=== PATIENT | female | born 1935 | race Caucasian/White ===

== ENCOUNTER 2017-06-15 11:33 | Emergency (ER) | payer MEDICARE, BC ==
[2017-06-15] MEDS ORDERED: Aspirin 81 MG Tab.Chew PO ONE (12:00)
--- NOTE | 2017-06-15 12:01 | EDM.PDOC ---
ED HPI GENERAL MEDICAL PROBLEM - General Chief Complaint: Chest Pain Stated Complaint: HBP Time Seen by Provider: 06/15/17 12:01 Source of Information: Reports: Patient - History of Present Illness INITIAL COMMENTS - FREE TEXT/NARRATIVE: HISTORY AND PHYSICAL: History of present illness: [Patient with two-year history of vertigo and macular degeneration presents with with intermittent dizziness and blurred vision, last symptoms were several days ago she is currently asymptomatic but stated she felt lightheaded just prior to arrival currently she is in no distress and asymptomatic. With extreme positioning of head looking up at ceiling and bringing her head down she does get somewhat lightheaded feeling aloof but does not get dizzy no symptoms with chin to chest slight dizziness with head tilt to the left Review of systems: As per history of present illness and below otherwise all systems reviewed and negative. Past medical history: As per history of present illness and as reviewed below otherwise noncontributory. Surgical history: As per history of present illness and as reviewed below otherwise noncontributory. Social history: No reported history of drug or alcohol abuse. Family history: As per history of present illness and as reviewed below otherwise noncontributory. Physical exam: HEENT: Atraumatic, normocephalic, pupils reactive, negative for conjunctival pallor or scleral icterus, mucous membranes moist, throat clear, neck supple, nontender, trachea midline. Lungs: Clear to auscultation, breath sounds equal bilaterally, chest nontender. Heart: S1S2, regular, negative for clicks, rubs, or JVD. Abdomen: Soft, nondistended, nontender. Negative for masses or hepatosplenomegaly. Negative for costovertebral tenderness. Pelvis: Stable nontender. Genitourinary: Deferred. Rectal: Deferred. Extremities: Atraumatic, negative for cords or calf pain. Neurovascular unremarkable. Neuro: Awake, alert, oriented. Cranial nerves II through XII unremarkable. Cerebellum unremarkable. Motor and sensory unremarkable throughout. Exam nonfocal. Diagnostics: []Lab as below EKG Chest 1 view Therapeutics: []Scopolamine patch Impression: []Benign positional vertigo Chronic history of baseline Definitive disposition and diagnosis as appropriate pending reevaluation and review of above. - Related Data Allergies Allergy/AdvReac Type Severity Reaction Status Date / Time morphine Allergy Hives Verified 02/18/15 11:26 Home Meds: Home Meds Levothyroxine 75 mcg PO DAILY 02/13/14 [History] Losartan Potassium 1 tab PO DAILY 02/13/14 [History] Carboxymethylcellulose Sodium [Refresh Liquigel 1%] 1 drop EYEBOTH QID 01/15/15 [History] Aspirin 81 mg PO BEDTIME #1 tab.chew 01/16/15 [Rx] Past Medical History - Past Surgical History Other GI Surgeries/Procedures: Appendectomy Social & Family History - Tobacco Use Smoking Status *Q: Never Smoker Second Hand Smoke Exposure: No - Alcohol Use Days Per Week of Alcohol Use: 0 - Recreational Drug Use Recreational Drug Use: No ED ROS GENERAL - Review of Systems Review Of Systems: ROS reveals no pertinent complaints other than HPI. ED EXAM, GENERAL - Physical Exam Exam: See Below Course - Vital Signs Last Recorded V/S: Last Vital Signs Temp 97.4 F 06/15/17 11:50 Pulse 74 06/15/17 11:50 Resp 18 06/15/17 11:50 BP 195/89 H 06/15/17 11:50 Pulse Ox 99 06/15/17 11:50 - Orders/Labs/Meds Orders: Active Orders 24 hr Category Date Time Status EKG Documentation Completion [RC] STAT Care 06/15/17 12:00 Active UA W/MICROSCOPIC [URIN] Stat Lab 06/15/17 12:30 Results Labs: Laboratory Tests 06/15/17 06/15/17 06/15/17 Range/Units 11:45 11:45 12:30 WBC 7.88 (4.0-11.0) K/uL RBC 4.82 (4.30-5.90) M/uL Hgb 14.9 (12.0-16.0) g/dL Hct 45.3 (36.0-46.0) % MCV 94.0 (80.0-98.0) fL MCH 30.9 (27.0-32.0) pg MCHC 32.9 (31.0-37.0) g/dL RDW Std Deviation 48.5 (28.0-62.0) fl RDW Coeff of Kaylee 14 (11.0-15.0) % Plt Count 240 (150-400) K/uL MPV 11.20 (7.40-12.00) fL Neut % (Auto) 56.9 (48.0-80.0) % Lymph % (Auto) 29.7 (16.0-40.0) % [place] % (Auto) 9.5 (0.0-15.0) % Eos % (Auto) 3.4 (0.0-7.0) % Baso % (Auto) 0.5 (0.0-1.5) % Neut # (Auto) 4.5 (1.4-5.7) K/uL Lymph # (Auto) 2.3 (0.6-2.4) K/uL [place] # (Auto) 0.8 (0.0-0.8) K/uL Eos # (Auto) 0.3 (0.0-0.7) K/uL Baso # (Auto) 0.0 (0.0-0.1) K/uL Nucleated RBC % 0.0 /100WBC Nucleated RBCs # 0 K/uL Sodium 140 (136-146) mmol/L Potassium 3.8 (3.5-5.1) mmol/L Chloride 104 (98-110) mmol/L Carbon Dioxide 27 (21-31) mmol/L BUN 16 (6.0-23.0) mg/dL Creatinine 0.8 (0.6-1.5) mg/dL Est Cr Clr Drug Dosing TNP Estimated GFR (MDRD) > 60.0 ml/min Glucose 99 (60-110) mg/dL Calcium 10.1 (8.8-10.8) mg/dL Total Bilirubin 0.8 (0.1-1.5) mg/dL AST 23 (5-40) IU/L ALT 36 (8-54) IU/L Alkaline Phosphatase 71 (40-150) Troponin I < 0.10 (0.0-0.29) NG/ML Total Protein 7.8 (6.0-8.0) g/dL Albumin 4.3 (3.4-4.8) g/dL Globulin 3.5 (2.0-3.5) g/dL Albumin/Globulin Ratio 1.2 L (1.3-2.8) Urine Color YELLOW Urine Appearance CLEAR Urine pH 7.0 (5.0-8.0) Ur Specific [place] 1.010 (1.001-1.035) Urine Protein NEGATIVE (NEGATIVE) mg/dL Urine Glucose (UA) NEGATIVE (NEGATIVE) mg/dL Urine Ketones NEGATIVE (NEGATIVE) mg/dL Urine Occult Blood TRACE-INTACT (NEGATIVE) Urine Nitrite NEGATIVE (NEGATIVE) Urine Bilirubin NEGATIVE (NEGATIVE) Urine Urobilinogen 0.2 (<2.0) EU/dL Ur Leukocyte Esterase NEGATIVE (NEGATIVE) Meds: Medications Discontinued Medications Generic Name Dose Route Start Last Admin Trade Name Filippo PRN Reason Stop Dose Admin Aspirin 324 mg 06/15/17 12:00 06/15/17 12:15 Aspirin PO 06/15/17 12:01 324 mg ONETIME ONE Administration Departure - Departure Time of Disposition: 13:10 Disposition: Home, Self-Care 01 Condition: Good Clinical Impression: Benign positional vertigo - Discharge Information Referrals: PCP,None [Primary Care Provider] - Forms: ED Department Discharge Additional Instructions: Blood pressure is stable at current please follow with your primary care provider to further control blood pressure He symptoms seem to have a positional component consistent with your prior history of benign positional vertigo Return if symptoms persist or worsen or new concerning symptoms develop Follow-up with Dr. james in 2 weeks sooner as needed The following information is given to patients seen in the emergency department who are being discharged to home. This information is to outline your options for follow-up care. We provide all patients seen in our emergency department with a follow-up referral. The need for follow-up, as well as the timing and circumstances, are variable depending upon the specifics of your emergency department visit. If you don't have a primary care physician on staff, we will provide you with a referral. We always advise you to contact your personal physician following an emergency department visit to inform them of the circumstance of the visit and for follow-up with them and/or the need for any referrals to a consulting specialist. The emergency department will also refer you to a specialist when appropriate. This referral assures that you have the opportunity for follow-up care with a specialist. All of these measure are taken in an effort to provide you with optimal care, which includes your follow-up. Under all circumstances we always encourage you to contact your private physician who remains a resource for coordinating your care. When calling for follow-up care, please make the office aware that this follow-up is from your recent emergency room visit. If for any reason you are refused follow-up, please contact the [facility] emergency department at and asked to speak to the emergency department charge nurse. - My Orders Last 24 Hours: My Active Orders 06/15/17 12:00 EKG Documentation Completion [RC] STAT 06/15/17 12:30 UA W/MICROSCOPIC [URIN] Stat - Assessment/Plan Last 24 Hours: My Active Orders 06/15/17 12:00 EKG Documentation Completion [RC] STAT 06/15/17 12:30 UA W/MICROSCOPIC [URIN] Stat
[2017-06-15 12:21] LABS: CHLORIDE,CL 104 mmol/L (98-110); SODIUM,NA 140 mmol/L (136-146)
--- NOTE | 2017-06-15 12:52 | CR ---
EXAMINATION: Portable chest radiograph. HISTORY: Pain. FINDINGS: The trachea is midline. The cardiomediastinal silhouette is within normal limits. No pulmonary infilt rates, effusions or pneumothorax. Mild biapical scarring. Osseous structures appear unremarkable. IMPRESSION: No acute cardiopulmonary process.
[2017-06-15 13:41] VITALS: BP 163/68
== END 2017-06-15 13:25 | disposition home or self-care (01) ==
LOC: MW.ED 11:33
DX: H81.10 Benign paroxysmal vertigo, unspecified ear (principal); Z88.5 Allergy status to narcotic agent; Z79.82 Long term (current) use of aspirin; Z79.899 Other long term (current) drug therapy
CPT/HCPCS: 36415; 71010; 80053; 81001; 84484; 85025; 93005; 99284; A9270; 99283

== ENCOUNTER 2017-07-15 10:13 | Observation (INO) | payer MEDICARE, BC ==
[2017-07-15] MEDS ORDERED: Sodium Chloride 0.9% 10 ML Syringe FLUSH PRN (10:14)
[2017-07-15] MEDS ORDERED: Sodium Chloride 0.9% 2.5 ML Syringe FLUSH PRN (10:14)
[2017-07-15] MEDS ORDERED: Nitroglycerin 0.4 MG Tab.SL SL PRN (10:19)
[2017-07-15] MEDS ORDERED: Sodium Chloride 0.9% 1,000 ML IV ONE (10:19)
--- NOTE | 2017-07-15 10:25 | EDM.PDOC ---
ED HPI GENERAL MEDICAL PROBLEM - General Stated Complaint: UNK Time Seen by Provider: 07/15/17 10:14 Source of Information: Reports: Patient History Limitations: Reports: No Limitations - History of Present Illness INITIAL COMMENTS - FREE TEXT/NARRATIVE: HISTORY AND PHYSICAL: History of present illness: Patient is an 81-year-old female who presents to the emergency room from the [facility] after having a high blood pressure reading. She states she presented initially to the clinic with some facial and neck redness and swelling. If she has a "gland infection" in her neck. Her primary care provider states that her blood pressure was in the high 190's over 110's and felt more comfortable with her being evaluated in the emergency room. Patient complains of the facial redness and swelling and tenderness to her right side of her neck. Does complain of some dizziness which is worse with movement. She denies any headache, change in vision, chest pain, shortness of breath, abdominal pain, nausea, vomiting or diarrhea. Has no bowel or bladder complaints or concerns. Patient reports that she does have a history of a salivary "gland infection", which she received oral antibiotics for. She states that her neck tenderness feels similar. The pain and swelling occur normally after eating. Past medical history of hypertension, thyroid disorder, vertigo. Once recently admitted to the hospital in May 2017 for an episode of vertigo and rule out chest pain. She was discharged home at that time. Has been following up with Dr. Patel, her primary care provider. Review of systems: As per history of present illness and below otherwise all systems reviewed and negative. Past medical history: As per history of present illness and as reviewed below otherwise noncontributory. Surgical history: As per history of present illness and as reviewed below otherwise noncontributory. Social history: No reported history of drug or alcohol abuse. Family history: As per history of present illness and as reviewed below otherwise noncontributory. Physical exam: General: Well-developed and well-nourished 81-year-old female. Alert and oriented. Nontoxic appearing and in no acute distress. HEENT: Atraumatic, normocephalic, pupils reactive, negative for conjunctival pallor or scleral icterus, mucous membranes moist, throat clear, neck supple, lymphadenopathy noted to the right anterior chain with mild tenderness, trachea midline. Mild facial flushing noted to the right cheek. Lungs: Clear to auscultation, breath sounds equal bilaterally, chest nontender. Heart: S1S2, regular rate and rhythm without overt murmurs Abdomen: Soft, nondistended, nontender. Negative for masses or hepatosplenomegaly. Negative for costovertebral tenderness. Pelvis: Stable nontender. Genitourinary: Deferred. Rectal: Deferred. Extremities: Atraumatic, ambulatory, moves all extremities per self. negative for cords or calf pain. Neurovascular unremarkable. Neuro: Awake, alert, oriented. Cranial nerves II through XII unremarkable. Cerebellum unremarkable. Motor and sensory unremarkable throughout. Exam nonfocal. Patient's blood pressure went from 212/125 down to 117/66 after 1 dose of nitroglycerin. She voices frustration that her blood pressure keeps going back and forth and "nobody can figure out what medicines to give me" to help manage her blood pressure. She states that her main concern now is just the soft tissue neck swelling and tenderness. BP reading back up to 167/89. He has some mild dizziness and nausea at this time. Patient is agreeable to stay overnight and Dr. Oneal was consulted at this time. Dr. Oneal is going to admit the patient for observation/telemetry for dizziness and hypertension. Diagnostics: CBC, CMP, troponin, EKG, one view chest Therapeutics: IV fluid, nitroglycerin Impression: Uncontrolled Hypertension Dizziness Possible parotid gland infection vs salivary stone, right Plan: Observation admission with telemetry to [facility] for dizziness and hypertension. Definitive disposition and diagnosis as appropriate pending reevaluation and review of above. Duration: Day(s): bilateral glands Pain Score (Numeric/FACES): 3 - Related Data Allergies Allergy/AdvReac Type Severity Reaction Status Date / Time morphine Allergy Hives Verified 07/15/17 10:22 Home Meds: Home Meds Levothyroxine 75 mcg PO ACBREAKFAST 02/13/14 [History] Aspirin 81 mg PO BEDTIME #1 tab.chew 01/16/15 [Rx] Hydrochlorothiazide 25 mg PO DAILY 07/15/17 [History] Valsartan 80 mg PO DAILY 07/15/17 [History] amLODIPine [Norvasc] 5 mg PO DAILY 07/15/17 [History] Past Medical History Cardiovascular History: Reports: Heart Murmur, Hypertension - Infectious Disease History Infectious Disease History: Reports: Chicken Pox, Measles, Mumps - Past Surgical History Other GI Surgeries/Procedures: Appendectomy Social & Family History - Family History Family Medical History: Noncontributory - Tobacco Use Smoking Status *Q: Never Smoker Second Hand Smoke Exposure: No - Caffeine Use Caffeine Use: Reports: Coffee - Alcohol Use Days Per Week of Alcohol Use: 0 - Recreational Drug Use Recreational Drug Use: No ED ROS GENERAL - Review of Systems Review Of Systems: ROS reveals no pertinent complaints other than HPI. ED EXAM, GENERAL - Physical Exam Exam: See Below (See dictation) Course - Vital Signs Last Recorded V/S: Last Vital Signs Temp 97.6 F 07/15/17 10:25 Pulse 111 H 07/15/17 10:54 Resp 16 07/15/17 10:54 BP 117/66 07/15/17 10:54 Pulse Ox 93 L 07/15/17 10:54 - Orders/Labs/Meds Orders: Active Orders 24 hr Category Date Time Status EKG Documentation Completion [RC] STAT Care 07/15/17 10:14 Active CULTURE STREP A CONFIRMATION [RM] Stat Lab 07/15/17 10:38 Results STREP SCRN A RAPID W CULT CONF [RM] Stat Lab 07/15/17 10:38 Results UA W/MICROSCOPIC [URIN] Stat Lab 07/15/17 10:20 Uncollected Nitroglycerin [Nitrostat] Med 07/15/17 10:19 Active 0.4 mg SL Q5M PRN Sodium Chloride 0.9% [Normal Saline] 1,000 ml Med 07/15/17 10:19 Active IV STAT Sodium Chloride 0.9% [Saline Flush] Med 07/15/17 10:14 Active 10 ml FLUSH ASDIRECTED PRN Sodium Chloride 0.9% [Saline Flush] Med 07/15/17 10:14 Active 2.5 ml FLUSH ASDIRECTED PRN Saline Lock Insert [OM.PC] Stat Oth 07/15/17 10:14 Ordered Medication Orders Sodium Chloride (Normal Saline) 1,000 mls @ 125 mls/hr IV STAT ONE Stop: 07/15/17 18:18 Last Admin: 07/15/17 10:44 Dose: 125 mls/hr Nitroglycerin (Nitrostat) 0.4 mg SL Q5M PRN PRN Reason: Chest Pain Last Admin: 07/15/17 10:47 Dose: 0.4 mg Sodium Chloride (Saline Flush) 10 ml FLUSH ASDIRECTED PRN PRN Reason: Keep Vein Open Last Admin: 07/15/17 10:45 Dose: 10 ml Sodium Chloride (Saline Flush) 2.5 ml FLUSH ASDIRECTED PRN PRN Reason: Keep Vein Open Last Admin: 07/15/17 10:45 Dose: 2.5 ml Labs: Laboratory Tests 07/15/17 07/15/17 Range/Units 10:30 10:30 WBC 7.49 (4.0-11.0) K/uL RBC 4.93 (4.30-5.90) M/uL Hgb 15.3 (12.0-16.0) g/dL Hct 45.0 (36.0-46.0) % MCV 91.3 (80.0-98.0) fL MCH 31.0 (27.0-32.0) pg MCHC 34.0 (31.0-37.0) g/dL RDW Std Deviation 45.9 (28.0-62.0) fl RDW Coeff of Kaylee 14 (11.0-15.0) % Plt Count 225 (150-400) K/uL MPV 9.90 (7.40-12.00) fL Neut % (Auto) 55.6 (48.0-80.0) % Lymph % (Auto) 29.4 (16.0-40.0) % [place] % (Auto) 12.4 (0.0-15.0) % Eos % (Auto) 2.1 (0.0-7.0) % Baso % (Auto) 0.5 (0.0-1.5) % Neut # (Auto) 4.2 (1.4-5.7) K/uL Lymph # (Auto) 2.2 (0.6-2.4) K/uL [place] # (Auto) 0.9 H (0.0-0.8) K/uL Eos # (Auto) 0.2 (0.0-0.7) K/uL Baso # (Auto) 0.0 (0.0-0.1) K/uL Nucleated RBC % 0.0 /100WBC Nucleated RBCs # 0 K/uL Sodium 137 (136-146) mmol/L Potassium 3.2 L (3.5-5.1) mmol/L Chloride 98 (98-110) mmol/L Carbon Dioxide 25 (21-31) mmol/L BUN 16 (6.0-23.0) mg/dL Creatinine 0.8 (0.6-1.5) mg/dL Est Cr Clr Drug Dosing 43.62 mL/min Estimated GFR (MDRD) > 60.0 ml/min Glucose 103 (60-110) mg/dL Calcium 10.0 (8.8-10.8) mg/dL Total Bilirubin 0.8 (0.1-1.5) mg/dL AST 25 (5-40) IU/L ALT 28 (8-54) IU/L Alkaline Phosphatase 63 (40-150) Troponin I < 0.10 (0.0-0.29) NG/ML Total Protein 7.5 (6.0-8.0) g/dL Albumin 4.4 (3.4-4.8) g/dL Globulin 3.1 (2.0-3.5) g/dL Albumin/Globulin Ratio 1.4 (1.3-2.8) Meds: Medications Generic Name Dose Route Start Last Admin Trade Name Freq PRN Reason Stop Dose Admin Sodium Chloride 1,000 mls @ 125 mls/hr 07/15/17 10:19 07/15/17 10:44 Normal Saline IV 07/15/17 18:18 125 mls/hr STAT ONE Administration Nitroglycerin 0.4 mg 07/15/17 10:19 07/15/17 10:47 Nitrostat SL 0.4 mg Q5M PRN Administration Chest Pain Sodium Chloride 10 ml 07/15/17 10:14 07/15/17 10:45 Saline Flush FLUSH 10 ml ASDIRECTED PRN Administration Keep Vein Open Sodium Chloride 2.5 ml 07/15/17 10:14 07/15/17 10:45 Saline Flush FLUSH 2.5 ml ASDIRECTED PRN Administration Keep Vein Open Departure - Departure Time of Disposition: 11:27 Disposition: Refer to Observation Clinical Impression: Dizziness, Uncontrolled hypertension - Discharge Information - My Orders Last 24 Hours: My Active Orders 07/15/17 10:14 EKG Documentation Completion [RC] STAT Sodium Chloride 0.9% [Saline Flush] 10 ml FLUSH ASDIRECTED PRN Sodium Chloride 0.9% [Saline Flush] 2.5 ml FLUSH ASDIRECTED PRN Saline Lock Insert [OM.PC] Stat 07/15/17 10:19 Nitroglycerin [Nitrostat] 0.4 mg SL Q5M PRN Sodium Chloride 0.9% [Normal Saline] 1,000 ml IV STAT 07/15/17 10:20 UA W/MICROSCOPIC [URIN] Stat 07/15/17 10:38 CULTURE STREP A CONFIRMATION [RM] Stat STREP SCRN A RAPID W CULT CONF [RM] Stat - Assessment/Plan Last 24 Hours: My Active Orders 07/15/17 10:14 EKG Documentation Completion [RC] STAT Sodium Chloride 0.9% [Saline Flush] 10 ml FLUSH ASDIRECTED PRN Sodium Chloride 0.9% [Saline Flush] 2.5 ml FLUSH ASDIRECTED PRN Saline Lock Insert [OM.PC] Stat 07/15/17 10:19 Nitroglycerin [Nitrostat] 0.4 mg SL Q5M PRN Sodium Chloride 0.9% [Normal Saline] 1,000 ml IV STAT 07/15/17 10:20 UA W/MICROSCOPIC [URIN] Stat 07/15/17 10:38 CULTURE STREP A CONFIRMATION [RM] Stat STREP SCRN A RAPID W CULT CONF [] Stat
--- NOTE | 2017-07-15 10:56 | CR ---
EXAMINATION: Portable chest radiograph. HISTORY: Hypertension. FINDINGS: The trachea is midline. The cardiomediastinal silhouette is within normal limits. No pulmonary infilt rates, effusions or pneumothorax. Osseous structures appear unremarkable. IMPRESSION: No acute cardiopulmonary process.
[2017-07-15 11:04] LABS: CHLORIDE,CL 98 mmol/L (98-110); SODIUM,NA 137 mmol/L (136-146)
[2017-07-15] MEDS ORDERED: Potassium Chloride 20 MEQ Tab.ER PO ONE (11:39)
[2017-07-15] MEDS ORDERED: Ondansetron 4 MG/2 ML SDV IVPUSH PRN (12:21)
[2017-07-15] MEDS: Enoxaparin 40 MG/0.4 ML Syringe SUBCUT SCH (12:59)
--- NOTE | 2017-07-15 13:02 | PCM.HP ---
H&P History of Present Illness - General Date of Service: 07/15/17 Admit Problem/Dx: Admission Diagnosis/Problem Admission Diagnosis/Problem Dizziness Source of Information: Patient (gonsalo) - History of Present Illness Initial Comments - Free Text/Narative: The 81-year-old female with a past history significant for resistant hypertension on 3 different classes of medications, hypothyroidism that presented to the emergency department after visiting her outpatient clinic provider for a swollen right side of the neck and was incidentally found to have an elevated blood pressure reading. Patient is also complaining of dizziness and lightheadedness for the past few weeks, so the provider then referred the patient to the emergency department for workup for possible hypertensive emergency. The outpatient clinic, the patient's blood pressure was 190/110. In the emergency department, patient's blood pressure was 212/125 and was given sublingual nitroglycerin which dropped her blood pressure to 117/66. When I went to assess the patient, her primary concern was the right-sided of her neck swelling. She tells me that she noticed it yesterday when she is began to experience difficulty swallowing as well. She also feels that she has a tickle in her throat. Denies a cough, chest pain or shortness of breath. She tells me that she has been feeling dizzy for the past few days but has not had an episode of syncope. She doesn't that she does feel that she has gotten close to passing out in the past however. She does not keep a log of her blood pressure. She is frustrated with her blood pressure given that she has been on multiple medications in the past and nothing seems to have adequate control of her blood pressure. ER course: 1 L normal saline bolus EKG is unremarkable Chest x-ray unremarkable BMP significant for a potassium of 3.2. 40 mEq of by mouth potassium chloride was given Sublingual nitroglycerin 1 bilateral glands Pain Score (Numeric/FACES): 3 - Related Data Allergies/Adverse Reactions: Allergies Allergy/AdvReac Type Severity Reaction Status Date / Time morphine Allergy Hives Verified 07/15/17 10:22 Home Medications: Home Meds Levothyroxine 75 mcg PO ACBREAKFAST 02/13/14 [History] Aspirin 81 mg PO BEDTIME #1 tab.chew 01/16/15 [Rx] Hydrochlorothiazide 25 mg PO DAILY 07/15/17 [History] Valsartan 80 mg PO DAILY 07/15/17 [History] amLODIPine [Norvasc] 5 mg PO DAILY 07/15/17 [History] Past Medical History HEENT History: Reports: None Cardiovascular History: Reports: Heart Murmur, Hypertension Respiratory History: Reports: None Gastrointestinal History: Reports: None 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: Reports: None [employer]CH[employer]IAN History: Reports: None Musculoskeletal History: Reports: None Neurological History: Reports: None Psychiatric History: Reports: None Endocrine/Metabolic History: Reports: None Hematologic History: Reports: None Immunologic History: Reports: None Oncologic (Cancer) History: Reports: None Dermatologic History: Reports: None - Infectious Disease History Infectious Disease History: Reports: Chicken Pox, Measles, Mumps - Past Surgical History Head Surgeries/Procedures: Reports: None HEENT Surgical History: Reports: None Respiratory Surgical History: Reports: None Other GI Surgeries/Procedures: Appendectomy Female Surgical History: Reports: None Endocrine Surgical History: Reports: None Neurological Surgical History: Reports: None Musculoskeletal Surgical History: Reports: None Oncologic Surgical History: Reports: None Dermatological Surgical History: Reports: None Social & Family History - Family History Family Medical History: Noncontributory - Tobacco Use Smoking Status *Q: Never Smoker Second Hand Smoke Exposure: No - Caffeine Use Caffeine Use: Reports: Coffee - Alcohol Use Days Per Week of Alcohol Use: 0 - Recreational Drug Use Recreational Drug Use: No H&P Review of Systems - Review of Systems: Review Of Systems: See Below General: Reports: Weakness, Fatigue HEENT: Reports: Sore Throat, Vertigo, Other (See history of present illness) Pulmonary: Reports: No Symptoms Cardiovascular: Reports: Lightheadedness, Blood Pressure Problem Gastrointestinal: Reports: No Symptoms Genitourinary: Reports: No Symptoms Musculoskeletal: Reports: No Symptoms Skin: Reports: No Symptoms Psychiatric: Reports: No Symptoms Neurological: Reports: No Symptoms Hematologic/Lymphatic: Reports: No Symptoms Immunologic: Reports: No Symptoms Exam - Exam Exam: See Below - Vital Signs Vital Signs: Last Vital Signs Temp 36.4 C 07/15/17 10:25 Pulse 94 07/15/17 12:21 Resp 16 07/15/17 12:21 BP 152/89 H 07/15/17 12:21 Pulse Ox 96 07/15/17 12:21 Weight: 59.012 kg - Exam General: Alert, Oriented, Cooperative HEENT: Conjunctiva Clear, EACs Clear, EOMI, Hearing Intact, Mucosa Moist & [place] , Nares Patent, Posterior Pharynx Clear, TMs Clear, Glasses, Other (Funduscopic exam reveals no active hemorrhage or disc swelling, no papilledema. History of macular degeneration), PERRLA Neck: Supple, Other (Right-sided anterior cervical swollen lymph node. No tenderness to palpation. No surrounding erythema that is obvious on gross inspection.) Lungs: Clear to Auscultation, Normal Respiratory Effort Cardiovascular: Regular Rate, Regular Rhythm, Normal S1, Normal S2 GI/Abdominal Exam: Normal Bowel Sounds, Soft Back Exam: Normal Inspection, Full Range of Motion Extremities: Normal Inspection, Normal Range of Motion Peripheral Pulses: 2+: Posterior Tibial (L), Posterior Tibial (R) Skin: Warm Neurological: Cranial Nerves Intact Neuro Extensive - Mental Status: Alert, Oriented x3, Normal Mood/Affect Neuro Extensive - Motor, Sensory, Reflexes: CN II-XII Intact Psychiatric: Alert, Normal Affect, Normal Mood - Patient Data Result Diagrams: 07/15/17 10:30 07/15/17 10:30 *Q Meaningful Use (ADM) - VTE *Q VTE Criteria *Q: - Stroke *Q Stroke Criteria *Q: - AMI *Q AMI Criteria *Q: Problem List Initiated/Reviewed/Updated: Yes Orders Last 24hrs: Active Orders 24 hr Category Date Time Status Oxygen Therapy [RC] PRN Care 07/15/17 12:21 Ordered Up ad Arias [RC] ASDIRECTED Care 07/15/17 12:21 Ordered VTE/DVT Education [RC] PER UNIT ROUTINE Care 07/15/17 12:21 Ordered Vital Signs [RC] Q4H Care 07/15/17 12:21 Ordered 2 Gram Sodium Diet [DIET] Diet 07/15/17 Dinner Ordered ALDOSTERONE/RENIN RATIO [REF] AM Lab 07/16/17 05:11 Ordered BASIC METABOLIC PANEL,BMP [CHEM] AM Lab 07/16/17 05:11 Ordered CBC WITH AUTO DIFF [HEME] AM Lab 07/16/17 05:11 Ordered Aspirin Med 07/15/17 21:00 Ordered 81 mg PO BEDTIME Enoxaparin [Lovenox] Med 07/15/17 12:30 Ordered 40 mg SUBCUT DAILY Hydrochlorothiazide Med 07/16/17 09:00 Ordered 25 mg PO DAILY Levothyroxine Med 07/16/17 07:30 Ordered 75 mcg PO ACBREAKFAST Ondansetron [Zofran] Med 07/15/17 12:21 Ordered 4 mg IVPUSH Q4H PRN Valsartan [Diovan] Med 07/16/17 09:00 Ordered 80 mg PO DAILY amLODIPine [Norvasc] Med 07/16/17 09:00 Ordered 5 mg PO DAILY Resuscitation Status Routine Resus Stat 07/15/17 12:21 Ordered Medication Orders Amlodipine Besylate (Norvasc) 5 mg PO DAILY [facility] Aspirin (Aspirin) 81 mg PO BEDTIME [facility] Enoxaparin Sodium (Lovenox) 40 mg SUBCUT Q24H ERIN Hydrochlorothiazide (Hydrochlorothiazide) 25 mg PO DAILY [facility] Sodium Chloride (Normal Saline) 1,000 mls @ 125 mls/hr IV STAT ONE Stop: 07/15/17 18:18 Last Admin: 07/15/17 10:44 Dose: 125 mls/hr Levothyroxine Sodium (Levothyroxine) 75 mcg PO ACBREAKFAST [facility] Nitroglycerin (Nitrostat) 0.4 mg SL Q5M PRN PRN Reason: Chest Pain Last Admin: 07/15/17 10:47 Dose: 0.4 mg Ondansetron HCl (Zofran) 4 mg IVPUSH Q4H PRN PRN Reason: Nausea Sodium Chloride (Saline Flush) 10 ml FLUSH ASDIRECTED PRN PRN Reason: Keep Vein Open Last Admin: 07/15/17 10:45 Dose: 10 ml Sodium Chloride (Saline Flush) 2.5 ml FLUSH ASDIRECTED PRN PRN Reason: Keep Vein Open Last Admin: 07/15/17 10:45 Dose: 2.5 ml Valsartan (Diovan) 80 mg PO DAILY [facility] Assessment/Plan Comment:: Assessment: #1. Hypertension #2. Dizziness #3. Right-sided neck swelling consistent with likely viral lymphadenopathy #4. Hypokalemia #5. History of poorly controlled hypertension, hypothyroidism Plan: #1. Admit to the floor for observation. Continuous telemetry. Up ad arias. Full code #2. Vital signs per floor routine. Low-salt diet #3. Lovenox for DVT prophylaxis #4. CBC, BMP ordered for tomorrow morning #5. Plasma aldosterone concentration/plasma renin concentration ratio for tomorrow morning given history of resistant hypertension and hypokalemia. #6. Continue home medications #7. IV normal saline 75 mL an hour
[2017-07-15] MEDS: Sodium Chloride 0.9% 1,000 ML IV SCH ×2 (14:18→23:29)
[2017-07-15] MEDS: Aspirin 81 MG Tab.Chew PO SCH (21:54)
[2017-07-16] MEDS: amLODIPine 5 MG Tab PO SCH (08:56)
[2017-07-16] MEDS: Levothyroxine 75 MCG Tab PO SCH (08:56)
[2017-07-16] MEDS ORDERED: Hydrochlorothiazide 25 MG Tab PO SCH (09:00)
[2017-07-16 09:33] LABS: CHLORIDE,CL 106 mmol/L (98-110); SODIUM,NA 139 mmol/L (136-146)
--- NOTE | 2017-07-16 09:45 | US ---
EXAMINATION: Renal and renal arterial duplex ultrasound HISTORY: Hypertension COMPARISON: None TECHNIQUE: Grayscale, color Doppler, and spectral Doppler images obtained of the kidneys and renal ar teries. FINDINGS: The right kidney measures at least 9.5 cm and the left kidney measures at least 10.5 cm anais e-to-pole without evidence of hydronephrosis. Renal cortical echotexture appears grossly normal. Smal l cysts are noted. Velocities within the aorta measures approximately 100 cm/s. Velocities within the proximal, mid, and distal right renal arteries aren't 323, 92, and 79 cm/s resp ectively. Velocities within the proximal, mid, and distal left renal arteries are 145, 19 the, and 99 cm second respectively. No elevated resistive indices within the arcuate. The right RAR is 5.0 and t he left RAR is 1.0. IMPRESSION: 1. Elevated velocities within the proximal right renal artery consistent with significant renal arter y stenosis.
[2017-07-16] MEDS: Enoxaparin 40 MG/0.4 ML Syringe SUBCUT SCH (11:35)
--- NOTE | 2017-07-16 13:06 | PCM.PN ---
- General Info Date of Service: 07/16/17 Admission Dx/Problem (Free Text): patient was admitted yesterday after noted to have elevated blood pressure and complaining of dizziness. Blood pressure medications were held after the blood pressure dropped over 100 points systolic after she received nitroglycerin in the emergency department. In the patient's morning, she states that her dizziness is gone away. She is more concerned about the swelling in her neck on the right side. I told her that it was likely a viral reactive lymphadenopathy. We went over why she is not on antibiotics for now for this. She denies any fevers chills nausea or vomiting. Denies any chest pain shortness of breath or palpitations. No other complaints. - Review of Systems General: Reports: Other (see history of present illness) - Patient Data Vitals - Most Recent: Last Vital Signs Temp 36.9 C 07/16/17 12:00 Pulse 86 07/16/17 12:00 Resp 16 07/16/17 12:00 BP 148/85 H 07/16/17 12:00 Pulse Ox 96 07/16/17 12:21 Orthostatic Blood Pressure [ 130/66 Standing] Orthostatic Blood Pressure [ 128/69 Sitting] Orthostatic Blood Pressure [ 132/70 Supine] Weight - Most Recent: 59.012 kg I&O - Last 24 Hours: Intake & Output 07/15/17 07/16/17 07/16/17 22:59 06:59 14:59 Intake Total 200 1410 Output Total 300 1200 Balance -100 210 Lab Results Last 24 Hours: Laboratory Results - last 24 hr 07/16/17 07/16/17 Range/Units 08:46 08:46 WBC 7.27 (4.0-11.0) K/uL RBC 4.96 (4.30-5.90) M/uL Hgb 15.3 (12.0-16.0) g/dL Hct 45.7 (36.0-46.0) % MCV 92.1 (80.0-98.0) fL MCH 30.8 (27.0-32.0) pg MCHC 33.5 (31.0-37.0) g/dL RDW Std Deviation 46.6 (28.0-62.0) fl RDW Coeff of Kaylee 14 (11.0-15.0) % Plt Count 266 (150-400) K/uL MPV 10.10 (7.40-12.00) fL Neut % (Auto) 49.3 (48.0-80.0) % Lymph % (Auto) 34.9 (16.0-40.0) % [place] % (Auto) 11.8 (0.0-15.0) % Eos % (Auto) 3.2 (0.0-7.0) % Baso % (Auto) 0.8 (0.0-1.5) % Neut # (Auto) 3.6 (1.4-5.7) K/uL Lymph # (Auto) 2.5 H (0.6-2.4) K/uL Winkler # (Auto) 0.9 H (0.0-0.8) K/uL Eos # (Auto) 0.2 (0.0-0.7) K/uL Baso # (Auto) 0.1 (0.0-0.1) K/uL Nucleated RBC % 0.0 /100WBC Nucleated RBCs # 0 K/uL Sodium 139 (136-146) mmol/L Potassium 3.9 (3.5-5.1) mmol/L Chloride 106 (98-110) mmol/L Carbon Dioxide 23 (21-31) mmol/L BUN 12 (6.0-23.0) mg/dL Creatinine 0.8 (0.6-1.5) mg/dL Est Cr Clr Drug Dosing 43.62 mL/min Estimated GFR (MDRD) > 60.0 ml/min Glucose 101 (60-110) mg/dL Calcium 9.9 (8.8-10.8) mg/dL Triglycerides 187 (10-190) mg/dL Cholesterol 285 H (131-240) mg/dL LDL Cholesterol, Calc 204 H (60-180) mg/dL VLDL Cholesterol 37 (5-55) mg/dL HDL Cholesterol 44 (40-80) mg/dL Cholesterol/HDL Ratio 6.5 H (3.3-6.0) TSH 3rd Generation 2.51 (0.47-5.0) uIU/mL Med Orders - Current: Current Medications Amlodipine Besylate (Norvasc) 5 mg PO DAILY [facility] Last Admin: 07/16/17 08:56 Dose: 5 mg Aspirin (Aspirin) 81 mg PO BEDTIME [facility] Last Admin: 07/15/17 21:54 Dose: 81 mg Enoxaparin Sodium (Lovenox) 40 mg SUBCUT Q24H [facility] Last Admin: 07/16/17 11:35 Dose: 40 mg Hydrochlorothiazide (Hydrochlorothiazide) 25 mg PO DAILY [facility] Last Admin: 07/16/17 08:56 Dose: 25 mg Levothyroxine Sodium (Levothyroxine) 75 mcg PO ACBREAKFAST [facility] Last Admin: 07/16/17 08:56 Dose: 75 mcg Nitroglycerin (Nitrostat) 0.4 mg SL Q5M PRN PRN Reason: Chest Pain Last Admin: 07/15/17 10:47 Dose: 0.4 mg Ondansetron HCl (Zofran) 4 mg IVPUSH Q4H PRN PRN Reason: Nausea Sodium Chloride (Saline Flush) 10 ml FLUSH ASDIRECTED PRN PRN Reason: Keep Vein Open Last Admin: 07/15/17 10:45 Dose: 10 ml Sodium Chloride (Saline Flush) 2.5 ml FLUSH ASDIRECTED PRN PRN Reason: Keep Vein Open Last Admin: 07/15/17 10:45 Dose: 2.5 ml Valsartan (Diovan) 80 mg PO DAILY [facility] Last Admin: 07/16/17 08:57 Dose: 80 mg Discontinued Medications Sodium Chloride (Normal Saline) 1,000 mls @ 125 mls/hr IV STAT ONE Stop: 07/15/17 18:18 Last Admin: 07/15/17 10:44 Dose: 125 mls/hr Sodium Chloride (Normal Saline) 1,000 mls @ 75 mls/hr IV ASDIRECTED [facility] Last Admin: 07/15/17 23:29 Dose: 75 mls/hr Potassium Chloride (Klor-Con M20) 40 meq PO ONETIME ONE Stop: 07/15/17 11:40 Last Admin: 07/15/17 12:14 Dose: 40 meq - Exam General: Alert, Oriented, Cooperative, No Acute Distress HEENT: Pupils Equal, Pupils Reactive, EOMI Neck: Supple Lungs: Clear to Auscultation, Normal Respiratory Effort Cardiovascular: Regular Rhythm, Murmurs (soft systolic murmur) GI/Abdominal Exam: Normal Bowel Sounds, Soft Back Exam: Normal Inspection, Full Range of Motion Extremities: Normal Inspection, Normal Range of Motion, Non-Tender, No Pedal Edema Peripheral Pulses: 3+: Posterior Tibial (L), Posterior Tibial (R) Skin: Warm Wound/Incisions: Healing Well Psy/Mental Status: Alert, Normal Affect, Normal Mood - Problem List Review Problem List Initiated/Reviewed/Updated: Yes - My Orders Last 24 Hours: My Active Orders 07/15/17 12:21 Oxygen Therapy [RC] PRN Up ad Jeanette [RC] ASDIRECTED Vital Signs [RC] Q4H Ondansetron [Zofran] 4 mg IVPUSH Q4H PRN Resuscitation Status Routine 07/15/17 12:30 Enoxaparin [Lovenox] 40 mg SUBCUT Q24H 07/15/17 13:01 Telemetry Monitoring [Cardiac Monitoring] [RC] . DIRECTED 07/15/17 21:00 Aspirin 81 mg PO BEDTIME 07/15/17 Dinner 2 Gram Sodium Diet [DIET] 07/16/17 07:30 Levothyroxine 75 mcg PO ACBREAKFAST 07/16/17 08:46 ALDOSTERONE/RENIN RATIO [REF] AM 07/16/17 09:00 Hydrochlorothiazide 25 mg PO DAILY Valsartan [Diovan] 80 mg PO DAILY amLODIPine [Norvasc] 5 mg PO DAILY - Plan Plan:: Assessment: #1. Hypertension #2. Dizziness-resolved #3. Right-sided neck swelling consistent with likely viral lymphadenopathy #4. Hypokalemia resolved #5. Renal artery stenosis #5. History of poorly controlled hypertension, hypothyroidism Plan: #1.restart home medications and monitor blood pressure closely. #2.we'll see what her blood pressure does now. There is concern of possible noncompliance given that she is on 3 medications. However, after perineal ultrasound indicates significant right kidney renal artery stenosis. I may start the patient on chlorthalidone tomorrow based on how her blood pressure goes today. Anticipate discharge tomorrow. She'll follow-up with me in clinic as an outpatient after this hospital stay.. I also ordered PAC/PRC ratio that we can follow up on as an outpatient for concerns of possible primary hyperaldosteronism.
[2017-07-16] MEDS: Aspirin 81 MG Tab.Chew PO SCH (21:40)
[2017-07-17] MEDS: Levothyroxine 75 MCG Tab PO SCH (06:33)
[2017-07-17 06:39] LABS: CHLORIDE,CL 104 mmol/L (98-110); SODIUM,NA 137 mmol/L (136-146)
[2017-07-17] MEDS ORDERED: Hydrochlorothiazide 25 MG Tab PO SCH (07:57)
[2017-07-17] MEDS: amLODIPine 5 MG Tab PO SCH (08:22)
[2017-07-17 11:36] VITALS: BP 140/88
[2017-07-17] MEDS: Enoxaparin 40 MG/0.4 ML Syringe SUBCUT SCH (12:13)
--- NOTE | 2017-07-17 16:19 | PCM.DCSUM1 ---
Discharge Summary - Hospital Course Free Text/Narrative:: Admission date: July 15, 2017 Discharge date: July 17, 2017 Admission diagnosis: #1. Hypertension #2. Viral cervical lymphadenopathy #3. Dizziness #4. Hypokalemia #5. History of hypothyroidism Discharge diagnosis: #1. Hypertension #2. Viral cervical lymphadenopathy resolved #3. Dizziness resolved #4. Hypokalemia resolved #5. History of hypothyroidism Hospital course: This is a 81-year-old female with a history of resistant hypertension that presented to the emergency department from an outside clinic with hypertensive urgency along with complaints of dizziness and neck swelling. Patient presented to the emergency department with blood pressure systolic over 200, she was given nitroglycerin in the emergency department which resulted in her blood pressure dropping over 100 points systolic. When I assessed her in the emergency department, the patient is also complaining of dizziness that had been going on for the past few days. She denied any chest pain, or blurry vision. She was more concerned about the swelling in her neck thinking it was a parotid gland infection that she's had in the past. With my physical exam, I felt that this is likely a post viral cervical lymphadenopathy. Patient was then ultimately admitted for hypertension workup and control. I ordered a renal ultrasound which showed significant renal artery stenosis unilaterally. The patient's blood pressure medications were held the first night given the dramatic drop in blood pressure after the nitroglycerin. The next day her blood pressure medications were restarted and her blood pressure was running in the 150s systolic. Given the renal artery stenosis, I don't think this patient is a good candidate for surgery. However, I did stop the valsartan, both for preventing possible bump in creatinine along with her complaint of a causing a cough. I adjusted her hydrochlorothiazide to 50 mg by mouth daily, up from 25 mg by mouth daily. She was also started on 12.5 mg of chlorthalidone. I plan on having this patient follow-up with me in clinic sometime next week. We will recheck a potassium level at that time given she was hypokalemic on presentation to the emergency department. I also had ordered a PA-C/PRC ratio for possible primary hyperaldosteronism that'll follow up in clinic for. I advised the patient to follow a low-salt diet. Patient's lipid panel also came back elevated for LDLs above 200. However she tells me that she has a history of severe muscle side effects from being placed on a statin and flat out refused being placed on any stroke start a statin regardless of the benefits. Patient was advised to return if symptoms including dizziness, chest pain, palpitations were to occur. Otherwise she can follow-up with me in clinic. - Discharge Data Discharge Date: 07/17/17 Discharge Disposition: Home, Self-Care 01 Condition: Good - Patient Instructions Diet: Low Sodium Activity: As Tolerated Notify Provider of: Fever, Increased Pain, Nausea and/or Vomiting Other/Special Instructions: dizziness, shortness of breath, worsening blurry vision - Discharge Plan Prescriptions/Med Rec: Chlorthalidone 12.5 mg PO DAILY 30 Days #30 tab Hydrochlorothiazide 50 mg PO DAILY 30 Days #30 tablet Home Medications: Home Meds Levothyroxine 75 mcg PO ACBREAKFAST 02/13/14 [History] Aspirin 81 mg PO BEDTIME #1 tab.chew 01/16/15 [Rx] amLODIPine [Norvasc] 5 mg PO DAILY 07/15/17 [History] Chlorthalidone 12.5 mg PO DAILY 30 Days #30 tab 07/17/17 [Rx] Hydrochlorothiazide 50 mg PO DAILY 30 Days #30 tablet 07/17/17 [Rx] Patient Handouts: Renal Artery Stenosis, Chlorthalidone tablets, Dizziness, [id number], Hydrochlorothiazide, HCTZ capsules or tablets Referrals: Severo Lomax MD [Resident] - 07/28/17 2:30 pm - Patient Data Vitals - Most Recent: Last Vital Signs Temp 36.1 C 07/17/17 11:35 Pulse 84 07/17/17 11:35 Resp 22 H 07/17/17 11:35 BP 140/88 07/17/17 11:35 Pulse Ox 95 07/17/17 12:00 Orthostatic Blood Pressure [ 154/78 Standing] Orthostatic Blood Pressure [ 150/90 Sitting] Orthostatic Blood Pressure [ 145/77 Supine] Weight - Most Recent: 59.012 kg I&O - Last 24 hours: Intake & Output 07/17/17 07/17/17 07/17/17 06:59 14:59 22:59 Intake Total 980 500 Output Total 920 850 Balance 60 -350 Lab Results - Last 24 hrs: Laboratory Results - last 24 hr 01/19/18 Range/Units 05:50 Sodium 137 (136-146) mmol/L Potassium 3.6 (3.5-5.1) mmol/L Chloride 104 (98-110) mmol/L Carbon Dioxide 24 (21-31) mmol/L BUN 17 (6.0-23.0) mg/dL Creatinine 0.7 (0.6-1.5) mg/dL Est Cr Clr Drug Dosing 49.85 mL/min Estimated GFR (MDRD) > 60.0 ml/min Glucose 87 (60-110) mg/dL Calcium 9.9 (8.8-10.8) mg/dL Med Orders - Current: Current Medications Discontinued Medications Amlodipine Besylate (Norvasc) 5 mg PO DAILY [facility] Last Admin: 07/17/17 08:22 Dose: 5 mg Aspirin (Aspirin) 81 mg PO BEDTIME [facility] Last Admin: 07/16/17 21:40 Dose: 81 mg Atorvastatin Calcium (Lipitor) 20 mg PO BEDTIME [facility] Enoxaparin Sodium (Lovenox) 40 mg SUBCUT Q24H [facility] Last Admin: 07/17/17 12:13 Dose: Not Given Hydrochlorothiazide (Hydrochlorothiazide) 25 mg PO DAILY [facility] Last Admin: 07/16/17 08:56 Dose: 25 mg Hydrochlorothiazide (Hydrochlorothiazide) 50 mg PO DAILY [facility] Last Admin: 07/17/17 08:23 Dose: 50 mg Sodium Chloride (Normal Saline) 1,000 mls @ 125 mls/hr IV STAT ONE Stop: 07/15/17 18:18 Last Admin: 07/15/17 10:44 Dose: 125 mls/hr Sodium Chloride (Normal Saline) 1,000 mls @ 75 mls/hr IV ASDIRECTED [facility] Last Admin: 07/15/17 23:29 Dose: 75 mls/hr Levothyroxine Sodium (Levothyroxine) 75 mcg PO ACBREAKFAST [facility] Last Admin: 07/17/17 06:33 Dose: 75 mcg Nitroglycerin (Nitrostat) 0.4 mg SL Q5M PRN PRN Reason: Chest Pain Last Admin: 07/15/17 10:47 Dose: 0.4 mg Ondansetron HCl (Zofran) 4 mg IVPUSH Q4H PRN PRN Reason: Nausea Potassium Chloride (Klor-Con M20) 40 meq PO ONETIME ONE Stop: 07/15/17 11:40 Last Admin: 07/15/17 12:14 Dose: 40 meq Sodium Chloride (Saline Flush) 10 ml FLUSH ASDIRECTED PRN PRN Reason: Keep Vein Open Last Admin: 07/15/17 10:45 Dose: 10 ml Sodium Chloride (Saline Flush) 2.5 ml FLUSH ASDIRECTED PRN PRN Reason: Keep Vein Open Last Admin: 07/15/17 10:45 Dose: 2.5 ml Valsartan (Diovan) 80 mg PO DAILY [facility] Last Admin: 07/17/17 08:22 Dose: 80 mg *Q Meaningful Use (DIS) - VTE *Q VTE Criteria *Q: - Stroke *Q Stroke Criteria *Q: - AMI *Q AMI Criteria *Q:
[2017-07-17] MEDS ORDERED: atorvaSTATin 20 MG Tab PO SCH (21:00)
== END 2017-07-17 13:30 | disposition home or self-care (01) ==
LOC: MW.ED 10:13 → MW.MS 11:28
PROVIDERS: ADMIT Family Medicine; ATTEND Family Medicine
DX: I16.0 Hypertensive urgency (principal); I10 Essential (primary) hypertension; R42 Dizziness and giddiness; E87.6 Hypokalemia; E03.9 Hypothyroidism, unspecified; R59.1 Generalized enlarged lymph nodes; I70.1 Atherosclerosis of renal artery; Z79.82 Long term (current) use of aspirin; Z79.899 Other long term (current) drug therapy; Z88.5 Allergy status to narcotic agent; Z90.49 Acquired absence of other specified parts of digestive tract
CPT/HCPCS: 36415; 71045; 76775; 80048; 80053; 80061; 81001; 82088; 84244; 84443; 84484; 85025; 87081; 87804; 87880; 93005; 93976; 96360; 96361; 96372; 99285; A9270; G0378; J1650; J7040

== ENCOUNTER 2017-07-19 14:12 | Emergency (ER) | payer MEDICARE, BC ==
--- NOTE | 2017-07-19 14:29 | EDM.PDOC ---
ED HPI GENERAL MEDICAL PROBLEM - General Chief Complaint: General Stated Complaint: WEAKNESS,BP ISSUES Time Seen by Provider: 07/19/17 14:15 - History of Present Illness INITIAL COMMENTS - FREE TEXT/NARRATIVE: HISTORY AND PHYSICAL: History of present illness: Patient's an 81-year-old female presents with concern of generalized weakness body aches nausea vomiting was had some concerns regarding transient elevations in her blood pressure she saw Dr. kelsey recently who did prescribe another medication she denies influenza immunization denies chest pain or shortness of breath Review of systems: As per history of present illness and below otherwise all systems reviewed and negative. Past medical history: As per history of present illness and as reviewed below otherwise noncontributory. Surgical history: As per history of present illness and as reviewed below otherwise noncontributory. Social history: No reported history of drug or alcohol abuse. Family history: As per history of present illness and as reviewed below otherwise noncontributory. Physical exam: HEENT: Atraumatic, normocephalic, pupils reactive, negative for conjunctival pallor or scleral icterus, mucous membranes moist, throat clear, neck supple, nontender, trachea midline. Lungs: Clear to auscultation, breath sounds equal bilaterally, chest nontender. Heart: S1S2, regular, negative for clicks, rubs, or JVD. Abdomen: Soft, nondistended, nontender. Negative for masses or hepatosplenomegaly. Negative for costovertebral tenderness. Pelvis: Stable nontender. Genitourinary: Deferred. Rectal: Deferred. Extremities: Atraumatic, negative for cords or calf pain. Neurovascular unremarkable. Neuro: Awake, alert, oriented. Cranial nerves II through XII unremarkable. Cerebellum unremarkable. Motor and sensory unremarkable throughout. Exam nonfocal. Diagnostics: CBC CMP PT/INR troponin influenza screen UA chest x-ray EKG Therapeutics: IV O2 monitor hydralazine 10 mg IV Impression: #1 probable viral syndrome #2 hypertension #3 generalized weakness Definitive disposition and diagnosis as appropriate pending reevaluation and review of above. - Related Data Allergies Allergy/AdvReac Type Severity Reaction Status Date / Time morphine Allergy Hives Verified 07/15/17 10:22 Home Meds: Home Meds Levothyroxine 75 mcg PO ACBREAKFAST 02/13/14 [History] Aspirin 81 mg PO BEDTIME #1 tab.chew 01/16/15 [Rx] amLODIPine [Norvasc] 5 mg PO DAILY 07/15/17 [History] Chlorthalidone 12.5 mg PO DAILY 30 Days #30 tab 07/17/17 [Rx] Hydrochlorothiazide 50 mg PO DAILY 30 Days #30 tablet 07/17/17 [Rx] Past Medical History HEENT History: Reports: None Cardiovascular History: Reports: Heart Murmur, Hypertension Respiratory History: Reports: None Gastrointestinal History: Reports: None 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: Reports: None HUC OB History: Reports: None Musculoskeletal History: Reports: None Neurological History: Reports: None Psychiatric History: Reports: None Endocrine/Metabolic History: Reports: None Hematologic History: Reports: None Immunologic History: Reports: None Oncologic (Cancer) History: Reports: None Dermatologic History: Reports: None - Infectious Disease History Infectious Disease History: Reports: Chicken Pox, Measles, Mumps - Past Surgical History Head Surgeries/Procedures: Reports: None HEENT Surgical History: Reports: None Respiratory Surgical History: Reports: None Other GI Surgeries/Procedures: Appendectomy Female Surgical History: Reports: None Endocrine Surgical History: Reports: None Neurological Surgical History: Reports: None Musculoskeletal Surgical History: Reports: None Oncologic Surgical History: Reports: None Dermatological Surgical History: Reports: None Social & Family History - Family History Family Medical History: Noncontributory - Tobacco Use Smoking Status *Q: Never Smoker Second Hand Smoke Exposure: No - Caffeine Use Caffeine Use: Reports: Coffee - Alcohol Use Days Per Week of Alcohol Use: 0 - Recreational Drug Use Recreational Drug Use: No ED ROS GENERAL - Review of Systems Review Of Systems: ROS reveals no pertinent complaints other than HPI. ED EXAM, GENERAL - Physical Exam Exam: See Below (See dictation) Course - Vital Signs Text/Narrative:: Case was discussed with Dr. Oneal was promoted patient who agrees with discharge home and follow-up Last Recorded V/S: Last Vital Signs Temp 37.4 C 07/19/17 14:27 Pulse 99 07/19/17 15:55 Resp 13 07/19/17 15:55 BP 159/71 H 07/19/17 15:55 Pulse Ox 96 07/19/17 15:55 - Orders/Labs/Meds Orders: Active Orders 24 hr Category Date Time Status EKG Documentation Completion [RC] STAT Care 07/19/17 14:32 Active Chest 2V [CR] Stat Exams 07/19/17 14:33 Taken Head wo Cont [CT] Stat Exams 07/19/17 15:23 Taken Labs: Laboratory Tests 07/19/17 07/19/17 07/19/17 Range/Units 14:41 14:41 14:50 WBC 5.49 (4.0-11.0) K/uL RBC 4.70 (4.30-5.90) M/uL Hgb 14.4 (12.0-16.0) g/dL Hct 41.9 (36.0-46.0) % MCV 89.1 (80.0-98.0) fL MCH 30.6 (27.0-32.0) pg MCHC 34.4 (31.0-37.0) g/dL RDW Std Deviation 44.1 (28.0-62.0) fl RDW Coeff of Kaylee 14 (11.0-15.0) % Plt Count 234 (150-400) K/uL MPV 9.60 (7.40-12.00) fL Neut % (Auto) 49.4 (48.0-80.0) % Lymph % (Auto) 33.3 (16.0-40.0) % [place] % (Auto) 12.8 (0.0-15.0) % Eos % (Auto) 4.0 (0.0-7.0) % Baso % (Auto) 0.5 (0.0-1.5) % Neut # (Auto) 2.7 (1.4-5.7) K/uL Lymph # (Auto) 1.8 (0.6-2.4) K/uL [place] # (Auto) 0.7 (0.0-0.8) K/uL Eos # (Auto) 0.2 (0.0-0.7) K/uL Baso # (Auto) 0.0 (0.0-0.1) K/uL Nucleated RBC % 0.0 /100WBC Nucleated RBCs # 0 K/uL Sodium 134 L (136-146) mmol/L Potassium 3.1 L (3.5-5.1) mmol/L Chloride 96 L (98-110) mmol/L Carbon Dioxide 24 (21-31) mmol/L BUN 19 (6.0-23.0) mg/dL Creatinine 0.8 (0.6-1.5) mg/dL Est Cr Clr Drug Dosing 43.62 mL/min Estimated GFR (MDRD) > 60.0 ml/min Glucose 107 (60-110) mg/dL Calcium 9.9 (8.8-10.8) mg/dL Total Bilirubin 0.8 (0.1-1.5) mg/dL AST 45 H (5-40) IU/L ALT 55 H (8-54) IU/L Alkaline Phosphatase 60 (40-150) Troponin I < 0.10 (0.0-0.29) NG/ML Total Protein 7.4 (6.0-8.0) g/dL Albumin 4.4 (3.4-4.8) g/dL Globulin 3.0 (2.0-3.5) g/dL Albumin/Globulin Ratio 1.5 (1.3-2.8) Urine Color YELLOW Urine Appearance CLEAR Urine pH 6.5 (5.0-8.0) Ur Specific [place] 1.010 (1.001-1.035) Urine Protein NEGATIVE (NEGATIVE) mg/dL Urine Glucose (UA) NEGATIVE (NEGATIVE) mg/dL Urine Ketones NEGATIVE (NEGATIVE) mg/dL Urine Occult Blood SMALL H (NEGATIVE) Urine Nitrite NEGATIVE (NEGATIVE) Urine Bilirubin NEGATIVE (NEGATIVE) Urine Urobilinogen 0.2 (<2.0) EU/dL Ur Leukocyte Esterase NEGATIVE (NEGATIVE) Urine RBC 0-2 (0-2/HPF) Urine WBC 0-1 (0-5/HPF) Ur Epithelial Cells RARE (NONE-FEW) Urine Bacteria RARE (NEGATIVE) Meds: Medications Discontinued Medications Generic Name Dose Route Start Last Admin Trade Name Freq PRN Reason Stop Dose Admin Hydralazine HCl 10 mg 07/19/17 14:33 07/19/17 14:59 Apresoline IVPUSH 07/19/17 14:34 10 mg ONETIME ONE Administration Departure - Departure Time of Disposition: 16:40 Disposition: Home, Self-Care 01 Condition: Good Clinical Impression: Hypertension - Discharge Information Referrals: Severo Lomax MD [Primary Care Provider] - Forms: ED Department Discharge Additional Instructions: The following information is given to patients seen in the emergency department who are being discharged to home. This information is to outline your options for follow-up care. We provide all patients seen in our emergency department with a follow-up referral. The need for follow-up, as well as the timing and circumstances, are variable depending upon the specifics of your emergency department visit. If you don't have a primary care physician on staff, we will provide you with a referral. We always advise you to contact your personal physician following an emergency department visit to inform them of the circumstance of the visit and for follow-up with them and/or the need for any referrals to a consulting specialist. The emergency department will also refer you to a specialist when appropriate. This referral assures that you have the opportunity for followup care with a specialist. All of these measure are taken in an effort to provide you with optimal care, which includes your followup. Under all circumstances we always encourage you to contact your private physician who remains a resource for coordinating your care. When calling for followup care, please make the office aware that this follow-up is from your recent emergency room visit. If for any reason you are refused follow-up, please contact the [facility] emergency department at and asked to speak to the emergency department charge nurse. Current medications follow-up primary medical doctor call schedule expedited appointment return as needed as discussed - My Orders Last 24 Hours: My Active Orders 07/19/17 14:32 EKG Documentation Completion [RC] STAT 07/19/17 14:33 Chest 2V [CR] Stat 07/19/17 15:23 Head wo Cont [CT] Stat - Assessment/Plan Last 24 Hours: My Active Orders 07/19/17 14:32 EKG Documentation Completion [RC] STAT 07/19/17 14:33 Chest 2V [CR] Stat 07/19/17 15:23 Head wo Cont [CT] Stat
[2017-07-19] MEDS ORDERED: hydrALAZINE 20 MG/ML SDV IVPUSH ONE (14:33)
[2017-07-19 15:13] LABS: CHLORIDE,CL 96 mmol/L (98-110); SODIUM,NA 134 mmol/L (136-146)
[2017-07-19 16:03] VITALS: BP 159/71
--- NOTE | 2017-07-20 19:09 | CT ---
EXAM DATE: 07/19/17 PATIENT'S AGE: 81 Patient: MADY NIELSON Facility: [place], [place] Site . Site : 1935 Study: CT Head [id number]/[id number] 3:45:00 PM Ordering Physician: Jaime Gaytan Final Report: INDICATION: dizzy, nausea, weakness COMPARISON: February, CT SCAN HEAD WITHOUT CONTRAST TECHNIQUE: Direct axial non-contrast images of the head from foramen magnum to vertex are provided. FINDINGS: Axial images of the brain demonstrate a normal appearance of the ventricles, sulci and basal cistern. There is no evidence of intracranial hemorrhage, infarct, mass or mass effect. Dior-white differentiation is normal throughout. Visualized mastoid air cells and middle ear cavities are clear. The visualized paranasal sinuses are clear. The orbits are symmetric. CONCLUSION: Unremarkable unenhanced head CT. Dictated by: Jamir Bridges MD @ 07/19/2017 15:59:53 (Electronic Signature) Report Signed by Proxy. YOLY
--- NOTE | 2017-07-20 19:12 | CR ---
EXAM DATE: 07/19/17 PATIENT'S AGE: 81 Patient: MADY NIELSON Facility: [place], [place] Site . Site : 1935 Study: XRay Chest [id number]/21/[id number] 3:45:48 PM Ordering Physician: Doctor Maynard Final Report: INDICATION: dizziness, weakness INDICATION: Dizziness. Weakness. TECHNIQUE: Chest 1 view. COMPARISON: None FINDINGS: Cardiovascular and mediastinum: Heart size and vasculature are normal in caliber and appearance. Mediastinum is within normal limits. Lungs and pleural space: Lungs are clear. No sign of infiltrate or mass. No sign of pleural effusion. No pneumothorax. Bones and soft tissues: mechanic insulator leads overlie the patient. IMPRESSION: Lungs are clear. Dictated by Elkin Sewell MD @ 07/19/2017 4:00:13 PM Dictated by: Elkin Sewell MD @ 07/19/2017 16:00:22 (Electronic Signature) Report Signed by Proxy. YOYL
== END 2017-07-19 17:04 | disposition home or self-care (01) ==
LOC: MW.ED 14:12
DX: I10 Essential (primary) hypertension (principal); Z88.5 Allergy status to narcotic agent; Z79.82 Long term (current) use of aspirin; Z79.899 Other long term (current) drug therapy; R42 Dizziness and giddiness
CPT/HCPCS: 36415; 70450; 71046; 80053; 81001; 84484; 85025; 87804; 93005; 96374; 99284; J0360

== ENCOUNTER 2017-07-21 10:59 | Emergency (ER) | payer MEDICARE, BC ==
--- NOTE | 2017-07-21 11:10 | EDM.PDOC ---
ED HPI GENERAL MEDICAL PROBLEM - General Stated Complaint: CHEST PAIN Time Seen by Provider: 07/21/17 11:10 Source of Information: Reports: Patient History Limitations: Reports: No Limitations - History of Present Illness INITIAL COMMENTS - FREE TEXT/NARRATIVE: HISTORY AND PHYSICAL: []81-year-old female presenting to the emergency department for not feeling well History of Present Illness: []Admission is been in the emergency room 3 times in the last week. Uncontrolled hypertension Her head feels full She has some numbness to her left leg tingling Cheeks are flushed Complaining of nausea Review of Systems: As per history of present illness and below otherwise all systems reviewed and negative. Past medical history: As per history of present illness and as reviewed below otherwise noncontributory. Surgical history: As per history of present illness and as reviewed below otherwise noncontributory. Social history: No reported history of drug or alcohol abuse. Family history: As per history of present illness and as reviewed below otherwise noncontributory. Father at 41 from an myocardial infarction Brother at an early age from [place] Her brother with [place] and heart surgeries Physical exam: Alert and oriented female who answers questions appropriately. She speaks in full sentences without any shortness of breath. She is just "miserable". Skin is warm and dry cheeks are flushed. Vertigo is noted with turning her head frequently HEENT: Atraumatic, normocehpalic, pupils reactive, negative for conjunctival pallor or scleral icterus, mucous membranes moist, throat clear, neck supple, nontender, trachea midline. Tympanic membranes without erythema. Lungs: Clear to auscultation, breath sounds equal bilaterally, chest non tender. Heart: S1S2, regular, negative for clicks, rubs, or JVD. Carotids are distant. Abdomen: Soft, nondistended, nontender. Negative for masses or hepatossplenmegaly. Negative for costovertebral tenderness. Pelvis: Stable nontender. Genitourinary: Deferred. Rectal: Deferred Extremities: Atraumatic, negative for cords or calf pain. Neurovascular unremarkable. Neuro: Awake, alert, oriented. Cranial nerves II through XII unremarkable. Cerebellum unremarkable. Motor and sensory unremarkable throughout. Exam nonfocal. Have discussed with patient at some length her concerns and addressed the vertigo and nausea she is feeling better. Have discussed that she has not seen a robotics application engineer and would need to follow-up with 1 Appointment has been made for her to see Dr. Snyder, robotics application engineer at [facility] on Monday July 24, 2017 at 3 PM. She has been instructed to remove the scopolamine patch night. Diagnostics: [] Therapeutics: [Scopolamine patch Zofran ODT 4 mg] Impression: [#1 vertigo #2 hypertension #3 anxiety] Plan: [Discharged to home Follow up with Dr. Boone on Thursday at 3 PM is discussed] Prescription for Zofran ODT 4 mg 1 3 times a day when necessary nausea number of 12 no refill Scopolamine patch Definitive disposition and diagnosis as appropriate pending reevaluation and review of above. - Related Data Allergies Allergy/AdvReac Type Severity Reaction Status Date / Time morphine Allergy Hives Verified 07/21/17 11:08 Home Meds: Home Meds Levothyroxine 75 mcg PO ACBREAKFAST 02/13/14 [History] Aspirin 81 mg PO BEDTIME #1 tab.chew 01/16/15 [Rx] amLODIPine [Norvasc] 5 mg PO DAILY 07/15/17 [History] Chlorthalidone 12.5 mg PO DAILY 30 Days #30 tab 07/17/17 [Rx] Hydrochlorothiazide 50 mg PO DAILY 30 Days #30 tablet 07/17/17 [Rx] Ondansetron [Zofran ODT] 4 mg PO TID PRN #12 tab.dis 07/21/17 [Rx] Scopolamine [Transderm-Scop] 1.5 mg TD WEEKLY PRN #2 patch.td.3 07/21/17 [Rx] Past Medical History HEENT History: Reports: None Cardiovascular History: Reports: Heart Murmur, Hypertension Respiratory History: Reports: None Gastrointestinal History: Reports: None 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: Reports: None 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 POLICE 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: Reports: 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 Musculoskeletal History: Reports: None Neurological History: Reports: None Psychiatric History: Reports: None Endocrine/Metabolic History: Reports: None Hematologic History: Reports: None Immunologic History: Reports: None Oncologic (Cancer) History: Reports: None Dermatologic History: Reports: None - Infectious Disease History Infectious Disease History: Reports: Chicken Pox, Measles, Mumps - Past Surgical History Head Surgeries/Procedures: Reports: None HEENT Surgical History: Reports: None Respiratory Surgical History: Reports: None Other GI Surgeries/Procedures: Appendectomy Female Surgical History: Reports: None Endocrine Surgical History: Reports: None Neurological Surgical History: Reports: None Musculoskeletal Surgical History: Reports: None Oncologic Surgical History: Reports: None Dermatological Surgical History: Reports: None Social & Family History - Family History Family Medical History: Noncontributory - Tobacco Use Smoking Status *Q: Never Smoker Second Hand Smoke Exposure: No - Caffeine Use Caffeine Use: Reports: Coffee - Alcohol Use Days Per Week of Alcohol Use: 0 - Recreational Drug Use Recreational Drug Use: No ED ROS GENERAL - Review of Systems Review Of Systems: ROS reveals no pertinent complaints other than HPI. ED EXAM, GENERAL - Physical Exam Exam: See Below (see dictation) Course - Vital Signs Last Recorded V/S: Last Vital Signs Temp 36.2 C 07/21/17 11:09 Pulse 95 07/21/17 11:09 Resp 18 07/21/17 11:09 BP 183/85 H 07/21/17 11:09 Pulse Ox 95 07/21/17 11:09 - Orders/Labs/Meds Orders: Active Orders 24 hr Category Date Time Status Scopolamine [Transderm-Scop] Med 07/21/17 11:21 Active 1.5 mg TRDERM Q72H PRN Medication Orders Scopolamine (Transderm-Scop) 1.5 mg TRDERM Q72H PRN PRN Reason: Dizziness Last Admin: 07/21/17 11:45 Dose: 1.5 mg Meds: Medications Generic Name Dose Route Start Last Admin Trade Name Freq PRN Reason Stop Dose Admin Scopolamine 1.5 mg 07/21/17 11:21 07/21/17 11:45 Transderm-Scop TRDERM 1.5 mg Q72H PRN Administration Dizziness Discontinued Medications Generic Name Dose Route Start Last Admin Trade Name Freq PRN Reason Stop Dose Admin Ondansetron HCl 4 mg 07/21/17 11:39 07/21/17 11:45 Zofran Odt PO 07/21/17 11:40 4 mg ONETIME ONE Administration Departure - Departure Time of Disposition: 12:34 Disposition: Home, Self-Care 01 Condition: Good Clinical Impression: Vertigo, Anxiety, Elevated blood pressure reading - Discharge Information Prescriptions: Ondansetron [Zofran ODT] 4 mg PO TID PRN #12 tab.dis PRN Reason: Nausea Scopolamine [Transderm-Scop] 1.5 mg TD WEEKLY PRN #2 patch.td.3 PRN Reason: Dizziness Referrals: Yoli Robles MD [Physician] - (Appointment scheduled with Dr Boone ( Cardiology at [facility]) on Monday July 24, 2017 at 3:00pm. Check into the [facility] at 2:30pm to complete paperwork.) Severo Lomax MD [Primary Care Provider] - Forms: ED Department Discharge Additional Instructions: The following information is given to patients seen in the emergency department who are being discharged to home. This information is to outline your options for follow-up care. We provide all patients seen in our emergency department with a follow-up referral. The need for follow-up, as well as the timing and circumstances, are variable depending upon the specifics of your emergency department visit. If you don't have a primary care physician on staff, we will provide you with a referral. We always advise you to contact your personal physician following an emergency department visit to inform them of the circumstance of the visit and for follow-up with them and/or the need for any referrals to a consulting specialist. The emergency department will also refer you to a specialist when appropriate. This referral assures that you have the opportunity for followup care with a specialist. All of these measure are taken in an effort to provide you with optimal care, which includes your followup. Under all circumstances we always encourage you to contact your private physician who remains a resource for coordinating your care. When calling for followup care, please make the office aware that this follow-up is from your recent emergency room visit. If for any reason you are refused follow-up, please contact the [facility] emergency department at and asked to speak to the emergency department charge nurse. You've been found to have vertigo anxiety and hypertension while in the emergency department Due to concerns with your hypertension would like you to see a robotics application engineer An appointment has been made for you to see Dr. Boone at [facility] on July 24 at 3 PM. Prescription for Zofran ODT 4 mg one up to 3 times daily for nausea has been sent to your pharmacy A prescription for scopolamine patch has been given to your pharmacy - My Orders Last 24 Hours: My Active Orders 07/21/17 11:21 Scopolamine [Transderm-Scop] 1.5 mg TRDERM Q72H PRN - Assessment/Plan Last 24 Hours: My Active Orders 07/21/17 11:21 Scopolamine [Transderm-Scop] 1.5 mg TRDERM Q72H PRN
[2017-07-21] MEDS ORDERED: Scopolamine 1.5 MG Transdermal Patch TRDERM PRN (11:21)
[2017-07-21] MEDS ORDERED: Ondansetron 4 MG Tab.DIS PO ONE (11:39)
[2017-07-21 13:02] VITALS: BP 168/78
== END 2017-07-21 13:03 | disposition home or self-care (01) ==
LOC: MW.ED 10:59
DX: I10 Essential (primary) hypertension (principal); F41.9 Anxiety disorder, unspecified; Z88.5 Allergy status to narcotic agent; Z79.899 Other long term (current) drug therapy
CPT/HCPCS: 99283; A9270

== ENCOUNTER 2017-07-24 02:23 | Emergency (ER) | payer MEDICARE, BC ==
--- NOTE | 2017-07-24 02:37 | EDM.PDOC ---
ED HPI GENERAL MEDICAL PROBLEM - General Chief Complaint: Gastrointestinal Problem Stated Complaint: WEAK Time Seen by Provider: 07/24/17 05:40 - History of Present Illness INITIAL COMMENTS - FREE TEXT/NARRATIVE: HISTORY AND PHYSICAL: History of present illness: Patient is an 81-year-old female presented to the ED for the third time in 3 days was also admitted to hospital recently was history medical noncompliance who presents again with vague symptoms including generalized weakness she is seen on prior occasions for myriad of different complaints all equally vague and associated with medical noncompliance Review of systems: As per history of present illness and below otherwise all systems reviewed and negative. Past medical history: As per history of present illness and as reviewed below otherwise noncontributory. Surgical history: As per history of present illness and as reviewed below otherwise noncontributory. Social history: No reported history of drug or alcohol abuse. Family history: As per history of present illness and as reviewed below otherwise noncontributory. Physical exam: HEENT: Atraumatic, normocephalic, pupils reactive, negative for conjunctival pallor or scleral icterus, mucous membranes moist, throat clear, neck supple, nontender, trachea midline. Lungs: Clear to auscultation, breath sounds equal bilaterally, chest nontender. Heart: S1S2, regular, negative for clicks, rubs, or JVD. Abdomen: Soft, nondistended, nontender. Negative for masses or hepatosplenomegaly. Negative for costovertebral tenderness. Pelvis: Stable nontender. Genitourinary: Deferred. Rectal: Deferred. Extremities: Atraumatic, negative for cords or calf pain. Neurovascular unremarkable. Neuro: Awake, alert, oriented. Cranial nerves II through XII unremarkable. Follows commands and moves all extremities limited but grossly nonfocal exam Diagnostics: CBC CMP PT/INR chest x-ray EKG Therapeutics: IV O2 monitor Impression: #1 history of hypertension #2 medical noncompliance #3 medical screening exam Definitive disposition and diagnosis as appropriate pending reevaluation and review of above. Treatments TANK COOPER: Reports: IV/IO Other Treatments TANK COOPER: g.18 to left AC denies pain Pain Score (Numeric/FACES): 0 - Related Data Allergies Allergy/AdvReac Type Severity Reaction Status Date / Time morphine Allergy Hives Verified 07/24/17 02:31 Home Meds: Home Meds Levothyroxine 75 mcg PO ACBREAKFAST 08/18/14 [History] Aspirin 81 mg PO BEDTIME #1 tab.chew 01/16/15 [Rx] amLODIPine [Norvasc] 5 mg PO DAILY 07/15/17 [History] Chlorthalidone 12.5 mg PO DAILY 30 Days #30 tab 07/17/17 [Rx] Hydrochlorothiazide 50 mg PO DAILY 30 Days #30 tablet 07/17/17 [Rx] Ondansetron [Zofran ODT] 4 mg PO TID PRN #12 tab.dis 07/21/17 [Rx] Scopolamine [Transderm-Scop] 1.5 mg TD WEEKLY PRN #2 patch.td.3 07/21/17 [Rx] Cephalexin 250 mg PO BID 07/24/17 [History] Transderm Patch 1 patch TRDERM WEEKLY 07/24/17 [History] Valsartan 80 mg PO DAILY 07/24/17 [History] Past Medical History HEENT History: Reports: None Cardiovascular History: Reports: Heart Murmur, Hypertension Respiratory History: Reports: None Gastrointestinal History: Reports: None 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: Reports: None 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 Musculoskeletal History: Reports: None Neurological History: Reports: None Psychiatric History: Reports: None Endocrine/Metabolic History: Reports: None Hematologic History: Reports: None Immunologic History: Reports: None Oncologic (Cancer) History: Reports: None Dermatologic History: Reports: None - Infectious Disease History Infectious Disease History: Reports: Chicken Pox, Measles, Mumps - Past Surgical History Head Surgeries/Procedures: Reports: None HEENT Surgical History: Reports: None Respiratory Surgical History: Reports: None Other GI Surgeries/Procedures: Appendectomy Female Surgical History: Reports: None Endocrine Surgical History: Reports: None Neurological Surgical History: Reports: None Musculoskeletal Surgical History: Reports: None Oncologic Surgical History: Reports: None Dermatological Surgical History: Reports: None Social & Family History - Family History Family Medical History: Noncontributory - Tobacco Use Smoking Status *Q: Never Smoker Second Hand Smoke Exposure: No - Caffeine Use Caffeine Use: Reports: Coffee - Alcohol Use Days Per Week of Alcohol Use: 0 - Recreational Drug Use Recreational Drug Use: No ED ROS GENERAL - Review of Systems Review Of Systems: ROS reveals no pertinent complaints other than HPI. ED EXAM, GENERAL - Physical Exam Exam: See Below Course - Vital Signs Last Recorded V/S: Last Vital Signs Temp 36.6 C 07/24/17 02:31 Pulse 93 07/24/17 04:50 Resp 18 07/24/17 04:50 BP 165/90 H 07/24/17 04:50 Pulse Ox 96 07/24/17 04:50 - Orders/Labs/Meds Orders: Active Orders 24 hr Category Date Time Status EKG Documentation Completion [RC] STAT Care 07/24/17 02:29 Active Chest 1V Frontal [CR] Stat Exams 07/24/17 02:29 Taken Labs: Laboratory Tests 07/24/17 07/24/17 07/24/17 Range/Units 02:39 02:39 02:39 WBC 7.47 (4.0-11.0) K/uL RBC 4.68 (4.30-5.90) M/uL Hgb 14.1 (12.0-16.0) g/dL Hct 41.7 (36.0-46.0) % MCV 89.1 (80.0-98.0) fL MCH 30.1 (27.0-32.0) pg MCHC 33.8 (31.0-37.0) g/dL RDW Std Deviation 44.2 (28.0-62.0) fl RDW Coeff of Kaylee 14 (11.0-15.0) % Plt Count 268 (150-400) K/uL MPV 9.70 (7.40-12.00) fL Neut % (Auto) 58.7 (48.0-80.0) % Lymph % (Auto) 25.8 (16.0-40.0) % [place] % (Auto) 13.1 (0.0-15.0) % Eos % (Auto) 2.1 (0.0-7.0) % Baso % (Auto) 0.3 (0.0-1.5) % Neut # (Auto) 4.4 (1.4-5.7) K/uL Lymph # (Auto) 1.9 (0.6-2.4) K/uL [place] # (Auto) 1.0 H (0.0-0.8) K/uL Eos # (Auto) 0.2 (0.0-0.7) K/uL Baso # (Auto) 0.0 (0.0-0.1) K/uL Nucleated RBC % 0.0 /100WBC Nucleated RBCs # 0 K/uL INR 1.01 Sodium 134 L (136-146) mmol/L Potassium 2.8 L (3.5-5.1) mmol/L Chloride 96 L (98-110) mmol/L Carbon Dioxide 26 (21-31) mmol/L BUN 17 (6.0-23.0) mg/dL Creatinine 0.8 (0.6-1.5) mg/dL Est Cr Clr Drug Dosing 43.62 mL/min Estimated GFR (MDRD) > 60.0 ml/min Glucose 124 H (60-110) mg/dL Calcium 9.7 (8.8-10.8) mg/dL Total Bilirubin 0.7 (0.1-1.5) mg/dL AST 21 (5-40) IU/L ALT 25 (8-54) IU/L Alkaline Phosphatase 59 (40-150) Troponin I 0.17 (0.0-0.29) NG/ML Total Protein 7.2 (6.0-8.0) g/dL Albumin 4.3 (3.4-4.8) g/dL Globulin 2.9 (2.0-3.5) g/dL Albumin/Globulin Ratio 1.5 (1.3-2.8) Meds: Medications Discontinued Medications Generic Name Dose Route Start Last Admin Trade Name Freq PRN Reason Stop Dose Admin Al Hydroxide/Mg Hydroxide 15 0 ml 07/24/17 04:18 07/24/17 04:24 ml/ Lidocaine HCl 5 ml PO 07/24/17 04:19 1 each ONETIME ONE Administration Departure - Departure Time of Disposition: 05:40 Disposition: Home, Self-Care 01 Condition: Good Clinical Impression: Hypertension - Discharge Information Forms: ED Department Discharge Additional Instructions: The following information is given to patients seen in the emergency department who are being discharged to home. This information is to outline your options for follow-up care. We provide all patients seen in our emergency department with a follow-up referral. The need for follow-up, as well as the timing and circumstances, are variable depending upon the specifics of your emergency department visit. If you don't have a primary care physician on staff, we will provide you with a referral. We always advise you to contact your personal physician following an emergency department visit to inform them of the circumstance of the visit and for follow-up with them and/or the need for any referrals to a consulting specialist. The emergency department will also refer you to a specialist when appropriate. This referral assures that you have the opportunity for followup care with a specialist. All of these measure are taken in an effort to provide you with optimal care, which includes your followup. Under all circumstances we always encourage you to contact your private physician who remains a resource for coordinating your care. When calling for followup care, please make the office aware that this follow-up is from your recent emergency room visit. If for any reason you are refused follow-up, please contact the [facility] emergency department at and asked to speak to the emergency department charge nurse. Keep cardiology appointment today continue current medications return as needed as discussed - My Orders Last 24 Hours: My Active Orders 07/24/17 02:29 EKG Documentation Completion [RC] STAT Chest 1V Frontal [CR] Stat - Assessment/Plan Last 24 Hours: My Active Orders 07/24/17 02:29 EKG Documentation Completion [RC] STAT Chest 1V Frontal [CR] Stat
[2017-07-24 03:08] LABS: CHLORIDE,CL 96 mmol/L (98-110); SODIUM,NA 134 mmol/L (136-146)
[2017-07-24] MEDS ORDERED: Alum Hydrox/Mag Hydrox/Simeth 15 ML, Lidocaine 2% 5 ML PO ONE ×2 (04:18)
[2017-07-24 06:21] VITALS: BP 168/78
--- NOTE | 2017-07-24 11:59 | CR ---
EXAM DATE: 07/24/17 PATIENT'S AGE: 81 Patient: MADY NIELSON Facility: [place], [place] Site Site : 35 Study: XRay Chest [id number]/26/2018 3:24:37 AM Ordering Physician: LENNIE Final Report: INDICATION: Body weakness TECHNIQUE: Chest radiograph 1 view COMPARISON: 07/19/2017 FINDINGS: Mediastinum: [id number] stable cardiomegaly is noted. The mediastinum is normal in appearance. Lungs: Minimal bibasilar atelectasis is seen. No sign of pleural effusion seen. No pneumothorax is identified. Bones and soft tissue: Unremarkable for age. IMPRESSION: 1. [id number] stable cardiomegaly is noted. Dictated by Ranjeet Garland MD @ 07/24/2017 3:32:21 AM Dictated by: Ranjeet Garland MD @ 07/24/2017 03:32:24 (Electronic Signature) Report Signed by Proxy. YOLY
== END 2017-07-24 06:02 | disposition home or self-care (01) ==
LOC: MW.ED 02:23
DX: I10 Essential (primary) hypertension (principal); Z91.14 Patient's other noncompliance with medication regimen; Z79.82 Long term (current) use of aspirin; Z79.899 Other long term (current) drug therapy; Z88.5 Allergy status to narcotic agent
CPT/HCPCS: 36415; 71045; 80053; 84484; 85025; 85610; 93005; 99284; A9270

== ENCOUNTER 2017-11-28 12:19 | Observation (INO) | payer MEDICARE, BC ==
--- NOTE | 2017-11-28 12:38 | EDM.PDOC ---
ED HPI GENERAL MEDICAL PROBLEM - General Chief Complaint: General Stated Complaint: AMB Time Seen by Provider: 11/28/17 12:22 Source of Information: Reports: Patient, Family History Limitations: Reports: No Limitations - History of Present Illness INITIAL COMMENTS - FREE TEXT/NARRATIVE: HISTORY AND PHYSICAL: History of present illness: Patient is an 82-year-old female who presents to the emergency room today with complaints of generalized weakness and vague dizziness. Family called EMS to transport patient to our emergency room as "she was too weak to walk this morning...we couldn't get her up out of bed". Family is requesting to be transferred to [facility] for "cardiology and angiogram" as they believe she "has a weak heart". Patient has been seen multiple times through our emergency room, clinic, and has several admissions for the complaint of weakness over the past 6 months. The family is frustrated as they state that labs, EKG's and imaging "keep being done" but are told that she has "fine". She denies any fever, chills, headache, syncope, chest pain, shortness of breath or cough. She denies any abdominal pain, nausea, vomiting, diarrhea or constipation. Patient does live at home with family. Past medical history of resistant hypertension which is poorly controlled, hypothyroidism, hypokalemia, and chronic dizziness. Review of systems: As per history of present illness and below otherwise all systems reviewed and negative. Past medical history: As per history of present illness and as reviewed below otherwise noncontributory. Surgical history: As per history of present illness and as reviewed below otherwise noncontributory. Social history: No reported history of drug or alcohol abuse. Family history: As per history of present illness and as reviewed below otherwise noncontributory. Physical exam: General: Well-developed and well-nourished 82-year-old female. Alert and oriented. Nontoxic appearing and in no acute distress. HEENT: Atraumatic, normocephalic, pupils equal and reactive bilaterally, negative for conjunctival pallor or scleral icterus, mucous membranes moist, throat clear, neck supple, nontender, trachea midline. No drooling or trismus noted. No meningeal signs Lungs: Clear to auscultation, breath sounds equal bilaterally, chest nontender. Heart: S1S2, regular rate and rhythm without overt murmur Abdomen: Soft, nondistended, nontender. Negative for masses or hepatosplenomegaly. Negative for costovertebral tenderness. Pelvis: Stable nontender. Genitourinary: Deferred. Rectal: Deferred. Skin: Intact, warm, dry. No lesions or rashes noted. Extremities: Atraumatic, moves all extremities per self. She is negative for cords or calf pain. Neurovascular unremarkable. Neuro: Awake, alert, oriented. Cranial nerves II through XII unremarkable. Cerebellum unremarkable. Motor and sensory unremarkable throughout. Exam nonfocal. Notes: GCS 15, NIH 0. Patient's family is very adament about patient being transfered to [facility] in [place]. Initially the requested that no labs, EKGs, or imaging be done and "just transfer her". After educating the family that a screening exam needs to be completed prior to attempting to facilitate transfer, they are agreeable to diagnostics. Diagnostics: CBC, CMP, Troponin, EKG, Chest Xray, UA, TSH Therapeutics: Normal Saline, Impression: Weakness Dehydration Hypokalemia Plan: Observation Definitive disposition and diagnosis as appropriate pending reevaluation and review of above. - Related Data Allergies Allergy/AdvReac Type Severity Reaction Status Date / Time morphine Allergy Hives Verified 11/28/17 12:31 Home Meds: Home Meds Levothyroxine 75 mcg PO ACBREAKFAST 02/13/14 [History] Aspirin 81 mg PO BEDTIME #1 tab.chew 01/16/15 [Rx] amLODIPine [Norvasc] 5 mg PO DAILY 07/15/17 [History] Ondansetron [Zofran ODT] 4 mg PO TID PRN #12 tab.dis 07/21/17 [Rx] Chlorthalidone 25 mg PO DAILY 11/28/17 [History] Clopidogrel [Plavix] 75 mg PO DAILY 11/28/17 [History] Losartan [Cozaar] 100 mg PO DAILY 11/28/17 [History] Past Medical History HEENT History: Reports: None Cardiovascular History: Reports: Heart Murmur, Hypertension Respiratory History: Reports: None Gastrointestinal History: Reports: None 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: Reports: 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 Musculoskeletal History: Reports: None Neurological History: Reports: None Psychiatric History: Reports: None Endocrine/Metabolic History: Reports: None Hematologic History: Reports: None Immunologic History: Reports: None Oncologic (Cancer) History: Reports: None Dermatologic History: Reports: None - Infectious Disease History Infectious Disease History: Reports: Chicken Pox, Measles, Mumps - Past Surgical History Head Surgeries/Procedures: Reports: None HEENT Surgical History: Reports: None Respiratory Surgical History: Reports: None Other GI Surgeries/Procedures: Appendectomy Female Surgical History: Reports: None Endocrine Surgical History: Reports: None Neurological Surgical History: Reports: None Musculoskeletal Surgical History: Reports: None Oncologic Surgical History: Reports: None Dermatological Surgical History: Reports: None Social & Family History - Family History Family Medical History: Noncontributory - Caffeine Use Caffeine Use: Reports: Coffee EKG INTERPRETATION Comparison: NA - No Prior EKG (Reviewed by myself and Dr Fine; no apparent changes) Course - Vital Signs Last Recorded V/S: Last Vital Signs Temp 97.7 F 11/28/17 12:28 Pulse 84 11/28/17 13:18 Resp 16 11/28/17 13:18 BP 158/82 H 11/28/17 13:18 Pulse Ox 95 11/28/17 13:18 - Orders/Labs/Meds Orders: Active Orders 24 hr Category Date Time Status EKG Documentation Completion [RC] STAT Care 11/28/17 12:22 Active Chest 1V Frontal [CR] Stat Exams 11/28/17 12:22 Taken UA W/MICROSCOPIC [URIN] Stat Lab 11/28/17 12:50 Ordered Sodium Chloride 0.9% [Normal Saline] 1,000 ml Med 11/28/17 12:41 Active IV STAT Medication Orders Sodium Chloride (Normal Saline) 1,000 mls @ 500 mls/hr IV STAT ONE Stop: 11/28/17 14:40 Last Admin: 11/28/17 12:53 Dose: 500 mls/hr Labs: Laboratory Tests 11/28/17 11/28/17 11/28/17 Range/Units 12:43 12:43 12:43 WBC 7.76 (4.0-11.0) K/uL RBC 4.87 (4.30-5.90) M/uL Hgb 15.4 (12.0-16.0) g/dL Hct 44.3 (36.0-46.0) % MCV 91.0 (80.0-98.0) fL MCH 31.6 (27.0-32.0) pg MCHC 34.8 (31.0-37.0) g/dL RDW Std Deviation 44.7 (28.0-62.0) fl RDW Coeff of Kaylee 14 (11.0-15.0) % Plt Count 266 (150-400) K/uL MPV 9.50 (7.40-12.00) fL Neut % (Auto) 68.8 (48.0-80.0) % Lymph % (Auto) 22.3 (16.0-40.0) % Kent % (Auto) 7.6 (0.0-15.0) % Eos % (Auto) 1.0 (0.0-7.0) % Baso % (Auto) 0.3 (0.0-1.5) % Neut # (Auto) 5.3 (1.4-5.7) K/uL Lymph # (Auto) 1.7 (0.6-2.4) K/uL Kent # (Auto) 0.6 (0.0-0.8) K/uL Eos # (Auto) 0.1 (0.0-0.7) K/uL Baso # (Auto) 0.0 (0.0-0.1) K/uL Nucleated RBC % 0.0 /100WBC Nucleated RBCs # 0 K/uL Sodium 135 L (136-145) mmol/L Potassium 2.9 L (3.5-5.1) mmol/L Chloride 96 L (98-107) mmol/L Carbon Dioxide 29.0 (21.0-32.0) mmol/L BUN 23 H (7.0-18.0) mg/dL Creatinine 1.1 H (0.6-1.0) mg/dL Est Cr Clr Drug Dosing 31.19 mL/min Estimated GFR (MDRD) 47.6 ml/min Glucose 118 H (74-106) mg/dL Calcium 9.8 (8.5-10.1) mg/dL Total Bilirubin 0.7 (0.2-1.0) mg/dL AST 18 (15-37) IU/L ALT 28 (14-63) IU/L Alkaline Phosphatase 64 (46-116) U/L Troponin I < 0.050 (0.000-0.056) ng/mL Total Protein 8.2 (6.4-8.2) g/dL Albumin 4.5 (3.4-5.0) g/dL Globulin 3.7 H (2.0-3.5) g/dL Albumin/Globulin Ratio 1.2 L (1.3-2.8) TSH 3rd Generation 2.23 (0.36-3.74) uIU/mL Urine Color Urine Appearance Urine pH (5.0-8.0) Ur Specific [place] (1.001-1.035) Urine Protein (NEGATIVE) mg/dL Urine Glucose (UA) (NEGATIVE) mg/dL Urine Ketones (NEGATIVE) mg/dL Urine Occult Blood (NEGATIVE) Urine Nitrite (NEGATIVE) Urine Bilirubin (NEGATIVE) Urine Urobilinogen (<2.0) EU/dL Ur Leukocyte Esterase (NEGATIVE) Urine RBC (0-2/HPF) Urine WBC (0-5/HPF) Ur Epithelial Cells (NONE-FEW) Amorphous Sediment (NEGATIVE) Urine Bacteria (NEGATIVE) 11/28/17 Range/Units 12:50 WBC (4.0-11.0) K/uL RBC (4.30-5.90) M/uL Hgb (12.0-16.0) g/dL Hct (36.0-46.0) % MCV (80.0-98.0) fL MCH (27.0-32.0) pg MCHC (31.0-37.0) g/dL RDW Std Deviation (28.0-62.0) fl RDW Coeff of Kaylee (11.0-15.0) % Plt Count (150-400) K/uL MPV (7.40-12.00) fL Neut % (Auto) (48.0-80.0) % Lymph % (Auto) (16.0-40.0) % Kent % (Auto) (0.0-15.0) % Eos % (Auto) (0.0-7.0) % Baso % (Auto) (0.0-1.5) % Neut # (Auto) (1.4-5.7) K/uL Lymph # (Auto) (0.6-2.4) K/uL Kent # (Auto) (0.0-0.8) K/uL Eos # (Auto) (0.0-0.7) K/uL Baso # (Auto) (0.0-0.1) K/uL Nucleated RBC % /100WBC Nucleated RBCs # K/uL Sodium (136-145) mmol/L Potassium (3.5-5.1) mmol/L Chloride (98-107) mmol/L Carbon Dioxide (21.0-32.0) mmol/L BUN (7.0-18.0) mg/dL Creatinine (0.6-1.0) mg/dL Est Cr Clr Drug Dosing mL/min Estimated GFR (MDRD) ml/min Glucose (74-106) mg/dL Calcium (8.5-10.1) mg/dL Total Bilirubin (0.2-1.0) mg/dL AST (15-37) IU/L ALT (14-63) IU/L Alkaline Phosphatase (46-116) U/L Troponin I (0.000-0.056) ng/mL Total Protein (6.4-8.2) g/dL Albumin (3.4-5.0) g/dL Globulin (2.0-3.5) g/dL Albumin/Globulin Ratio (1.3-2.8) TSH 3rd Generation (0.36-3.74) uIU/mL Urine Color YELLOW Urine Appearance CLEAR Urine pH 7.0 (5.0-8.0) Ur Specific [place] 1.010 (1.001-1.035) Urine Protein NEGATIVE (NEGATIVE) mg/dL Urine Glucose (UA) NEGATIVE (NEGATIVE) mg/dL Urine Ketones NEGATIVE (NEGATIVE) mg/dL Urine Occult Blood TRACE-INTACT (NEGATIVE) Urine Nitrite NEGATIVE (NEGATIVE) Urine Bilirubin NEGATIVE (NEGATIVE) Urine Urobilinogen 0.2 (<2.0) EU/dL Ur Leukocyte Esterase NEGATIVE (NEGATIVE) Urine RBC 2-3 (0-2/HPF) Urine WBC 0-3 (0-5/HPF) Ur Epithelial Cells RARE (NONE-FEW) Amorphous Sediment FEW (NEGATIVE) Urine Bacteria RARE (NEGATIVE) Meds: Medications Generic Name Dose Route Start Last Admin Trade Name Freq PRN Reason Stop Dose Admin Sodium Chloride 1,000 mls @ 500 mls/hr 11/28/17 12:41 11/28/17 12:53 Normal Saline IV 11/28/17 14:40 500 mls/hr STAT ONE Administration Departure - Discharge Information Referrals: PCP,None [Primary Care Provider] - Forms: ED Department Discharge - My Orders Last 24 Hours: My Active Orders 11/28/17 12:22 EKG Documentation Completion [RC] STAT Chest 1V Frontal [CR] Stat 11/28/17 12:41 Sodium Chloride 0.9% [Normal Saline] 1,000 ml IV STAT 11/28/17 12:50 UA W/MICROSCOPIC [URIN] Stat - Assessment/Plan Last 24 Hours: My Active Orders 11/28/17 12:22 EKG Documentation Completion [RC] STAT Chest 1V Frontal [CR] Stat 11/28/17 12:41 Sodium Chloride 0.9% [Normal Saline] 1,000 ml IV STAT 11/28/17 12:50 UA W/MICROSCOPIC [URIN] Stat
[2017-11-28] MEDS ORDERED: Sodium Chloride 0.9% 1,000 ML IV ONE (12:41)
[2017-11-28 13:24] LABS: CHLORIDE,CL 96 mmol/L (98-107); SODIUM,NA 135 mmol/L (136-145)
[2017-11-28] MEDS ORDERED: NS + KCl 20mEq/L 1,000 ML IV SCH (13:45)
[2017-11-28] MEDS ORDERED: Potassium Chloride 20 MEQ Tab.ER PO ONE ×2 (13:45→13:57)
[2017-11-28] MEDS ORDERED: Sodium Chloride 0.9% with KCl 1,000 ML IV SCH (14:00)
--- NOTE | 2017-11-28 14:36 | PCM.HP ---
H&P History of Present Illness - General Admit Problem/Dx: Admission Diagnosis/Problem Admission Diagnosis/Problem Hypokalemia - History of Present Illness Initial Comments - Free Text/Narative: 82 yo female with pmh of hypertension who presents to the ED with complaints of generalized weakness. She reports feeling lightheaded when she gets up. The problem started several months ago and she has had multiple visits to the ED. She is getting frustrated that nobody is able to tell her what is wrong. Today she reports she was unable to walk due to her weakness. - Related Data Allergies/Adverse Reactions: Allergies Allergy/AdvReac Type Severity Reaction Status Date / Time morphine Allergy Hives Verified 11/28/17 12:31 Home Medications: Home Meds Levothyroxine 75 mcg PO ACBREAKFAST 02/13/14 [History] Aspirin 81 mg PO BEDTIME #1 tab.chew 01/16/15 [Rx] amLODIPine [Norvasc] 5 mg PO DAILY 07/15/17 [History] Ondansetron [Zofran ODT] 4 mg PO TID PRN #12 tab.dis 07/21/17 [Rx] Chlorthalidone 25 mg PO DAILY 11/28/17 [History] Clopidogrel [Plavix] 75 mg PO DAILY 11/28/17 [History] Losartan [Cozaar] 100 mg PO DAILY 11/28/17 [History] Past Medical History HEENT History: Reports: None Cardiovascular History: Reports: Heart Murmur, Hypertension Respiratory History: Reports: None Gastrointestinal History: Reports: None 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: Reports: None SETTLEMENT CLERK History: Reports: None Musculoskeletal History: Reports: None Neurological History: Reports: None Psychiatric History: Reports: None Endocrine/Metabolic History: Reports: None Hematologic History: Reports: None Immunologic History: Reports: None Oncologic (Cancer) History: Reports: None Dermatologic History: Reports: None - Infectious Disease History Infectious Disease History: Reports: Chicken Pox, Measles, Mumps - Past Surgical History Head Surgeries/Procedures: Reports: None HEENT Surgical History: Reports: None Respiratory Surgical History: Reports: None Other GI Surgeries/Procedures: Appendectomy Female Surgical History: Reports: None Endocrine Surgical History: Reports: None Neurological Surgical History: Reports: None Musculoskeletal Surgical History: Reports: None Oncologic Surgical History: Reports: None Dermatological Surgical History: Reports: None Social & Family History - Family History Family Medical History: Noncontributory - Tobacco Use Smoking Status *Q: Never Smoker - Caffeine Use Caffeine Use: Reports: Coffee - Recreational Drug Use Recreational Drug Use: No H&P Review of Systems - Review of Systems: Review Of Systems: ROS reveals no pertinent complaints other than HPI. Exam - Vital Signs Vital Signs: Last Vital Signs Temp 36.5 C 11/28/17 12:28 Pulse 84 11/28/17 13:18 Resp 16 11/28/17 13:18 BP 158/82 H 11/28/17 13:18 Pulse Ox 95 11/28/17 13:18 Weight: 55.792 kg - Exam General: Alert, Oriented HEENT: Mucosa Moist & [place] Lungs: Clear to Auscultation, Normal Respiratory Effort Cardiovascular: Regular Rate, Regular Rhythm GI/Abdominal Exam: Normal Bowel Sounds, Soft, Non-Tender Extremities: Non-Tender, No Pedal Edema Skin: Warm, Dry, Intact Neurological: Cranial Nerves Intact - Patient Data Lab Results Last 24 hrs: Laboratory Results - last 24 hr 11/28/17 11/28/17 11/28/17 Range/Units 12:43 12:43 12:43 WBC 7.76 (4.0-11.0) K/uL RBC 4.87 (4.30-5.90) M/uL Hgb 15.4 (12.0-16.0) g/dL Hct 44.3 (36.0-46.0) % MCV 91.0 (80.0-98.0) fL MCH 31.6 (27.0-32.0) pg MCHC 34.8 (31.0-37.0) g/dL RDW Std Deviation 44.7 (28.0-62.0) fl RDW Coeff of Kaylee 14 (11.0-15.0) % Plt Count 266 (150-400) K/uL MPV 9.50 (7.40-12.00) fL Neut % (Auto) 68.8 (48.0-80.0) % Lymph % (Auto) 22.3 (16.0-40.0) % [place] % (Auto) 7.6 (0.0-15.0) % Eos % (Auto) 1.0 (0.0-7.0) % Baso % (Auto) 0.3 (0.0-1.5) % Neut # (Auto) 5.3 (1.4-5.7) K/uL Lymph # (Auto) 1.7 (0.6-2.4) K/uL [place] # (Auto) 0.6 (0.0-0.8) K/uL Eos # (Auto) 0.1 (0.0-0.7) K/uL Baso # (Auto) 0.0 (0.0-0.1) K/uL Nucleated RBC % 0.0 /100WBC Nucleated RBCs # 0 K/uL Sodium 135 L (136-145) mmol/L Potassium 2.9 L (3.5-5.1) mmol/L Chloride 96 L (98-107) mmol/L Carbon Dioxide 29.0 (21.0-32.0) mmol/L BUN 23 H (7.0-18.0) mg/dL Creatinine 1.1 H (0.6-1.0) mg/dL Est Cr Clr Drug Dosing 31.19 mL/min Estimated GFR (MDRD) 47.6 ml/min Glucose 118 H (74-106) mg/dL Calcium 9.8 (8.5-10.1) mg/dL Magnesium (1.5-2.0) mg/dL Total Bilirubin 0.7 (0.2-1.0) mg/dL AST 18 (15-37) IU/L ALT 28 (14-63) IU/L Alkaline Phosphatase 64 (46-116) U/L Troponin I < 0.050 (0.000-0.056) ng/mL Total Protein 8.2 (6.4-8.2) g/dL Albumin 4.5 (3.4-5.0) g/dL Globulin 3.7 H (2.0-3.5) g/dL Albumin/Globulin Ratio 1.2 L (1.3-2.8) TSH 3rd Generation 2.23 (0.36-3.74) uIU/mL Urine Color Urine Appearance Urine pH (5.0-8.0) Ur Specific [place] (1.001-1.035) Urine Protein (NEGATIVE) mg/dL Urine Glucose (UA) (NEGATIVE) mg/dL Urine Ketones (NEGATIVE) mg/dL Urine Occult Blood (NEGATIVE) Urine Nitrite (NEGATIVE) Urine Bilirubin (NEGATIVE) Urine Urobilinogen (<2.0) EU/dL Ur Leukocyte Esterase (NEGATIVE) Urine RBC (0-2/HPF) Urine WBC (0-5/HPF) Ur Epithelial Cells (NONE-FEW) Amorphous Sediment (NEGATIVE) Urine Bacteria (NEGATIVE) 11/28/17 11/28/17 Range/Units 12:43 12:50 WBC (4.0-11.0) K/uL RBC (4.30-5.90) M/uL Hgb (12.0-16.0) g/dL Hct (36.0-46.0) % MCV (80.0-98.0) fL MCH (27.0-32.0) pg MCHC (31.0-37.0) g/dL RDW Std Deviation (28.0-62.0) fl RDW Coeff of Kaylee (11.0-15.0) % Plt Count (150-400) K/uL MPV (7.40-12.00) fL Neut % (Auto) (48.0-80.0) % Lymph % (Auto) (16.0-40.0) % [place] % (Auto) (0.0-15.0) % Eos % (Auto) (0.0-7.0) % Baso % (Auto) (0.0-1.5) % Neut # (Auto) (1.4-5.7) K/uL Lymph # (Auto) (0.6-2.4) K/uL [place] # (Auto) (0.0-0.8) K/uL Eos # (Auto) (0.0-0.7) K/uL Baso # (Auto) (0.0-0.1) K/uL Nucleated RBC % /100WBC Nucleated RBCs # K/uL Sodium (136-145) mmol/L Potassium (3.5-5.1) mmol/L Chloride (98-107) mmol/L Carbon Dioxide (21.0-32.0) mmol/L BUN (7.0-18.0) mg/dL Creatinine (0.6-1.0) mg/dL Est Cr Clr Drug Dosing mL/min Estimated GFR (MDRD) ml/min Glucose (74-106) mg/dL Calcium (8.5-10.1) mg/dL Magnesium 2.1 H (1.5-2.0) mg/dL Total Bilirubin (0.2-1.0) mg/dL AST (15-37) IU/L ALT (14-63) IU/L Alkaline Phosphatase (46-116) U/L Troponin I (0.000-0.056) ng/mL Total Protein (6.4-8.2) g/dL Albumin (3.4-5.0) g/dL Globulin (2.0-3.5) g/dL Albumin/Globulin Ratio (1.3-2.8) TSH 3rd Generation (0.36-3.74) uIU/mL Urine Color YELLOW Urine Appearance CLEAR Urine pH 7.0 (5.0-8.0) Ur Specific [place] 1.010 (1.001-1.035) Urine Protein NEGATIVE (NEGATIVE) mg/dL Urine Glucose (UA) NEGATIVE (NEGATIVE) mg/dL Urine Ketones NEGATIVE (NEGATIVE) mg/dL Urine Occult Blood TRACE-INTACT (NEGATIVE) Urine Nitrite NEGATIVE (NEGATIVE) Urine Bilirubin NEGATIVE (NEGATIVE) Urine Urobilinogen 0.2 (<2.0) EU/dL Ur Leukocyte Esterase NEGATIVE (NEGATIVE) Urine RBC 2-3 (0-2/HPF) Urine WBC 0-3 (0-5/HPF) Ur Epithelial Cells RARE (NONE-FEW) Amorphous Sediment FEW (NEGATIVE) Urine Bacteria RARE (NEGATIVE) Result Diagrams: 11/28/17 12:43 11/28/17 12:43 Problem List Initiated/Reviewed/Updated: Yes Orders Last 24hrs: Active Orders 24 hr Category Date Time Status Admission Status [Patient Status] [ADT] Stat ADT 11/28/17 13:44 Active Cardiac Monitoring [RC] CONTINUOUS Care 11/28/17 14:29 Active EKG Documentation Completion [RC] STAT Care 11/28/17 12:22 Active Oxygen Therapy [RC] PRN Care 11/28/17 14:29 Active VTE/DVT Education [RC] PER UNIT ROUTINE Care 11/28/17 14:29 Active Vital Signs [RC] Q4H Care 11/28/17 14:29 Active PT Evaluation and Treatment [CONS] Routine Cons 11/28/17 14:29 Active Regular Diet [DIET] Diet 11/28/17 Breakfast Active Chest 1V Frontal [CR] Stat Exams 11/28/17 12:22 Taken BASIC METABOLIC PANEL,BMP [CHEM] AM Lab 11/29/17 05:11 Ordered CBC WITH AUTO DIFF [HEME] AM Lab 11/29/17 05:11 Ordered UA W/MICROSCOPIC [URIN] Stat Lab 11/28/17 12:50 Ordered Aspirin Med 11/28/17 21:00 Ordered 81 mg PO BEDTIME Chlorthalidone Med 11/29/17 09:00 Ordered 25 mg PO DAILY Levothyroxine Med 11/29/17 07:30 Ordered 75 mcg PO ACBREAKFAST Losartan Med 11/29/17 09:00 Ordered 100 mg PO DAILY Sodium Chloride 0.9% [Normal Saline] 1,000 ml Med 11/28/17 12:41 Active IV STAT Sodium Chloride 0.9% with KCl [Normal Saline with 40 Med 11/28/17 14:00 Active mEq KCl] 1,000 ml IV ASDIRECTED amLODIPine [Norvasc] Med 11/29/17 09:00 Ordered 5 mg PO DAILY Sequential Compression Device [OM.PC] Per Unit Routine Oth 11/28/17 14:29 Ordered Resuscitation Status Routine Resus Stat 11/28/17 14:29 Ordered Medication Orders Amlodipine Besylate (Norvasc) 5 mg PO DAILY ERIN Aspirin (Aspirin) 81 mg PO BEDTIME ERIN Chlorthalidone (Chlorthalidone) 25 mg PO DAILY ERIN Sodium Chloride (Normal Saline) 1,000 mls @ 500 mls/hr IV STAT ONE Stop: 11/28/17 14:40 Last Admin: 11/28/17 12:53 Dose: 500 mls/hr Potassium Chloride/Sodium Chloride (Normal Saline With 40 Meq Kcl) 1,000 mls @ 150 mls/hr IV ASDIRECTED ERIN Stop: 11/28/17 20:39 Levothyroxine Sodium (Levothyroxine) 75 mcg PO ACBREAKFAST ERIN Non-Formulary Medication (Losartan) 100 mg PO DAILY ERIN Assessment/Plan Comment:: 82 yo female admitted for dehydration and hypokalmia. We will check orthostatic blood pressures. Will hydrate and replace potassium.
[2017-11-28] MEDS: Carboxymethylcellulose Sodium 0.5% Ophth Soln 0.4 ML UD Box of 30 EYEBOTH PRN ×2 (16:30→22:08)
[2017-11-28] MEDS: Aspirin 81 MG Tab.Chew PO SCH ×2 (22:00→22:04)
[2017-11-29] MEDS: Carboxymethylcellulose Sodium 0.5% Ophth Soln 0.4 ML UD Box of 30 EYEBOTH PRN ×3 (06:12→16:53)
[2017-11-29] MEDS: Levothyroxine 75 MCG Tab PO SCH (06:32)
--- NOTE | 2017-11-29 08:41 | PCM.DCSUM1 ---
Discharge Summary - Hospital Course Free Text/Narrative:: 82 yo fm with pmh HTN, CAD and Hypothyroidism admitted from 11/28/17 to 11/29/17 for Hypokalemia and Dehydration. Patient is poor historian cause of dehydration and hypokalemia is unclear. She just reported headaches and weakness prior to admission. She takes Amlodipine 5 mg QD, Chlorthalidone 25 mg QD and Cozaar 100 mg QD for her HTN. She has been on these medications for a few months now. She was started on IVF and Potassium was replaced. Her bp meds were held at admission. On 11/28 during the day her BP ranged from 158-168/82-90. Later in the evening and overnight it went down to 109/54-117/58. In the morning it was 130s/ 60s. This was all prior to administering any medications. Her Cozaar 100 mg was started first. - Discharge Data Discharge Date: 11/29/17 Discharge Disposition: Home, Self-Care 01 Condition: Stable - Patient Summary/Data Consults: Consultations 11/28/17 14:29 PT Evaluation and Treatment [CONS] Routine - Discharge Plan Home Medications: Home Meds Levothyroxine 75 mcg PO ACBREAKFAST 02/13/14 [History] Aspirin 81 mg PO BEDTIME #1 tab.chew 01/16/15 [Rx] amLODIPine [Norvasc] 5 mg PO DAILY 07/15/17 [History] Ondansetron [Zofran ODT] 4 mg PO TID PRN #12 tab.dis 07/21/17 [Rx] Chlorthalidone 25 mg PO DAILY 11/28/17 [History] Clopidogrel [Plavix] 75 mg PO DAILY 11/28/17 [History] Losartan [Cozaar] 100 mg PO DAILY 11/28/17 [History] Forms: ED Department Discharge Referrals: PCP,None [Primary Care Provider] - - Patient Data Vitals - Most Recent: Last Vital Signs Temp 36.6 C 11/29/17 04:00 Pulse 71 11/29/17 04:00 Resp 14 11/29/17 04:00 BP 130/65 11/29/17 04:00 Pulse Ox 95 11/29/17 04:00 Orthostatic Blood Pressure [ 136/86 Standing] Orthostatic Blood Pressure [ 142/84 Sitting] Orthostatic Blood Pressure [ 136/78 Supine] Weight - Most Recent: 55.3 kg I&O - Last 24 hours: Intake & Output 11/28/17 11/29/17 11/29/17 22:59 06:59 14:59 Intake Total 120 1149 Output Total 100 1050 Balance 20 99 Lab Results - Last 24 hrs: Laboratory Results - last 24 hr 11/28/17 11/28/17 11/28/17 Range/Units 12:43 12:43 12:43 WBC 7.76 (4.0-11.0) K/uL RBC 4.87 (4.30-5.90) M/uL Hgb 15.4 (12.0-16.0) g/dL Hct 44.3 (36.0-46.0) % MCV 91.0 (80.0-98.0) fL MCH 31.6 (27.0-32.0) pg MCHC 34.8 (31.0-37.0) g/dL RDW Std Deviation 44.7 (28.0-62.0) fl RDW Coeff of Kaylee 14 (11.0-15.0) % Plt Count 266 (150-400) K/uL MPV 9.50 (7.40-12.00) fL Neut % (Auto) 68.8 (48.0-80.0) % Lymph % (Auto) 22.3 (16.0-40.0) % [place] % (Auto) 7.6 (0.0-15.0) % Eos % (Auto) 1.0 (0.0-7.0) % Baso % (Auto) 0.3 (0.0-1.5) % Neut # (Auto) 5.3 (1.4-5.7) K/uL Lymph # (Auto) 1.7 (0.6-2.4) K/uL [place] # (Auto) 0.6 (0.0-0.8) K/uL Eos # (Auto) 0.1 (0.0-0.7) K/uL Baso # (Auto) 0.0 (0.0-0.1) K/uL Nucleated RBC % 0.0 /100WBC Nucleated RBCs # 0 K/uL Sodium 135 L (136-145) mmol/L Potassium 2.9 L (3.5-5.1) mmol/L Chloride 96 L (98-107) mmol/L Carbon Dioxide 29.0 (21.0-32.0) mmol/L BUN 23 H (7.0-18.0) mg/dL Creatinine 1.1 H (0.6-1.0) mg/dL Est Cr Clr Drug Dosing 31.19 mL/min Estimated GFR (MDRD) 47.6 ml/min Glucose 118 H (74-106) mg/dL Calcium 9.8 (8.5-10.1) mg/dL Magnesium (1.5-2.0) mg/dL Total Bilirubin 0.7 (0.2-1.0) mg/dL AST 18 (15-37) IU/L ALT 28 (14-63) IU/L Alkaline Phosphatase 64 (46-116) U/L Troponin I < 0.050 (0.000-0.056) ng/mL Total Protein 8.2 (6.4-8.2) g/dL Albumin 4.5 (3.4-5.0) g/dL Globulin 3.7 H (2.0-3.5) g/dL Albumin/Globulin Ratio 1.2 L (1.3-2.8) TSH 3rd Generation 2.23 (0.36-3.74) uIU/mL Urine Color Urine Appearance Urine pH (5.0-8.0) Ur Specific [place] (1.001-1.035) Urine Protein (NEGATIVE) mg/dL Urine Glucose (UA) (NEGATIVE) mg/dL Urine Ketones (NEGATIVE) mg/dL Urine Occult Blood (NEGATIVE) Urine Nitrite (NEGATIVE) Urine Bilirubin (NEGATIVE) Urine Urobilinogen (<2.0) EU/dL Ur Leukocyte Esterase (NEGATIVE) Urine RBC (0-2/HPF) Urine WBC (0-5/HPF) Ur Epithelial Cells (NONE-FEW) Amorphous Sediment (NEGATIVE) Urine Bacteria (NEGATIVE) 11/28/17 11/28/17 11/29/17 Range/Units 12:43 12:50 05:59 WBC 5.59 (4.0-11.0) K/uL RBC 4.19 L (4.30-5.90) M/uL Hgb 13.2 (12.0-16.0) g/dL Hct 38.8 (36.0-46.0) % MCV 92.6 (80.0-98.0) fL MCH 31.5 (27.0-32.0) pg MCHC 34.0 (31.0-37.0) g/dL RDW Std Deviation 47.7 (28.0-62.0) fl RDW Coeff of Kaylee 14 (11.0-15.0) % Plt Count 243 (150-400) K/uL MPV 9.50 (7.40-12.00) fL Neut % (Auto) 56.7 (48.0-80.0) % Lymph % (Auto) 27.0 (16.0-40.0) % [place] % (Auto) 13.4 (0.0-15.0) % Eos % (Auto) 2.5 (0.0-7.0) % Baso % (Auto) 0.4 (0.0-1.5) % Neut # (Auto) 3.2 (1.4-5.7) K/uL Lymph # (Auto) 1.5 (0.6-2.4) K/uL [place] # (Auto) 0.8 (0.0-0.8) K/uL Eos # (Auto) 0.1 (0.0-0.7) K/uL Baso # (Auto) 0.0 (0.0-0.1) K/uL Nucleated RBC % 0.0 /100WBC Nucleated RBCs # 0 K/uL Sodium (136-145) mmol/L Potassium (3.5-5.1) mmol/L Chloride (98-107) mmol/L Carbon Dioxide (21.0-32.0) mmol/L BUN (7.0-18.0) mg/dL Creatinine (0.6-1.0) mg/dL Est Cr Clr Drug Dosing mL/min Estimated GFR (MDRD) ml/min Glucose (74-106) mg/dL Calcium (8.5-10.1) mg/dL Magnesium 2.1 H (1.5-2.0) mg/dL Total Bilirubin (0.2-1.0) mg/dL AST (15-37) IU/L ALT (14-63) IU/L Alkaline Phosphatase (46-116) U/L Troponin I (0.000-0.056) ng/mL Total Protein (6.4-8.2) g/dL Albumin (3.4-5.0) g/dL Globulin (2.0-3.5) g/dL Albumin/Globulin Ratio (1.3-2.8) TSH 3rd Generation (0.36-3.74) uIU/mL Urine Color YELLOW Urine Appearance CLEAR Urine pH 7.0 (5.0-8.0) Ur Specific [place] 1.010 (1.001-1.035) Urine Protein NEGATIVE (NEGATIVE) mg/dL Urine Glucose (UA) NEGATIVE (NEGATIVE) mg/dL Urine Ketones NEGATIVE (NEGATIVE) mg/dL Urine Occult Blood TRACE-INTACT (NEGATIVE) Urine Nitrite NEGATIVE (NEGATIVE) Urine Bilirubin NEGATIVE (NEGATIVE) Urine Urobilinogen 0.2 (<2.0) EU/dL Ur Leukocyte Esterase NEGATIVE (NEGATIVE) Urine RBC 2-3 (0-2/HPF) Urine WBC 0-3 (0-5/HPF) Ur Epithelial Cells RARE (NONE-FEW) Amorphous Sediment FEW (NEGATIVE) Urine Bacteria RARE (NEGATIVE) 11/29/17 Range/Units 05:59 WBC (4.0-11.0) K/uL RBC (4.30-5.90) M/uL Hgb (12.0-16.0) g/dL Hct (36.0-46.0) % MCV (80.0-98.0) fL MCH (27.0-32.0) pg MCHC (31.0-37.0) g/dL RDW Std Deviation (28.0-62.0) fl RDW Coeff of [place] (11.0-15.0) % Plt Count (150-400) K/uL MPV (7.40-12.00) fL Neut % (Auto) (48.0-80.0) % Lymph % (Auto) (16.0-40.0) % [place] % (Auto) (0.0-15.0) % Eos % (Auto) (0.0-7.0) % Baso % (Auto) (0.0-1.5) % Neut # (Auto) (1.4-5.7) K/uL Lymph # (Auto) (0.6-2.4) K/uL [place] # (Auto) (0.0-0.8) K/uL Eos # (Auto) (0.0-0.7) K/uL Baso # (Auto) (0.0-0.1) K/uL Nucleated RBC % /100WBC Nucleated RBCs # K/uL Sodium 138 (136-145) mmol/L Potassium 4.4 (3.5-5.1) mmol/L Chloride 105 (98-107) mmol/L Carbon Dioxide 25.3 (21.0-32.0) mmol/L BUN 17 (7.0-18.0) mg/dL Creatinine 1.0 (0.6-1.0) mg/dL Est Cr Clr Drug Dosing 34.30 mL/min Estimated GFR (MDRD) 53.1 ml/min Glucose 96 (74-106) mg/dL Calcium 9.0 (8.5-10.1) mg/dL Magnesium (1.5-2.0) mg/dL Total Bilirubin (0.2-1.0) mg/dL AST (15-37) IU/L ALT (14-63) IU/L Alkaline Phosphatase (46-116) U/L Troponin I (0.000-0.056) ng/mL Total Protein (6.4-8.2) g/dL Albumin (3.4-5.0) g/dL Globulin (2.0-3.5) g/dL Albumin/Globulin Ratio (1.3-2.8) TSH 3rd Generation (0.36-3.74) uIU/mL Urine Color Urine Appearance Urine pH (5.0-8.0) Ur Specific [place] (1.001-1.035) Urine Protein (NEGATIVE) mg/dL Urine Glucose (UA) (NEGATIVE) mg/dL Urine Ketones (NEGATIVE) mg/dL Urine Occult Blood (NEGATIVE) Urine Nitrite (NEGATIVE) Urine Bilirubin (NEGATIVE) Urine Urobilinogen (<2.0) EU/dL Ur Leukocyte Esterase (NEGATIVE) Urine RBC (0-2/HPF) Urine WBC (0-5/HPF) Ur Epithelial Cells (NONE-FEW) Amorphous Sediment (NEGATIVE) Urine Bacteria (NEGATIVE) Med Orders - Current: Current Medications Amlodipine Besylate (Norvasc) 5 mg PO DAILY ERIN Artificial Tears (Refresh Plus 0.5%) 1 each EYEBOTH ASDIRECTED PRN PRN Reason: Dry Eyes Last Admin: 11/29/17 06:12 Dose: 1 drop Aspirin (Aspirin) 81 mg PO BEDTIME [facility] Last Admin: 11/28/17 22:04 Dose: Not Given Chlorthalidone (Chlorthalidone) 25 mg PO DAILY [facility] Levothyroxine Sodium (Levothyroxine) 75 mcg PO ACBREAKFAST [facility] Last Admin: 11/29/17 06:32 Dose: 75 mcg Losartan Potassium (Cozaar) 100 mg PO DAILY [facility] Discontinued Medications Clopidogrel Bisulfate (Plavix) 75 mg PO DAILY [facility] Sodium Chloride (Normal Saline) 1,000 mls @ 500 mls/hr IV STAT ONE Stop: 11/28/17 14:40 Last Admin: 11/28/17 12:53 Dose: 500 mls/hr Potassium Chloride/Sodium Chloride (Normal Saline With 20 Meq Kcl) 1,000 mls @ 125 mls/hr IV ASDIRECTED [facility] Potassium Chloride/Sodium Chloride (Normal Saline With 40 Meq Kcl) 1,000 mls @ 150 mls/hr IV ASDIRECTED [facility] Stop: 11/28/17 20:39 Last Admin: 11/28/17 15:11 Dose: 150 mls/hr Potassium Chloride (Klor-Con M20) 20 meq PO ONETIME ONE Stop: 11/28/17 13:46 Last Admin: 11/28/17 14:09 Dose: Not Given Potassium Chloride (Klor-Con M20) 40 meq PO ONETIME ONE Stop: 11/28/17 13:58 Last Admin: 11/28/17 14:40 Dose: 40 meq
--- NOTE | 2017-11-29 08:52 | PCM.PN ---
- General Info Date of Service: 11/29/17 - Review of Systems General: Reports: No Symptoms HEENT: Reports: No Symptoms Pulmonary: Reports: No Symptoms Cardiovascular: Reports: No Symptoms Gastrointestinal: Reports: No Symptoms Genitourinary: Reports: No Symptoms Musculoskeletal: Reports: No Symptoms Skin: Reports: No Symptoms Neurological: Reports: No Symptoms Psychiatric: Reports: Anxiety - Patient Data Vitals - Most Recent: Last Vital Signs Temp 36.6 C 11/29/17 04:00 Pulse 71 11/29/17 04:00 Resp 14 11/29/17 04:00 BP 130/65 11/29/17 04:00 Pulse Ox 95 11/29/17 04:00 Orthostatic Blood Pressure [ 136/86 Standing] Orthostatic Blood Pressure [ 142/84 Sitting] Orthostatic Blood Pressure [ 136/78 Supine] Weight - Most Recent: 55.3 kg I&O - Last 24 Hours: Intake & Output 11/28/17 11/29/17 11/29/17 22:59 06:59 14:59 Intake Total 120 1149 Output Total 100 1050 Balance 20 99 Lab Results Last 24 Hours: Laboratory Results - last 24 hr 11/28/17 11/28/17 11/28/17 Range/Units 12:43 12:43 12:43 WBC 7.76 (4.0-11.0) K/uL RBC 4.87 (4.30-5.90) M/uL Hgb 15.4 (12.0-16.0) g/dL Hct 44.3 (36.0-46.0) % MCV 91.0 (80.0-98.0) fL MCH 31.6 (27.0-32.0) pg MCHC 34.8 (31.0-37.0) g/dL RDW Std Deviation 44.7 (28.0-62.0) fl RDW Coeff of Kaylee 14 (11.0-15.0) % Plt Count 266 (150-400) K/uL MPV 9.50 (7.40-12.00) fL Neut % (Auto) 68.8 (48.0-80.0) % Lymph % (Auto) 22.3 (16.0-40.0) % [place] % (Auto) 7.6 (0.0-15.0) % Eos % (Auto) 1.0 (0.0-7.0) % Baso % (Auto) 0.3 (0.0-1.5) % Neut # (Auto) 5.3 (1.4-5.7) K/uL Lymph # (Auto) 1.7 (0.6-2.4) K/uL [place] # (Auto) 0.6 (0.0-0.8) K/uL Eos # (Auto) 0.1 (0.0-0.7) K/uL Baso # (Auto) 0.0 (0.0-0.1) K/uL Nucleated RBC % 0.0 /100WBC Nucleated RBCs # 0 K/uL Sodium 135 L (136-145) mmol/L Potassium 2.9 L (3.5-5.1) mmol/L Chloride 96 L (98-107) mmol/L Carbon Dioxide 29.0 (21.0-32.0) mmol/L BUN 23 H (7.0-18.0) mg/dL Creatinine 1.1 H (0.6-1.0) mg/dL Est Cr Clr Drug Dosing 31.19 mL/min Estimated GFR (MDRD) 47.6 ml/min Glucose 118 H (74-106) mg/dL Calcium 9.8 (8.5-10.1) mg/dL Magnesium (1.5-2.0) mg/dL Total Bilirubin 0.7 (0.2-1.0) mg/dL AST 18 (15-37) IU/L ALT 28 (14-63) IU/L Alkaline Phosphatase 64 (46-116) U/L Troponin I < 0.050 (0.000-0.056) ng/mL Total Protein 8.2 (6.4-8.2) g/dL Albumin 4.5 (3.4-5.0) g/dL Globulin 3.7 H (2.0-3.5) g/dL Albumin/Globulin Ratio 1.2 L (1.3-2.8) TSH 3rd Generation 2.23 (0.36-3.74) uIU/mL Urine Color Urine Appearance Urine pH (5.0-8.0) Ur Specific [place] (1.001-1.035) Urine Protein (NEGATIVE) mg/dL Urine Glucose (UA) (NEGATIVE) mg/dL Urine Ketones (NEGATIVE) mg/dL Urine Occult Blood (NEGATIVE) Urine Nitrite (NEGATIVE) Urine Bilirubin (NEGATIVE) Urine Urobilinogen (<2.0) EU/dL Ur Leukocyte Esterase (NEGATIVE) Urine RBC (0-2/HPF) Urine WBC (0-5/HPF) Ur Epithelial Cells (NONE-FEW) Amorphous Sediment (NEGATIVE) Urine Bacteria (NEGATIVE) 11/28/17 11/28/17 11/29/17 Range/Units 12:43 12:50 05:59 WBC 5.59 (4.0-11.0) K/uL RBC 4.19 L (4.30-5.90) M/uL Hgb 13.2 (12.0-16.0) g/dL Hct 38.8 (36.0-46.0) % MCV 92.6 (80.0-98.0) fL MCH 31.5 (27.0-32.0) pg MCHC 34.0 (31.0-37.0) g/dL RDW Std Deviation 47.7 (28.0-62.0) fl RDW Coeff of Kaylee 14 (11.0-15.0) % Plt Count 243 (150-400) K/uL MPV 9.50 (7.40-12.00) fL Neut % (Auto) 56.7 (48.0-80.0) % Lymph % (Auto) 27.0 (16.0-40.0) % [place] % (Auto) 13.4 (0.0-15.0) % Eos % (Auto) 2.5 (0.0-7.0) % Baso % (Auto) 0.4 (0.0-1.5) % Neut # (Auto) 3.2 (1.4-5.7) K/uL Lymph # (Auto) 1.5 (0.6-2.4) K/uL [place] # (Auto) 0.8 (0.0-0.8) K/uL Eos # (Auto) 0.1 (0.0-0.7) K/uL Baso # (Auto) 0.0 (0.0-0.1) K/uL Nucleated RBC % 0.0 /100WBC Nucleated RBCs # 0 K/uL Sodium (136-145) mmol/L Potassium (3.5-5.1) mmol/L Chloride (98-107) mmol/L Carbon Dioxide (21.0-32.0) mmol/L BUN (7.0-18.0) mg/dL Creatinine (0.6-1.0) mg/dL Est Cr Clr Drug Dosing mL/min Estimated GFR (MDRD) ml/min Glucose (74-106) mg/dL Calcium (8.5-10.1) mg/dL Magnesium 2.1 H (1.5-2.0) mg/dL Total Bilirubin (0.2-1.0) mg/dL AST (15-37) IU/L ALT (14-63) IU/L Alkaline Phosphatase (46-116) U/L Troponin I (0.000-0.056) ng/mL Total Protein (6.4-8.2) g/dL Albumin (3.4-5.0) g/dL Globulin (2.0-3.5) g/dL Albumin/Globulin Ratio (1.3-2.8) TSH 3rd Generation (0.36-3.74) uIU/mL Urine Color YELLOW Urine Appearance CLEAR Urine pH 7.0 (5.0-8.0) Ur Specific [place] 1.010 (1.001-1.035) Urine Protein NEGATIVE (NEGATIVE) mg/dL Urine Glucose (UA) NEGATIVE (NEGATIVE) mg/dL Urine Ketones NEGATIVE (NEGATIVE) mg/dL Urine Occult Blood TRACE-INTACT (NEGATIVE) Urine Nitrite NEGATIVE (NEGATIVE) Urine Bilirubin NEGATIVE (NEGATIVE) Urine Urobilinogen 0.2 (<2.0) EU/dL Ur Leukocyte Esterase NEGATIVE (NEGATIVE) Urine RBC 2-3 (0-2/HPF) Urine WBC 0-3 (0-5/HPF) Ur Epithelial Cells RARE (NONE-FEW) Amorphous Sediment FEW (NEGATIVE) Urine Bacteria RARE (NEGATIVE) 11/29/17 Range/Units 05:59 WBC (4.0-11.0) K/uL RBC (4.30-5.90) M/uL Hgb (12.0-16.0) g/dL Hct (36.0-46.0) % MCV (80.0-98.0) fL MCH (27.0-32.0) pg MCHC (31.0-37.0) g/dL RDW Std Deviation (28.0-62.0) fl RDW Coeff of Kaylee (11.0-15.0) % Plt Count (150-400) K/uL MPV (7.40-12.00) fL Neut % (Auto) (48.0-80.0) % Lymph % (Auto) (16.0-40.0) % [place]hel % (Auto) (0.0-15.0) % Eos % (Auto) (0.0-7.0) % Baso % (Auto) (0.0-1.5) % Neut # (Auto) (1.4-5.7) K/uL Lymph # (Auto) (0.6-2.4) K/uL [place]hel # (Auto) (0.0-0.8) K/uL Eos # (Auto) (0.0-0.7) K/uL Baso # (Auto) (0.0-0.1) K/uL Nucleated RBC % /100WBC Nucleated RBCs # K/uL Sodium 138 (136-145) mmol/L Potassium 4.4 (3.5-5.1) mmol/L Chloride 105 (98-107) mmol/L Carbon Dioxide 25.3 (21.0-32.0) mmol/L BUN 17 (7.0-18.0) mg/dL Creatinine 1.0 (0.6-1.0) mg/dL Est Cr Clr Drug Dosing 34.30 mL/min Estimated GFR (MDRD) 53.1 ml/min Glucose 96 (74-106) mg/dL Calcium 9.0 (8.5-10.1) mg/dL Magnesium (1.5-2.0) mg/dL Total Bilirubin (0.2-1.0) mg/dL AST (15-37) IU/L ALT (14-63) IU/L Alkaline Phosphatase (46-116) U/L Troponin I (0.000-0.056) ng/mL Total Protein (6.4-8.2) g/dL Albumin (3.4-5.0) g/dL Globulin (2.0-3.5) g/dL Albumin/Globulin Ratio (1.3-2.8) TSH 3rd Generation (0.36-3.74) uIU/mL Urine Color Urine Appearance Urine pH (5.0-8.0) Ur Specific [place] (1.001-1.035) Urine Protein (NEGATIVE) mg/dL Urine Glucose (UA) (NEGATIVE) mg/dL Urine Ketones (NEGATIVE) mg/dL Urine Occult Blood (NEGATIVE) Urine Nitrite (NEGATIVE) Urine Bilirubin (NEGATIVE) Urine Urobilinogen (<2.0) EU/dL Ur Leukocyte Esterase (NEGATIVE) Urine RBC (0-2/HPF) Urine WBC (0-5/HPF) Ur Epithelial Cells (NONE-FEW) Amorphous Sediment (NEGATIVE) Urine Bacteria (NEGATIVE) Med Orders - Current: Current Medications Amlodipine Besylate (Norvasc) 5 mg PO DAILY [facility] Artificial Tears (Refresh Plus 0.5%) 1 each EYEBOTH ASDIRECTED PRN PRN Reason: Dry Eyes Last Admin: 11/29/17 06:12 Dose: 1 drop Aspirin (Aspirin) 81 mg PO BEDTIME [facility] Last Admin: 11/28/17 22:04 Dose: Not Given Levothyroxine Sodium (Levothyroxine) 75 mcg PO ACBREAKFAST [facility] Last Admin: 11/29/17 06:32 Dose: 75 mcg Losartan Potassium (Cozaar) 100 mg PO DAILY [facility] Discontinued Medications Amlodipine Besylate (Norvasc) 5 mg PO DAILY [facility] Chlorthalidone (Chlorthalidone) 25 mg PO DAILY [facility] Clopidogrel Bisulfate (Plavix) 75 mg PO DAILY [facility] Sodium Chloride (Normal Saline) 1,000 mls @ 500 mls/hr IV STAT ONE Stop: 11/28/17 14:40 Last Admin: 11/28/17 12:53 Dose: 500 mls/hr Potassium Chloride/Sodium Chloride (Normal Saline With 20 Meq Kcl) 1,000 mls @ 125 mls/hr IV ASDIRECTED [facility] Potassium Chloride/Sodium Chloride (Normal Saline With 40 Meq Kcl) 1,000 mls @ 150 mls/hr IV ASDIRECTED [facility] Stop: 11/28/17 20:39 Last Admin: 11/28/17 15:11 Dose: 150 mls/hr Potassium Chloride (Klor-Con M20) 20 meq PO ONETIME ONE Stop: 11/28/17 13:46 Last Admin: 11/28/17 14:09 Dose: Not Given Potassium Chloride (Klor-Con M20) 40 meq PO ONETIME ONE Stop: 11/28/17 13:58 Last Admin: 11/28/17 14:40 Dose: 40 meq - Exam General: Alert, Oriented HEENT: Pupils Equal, Pupils Reactive, EOMI, Mucous Membr. Moist/[place] Neck: Supple Lungs: Clear to Auscultation, Normal Respiratory Effort Cardiovascular: Regular Rate, Regular Rhythm GI/Abdominal Exam: Normal Bowel Sounds, Soft, Non-Tender, No Organomegaly, No Distention Extremities: Normal Inspection, Normal Range of Motion, Non-Tender, No Pedal Edema, Normal Capillary Refill Peripheral Pulses: 2+: Dorsalis Pedis (L), Dorsalis Pedis (R) Skin: Warm, Dry, Intact Neurological: No New Focal Deficit Psy/Mental Status: Labile Mood, Anxious, Agitated - Problem List Review Problem List Initiated/Reviewed/Updated: Yes - My Orders Last 24 Hours: My Active Orders 11/29/17 12:00 amLODIPine [Norvasc] 5 mg PO DAILY - Plan Plan:: 82 yo fm with pmh HTN, CAD and Hypothyroidism admitted 11/28/17 for Weakness and Hypokalemia. Patient is poor historian cause of dehydration and hypokalemia is unclear. She just reported headaches and weakness prior to admission. She takes Amlodipine 5 mg QD, Chlorthalidone 25 mg QD and Cozaar 100 mg QD for her HTN. She has been on these medications for a few months now. She was started on IVF and Potassium was replaced. Her bp meds were held at admission. On 11/28 during the day her BP ranged from 158-168/82-90. Later in the evening and overnight it went down to 109/54-117/58. This morning it was 130/60. This was all prior to administering any medications. Upon entering room her SBP was 114, immediately after patient became anxious and agitated during conversation and immediately after the SBP was 160. #HTN, likely white coat #Weakness -resume Cozaar 100 mg -repeat vitals Q4H -continue to hold Chlorthalidone and Amlodipine -continue to monitor #Hypokalmeia, corrected -continue to monitor #Hypothyroidism -resume home meds dispo: 1-2 days diet: regular DVT prophylaxis: Lovenox
[2017-11-29] MEDS: Losartan 50 MG Tab PO SCH (08:59)
[2017-11-29] MEDS ORDERED: amLODIPine 5 MG Tab PO SCH (09:00)
[2017-11-29] MEDS ORDERED: Clopidogrel 75 MG Tab PO SCH (09:00)
[2017-11-29] MEDS ORDERED: Chlorthalidone 25 MG Tab PO SCH (09:00)
[2017-11-29] MEDS: amLODIPine 5 MG Tab PO SCH (11:43)
[2017-11-29] MEDS: Aspirin 81 MG Tab.Chew PO SCH (20:09)
[2017-11-29] MEDS ORDERED: Enoxaparin 40 MG/0.4 ML Syringe SUBCUT SCH (21:00)
[2017-11-30] MEDS: Carboxymethylcellulose Sodium 0.5% Ophth Soln 0.4 ML UD Box of 30 EYEBOTH PRN ×2 (00:58→06:50)
[2017-11-30] MEDS: Levothyroxine 75 MCG Tab PO SCH (06:50)
[2017-11-30] MEDS: amLODIPine 5 MG Tab PO SCH (08:48)
[2017-11-30] MEDS: Losartan 50 MG Tab PO SCH (08:48)
[2017-11-30 08:49] VITALS: BP 143/72
--- NOTE | 2017-11-30 09:07 | CR ---
EXAM DATE: 11/28/17 PATIENT'S AGE: 82 Patient: MADY NIELSON Facility: [place], [place] Site . Site : [id number] Study: XRay Chest [id number]/2/2018 1:06:44 PM Ordering Physician: Doctor Maynard Final Report: HISTORY: Weakness. TECHNIQUE: One view of the chest. COMPARISON: No prior. FINDINGS: Cardiac size within normal limits. Pulmonary vasculature within normal limits. There is no acute lung infiltrate or pulmonary edema. No pneumothorax or pleural effusion. IMPRESSION: No acute cardiopulmonary disease. Dictated by Benton Donaldson MD @ 11/28/2017 1:43:19 PM Dictated by: Benton Donaldson MD @ 11/28/2017 13:43:21 (Electronic Signature) Report Signed by Proxy. [facility] HOSPITALPaolo
--- NOTE | 2017-11-30 09:36 | PCM.DCSUM1 ---
Discharge Summary - Hospital Course Free Text/Narrative:: Admission date: 11/28/2017 Discharge date: 11/30/2017 Admission diagnosis: #1. Generalized weakness #2. Hypokalemia #3. Dehydration #4. History of HTN, CAD, hypothyroidism Discharge diagnosis: #1. Weakness - improved #2. Hypokalemia - resolved #3. Dehydration - resolved Hospital course: 82F with a hx as above that presented for the above mentioned reasons. She was admitted to observation for IV fluids, potassium replacement and monitoring of her weakness. Repeat labs the day after were reassuring, with potassium being corrected. She was to be discharged on 11/29 but there were concerns about her blood pressure, so she was monitored an extra night. The resident on at the time felt that her HTN was being over treated, so her home medicines were held. The next day, her blood pressure was in the 140s systolic. She was ambulating without difficulty, and had no complaints. Discharge instructions: Continue home meds. Advised to record daily BP at home, and to bring the readings in with her to her appointment. Advised to seek medical attention promptly for extreme ends of blood pressure (hypo/hypertensive ), chest pain, palpitations, nausea or vomiting. She agrees to the plan. F/u: Patient is to f/u with her PCP, Dr. Lomax within 1 week. - Discharge Data Discharge Date: 11/30/17 Discharge Disposition: Home, Self-Care 01 Condition: Stable - Patient Summary/Data Consults: Consultations 11/28/17 14:29 PT Evaluation and Treatment [CONS] Routine - Patient Instructions Diet: Heart Healthy Diet Activity: As Tolerated Notify Provider of: Fever, Increased Pain, Swelling and Redness, Drainage, Nausea and/or Vomiting - Discharge Plan Home Medications: Home Meds Levothyroxine 75 mcg PO ACBREAKFAST 02/13/14 [History] amLODIPine [Norvasc] 5 mg PO DAILY 07/15/17 [History] Chlorthalidone 25 mg PO DAILY 11/28/17 [History] Clopidogrel [Plavix] 75 mg PO DAILY 11/28/17 [History] Losartan [Cozaar] 100 mg PO DAILY 11/28/17 [History] Carboxymethylcellulose Sodium [Refresh Plus 0.5%] 1 each EYEBOTH ASDIRECTED PRN box 11/30/17 [Rx] Patient Handouts: Hypokalemia, Dehydration, Adult, [id number]-Pzct Referrals: Kvng Adams [Resident] - 12/08/17 10:15 am - Discharge Summary/Plan Comment Discharge Summary/Plan Comment: Admission date: 11/28/2017 Discharge date: 11/30/2017 Admission diagnosis: #1. Generalized weakness #2. Hypokalemia #3. Dehydration #4. History of HTN, CAD, hypothyroidism Discharge diagnosis: #1. Weakness - improved #2. Hypokalemia - resolved #3. Dehydration - resolved Hospital course: 82F with a hx as above that presented for the above mentioned reasons. She was admitted to observation for IV fluids, potassium replacement and monitoring of her weakness. Repeat labs the day after were reassuring, with potassium being corrected. She was to be discharged on 11/29 but there were concerns about her blood pressure, so she was monitored an extra night. The resident on at the time felt that her HTN was being over treated, so her home medicines were held. The next day, her blood pressure was in the 140s systolic. She was ambulating without difficulty, and had no complaints. Discharge instructions: Continue home meds. Advised to record daily BP at home, and to bring the readings in with her to her appointment. Advised to seek medical attention promptly for extreme ends of blood pressure (hypo/hypertensive ), chest pain, palpitations, nausea or vomiting. She agrees to the plan. F/u: Patient is to f/u with her PCP, Dr. Lomax within 1 week. - Patient Data Vitals - Most Recent: Last Vital Signs Temp 36.7 C 11/30/17 04:00 Pulse 73 11/30/17 04:00 Resp 18 11/30/17 08:00 BP 143/72 H 11/30/17 08:48 Pulse Ox 97 11/30/17 08:00 Orthostatic Blood Pressure [ 141/67 Standing] Orthostatic Blood Pressure [ 143/72 Sitting] Orthostatic Blood Pressure [ 136/64 Supine] Weight - Most Recent: 55.3 kg I&O - Last 24 hours: Intake & Output 11/29/17 11/30/17 11/30/17 22:59 06:59 14:59 Intake Total 1280 400 Output Total 980 1200 Balance 300 -800 Med Orders - Current: Current Medications Amlodipine Besylate (Norvasc) 5 mg PO DAILY [facility] Last Admin: 11/30/17 08:48 Dose: 5 mg Artificial Tears (Refresh Plus 0.5%) 1 each EYEBOTH ASDIRECTED PRN PRN Reason: Dry Eyes Last Admin: 11/30/17 06:50 Dose: 1 drop Aspirin (Aspirin) 81 mg PO BEDTIME [facility] Last Admin: 11/29/17 20:09 Dose: 81 mg Enoxaparin Sodium (Lovenox) 40 mg SUBCUT Q24H [facility] Last Admin: 11/29/17 20:10 Dose: 40 mg Levothyroxine Sodium (Levothyroxine) 75 mcg PO ACBREAKFAST [facility] Last Admin: 11/30/17 06:50 Dose: 75 mcg Losartan Potassium (Cozaar) 100 mg PO DAILY [facility] Last Admin: 11/30/17 08:48 Dose: 100 mg Discontinued Medications Amlodipine Besylate (Norvasc) 5 mg PO DAILY [facility] Chlorthalidone (Chlorthalidone) 25 mg PO DAILY [facility] Clopidogrel Bisulfate (Plavix) 75 mg PO DAILY [facility] Sodium Chloride (Normal Saline) 1,000 mls @ 500 mls/hr IV STAT ONE Stop: 11/28/17 14:40 Last Admin: 11/28/17 12:53 Dose: 500 mls/hr Potassium Chloride/Sodium Chloride (Normal Saline With 20 Meq Kcl) 1,000 mls @ 125 mls/hr IV ASDIRECTED [facility] Potassium Chloride/Sodium Chloride (Normal Saline With 40 Meq Kcl) 1,000 mls @ 150 mls/hr IV ASDIRECTED [facility] Stop: 11/28/17 20:39 Last Admin: 11/28/17 15:11 Dose: 150 mls/hr Potassium Chloride (Klor-Con M20) 20 meq PO ONETIME ONE Stop: 11/28/17 13:46 Last Admin: 11/28/17 14:09 Dose: Not Given Potassium Chloride (Klor-Con M20) 40 meq PO ONETIME ONE Stop: 11/28/17 13:58 Last Admin: 11/28/17 14:40 Dose: 40 meq
== END 2017-11-30 12:30 | disposition home or self-care (01) ==
LOC: MW.ED 12:19 → MW.MS 13:44
PROVIDERS: ADMIT Internal Medicine; ATTEND Internal Medicine
DX: R53.1 Weakness (principal); E87.6 Hypokalemia; E86.0 Dehydration; I10 Essential (primary) hypertension; I25.10 Atherosclerotic heart disease of native coronary artery without angina pectoris; E03.9 Hypothyroidism, unspecified; Z79.899 Other long term (current) drug therapy; Z79.02 Long term (current) use of antithrombotics/antiplatelets; Z79.82 Long term (current) use of aspirin; Z90.49 Acquired absence of other specified parts of digestive tract
CPT/HCPCS: 36415; 71045; 80048; 80053; 81001; 83735; 84443; 84484; 85025; 93005; 96360; 96361; 97161; 99285; A9270; J1650; J3480; J7040

== ENCOUNTER 2017-12-16 16:46 | Emergency (ER) | payer MEDICARE, BC ==
--- NOTE | 2017-12-16 17:12 | EDM.PDOC ---
ED HPI GENERAL MEDICAL PROBLEM - General Stated Complaint: DIZZINESS Time Seen by Provider: 12/16/17 16:59 Source of Information: Reports: Patient History Limitations: Reports: No Limitations - History of Present Illness INITIAL COMMENTS - FREE TEXT/NARRATIVE: HISTORY AND PHYSICAL: []82-year-old female presenting with weakness that is generalized she is recent history of hypokalemia and hyponatremia magnesium History of Present Illness: []Patient was released to go from the hospital and was doing well The last 2 days. She has increased weakness. Her diuretic has been removed from her medications. History of hypertension, hypothyroid disorder Review of Systems: As per history of present illness and below otherwise all systems reviewed and negative. Past medical history: As per history of present illness and as reviewed below otherwise noncontributory. Surgical history: As per history of present illness and as reviewed below otherwise noncontributory. Social history: No reported history of drug or alcohol abuse. Family history: As per history of present illness and as reviewed below otherwise noncontributory. Physical exam: Alert and oriented female answering questions appropriately in full sentences without any shortness of breath. She is nontoxic in appearance. Slightly hard of hearing. HEENT: Atraumatic, normocehpalic, pupils reactive, negative for conjunctival pallor or scleral icterus, mucous membranes moist, throat clear, neck supple, nontender, trachea midline. Lungs: Clear to auscultation, breath sounds equal bilaterally, chest non tender. Heart: S1S2, regular, negative for clicks, rubs, or JVD. Abdomen: Soft, nondistended, nontender. Negative for masses or hepatossplenmegaly. Negative for costovertebral tenderness. Pelvis: Stable nontender. Genitourinary: Deferred. Rectal: Deferred Extremities: Atraumatic, negative for cords or calf pain. Neurovascular unremarkable. Neuro: Awake, alert, oriented. Cranial nerves II through XII unremarkable. Cerebellum unremarkable. Motor and sensory unremarkable throughout. Exam nonfocal. Diagnostics: []CBC CMP and magnesium Chest x-ray Therapeutics: []500 mL of normal saline Impression: []Fatigue Plan: []Discharge Follow-up with Dr. Lomax tomorrow Definitive disposition and diagnosis as appropriate pending reevaluation and review of above. Onset: Gradual Duration: Day(s): Location: Reports: Generalized Severity: Moderate Improves with: Reports: None Worsens with: Reports: None Associated Symptoms: Reports: Malaise, Nausea/Vomiting - Related Data Allergies Allergy/AdvReac Type Severity Reaction Status Date / Time morphine Allergy Hives Verified 12/16/17 17:12 Home Meds: Home Meds Levothyroxine 75 mcg PO ACBREAKFAST 02/13/14 [History] amLODIPine [Norvasc] 10 mg PO DAILY 07/15/17 [History] Clopidogrel [Plavix] 75 mg PO DAILY 11/28/17 [History] Losartan [Cozaar] 100 mg PO DAILY 11/28/17 [History] Past Medical History HEENT History: Reports: Macular Degeneration Other HEENT History: left eye Cardiovascular History: Reports: Heart Murmur, Hypertension Respiratory History: Reports: None Gastrointestinal History: Reports: None 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: Reports: None [employer] History: Reports: None Musculoskeletal History: Reports: None Neurological History: Reports: None Psychiatric History: Reports: None Endocrine/Metabolic History: Reports: Hypothyroidism Hematologic History: Reports: None Immunologic History: Reports: None Oncologic (Cancer) History: Reports: None Dermatologic History: Reports: None - Infectious Disease History Infectious Disease History: Reports: Chicken Pox, Measles, Mumps - Past Surgical History Head Surgeries/Procedures: Reports: None Respiratory Surgical History: Reports: None Other GI Surgeries/Procedures: Appendectomy Female Surgical History: Reports: None Neurological Surgical History: Reports: None Musculoskeletal Surgical History: Reports: None Oncologic Surgical History: Reports: None Dermatological Surgical History: Reports: None Social & Family History - Family History Family Medical History: Noncontributory - Caffeine Use Caffeine Use: Reports: Coffee ED ROS GENERAL - Review of Systems Review Of Systems: ROS reveals no pertinent complaints other than HPI. ED EXAM, GENERAL - Physical Exam Exam: See Below (see dictation) EKG INTERPRETATION EKG Date: 12/16/17 Rhythm: NSR Comparison: No Change Course - Vital Signs Last Recorded V/S: Last Vital Signs Temp 36.8 C 12/16/17 17:07 Pulse 98 12/16/17 18:08 Resp 18 12/16/17 18:08 BP 176/75 H 12/16/17 18:08 Pulse Ox 98 12/16/17 18:08 - Orders/Labs/Meds Orders: Active Orders 24 hr Category Date Time Status EKG Documentation Completion [RC] STAT Care 12/16/17 17:12 Active Chest 2V [CR] Stat Exams 12/16/17 17:59 Taken Sodium Chloride 0.9% [Normal Saline] 500 ml Med 12/16/17 18:30 Ordered IV STAT Sodium Chloride 0.9% [Saline Flush] Med 12/16/17 17:13 Active 10 ml FLUSH ASDIRECTED PRN Sodium Chloride 0.9% [Saline Flush] Med 12/16/17 17:13 Active 2.5 ml FLUSH ASDIRECTED PRN Saline Lock Insert [OM.PC] Stat Oth 12/16/17 17:12 Ordered Medication Orders Sodium Chloride (Normal Saline) 500 mls @ 999 mls/hr IV STAT ERIN Last Admin: 12/16/17 18:27 Dose: 499 mls/hr Sodium Chloride (Saline Flush) 10 ml FLUSH ASDIRECTED PRN PRN Reason: Keep Vein Open Sodium Chloride (Saline Flush) 2.5 ml FLUSH ASDIRECTED PRN PRN Reason: Keep Vein Open Labs: Laboratory Tests 12/16/17 12/16/17 Range/Units 17:35 17:35 WBC 6.31 (4.0-11.0) K/uL RBC 4.66 (4.30-5.90) M/uL Hgb 14.6 (12.0-16.0) g/dL Hct 43.3 (36.0-46.0) % MCV 92.9 (80.0-98.0) fL MCH 31.3 (27.0-32.0) pg MCHC 33.7 (31.0-37.0) g/dL RDW Std Deviation 47.7 (28.0-62.0) fl RDW Coeff of Kaylee 14 (11.0-15.0) % Plt Count 264 (150-400) K/uL MPV 9.80 (7.40-12.00) fL Neut % (Auto) 62.4 (48.0-80.0) % Lymph % (Auto) 26.3 (16.0-40.0) % [place] % (Auto) 8.9 (0.0-15.0) % Eos % (Auto) 1.9 (0.0-7.0) % Baso % (Auto) 0.5 (0.0-1.5) % Neut # (Auto) 3.9 (1.4-5.7) K/uL Lymph # (Auto) 1.7 (0.6-2.4) K/uL [place] # (Auto) 0.6 (0.0-0.8) K/uL Eos # (Auto) 0.1 (0.0-0.7) K/uL Baso # (Auto) 0.0 (0.0-0.1) K/uL Nucleated RBC % 0.0 /100WBC Nucleated RBCs # 0 K/uL Sodium 140 (136-145) mmol/L Potassium 3.9 (3.5-5.1) mmol/L Chloride 104 (98-107) mmol/L Carbon Dioxide 27.5 (21.0-32.0) mmol/L BUN 23 H (7.0-18.0) mg/dL Creatinine 1.0 (0.6-1.0) mg/dL Est Cr Clr Drug Dosing TNP Estimated GFR (MDRD) 53.1 ml/min Glucose 100 (74-106) mg/dL Calcium 9.5 (8.5-10.1) mg/dL Magnesium 2.5 H (1.8-2.4) mg/dL Total Bilirubin 0.6 (0.2-1.0) mg/dL AST 19 (15-37) IU/L ALT 26 (14-63) IU/L Alkaline Phosphatase 57 (46-116) U/L Troponin I < 0.050 (0.000-0.056) ng/mL Total Protein 8.0 (6.4-8.2) g/dL Albumin 4.3 (3.4-5.0) g/dL Globulin 3.7 H (2.0-3.5) g/dL Albumin/Globulin Ratio 1.2 L (1.3-2.8) Amylase 37 (25-115) U/L Meds: Medications Generic Name Dose Route Start Last Admin Trade Name Freq PRN Reason Stop Dose Admin Sodium Chloride 500 mls @ 999 mls/hr 12/16/17 18:30 12/16/17 18:27 Normal Saline IV 499 mls/hr STAT ERIN Administration Sodium Chloride 10 ml 12/16/17 17:13 Saline Flush FLUSH ASDIRECTED PRN Keep Vein Open Sodium Chloride 2.5 ml 12/16/17 17:13 Saline Flush FLUSH ASDIRECTED PRN Keep Vein Open Discontinued Medications Generic Name Dose Route Start Last Admin Trade Name Filippo PRN Reason Stop Dose Admin Sodium Chloride 1,000 mls @ 125 mls/hr 12/16/17 18:30 Normal Saline IV STAT ERIN Departure - Departure Time of Disposition: 18:34 Disposition: Home, Self-Care 01 Condition: Good Clinical Impression: Fatigue Qualifiers: Fatigue type: chronic, unspecified Qualified Code(s): R53.82 - Chronic fatigue , unspecified - Discharge Information Instructions: Weakness, [id number] Referrals: PCP,Unknown [Primary Care Provider] - Additional Instructions: The following information is given to patients seen in the emergency department who are being discharged to home. This information is to outline your options for follow-up care. We provide all patients seen in our emergency department with a follow-up referral. The need for follow-up, as well as the timing and circumstances, are variable depending upon the specifics of your emergency department visit. If you don't have a primary care physician on staff, we will provide you with a referral. We always advise you to contact your personal physician following an emergency department visit to inform them of the circumstance of the visit and for follow-up with them and/or the need for any referrals to a consulting specialist. The emergency department will also refer you to a specialist when appropriate. This referral assures that you have the opportunity for followup care with a specialist. All of these measure are taken in an effort to provide you with optimal care, which includes your followup. Under all circumstances we always encourage you to contact your private physician who remains a resource for coordinating your care. When calling for followup care, please make the office aware that this follow-up is from your recent emergency room visit. If for any reason you are refused follow-up, please contact the [facility] emergency department at and asked to speak to the emergency department charge nurse. Follow-up with Dr. Lomax tomorrow - My Orders Last 24 Hours: My Active Orders 12/16/17 17:12 EKG Documentation Completion [RC] STAT Saline Lock Insert [OM.PC] Stat 12/16/17 17:13 Sodium Chloride 0.9% [Saline Flush] 10 ml FLUSH ASDIRECTED PRN Sodium Chloride 0.9% [Saline Flush] 2.5 ml FLUSH ASDIRECTED PRN 12/16/17 17:59 Chest 2V [CR] Stat 12/16/17 18:30 Sodium Chloride 0.9% [Normal Saline] 500 ml IV STAT - Assessment/Plan Last 24 Hours: My Active Orders 12/16/17 17:12 EKG Documentation Completion [RC] STAT Saline Lock Insert [OM.PC] Stat 12/16/17 17:13 Sodium Chloride 0.9% [Saline Flush] 10 ml FLUSH ASDIRECTED PRN Sodium Chloride 0.9% [Saline Flush] 2.5 ml FLUSH ASDIRECTED PRN 12/16/17 17:59 Chest 2V [CR] Stat 12/16/17 18:30 Sodium Chloride 0.9% [Normal Saline] 500 ml IV STAT
[2017-12-16] MEDS ORDERED: Sodium Chloride 0.9% 10 ML Syringe FLUSH PRN (17:13)
[2017-12-16] MEDS ORDERED: Sodium Chloride 0.9% 2.5 ML Syringe FLUSH PRN (17:13)
[2017-12-16 18:06] LABS: CHLORIDE,CL 104 mmol/L (98-107); SODIUM,NA 140 mmol/L (136-145)
[2017-12-16] MEDS ORDERED: Sodium Chloride 0.9% 500 ML IV SCH (18:30)
[2017-12-16] MEDS ORDERED: Sodium Chloride 0.9% 1,000 ML IV SCH (18:30)
[2017-12-16 19:55] VITALS: BP 167/83
--- NOTE | 2017-12-17 09:20 | CR ---
EXAM DATE: 12/16/17 PATIENT'S AGE: 82 Patient: MADY NIELSON Facility: [place], [place] Site . Site : [id number] Study: XRay Chest [id number]/20/2018 6:19:31 PM Ordering Physician: Pcp Unknown Final Report: INDICATION: Pt states she feels weak TECHNIQUE: Chest 2 views COMPARISON: November 28, 2017 FINDINGS: Cardiovascular and mediastinum: Stable cardiac silhouette. Tortuosity of the descending thoracic aorta. Atherosclerotic disease. Mediastinum is within normal limits. Lungs and pleural spaces: No focal consolidation. No sign of pleural effusion. No pneumothorax. Bones and soft tissues: No significant findings. IMPRESSION: No acute cardiopulmonary disease. Dictated by Chandler Bernal MD @ 12/16/2017 6:38:29 PM Dictated by: Chandler Bernal MD @ 12/16/2017 18:38:40 (Electronic Signature) Report Signed by Proxy. [facility] HOSPITALPaolo
== END 2017-12-16 19:34 | disposition home or self-care (01) ==
LOC: MW.ED 16:46
DX: R53.82 Chronic fatigue, unspecified (principal); I10 Essential (primary) hypertension; E03.9 Hypothyroidism, unspecified; Z79.899 Other long term (current) drug therapy; Z88.5 Allergy status to narcotic agent
CPT/HCPCS: 36415; 71046; 80053; 82150; 83735; 84484; 85025; 93005; 96360; 99284; J7040; 99283

== ENCOUNTER 2018-10-30 10:25 | Observation (INO) | payer MEDICARE, BC ==
[2018-10-30] MEDS ORDERED: Sodium Chloride 0.9% 10 ML Syringe FLUSH PRN (10:37)
[2018-10-30] MEDS ORDERED: Sodium Chloride 0.9% 2.5 ML Syringe FLUSH PRN (10:37)
[2018-10-30] MEDS ORDERED: Aspirin 81 MG Tab.Chew PO ONE (10:37)
--- NOTE | 2018-10-30 10:51 | EDM.PDOC ---
ED HPI GENERAL MEDICAL PROBLEM - General Chief Complaint: Cardiovascular Problem Stated Complaint: CHEST PAINS Time Seen by Provider: 10/30/18 10:29 - History of Present Illness INITIAL COMMENTS - FREE TEXT/NARRATIVE: HISTORY AND PHYSICAL: History of present illness: The patient is an 83-year-old female who follows in our clinic and in fact was seen there 2 days ago with complaints of right-sided neck pain and had blood work and a cervical spine x-ray performed at that time and presents to the ED with shortness of breath. She tells me she has had this shortness of breath for over a month and it seems to be getting progressively worse. She says now when she does any activities she feels more short of breath and she is having trouble sleeping due to shortness of breath. She uses to use pillows at sleep times and is still restless. She saw Dr. Read in the clinic 2 days ago but says she never mentioned the shortness of breath to the provider. She tells me she has a history of hypertension and anxiety hypothyroidism vertigo and she has had congestive heart failure in the past. She is unsure if she has a long- standing diagnosis of CHF or was just one episode. 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 Eyes any leg pain or swelling except some chronic left knee and leg pain and she has no abdominal swelling vomiting nausea fevers chills cough or runny nose. She says she just feels like she has no energy and she has generalized weakness with no specific focal areas of weakness. She is very vague about the shortness of breath and is hard to pin her down with these symptoms but he definitely has been ongoing and progressive for at least a month. She is concerned that maybe some of her medications are causing this symptom. She denies any palpitations and has no chest pain. She does still complain of the right-sided neck pain and she was told by Dr. Read that she has arthritis in her neck. The patient was placed on a Medrol Dosepak by Dr. Read for her neck discomfort a few days ago and she also has medications on her med list for hypertension and hypothyroidism Review of systems: As per history of present illness and below otherwise all systems reviewed and negative. Past medical history: As per history of present illness and as reviewed below otherwise noncontributory. Surgical history: As per history of present illness and as reviewed below otherwise noncontributory. Social history: No reported history of drug or alcohol abuse. Family history: As per history of present illness and as reviewed below otherwise noncontributory. Physical exam: General: Well-developed well-nourished elderly female who is nontoxic and speaking without breathlessness on my evaluation. Vital signs are noted by me HEENT: Atraumatic, normocephalic, pupils reactive, negative for conjunctival pallor or scleral icterus, mucous membranes moist, throat clear, neck supple, nontender, trachea midline. Lungs: Clear to auscultation with an occasional coarse breath sound but no worker breathing wheezing or stridor, breath sounds equal bilaterally, chest nontender. Heart: S1S2, regular rate with lots of ectopic beats and occasional bumps up in the right, no overt murmurs are appreciated Abdomen: Soft, nondistended, nontender. Negative for masses or hepatosplenomegaly. Negative for costovertebral tenderness. Pelvis: Stable nontender. Genitourinary: Deferred. Rectal: Deferred. Extremities: Atraumatic, negative for cords or calf pain. Neurovascular unremarkable. No pedal edema or leg asymmetry Neuro: Awake, alert, oriented. Cranial nerves II through XII unremarkable. Cerebellum unremarkable. Motor and sensory unremarkable throughout. Exam nonfocal. Skin: Normal turgor no diaphoresis Diagnostics: EKG x 2 chest x-ray CBC CMP BNP INR troponin UA with reflex Therapeutics: TKO IV fluids, IV placement, O2 and monitor, aspirin I did pull an older EKG to compare to today's and it looks very similar except that there is some new T-wave inversion inferiorly and laterally on today's. The patient also had echocardiogram on August 13, 2017 which revealed an ejection fraction of 65% and mild aortic valve regurgitation mild mitral valve regurgitation and trace tricuspid valve regurgitation and trace pulmonic valve regurgitation. The patient had a CBC CMP TSH and UA performed on October 28 along with cervical spine x-rays all of which I have reviewed. Note that the patient's WBC count today is 13.04 and it was 7.59 on October 28 with her outpatient clinic visit. The patient was started on a Medrol Dosepak which may account for this. Note that I did discuss the taking of the Medrol Dosepak with the patient and she tells me now that she has not taken more than a couple of pills as it made her feel funny and jittery so she stopped taking them. I discussed with her and family at bedside testing results and she is somewhat frustrated as I have not found anything significantly abnormal. I discussed with her in observation admission on telemetry just to rule her out and to see if anything else is occurring and she is agreeable to that. I did see on the monitor a suspicion of some ST segment changes so I did a second EKG and again there is no evidence of any acute ST changes or acute infarct but the T-wave inversions that were seen earlier inferiorly and laterally are now gone. I will discuss this case with Dr. Trimble [id number]: Dr. Trimble is aware of case and accepts for admission Impression: Dyspnea, at rest and exertion, etiology unclear; new T-wave inversion, resolved spontaneously Definitive disposition and diagnosis as appropriate pending reevaluation and review of above. - Related Data Allergies Allergy/AdvReac Type Severity Reaction Status Date / Time morphine Allergy Hives Verified 10/30/18 10:38 Home Meds: Home Meds Levothyroxine 75 mcg PO ACBREAKFAST 02/13/14 [History] amLODIPine [Norvasc] 10 mg PO DAILY 07/15/17 [History] Clopidogrel [Plavix] 75 mg PO DAILY 11/28/17 [History] Losartan [Cozaar] 100 mg PO DAILY 11/28/17 [History] Aspirin 81 mg PO DAILY 10/30/18 [History] Celecoxib 400 mg PO DAILY 10/30/18 [History] methylPREDNISolone [Methylprednisolone] 4 mg PO ASDIRECTED 10/30/18 [History] Past Medical History HEENT History: Reports: Macular Degeneration Other HEENT History: left eye Cardiovascular History: Reports: Heart Failure, Heart Murmur, Hypertension Respiratory History: Reports: None Gastrointestinal History: Reports: None 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: Reports: None [employer] History: Reports: None Musculoskeletal History: Reports: None Neurological History: Reports: None Psychiatric History: Reports: None Endocrine/Metabolic History: Reports: Hypothyroidism Hematologic History: Reports: None Immunologic History: Reports: None Oncologic (Cancer) History: Reports: None Dermatologic History: Reports: None - Infectious Disease History Infectious Disease History: Reports: None - Past Surgical History Head Surgeries/Procedures: Reports: None Respiratory Surgical History: Reports: None Other GI Surgeries/Procedures: Appendectomy Female Surgical History: Reports: None Neurological Surgical History: Reports: None Musculoskeletal Surgical History: Reports: None Oncologic Surgical History: Reports: None Dermatological Surgical History: Reports: None Social & Family History - Family History Family Medical History: Noncontributory - Tobacco Use Smoking Status *Q: Never Smoker Second Hand Smoke Exposure: No - Caffeine Use Caffeine Use: Reports: Coffee - Recreational Drug Use Recreational Drug Use: No ED ROS GENERAL - Review of Systems Review Of Systems: ROS reveals no pertinent complaints other than HPI. ED EXAM, GENERAL - Physical Exam Exam: See Below (See dictation) Course - Vital Signs Last Recorded V/S: Last Vital Signs Temp 36.6 C 10/30/18 10:33 Pulse 109 H 10/30/18 10:33 Resp 18 10/30/18 10:33 BP 194/110 H 10/30/18 10:33 Pulse Ox 95 10/30/18 10:33 - Orders/Labs/Meds Orders: Active Orders 24 hr Category Date Time Status Cardiac Monitoring [RC] . DIRECTED Care 10/30/18 10:36 Active EKG 12 Lead [EKG Documentation Completion] [RC] STAT Care 10/30/18 12:30 Active EKG 12 Lead [EKG Documentation Completion] [RC] STAT Care 10/30/18 12:31 Active EKG Documentation Completion [RC] STAT Care 10/30/18 10:36 Active Oxygen Therapy, ED [RC] ASDIRECTED Care 10/30/18 10:36 Active Pulse Oximetry [RC] ASDIRECTED Care 10/30/18 10:36 Active Sodium Chloride 0.9% [Normal Saline] 1,000 ml Med 10/30/18 10:45 Active IV ASDIRECTED Sodium Chloride 0.9% [Saline Flush] Med 10/30/18 10:37 Active 10 ml FLUSH ASDIRECTED PRN Sodium Chloride 0.9% [Saline Flush] Med 10/30/18 10:37 Active 2.5 ml FLUSH ASDIRECTED PRN Saline Lock Insert [OM.PC] Stat Oth 10/30/18 10:36 Ordered Medication Orders Sodium Chloride (Normal Saline) 1,000 mls @ 50 mls/hr IV ASDIRECTED ERIN Last Admin: 10/30/18 11:11 Dose: 50 mls/hr Sodium Chloride (Saline Flush) 10 ml FLUSH ASDIRECTED PRN PRN Reason: Keep Vein Open Last Admin: 10/30/18 11:11 Dose: 10 ml Sodium Chloride (Saline Flush) 2.5 ml FLUSH ASDIRECTED PRN PRN Reason: Keep Vein Open Last Admin: 10/30/18 11:11 Dose: 2.5 ml Labs: Laboratory Tests 10/30/18 10/30/18 10/30/18 Range/Units 10:45 10:45 10:45 WBC 13.04 H (4.0-11.0) K/uL RBC 4.93 (4.30-5.90) M/uL Hgb 15.2 (12.0-16.0) g/dL Hct 46.2 H (36.0-46.0) % MCV 93.7 (80.0-98.0) fL MCH 30.8 (27.0-32.0) pg MCHC 32.9 (31.0-37.0) g/dL RDW Std Deviation 50.0 (28.0-62.0) fl RDW Coeff of Kaylee 15 (11.0-15.0) % Plt Count 291 (150-400) K/uL MPV 9.90 (7.40-12.00) fL Neut % (Auto) 57.2 (48.0-80.0) % Lymph % (Auto) 31.3 (16.0-40.0) % [place] % (Auto) 9.7 (0.0-15.0) % Eos % (Auto) 1.5 (0.0-7.0) % Baso % (Auto) 0.3 (0.0-1.5) % Neut # (Auto) 7.5 H (1.4-5.7) K/uL Lymph # (Auto) 4.1 H (0.6-2.4) K/uL [place] # (Auto) 1.3 H (0.0-0.8) K/uL Eos # (Auto) 0.2 (0.0-0.7) K/uL Baso # (Auto) 0.0 (0.0-0.1) K/uL Nucleated RBC % 0.0 /100WBC Nucleated RBCs # 0 K/uL INR 0.96 Sodium 137 (136-145) mmol/L Potassium 3.8 (3.5-5.1) mmol/L Chloride 99 (98-107) mmol/L Carbon Dioxide 25.7 (21.0-32.0) mmol/L BUN 23 H (7.0-18.0) mg/dL Creatinine 0.9 (0.6-1.0) mg/dL Est Cr Clr Drug Dosing 35.74 mL/min Estimated GFR (MDRD) 59.8 ml/min Glucose 119 H (74-106) mg/dL Calcium 9.9 (8.5-10.1) mg/dL Total Bilirubin 0.6 (0.2-1.0) mg/dL AST 19 (15-37) IU/L ALT 28 (14-63) IU/L Alkaline Phosphatase 81 (46-116) U/L Troponin I < 0.050 (0.000-0.056) ng/mL B-Natriuretic Peptide (<100) PG/ML Total Protein 8.2 (6.4-8.2) g/dL Albumin 4.4 (3.4-5.0) g/dL Globulin 3.8 (2.6-4.0) g/dL Albumin/Globulin Ratio 1.2 (0.9-1.6) Urine Color Urine Appearance Urine pH (5.0-8.0) Ur Specific [place] (1.001-1.035) Urine Protein (NEGATIVE) mg/dL Urine Glucose (UA) (NEGATIVE) mg/dL Urine Ketones (NEGATIVE) mg/dL Urine Occult Blood (NEGATIVE) Urine Nitrite (NEGATIVE) Urine Bilirubin (NEGATIVE) Urine Urobilinogen (<2.0) EU/dL Ur Leukocyte Esterase (NEGATIVE) Urine RBC (0-2/HPF) Urine WBC (0-5/HPF) Ur Epithelial Cells (NONE-FEW) Urine Bacteria (NEGATIVE) 10/30/18 10/30/18 Range/Units 10:45 12:13 WBC (4.0-11.0) K/uL RBC (4.30-5.90) M/uL Hgb (12.0-16.0) g/dL Hct (36.0-46.0) % MCV (80.0-98.0) fL MCH (27.0-32.0) pg MCHC (31.0-37.0) g/dL RDW Std Deviation (28.0-62.0) fl RDW Coeff of Kaylee (11.0-15.0) % Plt Count (150-400) K/uL MPV (7.40-12.00) fL Neut % (Auto) (48.0-80.0) % Lymph % (Auto) (16.0-40.0) % [place] % (Auto) (0.0-15.0) % Eos % (Auto) (0.0-7.0) % Baso % (Auto) (0.0-1.5) % Neut # (Auto) (1.4-5.7) K/uL Lymph # (Auto) (0.6-2.4) K/uL [place] # (Auto) (0.0-0.8) K/uL Eos # (Auto) (0.0-0.7) K/uL Baso # (Auto) (0.0-0.1) K/uL Nucleated RBC % /100WBC Nucleated RBCs # K/uL INR Sodium (136-145) mmol/L Potassium (3.5-5.1) mmol/L Chloride (98-107) mmol/L Carbon Dioxide (21.0-32.0) mmol/L BUN (7.0-18.0) mg/dL Creatinine (0.6-1.0) mg/dL Est Cr Clr Drug Dosing mL/min Estimated GFR (MDRD) ml/min Glucose (74-106) mg/dL Calcium (8.5-10.1) mg/dL Total Bilirubin (0.2-1.0) mg/dL AST (15-37) IU/L ALT (14-63) IU/L Alkaline Phosphatase (46-116) U/L Troponin I (0.000-0.056) ng/mL B-Natriuretic Peptide 93 (<100) PG/ML Total Protein (6.4-8.2) g/dL Albumin (3.4-5.0) g/dL Globulin (2.6-4.0) g/dL Albumin/Globulin Ratio (0.9-1.6) Urine Color YELLOW Urine Appearance CLEAR Urine pH 6.5 (5.0-8.0) Ur Specific [place] 1.010 (1.001-1.035) Urine Protein NEGATIVE (NEGATIVE) mg/dL Urine Glucose (UA) NEGATIVE (NEGATIVE) mg/dL Urine Ketones NEGATIVE (NEGATIVE) mg/dL Urine Occult Blood TRACE-INTACT H (NEGATIVE) Urine Nitrite NEGATIVE (NEGATIVE) Urine Bilirubin NEGATIVE (NEGATIVE) Urine Urobilinogen 0.2 (<2.0) EU/dL Ur Leukocyte Esterase NEGATIVE (NEGATIVE) Urine RBC 0-2 (0-2/HPF) Urine WBC 0-2 (0-5/HPF) Ur Epithelial Cells OCCASIONAL (NONE-FEW) Urine Bacteria RARE (NEGATIVE) Meds: Medications Generic Name Dose Route Start Last Admin Trade Name Freq PRN Reason Stop Dose Admin Sodium Chloride 1,000 mls @ 50 mls/hr 10/30/18 10:45 10/30/18 11:11 Normal Saline IV 50 mls/hr ASDIRECTED ERIN Administration Sodium Chloride 10 ml 10/30/18 10:37 10/30/18 11:11 Saline Flush FLUSH 10 ml ASDIRECTED PRN Administration Keep Vein Open Sodium Chloride 2.5 ml 10/30/18 10:37 10/30/18 11:11 Saline Flush FLUSH 2.5 ml ASDIRECTED PRN Administration Keep Vein Open Discontinued Medications Generic Name Dose Route Start Last Admin Trade Name Freq PRN Reason Stop Dose Admin Aspirin 324 mg 10/30/18 10:37 10/30/18 11:11 Aspirin PO 10/30/18 10:38 324 mg ONETIME ONE Administration Departure - Departure Time of Disposition: 12:55 Disposition: Refer to Observation Reason for Transfer *Q: Primary PCI Indicated Condition: Good Clinical Impression: Abnormal finding on EKG Dyspnea Qualifiers: Dyspnea type: other forms of dyspnea Qualified Code(s): R06.09 - Other forms of dyspnea Referrals: Amber Read MD [Primary Care Provider] - Forms: ED Department Discharge - My Orders Last 24 Hours: My Active Orders 10/30/18 10:36 Cardiac Monitoring [RC] . DIRECTED EKG Documentation Completion [RC] STAT Oxygen Therapy, ED [RC] ASDIRECTED Pulse Oximetry [RC] ASDIRECTED Saline Lock Insert [OM.PC] Stat 10/30/18 10:37 Sodium Chloride 0.9% [Saline Flush] 10 ml FLUSH ASDIRECTED PRN Sodium Chloride 0.9% [Saline Flush] 2.5 ml FLUSH ASDIRECTED PRN 10/30/18 10:45 Sodium Chloride 0.9% [Normal Saline] 1,000 ml IV ASDIRECTED 10/30/18 12:30 EKG 12 Lead [EKG Documentation Completion] [RC] STAT 10/30/18 12:31 EKG 12 Lead [EKG Documentation Completion] [RC] STAT - Assessment/Plan Last 24 Hours: My Active Orders 10/30/18 10:36 Cardiac Monitoring [RC] . DIRECTED EKG Documentation Completion [RC] STAT Oxygen Therapy, ED [RC] ASDIRECTED Pulse Oximetry [RC] ASDIRECTED Saline Lock Insert [OM.PC] Stat 10/30/18 10:37 Sodium Chloride 0.9% [Saline Flush] 10 ml FLUSH ASDIRECTED PRN Sodium Chloride 0.9% [Saline Flush] 2.5 ml FLUSH ASDIRECTED PRN 10/30/18 10:45 Sodium Chloride 0.9% [Normal Saline] 1,000 ml IV ASDIRECTED 10/30/18 12:30 EKG 12 Lead [EKG Documentation Completion] [RC] STAT 10/30/18 12:31 EKG 12 Lead [EKG Documentation Completion] [RC] STAT
[2018-10-30] MEDS: Sodium Chloride 0.9% 1,000 ML IV SCH (11:11)
[2018-10-30 11:16] LABS: CHLORIDE,CL 99 mmol/L (98-107); SODIUM,NA 137 mmol/L (136-145)
--- NOTE | 2018-10-30 12:26 | CR ---
INDICATION: Pain. Shortness of breath. COMPARISON: None. FINDINGS: A portable AP semi upright view of the chest was obtained. The cardiac silhouette and pulmonary vasculature are within normal limits. The lungs are clear bilaterally. There are atherosclerotic calcifications in the aorta. IMPRESSION: No evidence of acute pulmonary disease. Dictated by Brian Noguera MD @ 10/30/2018 12:24:36 PM Dictated by: Brian Noguera MD @ 10/30/2018 12:24:44 (Electronically Signed)
--- NOTE | 2018-10-30 13:25 | PCM.HP ---
H&P History of Present Illness - General Date of Service: 10/30/18 Admit Problem/Dx: Admission Diagnosis/Problem Admission Diagnosis/Problem Dyspnea Source of Information: Patient History Limitations: Reports: No Limitations - History of Present Illness Initial Comments - Free Text/Narative: The patient is an 83-year-old lady who had presented to the emergency department primarily out of concern for feeling weak and fatigued. She says that she has had some shortness of breath and right-sided cervical spine pain. The patient was seen in the clinic 2 days ago and had been given a Medrol Dosepak in order to help with the inflammation in her neck. She took 2 of the tablets and did not like the jittery side effects. Patient says that she has been feeling like she is getting worse over the last several months but over the past week her shortness of breath has gotten much worse. The patient is concerned that some of her medications have been causing the problem. In particular, she does not like amlodipine. Patient also has been somewhat vague about her other symptoms. Her primary concern is that she just feels weak and has no energy. The patient also has a history of hypothyroidism and hypertension. The patient has denied any dizziness or lightheadedness. Onset of Symptoms: Reports: Gradual Duration of Symptoms: Reports: Day(s): Location: Reports: Chest Improves with: Reports: None Worsens with: Reports: None Context: Denies: Sick Contact Associated Symptoms: Reports: Loss of Appetite, Malaise - Related Data Allergies/Adverse Reactions: Allergies Allergy/AdvReac Type Severity Reaction Status Date / Time morphine Allergy Hives Verified 10/30/18 10:38 Home Medications: Home Meds Levothyroxine 75 mcg PO ACBREAKFAST 02/13/14 [History] amLODIPine [Norvasc] 10 mg PO DAILY 07/15/17 [History] Clopidogrel [Plavix] 75 mg PO DAILY 11/28/17 [History] Losartan [Cozaar] 100 mg PO DAILY 11/28/17 [History] Aspirin 81 mg PO DAILY 10/30/18 [History] Celecoxib 400 mg PO DAILY 10/30/18 [History] methylPREDNISolone [Methylprednisolone] 4 mg PO ASDIRECTED 10/30/18 [History] Past Medical History HEENT History: Reports: Macular Degeneration Other HEENT History: left eye Cardiovascular History: Reports: Heart Failure, Heart Murmur, Hypertension Respiratory History: Reports: None Gastrointestinal History: Reports: None 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: Reports: None 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 Musculoskeletal History: Reports: None Neurological History: Reports: None Psychiatric History: Reports: None Endocrine/Metabolic History: Reports: Hypothyroidism Hematologic History: Reports: None Immunologic History: Reports: None Oncologic (Cancer) History: Reports: None Dermatologic History: Reports: None - Infectious Disease History Infectious Disease History: Reports: None - Past Surgical History Head Surgeries/Procedures: Reports: None Respiratory Surgical History: Reports: None Other GI Surgeries/Procedures: Appendectomy Female Surgical History: Reports: None Neurological Surgical History: Reports: None Musculoskeletal Surgical History: Reports: None Oncologic Surgical History: Reports: None Dermatological Surgical History: Reports: None Social & Family History - Family History Family Medical History: Noncontributory - Tobacco Use Smoking Status *Q: Never Smoker Second Hand Smoke Exposure: No - Caffeine Use Caffeine Use: Reports: Coffee - Recreational Drug Use Recreational Drug Use: No - Living Situation & Occupation Living situation: Reports: with Family Occupation: Retired H&P Review of Systems - Review of Systems: Review Of Systems: See Below General: Reports: Malaise, Weakness HEENT: Reports: Vertigo (Chronic) Pulmonary: Reports: Shortness of Breath Cardiovascular: Reports: No Symptoms Gastrointestinal: Reports: Anorexia Genitourinary: Reports: No Symptoms Musculoskeletal: Reports: No Symptoms Skin: Reports: No Symptoms Psychiatric: Reports: No Symptoms Neurological: Reports: No Symptoms Hematologic/Lymphatic: Reports: No Symptoms Immunologic: Reports: No Symptoms Exam - Exam Exam: See Below - Vital Signs Vital Signs: Last Vital Signs Temp 36.6 C 10/30/18 10:33 Pulse 109 H 10/30/18 10:33 Resp 18 10/30/18 10:33 BP 194/110 H 10/30/18 10:33 Pulse Ox 95 10/30/18 10:33 Weight: 58.06 kg - Exam Quality Assessment: Supplemental Oxygen General: Alert, Oriented, Cooperative HEENT: Conjunctiva Clear, EACs Clear, EOMI, Mucosa Moist & [place], Pupils Equal, PERRLA Neck: Supple, Trachea Midline Lungs: Clear to Auscultation, Normal Respiratory Effort Cardiovascular: Regular Rate, Regular Rhythm GI/Abdominal Exam: Normal Bowel Sounds, Soft, No Distention Back Exam: Normal Inspection (For age) Extremities: Normal Inspection, No Pedal Edema Skin: Warm, Dry, Intact Neurological: Cranial Nerves Intact Neuro Extensive - Mental Status: Alert, Oriented x3 Psychiatric: Alert, Normal Affect, Normal Mood - Patient Data Lab Results Last 24 hrs: Laboratory Results - last 24 hr 10/30/18 10/30/18 10/30/18 Range/Units 10:45 10:45 10:45 WBC 13.04 H (4.0-11.0) K/uL RBC 4.93 (4.30-5.90) M/uL Hgb 15.2 (12.0-16.0) g/dL Hct 46.2 H (36.0-46.0) % MCV 93.7 (80.0-98.0) fL MCH 30.8 (27.0-32.0) pg MCHC 32.9 (31.0-37.0) g/dL RDW Std Deviation 50.0 (28.0-62.0) fl RDW Coeff of Kaylee 15 (11.0-15.0) % Plt Count 291 (150-400) K/uL MPV 9.90 (7.40-12.00) fL Neut % (Auto) 57.2 (48.0-80.0) % Lymph % (Auto) 31.3 (16.0-40.0) % [place] % (Auto) 9.7 (0.0-15.0) % Eos % (Auto) 1.5 (0.0-7.0) % Baso % (Auto) 0.3 (0.0-1.5) % Neut # (Auto) 7.5 H (1.4-5.7) K/uL Lymph # (Auto) 4.1 H (0.6-2.4) K/uL [place] # (Auto) 1.3 H (0.0-0.8) K/uL Eos # (Auto) 0.2 (0.0-0.7) K/uL Baso # (Auto) 0.0 (0.0-0.1) K/uL Nucleated RBC % 0.0 /100WBC Nucleated RBCs # 0 K/uL INR 0.96 Sodium 137 (136-145) mmol/L Potassium 3.8 (3.5-5.1) mmol/L Chloride 99 (98-107) mmol/L Carbon Dioxide 25.7 (21.0-32.0) mmol/L BUN 23 H (7.0-18.0) mg/dL Creatinine 0.9 (0.6-1.0) mg/dL Est Cr Clr Drug Dosing 35.74 mL/min Estimated GFR (MDRD) 59.8 ml/min Glucose 119 H (74-106) mg/dL Calcium 9.9 (8.5-10.1) mg/dL Total Bilirubin 0.6 (0.2-1.0) mg/dL AST 19 (15-37) IU/L ALT 28 (14-63) IU/L Alkaline Phosphatase 81 (46-116) U/L Troponin I < 0.050 (0.000-0.056) ng/mL B-Natriuretic Peptide (<100) PG/ML Total Protein 8.2 (6.4-8.2) g/dL Albumin 4.4 (3.4-5.0) g/dL Globulin 3.8 (2.6-4.0) g/dL Albumin/Globulin Ratio 1.2 (0.9-1.6) Urine Color Urine Appearance Urine pH (5.0-8.0) Ur Specific [place] (1.001-1.035) Urine Protein (NEGATIVE) mg/dL Urine Glucose (UA) (NEGATIVE) mg/dL Urine Ketones (NEGATIVE) mg/dL Urine Occult Blood (NEGATIVE) Urine Nitrite (NEGATIVE) Urine Bilirubin (NEGATIVE) Urine Urobilinogen (<2.0) EU/dL Ur Leukocyte Esterase (NEGATIVE) Urine RBC (0-2/HPF) Urine WBC (0-5/HPF) Ur Epithelial Cells (NONE-FEW) Urine Bacteria (NEGATIVE) 10/30/18 10/30/18 Range/Units 10:45 12:13 WBC (4.0-11.0) K/uL RBC (4.30-5.90) M/uL Hgb (12.0-16.0) g/dL Hct (36.0-46.0) % MCV (80.0-98.0) fL MCH (27.0-32.0) pg MCHC (31.0-37.0) g/dL RDW Std Deviation (28.0-62.0) fl RDW Coeff of Kaylee (11.0-15.0) % Plt Count (150-400) K/uL MPV (7.40-12.00) fL Neut % (Auto) (48.0-80.0) % Lymph % (Auto) (16.0-40.0) % [place] % (Auto) (0.0-15.0) % Eos % (Auto) (0.0-7.0) % Baso % (Auto) (0.0-1.5) % Neut # (Auto) (1.4-5.7) K/uL Lymph # (Auto) (0.6-2.4) K/uL [place] # (Auto) (0.0-0.8) K/uL Eos # (Auto) (0.0-0.7) K/uL Baso # (Auto) (0.0-0.1) K/uL Nucleated RBC % /100WBC Nucleated RBCs # K/uL INR Sodium (136-145) mmol/L Potassium (3.5-5.1) mmol/L Chloride (98-107) mmol/L Carbon Dioxide (21.0-32.0) mmol/L BUN (7.0-18.0) mg/dL Creatinine (0.6-1.0) mg/dL Est Cr Clr Drug Dosing mL/min Estimated GFR (MDRD) ml/min Glucose (74-106) mg/dL Calcium (8.5-10.1) mg/dL Total Bilirubin (0.2-1.0) mg/dL AST (15-37) IU/L ALT (14-63) IU/L Alkaline Phosphatase (46-116) U/L Troponin I (0.000-0.056) ng/mL B-Natriuretic Peptide 93 (<100) PG/ML Total Protein (6.4-8.2) g/dL Albumin (3.4-5.0) g/dL Globulin (2.6-4.0) g/dL Albumin/Globulin Ratio (0.9-1.6) Urine Color YELLOW Urine Appearance CLEAR Urine pH 6.5 (5.0-8.0) Ur Specific [place] 1.010 (1.001-1.035) Urine Protein NEGATIVE (NEGATIVE) mg/dL Urine Glucose (UA) NEGATIVE (NEGATIVE) mg/dL Urine Ketones NEGATIVE (NEGATIVE) mg/dL Urine Occult Blood TRACE-INTACT H (NEGATIVE) Urine Nitrite NEGATIVE (NEGATIVE) Urine Bilirubin NEGATIVE (NEGATIVE) Urine Urobilinogen 0.2 (<2.0) EU/dL Ur Leukocyte Esterase NEGATIVE (NEGATIVE) Urine RBC 0-2 (0-2/HPF) Urine WBC 0-2 (0-5/HPF) Ur Epithelial Cells OCCASIONAL (NONE-FEW) Urine Bacteria RARE (NEGATIVE) Result Diagrams: 10/30/18 10:45 10/30/18 10:45 - Problem List (1) Dyspnea SNOMED Code(s): 670346370 ICD Code: R06.00 - DYSPNEA, UNSPECIFIED Status: Acute Priority: High Current Visit: Yes Qualifiers: Dyspnea type: other forms of dyspnea Qualified Code(s): R06.09 - Other forms of dyspnea (2) Anxiety SNOMED Code(s): 33838116 ICD Code: F41.9 - ANXIETY DISORDER, UNSPECIFIED Status: Chronic Priority : High Current Visit: Yes (3) Benign positional vertigo SNOMED Code(s): 081597155 ICD Code: H81.10 - BENIGN PAROXYSMAL VERTIGO, UNSPECIFIED EAR Status: Chronic Priority: High Current Visit: Yes Qualifiers: Laterality: unspecified laterality Qualified Code(s): H81.10 - Benign paroxysmal vertigo, unspecified ear (4) Dehydration SNOMED Code(s): 01984460 ICD Code: E86.0 - DEHYDRATION Status: Acute Priority: High Current Visit: Yes (5) Hypertension SNOMED Code(s): 71928641 ICD Code: I10 - ESSENTIAL (PRIMARY) HYPERTENSION Status: Chronic Priority : High Current Visit: Yes Qualifiers: Hypertension type: essential hypertension Qualified Code(s): I10 - Essential (primary) hypertension (6) Lethargy SNOMED Code(s): 676073575 ICD Code: R53.83 - OTHER FATIGUE Status: Chronic Priority: High Current Visit: Yes (7) Weakness SNOMED Code(s): 97357231 ICD Code: R53.1 - WEAKNESS Status: Chronic Priority: High Current Visit : Yes Problem List Initiated/Reviewed/Updated: Yes Orders Last 24hrs: Active Orders 24 hr Category Date Time Status Patient Status [ADT] Stat ADT 10/30/18 12:56 Active Cardiac Monitoring [RC] . DIRECTED Care 10/30/18 10:36 Active TSH [CHEM] Routine Lab 10/30/18 13:23 Ordered Aspirin Med 10/31/18 09:00 Active 81 mg PO DAILY Clopidogrel [Plavix] Med 10/31/18 09:00 Active 75 mg PO DAILY Levothyroxine Med 10/31/18 07:30 Active 75 mcg PO ACBREAKFAST Losartan Med 10/31/18 09:00 Active 100 mg PO DAILY Sodium Chloride 0.9% [Normal Saline] 1,000 ml Med 10/30/18 10:45 Active IV ASDIRECTED Sodium Chloride 0.9% [Saline Flush] Med 10/30/18 10:37 Active 10 ml FLUSH ASDIRECTED PRN Sodium Chloride 0.9% [Saline Flush] Med 10/30/18 10:37 Active 2.5 ml FLUSH ASDIRECTED PRN Saline Lock Insert [OM.PC] Stat Oth 10/30/18 10:36 Ordered Medication Orders Aspirin (Aspirin) 81 mg PO DAILY ERIN Clopidogrel Bisulfate (Plavix) 75 mg PO DAILY ERIN Sodium Chloride (Normal Saline) 1,000 mls @ 50 mls/hr IV ASDIRECTED ERIN Last Admin: 10/30/18 11:11 Dose: 50 mls/hr Levothyroxine Sodium (Levothyroxine) 75 mcg PO ACBREAKFAST ERIN Non-Formulary Medication (Losartan) 100 mg PO DAILY ERIN Sodium Chloride (Saline Flush) 10 ml FLUSH ASDIRECTED PRN PRN Reason: Keep Vein Open Last Admin: 10/30/18 11:11 Dose: 10 ml Sodium Chloride (Saline Flush) 2.5 ml FLUSH ASDIRECTED PRN PRN Reason: Keep Vein Open Last Admin: 10/30/18 11:11 Dose: 2.5 ml Assessment/Plan Comment:: The patient is an 83-year-old lady who will be admitted to observation secondary to her overall fatigue and weakness. The patient has a chronic history of similar problems but for now she'll be kept on telemetry due to her abnormal EKG. Patient will also have her vital signs checked every 4 hours and her medication will be adjusted as necessary. I stopped patient's amlodipine out of concern for her fatigue and weakness being caused by this. The patient will have her hypertension medication adjusted as necessary. She's been encouraged to ambulate. She will also be kept on DVT prophylaxis with the use of heparin. I've ordered repeat laboratory studies. I've also ordered PTOT for the patient. She should be appropriate for discharge in 1-2 days. For now she' ll be kept as a full resuscitative code as this is her wish.
[2018-10-30] MEDS ORDERED: Ondansetron 4 MG Tab.DIS PO PRN (14:51)
[2018-10-30] MEDS ORDERED: oxyCODONE 5 MG Tab PO PRN (14:51)
[2018-10-30] MEDS ORDERED: Docusate Sodium 100 MG Cap PO PRN (14:51)
[2018-10-30] MEDS ORDERED: Temazepam 15 MG Cap PO PRN (14:51)
[2018-10-30] MEDS ORDERED: Enoxaparin 40 MG/0.4 ML Syringe SUBCUT SCH (15:00)
[2018-10-30] MEDS: Acetaminophen 325 MG Tab PO PRN ×2 (15:50→20:07)
[2018-10-31] MEDS: Acetaminophen 325 MG Tab PO PRN ×2 (02:17→07:49)
[2018-10-31] MEDS: Sodium Chloride 0.9% 1,000 ML IV SCH (06:06)
[2018-10-31] MEDS: Levothyroxine 75 MCG Tab PO SCH ×2 (06:08→07:45)
[2018-10-31 06:25] LABS: CHLORIDE,CL 105 mmol/L (98-107); SODIUM,NA 138 mmol/L (136-145)
[2018-10-31] MEDS ORDERED: Losartan 50 MG Tab PO SCH (09:00)
[2018-10-31] MEDS ORDERED: Aspirin 81 MG Tab.Chew PO SCH (09:00)
[2018-10-31] MEDS ORDERED: Clopidogrel 75 MG Tab PO SCH (09:00)
--- NOTE | 2018-10-31 10:11 | PCM.PN ---
- General Info Date of Service: 10/31/18 Admission Dx/Problem (Free Text): Admission Diagnosis/Problem Admission Diagnosis/Problem Dyspnea, chronic, weakness and fatigue Subjective Update: The patient is an 83-year-old lady who presented to the emergency department yesterday with vague complaints of fatigue and neck pain that she had visited with her primary care physician 2 days ago. She also had been complaining of time of shortness of breath. Both the patient the patient's family have been somewhat concerned about "taking too many medications" for various problems. Today the patient says that she is doing better. She has not wanted to take her amlodipine. The patient says that she still feels weak and shortness of breath. The patient has been tolerating her diet. Functional Status: Reports: Pain Controlled - Review of Systems General: Reports: Weakness, Fatigue HEENT: Reports: No Symptoms Pulmonary: Reports: Shortness of Breath Cardiovascular: Reports: No Symptoms Gastrointestinal: Reports: No Symptoms Genitourinary: Reports: No Symptoms Musculoskeletal: Reports: No Symptoms Skin: Reports: No Symptoms Neurological: Reports: No Symptoms Psychiatric: Reports: No Symptoms - Patient Data Vitals - Most Recent: Last Vital Signs Temp 36.6 C 10/31/18 08:31 Pulse 71 10/31/18 08:31 Resp 16 10/31/18 08:31 BP 134/65 10/31/18 08:30 Pulse Ox 94 L 10/31/18 08:31 Weight - Most Recent: 58.06 kg I&O - Last 24 Hours: Intake & Output 10/30/18 10/31/18 10/31/18 22:59 06:59 14:59 Intake Total 300 1400 Output Total 400 1050 Balance -100 350 Lab Results Last 24 Hours: Laboratory Results - last 24 hr 10/30/18 10/30/18 10/30/18 Range/Units 10:45 10:45 10:45 WBC 13.04 H (4.0-11.0) K/uL RBC 4.93 (4.30-5.90) M/uL Hgb 15.2 (12.0-16.0) g/dL Hct 46.2 H (36.0-46.0) % MCV 93.7 (80.0-98.0) fL MCH 30.8 (27.0-32.0) pg MCHC 32.9 (31.0-37.0) g/dL RDW Std Deviation 50.0 (28.0-62.0) fl RDW Coeff of Kaylee 15 (11.0-15.0) % Plt Count 291 (150-400) K/uL MPV 9.90 (7.40-12.00) fL Neut % (Auto) 57.2 (48.0-80.0) % Lymph % (Auto) 31.3 (16.0-40.0) % [place] % (Auto) 9.7 (0.0-15.0) % Eos % (Auto) 1.5 (0.0-7.0) % Baso % (Auto) 0.3 (0.0-1.5) % Neut # (Auto) 7.5 H (1.4-5.7) K/uL Lymph # (Auto) 4.1 H (0.6-2.4) K/uL [place] # (Auto) 1.3 H (0.0-0.8) K/uL Eos # (Auto) 0.2 (0.0-0.7) K/uL Baso # (Auto) 0.0 (0.0-0.1) K/uL Nucleated RBC % 0.0 /100WBC Nucleated RBCs # 0 K/uL INR 0.96 Sodium 137 (136-145) mmol/L Potassium 3.8 (3.5-5.1) mmol/L Chloride 99 (98-107) mmol/L Carbon Dioxide 25.7 (21.0-32.0) mmol/L BUN 23 H (7.0-18.0) mg/dL Creatinine 0.9 (0.6-1.0) mg/dL Est Cr Clr Drug Dosing 35.74 mL/min Estimated GFR (MDRD) 59.8 ml/min Glucose 119 H (74-106) mg/dL Calcium 9.9 (8.5-10.1) mg/dL Total Bilirubin 0.6 (0.2-1.0) mg/dL AST 19 (15-37) IU/L ALT 28 (14-63) IU/L Alkaline Phosphatase 81 (46-116) U/L Troponin I < 0.050 (0.000-0.056) ng/mL B-Natriuretic Peptide (<100) PG/ML Total Protein 8.2 (6.4-8.2) g/dL Albumin 4.4 (3.4-5.0) g/dL Globulin 3.8 (2.6-4.0) g/dL Albumin/Globulin Ratio 1.2 (0.9-1.6) TSH 3rd Generation (0.36-3.74) uIU/mL Urine Color Urine Appearance Urine pH (5.0-8.0) Ur Specific [place] (1.001-1.035) Urine Protein (NEGATIVE) mg/dL Urine Glucose (UA) (NEGATIVE) mg/dL Urine Ketones (NEGATIVE) mg/dL Urine Occult Blood (NEGATIVE) Urine Nitrite (NEGATIVE) Urine Bilirubin (NEGATIVE) Urine Urobilinogen (<2.0) EU/dL Ur Leukocyte Esterase (NEGATIVE) Urine RBC (0-2/HPF) Urine WBC (0-5/HPF) Ur Epithelial Cells (NONE-FEW) Urine Bacteria (NEGATIVE) 10/30/18 10/30/18 10/30/18 Range/Units 10:45 10:45 12:13 WBC (4.0-11.0) K/uL RBC (4.30-5.90) M/uL Hgb (12.0-16.0) g/dL Hct (36.0-46.0) % MCV (80.0-98.0) fL MCH (27.0-32.0) pg MCHC (31.0-37.0) g/dL RDW Std Deviation (28.0-62.0) fl RDW Coeff of Kaylee (11.0-15.0) % Plt Count (150-400) K/uL MPV (7.40-12.00) fL Neut % (Auto) (48.0-80.0) % Lymph % (Auto) (16.0-40.0) % [place] % (Auto) (0.0-15.0) % Eos % (Auto) (0.0-7.0) % Baso % (Auto) (0.0-1.5) % Neut # (Auto) (1.4-5.7) K/uL Lymph # (Auto) (0.6-2.4) K/uL [place] # (Auto) (0.0-0.8) K/uL Eos # (Auto) (0.0-0.7) K/uL Baso # (Auto) (0.0-0.1) K/uL Nucleated RBC % /100WBC Nucleated RBCs # K/uL INR Sodium (136-145) mmol/L Potassium (3.5-5.1) mmol/L Chloride (98-107) mmol/L Carbon Dioxide (21.0-32.0) mmol/L BUN (7.0-18.0) mg/dL Creatinine (0.6-1.0) mg/dL Est Cr Clr Drug Dosing mL/min Estimated GFR (MDRD) ml/min Glucose (74-106) mg/dL Calcium (8.5-10.1) mg/dL Total Bilirubin (0.2-1.0) mg/dL AST (15-37) IU/L ALT (14-63) IU/L Alkaline Phosphatase (46-116) U/L Troponin I (0.000-0.056) ng/mL B-Natriuretic Peptide 93 (<100) PG/ML Total Protein (6.4-8.2) g/dL Albumin (3.4-5.0) g/dL Globulin (2.6-4.0) g/dL Albumin/Globulin Ratio (0.9-1.6) TSH 3rd Generation 3.58 (0.36-3.74) uIU/mL Urine Color YELLOW Urine Appearance CLEAR Urine pH 6.5 (5.0-8.0) Ur Specific [place] 1.010 (1.001-1.035) Urine Protein NEGATIVE (NEGATIVE) mg/dL Urine Glucose (UA) NEGATIVE (NEGATIVE) mg/dL Urine Ketones NEGATIVE (NEGATIVE) mg/dL Urine Occult Blood TRACE-INTACT H (NEGATIVE) Urine Nitrite NEGATIVE (NEGATIVE) Urine Bilirubin NEGATIVE (NEGATIVE) Urine Urobilinogen 0.2 (<2.0) EU/dL Ur Leukocyte Esterase NEGATIVE (NEGATIVE) Urine RBC 0-2 (0-2/HPF) Urine WBC 0-2 (0-5/HPF) Ur Epithelial Cells OCCASIONAL (NONE-FEW) Urine Bacteria RARE (NEGATIVE) 10/31/18 10/31/18 Range/Units 05:58 05:58 WBC 6.17 (4.0-11.0) K/uL RBC 4.44 (4.30-5.90) M/uL Hgb 13.4 (12.0-16.0) g/dL Hct 41.8 (36.0-46.0) % MCV 94.1 (80.0-98.0) fL MCH 30.2 (27.0-32.0) pg MCHC 32.1 (31.0-37.0) g/dL RDW Std Deviation 49.7 (28.0-62.0) fl RDW Coeff of Kaylee 15 (11.0-15.0) % Plt Count 254 (150-400) K/uL MPV 9.80 (7.40-12.00) fL Neut % (Auto) 51.3 (48.0-80.0) % Lymph % (Auto) 31.8 (16.0-40.0) % [place] % (Auto) 13.3 (0.0-15.0) % Eos % (Auto) 3.1 (0.0-7.0) % Baso % (Auto) 0.5 (0.0-1.5) % Neut # (Auto) 3.2 (1.4-5.7) K/uL Lymph # (Auto) 2.0 (0.6-2.4) K/uL [place] # (Auto) 0.8 (0.0-0.8) K/uL Eos # (Auto) 0.2 (0.0-0.7) K/uL Baso # (Auto) 0.0 (0.0-0.1) K/uL Nucleated RBC % 0.0 /100WBC Nucleated RBCs # 0 K/uL INR Sodium 138 (136-145) mmol/L Potassium 3.6 (3.5-5.1) mmol/L Chloride 105 (98-107) mmol/L Carbon Dioxide 25.0 (21.0-32.0) mmol/L BUN 21 H (7.0-18.0) mg/dL Creatinine 0.8 (0.6-1.0) mg/dL Est Cr Clr Drug Dosing 40.25 mL/min Estimated GFR (MDRD) > 60.0 ml/min Glucose 89 (74-106) mg/dL Calcium 8.9 (8.5-10.1) mg/dL Total Bilirubin 0.5 (0.2-1.0) mg/dL AST 13 L (15-37) IU/L ALT 18 (14-63) IU/L Alkaline Phosphatase 62 (46-116) U/L Troponin I (0.000-0.056) ng/mL B-Natriuretic Peptide (<100) PG/ML Total Protein 6.2 L (6.4-8.2) g/dL Albumin 3.2 L (3.4-5.0) g/dL Globulin 3.0 (2.6-4.0) g/dL Albumin/Globulin Ratio 1.1 (0.9-1.6) TSH 3rd Generation (0.36-3.74) uIU/mL Urine Color Urine Appearance Urine pH (5.0-8.0) Ur Specific [place] (1.001-1.035) Urine Protein (NEGATIVE) mg/dL Urine Glucose (UA) (NEGATIVE) mg/dL Urine Ketones (NEGATIVE) mg/dL Urine Occult Blood (NEGATIVE) Urine Nitrite (NEGATIVE) Urine Bilirubin (NEGATIVE) Urine Urobilinogen (<2.0) EU/dL Ur Leukocyte Esterase (NEGATIVE) Urine RBC (0-2/HPF) Urine WBC (0-5/HPF) Ur Epithelial Cells (NONE-FEW) Urine Bacteria (NEGATIVE) Med Orders - Current: Current Medications Acetaminophen (Tylenol) 650 mg PO Q4H PRN PRN Reason: Pain (Mild 1-3)/fever Last Admin: 10/31/18 07:49 Dose: 650 mg Aspirin (Aspirin) 81 mg PO DAILY [facility] Last Admin: 10/31/18 08:30 Dose: 81 mg Docusate Sodium (Colace) 100 mg PO BID PRN PRN Reason: Constipation Enoxaparin Sodium (Lovenox) 40 mg SUBCUT Q24H [facility] Last Admin: 10/30/18 15:51 Dose: 40 mg Sodium Chloride (Normal Saline) 1,000 mls @ 50 mls/hr IV ASDIRECTED [facility] Last Admin: 10/31/18 06:06 Dose: 50 mls/hr Levothyroxine Sodium (Levothyroxine) 75 mcg PO ACBREAKFAST [facility] Last Admin: 10/31/18 07:45 Dose: Not Given Losartan Potassium (Cozaar) 100 mg PO DAILY [facility] Last Admin: 10/31/18 08:30 Dose: 100 mg Ondansetron HCl (Zofran Odt) 4 mg PO Q6H PRN PRN Reason: nausea, able to take PO Oxycodone HCl (Oxycodone) 5 mg PO Q4H PRN PRN Reason: Pain (moderate 4-6) Sodium Chloride (Saline Flush) 10 ml FLUSH ASDIRECTED PRN PRN Reason: Keep Vein Open Last Admin: 10/30/18 11:11 Dose: 10 ml Sodium Chloride (Saline Flush) 2.5 ml FLUSH ASDIRECTED PRN PRN Reason: Keep Vein Open Last Admin: 10/30/18 11:11 Dose: 2.5 ml Temazepam (Restoril) 15 mg PO BEDTIME PRN PRN Reason: Sleep Discontinued Medications Aspirin (Aspirin) 324 mg PO ONETIME ONE Stop: 10/30/18 10:38 Last Admin: 10/30/18 11:11 Dose: 324 mg Clopidogrel Bisulfate (Plavix) 75 mg PO DAILY [facility] - Exam Quality Assessment: No: Supplemental Oxygen General: Alert, Oriented, Cooperative, No Acute Distress HEENT: Pupils Equal, Pupils Reactive, EOMI, Mucous Membr. Moist/[place] Neck: Supple, Trachea Midline Lungs: Clear to Auscultation, Normal Respiratory Effort Cardiovascular: Regular Rate, Regular Rhythm GI/Abdominal Exam: Normal Bowel Sounds, Soft, Non-Tender, No Distention Back Exam: Full Range of Motion (Age appropriate). No: Normal Inspection ( Kyphosis) Extremities: Normal Inspection, No Pedal Edema Skin: Warm, Dry, Intact Neurological: No New Focal Deficit Psy/Mental Status: Alert, Normal Affect, Normal Mood - Problem List & Annotations (1) Dyspnea SNOMED Code(s): 723050580 Code(s): R06.00 - DYSPNEA, UNSPECIFIED Status: Acute Priority: High Current Visit: Yes Qualifiers: Dyspnea type: other forms of dyspnea Qualified Code(s): R06.09 - Other forms of dyspnea (2) Anxiety SNOMED Code(s): 89440176 Code(s): F41.9 - ANXIETY DISORDER, UNSPECIFIED Status: Chronic Priority: High Current Visit: Yes (3) Benign positional vertigo SNOMED Code(s): 168649321 Code(s): H81.10 - BENIGN PAROXYSMAL VERTIGO, UNSPECIFIED EAR Status: Chronic Priority: High Current Visit: Yes Qualifiers: Laterality: unspecified laterality Qualified Code(s): H81.10 - Benign paroxysmal vertigo, unspecified ear (4) Dehydration SNOMED Code(s): 79131785 Code(s): E86.0 - DEHYDRATION Status: Acute Priority: High Current Visit : Yes (5) Hypertension SNOMED Code(s): 95197596 Code(s): I10 - ESSENTIAL (PRIMARY) HYPERTENSION Status: Chronic Priority : High Current Visit: Yes Qualifiers: Hypertension type: essential hypertension Qualified Code(s): I10 - Essential (primary) hypertension (6) Lethargy SNOMED Code(s): 466693351 Code(s): R53.83 - OTHER FATIGUE Status: Chronic Priority: High Current Visit: Yes (7) Weakness SNOMED Code(s): 54994413 Code(s): R53.1 - WEAKNESS Status: Chronic Priority: High Current Visit : Yes - Problem List Review Problem List Initiated/Reviewed/Updated: Yes - My Orders Last 24 Hours: My Active Orders 10/30/18 13:24 Cardiac Monitoring [RC] Q8H 10/30/18 14:51 Oxygen Therapy [RC] PRN VTE/DVT Education [RC] PER UNIT ROUTINE Vital Signs [RC] Q4H OT Evaluation and Treatment [CONS] Routine PT Evaluation and Treatment [CONS] Routine Acetaminophen [Tylenol] 650 mg PO Q4H PRN Docusate Sodium [Colace] 100 mg PO BID PRN Ondansetron [Zofran ODT] 4 mg PO Q6H PRN Temazepam [Restoril] 15 mg PO BEDTIME PRN oxyCODONE 5 mg PO Q4H PRN Resuscitation Status Routine 10/30/18 15:00 Enoxaparin [Lovenox] 40 mg SUBCUT Q24H 10/30/18 17:42 Cardiac Monitoring [RC] Q8H 10/30/18 17:43 Telemetry Monitoring [Cardiac Monitoring] [RC] Q8H 10/30/18 Lunch Heart Healthy Diet [DIET] 10/31/18 07:30 Levothyroxine 75 mcg PO ACBREAKFAST 10/31/18 09:00 Aspirin 81 mg PO DAILY Losartan [Cozaar] 100 mg PO DAILY - Plan Plan:: The patient is an 83-year-old lady who had been admitted to observation yesterday secondary to fatigue and weakness. The patient will be continued on telemetry for now. The patient's amlodipine has been discontinued. Her current blood pressure readings have been 115/58 mmHg earlier this morning. The patient also has been ordered to have PT OT evaluation for ambulation, strengthening and performance of ADLs. The patient will be kept on oxygen if necessary to keep her saturations around 92%. The patient will have her vital signs monitored and she'll be kept on her antihypertensives and these we adjusted as necessary. The patient should be appropriate for discharge tomorrow. The patient is currently full resuscitative code. She also keep on DVT prophylaxis.
[2018-10-31 12:10] VITALS: BP 137/66
--- NOTE | 2018-10-31 12:12 | PCM.DCSUM1 ---
Discharge Summary - Hospital Course HPI Initial Comments: The patient was admitted out of concern for subjective dyspnea as well as weakness and fatigue. Diagnosis: Stroke: No - Discharge Data Discharge Date: 10/31/18 Discharge Disposition: Home, Self-Care 01 Condition: Fair - Discharge Diagnosis/Problem(s) (1) Dyspnea SNOMED Code(s): 818805040 ICD Code: R06.00 - DYSPNEA, UNSPECIFIED Status: Resolved Priority: High Qualifiers: Dyspnea type: other forms of dyspnea Qualified Code(s): R06.09 - Other forms of dyspnea (2) Anxiety SNOMED Code(s): 27139205 ICD Code: F41.9 - ANXIETY DISORDER, UNSPECIFIED Status: Chronic Priority : High (3) Benign positional vertigo SNOMED Code(s): 694094284 ICD Code: H81.10 - BENIGN PAROXYSMAL VERTIGO, UNSPECIFIED EAR Status: Chronic Priority: High Qualifiers: Laterality: unspecified laterality Qualified Code(s): H81.10 - Benign paroxysmal vertigo, unspecified ear (4) Dehydration SNOMED Code(s): 98258027 ICD Code: E86.0 - DEHYDRATION Status: Acute Priority: High (5) Hypertension SNOMED Code(s): 14592359 ICD Code: I10 - ESSENTIAL (PRIMARY) HYPERTENSION Status: Chronic Priority : High Qualifiers: Hypertension type: essential hypertension Qualified Code(s): I10 - Essential (primary) hypertension (6) Lethargy SNOMED Code(s): 790329115 ICD Code: R53.83 - OTHER FATIGUE Status: Chronic Priority: High (7) Weakness SNOMED Code(s): 33965654 ICD Code: R53.1 - WEAKNESS Status: Chronic Priority: High - Patient Summary/Data Consults: Consultations 10/30/18 14:51 OT Evaluation and Treatment [CONS] Routine PT Evaluation and Treatment [CONS] Routine Hospital Course: The patient is an 83-year-old lady who had presented to the emergency department primarily out of concern for feeling weak and fatigued. She says that she has had some shortness of breath and right-sided cervical spine pain. The patient had been using ice pack on this. The patient was seen in the clinic 2 days ago and had been given a Medrol Dosepak in order to help with the inflammation in her neck. She took 2 of the tablets and did not like the jittery side effects. Patient says that she has been feeling like she is getting worse over the last several months but over the past week her shortness of breath has gotten much worse. The patient is concerned that some of her medications have been causing the problem. The patient's TSH was checked and her TSH was at 3.58. This indicates that the patient's dose of Synthroid is correct. The patient is also concerned about the amount of medications that she has been taking lately. She says she is very sensitive to the amount of medications and has stopped some in the past. This time in particular she feels that it see amlodipine. In particular, she does not like amlodipine. Patient also has been somewhat vague about her other symptoms. Her primary concern is that she just feels weak and has no energy. Initially the patient's white blood cell count was elevated however by day of discharge her CBC had completely normalized. Interestingly, the patient's blood pressure without the amlodipine had remained in 137/65 range. I explained to the patient that older people tend to do better with slightly elevated blood pressures and if her blood pressures to over be contributing to her overall fatigue and weakness. The patient had continued to improve and she said that she still felt somewhat short of breath however she was not on oxygen and she was able to ambulate. She also been evaluated by physical therapy and was okay for returning to home. I explained to the patient that if she has further decline in overall health she may be appropriate for senior living facility. The patient had been tolerating her diet and she is recommended to continue her diet as tolerated. The patient is also to have activity as tolerated. The patient has been hemodynamically stable and she has been discharged from acute hospitalization with recommendations listed above. - Patient Instructions Diet: Heart Healthy Diet Activity: As Tolerated Notify Provider of: Increased Pain - Discharge Plan *PRESCRIPTION DRUG MONITORING PROGRAM REVIEWED*: No *COPY OF PRESCRIPTION DRUG MONITORING REPORT IN PATIENT AKIN: No Home Medications: Home Meds Levothyroxine 75 mcg PO ACBREAKFAST 02/13/14 [History] Clopidogrel [Plavix] 75 mg PO DAILY 11/28/17 [History] Losartan [Cozaar] 100 mg PO DAILY 11/28/17 [History] Aspirin 81 mg PO DAILY 10/30/18 [History] Celecoxib 400 mg PO DAILY 10/30/18 [History] Oxygen Therapy Mode: Room Air Patient Handouts: Shortness of Breath, Adult, [id number] Referrals: [facility] [Ordering Only Provider] - Amber Read MD [Primary Care Provider] - (Call the clinic on Thursday to make a hospital follow-up. This was not done for you due to it being the weekend. ) - Discharge Summary/Plan Comment DC Time >30 min.: Yes - General Info Date of Service: 10/31/18 Admission Dx/Problem (Free Text: Admission Diagnosis/Problem Admission Diagnosis/Problem Dyspnea, chronic, weakness and fatigue Subjective Update: Doing better. Functional Status: Reports: Pain Controlled - Review of Systems General: Reports: Weakness HEENT: Reports: No Symptoms Pulmonary: Reports: No Symptoms Cardiovascular: Reports: No Symptoms Gastrointestinal: Reports: No Symptoms Genitourinary: Reports: No Symptoms Musculoskeletal: Reports: No Symptoms Skin: Reports: No Symptoms Neurological: Reports: No Symptoms Psychiatric: Reports: No Symptoms - Patient Data Vitals - Most Recent: Last Vital Signs Temp 36.6 C 10/31/18 12:00 Pulse 70 10/31/18 12:00 Resp 16 10/31/18 12:00 BP 137/66 10/31/18 12:00 Pulse Ox 97 10/31/18 12:00 Weight - Most Recent: 58.06 kg I&O - Last 24 hours: Intake & Output 10/30/18 10/31/18 10/31/18 22:59 06:59 14:59 Intake Total 300 1400 Output Total 400 1050 Balance -100 350 Lab Results - Last 24 hrs: Laboratory Results - last 24 hr 10/30/18 10/30/18 10/31/18 Range/Units 10:45 12:13 05:58 WBC 6.17 (4.0-11.0) K/uL RBC 4.44 (4.30-5.90) M/uL Hgb 13.4 (12.0-16.0) g/dL Hct 41.8 (36.0-46.0) % MCV 94.1 (80.0-98.0) fL MCH 30.2 (27.0-32.0) pg MCHC 32.1 (31.0-37.0) g/dL RDW Std Deviation 49.7 (28.0-62.0) fl RDW Coeff of Kaylee 15 (11.0-15.0) % Plt Count 254 (150-400) K/uL MPV 9.80 (7.40-12.00) fL Neut % (Auto) 51.3 (48.0-80.0) % Lymph % (Auto) 31.8 (16.0-40.0) % [place] % (Auto) 13.3 (0.0-15.0) % Eos % (Auto) 3.1 (0.0-7.0) % Baso % (Auto) 0.5 (0.0-1.5) % Neut # (Auto) 3.2 (1.4-5.7) K/uL Lymph # (Auto) 2.0 (0.6-2.4) K/uL [place] # (Auto) 0.8 (0.0-0.8) K/uL Eos # (Auto) 0.2 (0.0-0.7) K/uL Baso # (Auto) 0.0 (0.0-0.1) K/uL Nucleated RBC % 0.0 /100WBC Nucleated RBCs # 0 K/uL Sodium (136-145) mmol/L Potassium (3.5-5.1) mmol/L Chloride (98-107) mmol/L Carbon Dioxide (21.0-32.0) mmol/L BUN (7.0-18.0) mg/dL Creatinine (0.6-1.0) mg/dL Est Cr Clr Drug Dosing mL/min Estimated GFR (MDRD) ml/min Glucose (74-106) mg/dL Calcium (8.5-10.1) mg/dL Total Bilirubin (0.2-1.0) mg/dL AST (15-37) IU/L ALT (14-63) IU/L Alkaline Phosphatase (46-116) U/L Total Protein (6.4-8.2) g/dL Albumin (3.4-5.0) g/dL Globulin (2.6-4.0) g/dL Albumin/Globulin Ratio (0.9-1.6) TSH 3rd Generation 3.58 (0.36-3.74) uIU/mL Urine Color YELLOW Urine Appearance CLEAR Urine pH 6.5 (5.0-8.0) Ur Specific [place] 1.010 (1.001-1.035) Urine Protein NEGATIVE (NEGATIVE) mg/dL Urine Glucose (UA) NEGATIVE (NEGATIVE) mg/dL Urine Ketones NEGATIVE (NEGATIVE) mg/dL Urine Occult Blood TRACE-INTACT H (NEGATIVE) Urine Nitrite NEGATIVE (NEGATIVE) Urine Bilirubin NEGATIVE (NEGATIVE) Urine Urobilinogen 0.2 (<2.0) EU/dL Ur Leukocyte Esterase NEGATIVE (NEGATIVE) Urine RBC 0-2 (0-2/HPF) Urine WBC 0-2 (0-5/HPF) Ur Epithelial Cells OCCASIONAL (NONE-FEW) Urine Bacteria RARE (NEGATIVE) 10/31/18 Range/Units 05:58 WBC (4.0-11.0) K/uL RBC (4.30-5.90) M/uL Hgb (12.0-16.0) g/dL Hct (36.0-46.0) % MCV (80.0-98.0) fL MCH (27.0-32.0) pg MCHC (31.0-37.0) g/dL RDW Std Deviation (28.0-62.0) fl RDW Coeff of Kaylee (11.0-15.0) % Plt Count (150-400) K/uL MPV (7.40-12.00) fL Neut % (Auto) (48.0-80.0) % Lymph % (Auto) (16.0-40.0) % [place] % (Auto) (0.0-15.0) % Eos % (Auto) (0.0-7.0) % Baso % (Auto) (0.0-1.5) % Neut # (Auto) (1.4-5.7) K/uL Lymph # (Auto) (0.6-2.4) K/uL [place] # (Auto) (0.0-0.8) K/uL Eos # (Auto) (0.0-0.7) K/uL Baso # (Auto) (0.0-0.1) K/uL Nucleated RBC % /100WBC Nucleated RBCs # K/uL Sodium 138 (136-145) mmol/L Potassium 3.6 (3.5-5.1) mmol/L Chloride 105 (98-107) mmol/L Carbon Dioxide 25.0 (21.0-32.0) mmol/L BUN 21 H (7.0-18.0) mg/dL Creatinine 0.8 (0.6-1.0) mg/dL Est Cr Clr Drug Dosing 40.25 mL/min Estimated GFR (MDRD) > 60.0 ml/min Glucose 89 (74-106) mg/dL Calcium 8.9 (8.5-10.1) mg/dL Total Bilirubin 0.5 (0.2-1.0) mg/dL AST 13 L (15-37) IU/L ALT 18 (14-63) IU/L Alkaline Phosphatase 62 (46-116) U/L Total Protein 6.2 L (6.4-8.2) g/dL Albumin 3.2 L (3.4-5.0) g/dL Globulin 3.0 (2.6-4.0) g/dL Albumin/Globulin Ratio 1.1 (0.9-1.6) TSH 3rd Generation (0.36-3.74) uIU/mL Urine Color Urine Appearance Urine pH (5.0-8.0) Ur Specific [place] (1.001-1.035) Urine Protein (NEGATIVE) mg/dL Urine Glucose (UA) (NEGATIVE) mg/dL Urine Ketones (NEGATIVE) mg/dL Urine Occult Blood (NEGATIVE) Urine Nitrite (NEGATIVE) Urine Bilirubin (NEGATIVE) Urine Urobilinogen (<2.0) EU/dL Ur Leukocyte Esterase (NEGATIVE) Urine RBC (0-2/HPF) Urine WBC (0-5/HPF) Ur Epithelial Cells (NONE-FEW) Urine Bacteria (NEGATIVE) Med Orders - Current: Current Medications Acetaminophen (Tylenol) 650 mg PO Q4H PRN PRN Reason: Pain (Mild 1-3)/fever Last Admin: 10/31/18 07:49 Dose: 650 mg Aspirin (Aspirin) 81 mg PO DAILY [facility] Last Admin: 10/31/18 08:30 Dose: 81 mg Docusate Sodium (Colace) 100 mg PO BID PRN PRN Reason: Constipation Enoxaparin Sodium (Lovenox) 40 mg SUBCUT Q24H [facility] Last Admin: 10/30/18 15:51 Dose: 40 mg Sodium Chloride (Normal Saline) 1,000 mls @ 50 mls/hr IV ASDIRECTED [facility] Last Admin: 10/31/18 06:06 Dose: 50 mls/hr Levothyroxine Sodium (Levothyroxine) 75 mcg PO ACBREAKFAST [facility] Last Admin: 10/31/18 07:45 Dose: Not Given Losartan Potassium (Cozaar) 100 mg PO DAILY [facility] Last Admin: 10/31/18 08:30 Dose: 100 mg Ondansetron HCl (Zofran Odt) 4 mg PO Q6H PRN PRN Reason: nausea, able to take PO Oxycodone HCl (Oxycodone) 5 mg PO Q4H PRN PRN Reason: Pain (moderate 4-6) Sodium Chloride (Saline Flush) 10 ml FLUSH ASDIRECTED PRN PRN Reason: Keep Vein Open Last Admin: 10/30/18 11:11 Dose: 10 ml Sodium Chloride (Saline Flush) 2.5 ml FLUSH ASDIRECTED PRN PRN Reason: Keep Vein Open Last Admin: 10/30/18 11:11 Dose: 2.5 ml Temazepam (Restoril) 15 mg PO BEDTIME PRN PRN Reason: Sleep Discontinued Medications Aspirin (Aspirin) 324 mg PO ONETIME ONE Stop: 10/30/18 10:38 Last Admin: 10/30/18 11:11 Dose: 324 mg Clopidogrel Bisulfate (Plavix) 75 mg PO DAILY [facility] - Exam Quality Assessment: Denies: Supplemental Oxygen General: Reports: Alert, Oriented, Cooperative, No Acute Distress HEENT: Reports: Pupils Equal, Pupils Reactive, EOMI Neck: Reports: Supple, Trachea Midline Lungs: Reports: Clear to Auscultation, Normal Respiratory Effort Cardiovascular: Reports: Regular Rate, Regular Rhythm GI/Abdominal Exam: Normal Bowel Sounds, Soft, No Distention Back Exam: Reports: Full Range of Motion (Age appropriate). Denies: Normal Inspection (Kyphosis) Extremities: Normal Inspection (Age appropriate), Normal Range of Motion, No Pedal Edema Skin: Reports: Warm, Dry, Intact Neurological: Reports: No New Focal Deficit Psy/Mental Status: Reports: Alert, Normal Affect, Normal Mood
== END 2018-10-31 13:15 | disposition home or self-care (01) ==
LOC: MW.ED 10:25 → MW.MS 13:07
PROVIDERS: ADMIT Internal Medicine; ATTEND Internal Medicine
DX: R53.1 Weakness (principal); R53.83 Other fatigue; R06.02 Shortness of breath; E86.0 Dehydration; H81.10 Benign paroxysmal vertigo, unspecified ear; M54.2 Cervicalgia; I11.0 Hypertensive heart disease with heart failure; I50.9 Heart failure, unspecified; E03.9 Hypothyroidism, unspecified; F41.9 Anxiety disorder, unspecified; Z88.5 Allergy status to narcotic agent; Z79.82 Long term (current) use of aspirin; Z79.02 Long term (current) use of antithrombotics/antiplatelets; Z79.1 Long term (current) use of non-steroidal anti-inflammatories (NSAID); Z79.899 Other long term (current) drug therapy
CPT/HCPCS: 36415; 71045; 80053; 81001; 83880; 84443; 84484; 85025; 85610; 93005; 99285; A9270; J1650; J7040

== ENCOUNTER 2018-12-24 10:51 | Emergency (ER) | payer MEDICARE, BC ==
--- NOTE | 2018-12-24 11:31 | EDM.PDOC ---
<Ayah Tripathi - Last Filed: 12/24/18 14:21> ED HPI GENERAL MEDICAL PROBLEM - General Chief Complaint: Respiratory Problem Stated Complaint: SOB Time Seen by Provider: 12/24/18 10:55 Source of Information: Reports: Patient History Limitations: Reports: Other (Poor historian ) - History of Present Illness INITIAL COMMENTS - FREE TEXT/NARRATIVE: HISTORY AND PHYSICAL: History of present illness: Poor Historian HPI limited Patient is an 83-year-old female who presents today for shortness of breath, generalized weakness, and nausea that has been going on since the end of October. She describes the shortness of breath as difficulty getting a deep breath in and nothing makes it better or worse. She has been to the clinic several times for this condition and she reports that she was hospitalized early November for blood pressure issues. She states that she has cardiac history, but is unsure of her diagnoses but thinks it is related to a valve. She also reports muscle pain to her right neck muscle with movement of her neck. She was seen in the clinic early November for this, had imaging done, and she was told that the muscle was inflamed. She does not take any medication for neck discomfort or use heat/ cold treatments. Patient was seen in the ED on 10/30/18 for SOB, neck pain, weakness which had been ongoing for one month at that time. She was admitted for dyspnea. She follows with Dr. Read in the clinic who had related the neck pain to arthritis after x-ray. She did have an ECHO on 12/01/18 which shows an LVEF of 65 % with moderate aortic sclerosis. Patient denies any changes from this admission. Patient denies fever, chills, chest pain, or cough. Denies headache, neck stiff ness, change in vision, syncope, or near syncope. Denies vomiting, abdominal pain, diarrhea, constipation, or dysuria. Has not noted any blood in urine or stool. Patient has been eating and drinking appropriately. Review of systems: As per history of present illness and below otherwise all systems reviewed and negative. Past medical history: As per history of present illness and as reviewed below otherwise noncontributory. Surgical history: As per history of present illness and as reviewed below otherwise noncontributory. Social history: See social history for further information Family history: As per history of present illness and as reviewed below otherwise noncontributory. Physical exam: General: Patient is alert, oriented, and in no acute distress. Patient laying comfortably on exam table. HEENT: Atraumatic, normocephalic, pupils equal and reactive bilaterally, negative for conjunctival pallor or scleral icterus, mucous membranes moist, TMs normal bilaterally, throat clear, neck supple, nontender, trachea midline. No drooling or trismus noted. No meningeal signs. No hot potato voice noted. Tenderness to the right sternomastoid muscle with rotation. Lungs: Clear to auscultation, breath sounds equal bilaterally, chest nontender. No increased work of breathing. No accessory muscle use. Heart: S1S2, regular rate and rhythm with systolic murmur grade III Abdomen: Soft, nondistended, tender to palpation. Negative for masses or hepatosplenomegaly. Negative for costovertebral tenderness. Pelvis: Stable nontender. Genitourinary: Deferred. Rectal: Deferred. Skin: Intact, warm, dry. No lesions or rashes noted. Extremities: Atraumatic, negative for cords or calf pain. Neurovascular unremarkable. +1 pitting edema to bilateral knees of the lower extremities. Neuro: Awake, alert, oriented. Cranial nerves II through XII unremarkable. Cerebellum unremarkable. Motor and sensory unremarkable throughout. Exam nonfocal. Notes: Dr. Sandoval verbally involved in patient care. EKG today was compared to EKG that was completed on 11/24/18 without significant changes. Patient is refusing Angiogram chest CT. Risks were extensively explained and discussed with the patient. Patient verbalizes understanding of the risks associated with refusal. Discussed admission vs outpatient follow up and patient is refusing admission and accepting of all risks including . Appointment was made with the clinic with the soonest available appoint on at 11:15am with her PCP. Discussed the importance of following up with primary care provider. Voices understanding and is agreeable to plan of care. Denies any further questions or concerns at this time. Diagnostics: CXR, EKG, CBC, CMP, Troponin, BMP, UA, D-dimer, INR, TSH, Ang Chest CT Therapeutics: None. Prescription: None. Impression: Dyspnea, chronic Neck pain, chronic Elevated d-dimer cannot r/o PE Plan: 1. Take Tylenol and ibuprofen as directed for pain and discomfort. 2. Follow up with primary care as scheduled and cardiology as discussed. 3. Your appointment is on 12/31/18 at 11:15am with Dr. Read. Please arrive at 10:45am to check in. 4. Return to ED as needed and as discussed. Definitive disposition and diagnosis as appropriate pending reevaluation and review of above. Neck Pain Score (Numeric/FACES): 8 - Related Data Allergies Allergy/AdvReac Type Severity Reaction Status Date / Time morphine Allergy Hives Verified 12/24/18 10:56 Home Meds: Home Meds Levothyroxine 75 mcg PO ACBREAKFAST 02/13/14 [History] Clopidogrel [Plavix] 75 mg PO DAILY 11/28/17 [History] Losartan [Cozaar] 100 mg PO DAILY 11/28/17 [History] Aspirin 81 mg PO DAILY 10/30/18 [History] Celecoxib 400 mg PO DAILY 10/30/18 [History] Past Medical History HEENT History: Reports: Macular Degeneration Other HEENT History: left eye Cardiovascular History: Reports: Heart Failure, Heart Murmur, Hypertension Respiratory History: Reports: None Gastrointestinal History: Reports: None Other Gastrointestinal History: Appendicitis 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: Reports: None 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 Musculoskeletal History: Reports: None Neurological History: Reports: None Psychiatric History: Reports: None Endocrine/Metabolic History: Reports: Hypothyroidism Hematologic History: Reports: None Immunologic History: Reports: None Oncologic (Cancer) History: Reports: None Dermatologic History: Reports: None - Infectious Disease History Infectious Disease History: Reports: None - Past Surgical History Head Surgeries/Procedures: Reports: None Respiratory Surgical History: Reports: None Other GI Surgeries/Procedures: Appendectomy Female Surgical History: Reports: None Neurological Surgical History: Reports: None Musculoskeletal Surgical History: Reports: None Oncologic Surgical History: Reports: None Dermatological Surgical History: Reports: None Social & Family History - Family History Family Medical History: Noncontributory - Tobacco Use Smoking Status *Q: Never Smoker - Caffeine Use Caffeine Use: Reports: None - Recreational Drug Use Recreational Drug Use: No - Living Situation & Occupation Living situation: Reports: with Family Occupation: Retired ED ROS GENERAL - Review of Systems Review Of Systems: ROS reveals no pertinent complaints other than HPI. ED EXAM, GENERAL - Physical Exam Exam: See Below (see dictation) Course - Vital Signs Last Recorded V/S: Last Vital Signs Temp 37.1 C 12/24/18 10:58 Pulse 77 12/24/18 12:55 Resp 16 12/24/18 12:55 BP 149/69 H 12/24/18 12:55 Pulse Ox 95 12/24/18 12:55 - Orders/Labs/Meds Orders: Active Orders 24 hr Category Date Time Status EKG Documentation Completion [RC] STAT Care 12/24/18 11:08 Active CULTURE URINE [RM] Stat Lab 12/24/18 11:33 Received Labs: Laboratory Tests 12/24/18 12/24/18 12/24/18 Range/Units 11:04 11:04 11:04 WBC 8.10 (4.0-11.0) K/uL RBC 4.87 (4.30-5.90) M/uL Hgb 15.0 (12.0-16.0) g/dL Hct 45.1 (36.0-46.0) % MCV 92.6 (80.0-98.0) fL MCH 30.8 (27.0-32.0) pg MCHC 33.3 (31.0-37.0) g/dL RDW Std Deviation 47.0 (28.0-62.0) fl RDW Coeff of Kaylee 14 (11.0-15.0) % Plt Count 280 (150-400) K/uL MPV 10.20 (7.40-12.00) fL Neut % (Auto) 61.5 (48.0-80.0) % Lymph % (Auto) 28.3 (16.0-40.0) % [place] % (Auto) 8.0 (0.0-15.0) % Eos % (Auto) 1.7 (0.0-7.0) % Baso % (Auto) 0.5 (0.0-1.5) % Neut # (Auto) 5.0 (1.4-5.7) K/uL Lymph # (Auto) 2.3 (0.6-2.4) K/uL [place] # (Auto) 0.7 (0.0-0.8) K/uL Eos # (Auto) 0.1 (0.0-0.7) K/uL Baso # (Auto) 0.0 (0.0-0.1) K/uL Nucleated RBC % 0.0 /100WBC Nucleated RBCs # 0 K/uL INR D-Dimer, Quantitative (0.0-0.50) mg/L FEU Sodium 139 (136-145) mmol/L Potassium 3.7 (3.5-5.1) mmol/L Chloride 101 (98-107) mmol/L Carbon Dioxide 26.1 (21.0-32.0) mmol/L BUN 20 H (7.0-18.0) mg/dL Creatinine 0.8 (0.6-1.0) mg/dL Est Cr Clr Drug Dosing 46.01 mL/min Estimated GFR (MDRD) > 60.0 ml/min Glucose 129 H (74-106) mg/dL Calcium 9.6 (8.5-10.1) mg/dL Total Bilirubin 0.6 (0.2-1.0) mg/dL AST 16 (15-37) IU/L ALT 26 (14-63) IU/L Alkaline Phosphatase 70 (46-116) U/L Troponin I < 0.050 (0.000-0.056) ng/mL B-Natriuretic Peptide 69 (<100) PG/ML Total Protein 7.9 (6.4-8.2) g/dL Albumin 4.2 (3.4-5.0) g/dL Globulin 3.7 (2.6-4.0) g/dL Albumin/Globulin Ratio 1.1 (0.9-1.6) TSH 3rd Generation (0.36-3.74) uIU/mL Urine Color Urine Appearance Urine pH (5.0-8.0) Ur Specific [place] (1.001-1.035) Urine Protein (NEGATIVE) mg/dL Urine Glucose (UA) (NEGATIVE) mg/dL Urine Ketones (NEGATIVE) mg/dL Urine Occult Blood (NEGATIVE) Urine Nitrite (NEGATIVE) Urine Bilirubin (NEGATIVE) Urine Urobilinogen (<2.0) EU/dL Ur Leukocyte Esterase (NEGATIVE) Urine RBC (0-2/HPF) Urine WBC (0-5/HPF) Ur Epithelial Cells (NONE-FEW) Urine Bacteria (NEGATIVE) 12/24/18 12/24/18 12/24/18 Range/Units 11:04 11:04 11:33 WBC (4.0-11.0) K/uL RBC (4.30-5.90) M/uL Hgb (12.0-16.0) g/dL Hct (36.0-46.0) % MCV (80.0-98.0) fL MCH (27.0-32.0) pg MCHC (31.0-37.0) g/dL RDW Std Deviation (28.0-62.0) fl RDW Coeff of Kaylee (11.0-15.0) % Plt Count (150-400) K/uL MPV (7.40-12.00) fL Neut % (Auto) (48.0-80.0) % Lymph % (Auto) (16.0-40.0) % [place] % (Auto) (0.0-15.0) % Eos % (Auto) (0.0-7.0) % Baso % (Auto) (0.0-1.5) % Neut # (Auto) (1.4-5.7) K/uL Lymph # (Auto) (0.6-2.4) K/uL [place] # (Auto) (0.0-0.8) K/uL Eos # (Auto) (0.0-0.7) K/uL Baso # (Auto) (0.0-0.1) K/uL Nucleated RBC % /100WBC Nucleated RBCs # K/uL INR 0.97 D-Dimer, Quantitative (0.0-0.50) mg/L FEU Sodium (136-145) mmol/L Potassium (3.5-5.1) mmol/L Chloride (98-107) mmol/L Carbon Dioxide (21.0-32.0) mmol/L BUN (7.0-18.0) mg/dL Creatinine (0.6-1.0) mg/dL Est Cr Clr Drug Dosing mL/min Estimated GFR (MDRD) ml/min Glucose (74-106) mg/dL Calcium (8.5-10.1) mg/dL Total Bilirubin (0.2-1.0) mg/dL AST (15-37) IU/L ALT (14-63) IU/L Alkaline Phosphatase (46-116) U/L Troponin I (0.000-0.056) ng/mL B-Natriuretic Peptide (<100) PG/ML Total Protein (6.4-8.2) g/dL Albumin (3.4-5.0) g/dL Globulin (2.6-4.0) g/dL Albumin/Globulin Ratio (0.9-1.6) TSH 3rd Generation 1.30 (0.36-3.74) uIU/mL Urine Color YELLOW Urine Appearance CLEAR Urine pH 7.0 (5.0-8.0) Ur Specific [place] 1.020 (1.001-1.035) Urine Protein NEGATIVE (NEGATIVE) mg/dL Urine Glucose (UA) NEGATIVE (NEGATIVE) mg/dL Urine Ketones NEGATIVE (NEGATIVE) mg/dL Urine Occult Blood TRACE-INTACT H (NEGATIVE) Urine Nitrite NEGATIVE (NEGATIVE) Urine Bilirubin NEGATIVE (NEGATIVE) Urine Urobilinogen 0.2 (<2.0) EU/dL Ur Leukocyte Esterase SMALL H (NEGATIVE) Urine RBC 0-2 (0-2/HPF) Urine WBC 0-1 (0-5/HPF) Ur Epithelial Cells RARE (NONE-FEW) Urine Bacteria FEW (NEGATIVE) 12/24/18 Range/Units 11:49 WBC (4.0-11.0) K/uL RBC (4.30-5.90) M/uL Hgb (12.0-16.0) g/dL Hct (36.0-46.0) % MCV (80.0-98.0) fL MCH (27.0-32.0) pg MCHC (31.0-37.0) g/dL RDW Std Deviation (28.0-62.0) fl RDW Coeff of Kaylee (11.0-15.0) % Plt Count (150-400) K/uL MPV (7.40-12.00) fL Neut % (Auto) (48.0-80.0) % Lymph % (Auto) (16.0-40.0) % [place] % (Auto) (0.0-15.0) % Eos % (Auto) (0.0-7.0) % Baso % (Auto) (0.0-1.5) % Neut # (Auto) (1.4-5.7) K/uL Lymph # (Auto) (0.6-2.4) K/uL [place] # (Auto) (0.0-0.8) K/uL Eos # (Auto) (0.0-0.7) K/uL Baso # (Auto) (0.0-0.1) K/uL Nucleated RBC % /100WBC Nucleated RBCs # K/uL INR D-Dimer, Quantitative 0.52 H (0.0-0.50) mg/L FEU Sodium (136-145) mmol/L Potassium (3.5-5.1) mmol/L Chloride (98-107) mmol/L Carbon Dioxide (21.0-32.0) mmol/L BUN (7.0-18.0) mg/dL Creatinine (0.6-1.0) mg/dL Est Cr Clr Drug Dosing mL/min Estimated GFR (MDRD) ml/min Glucose (74-106) mg/dL Calcium (8.5-10.1) mg/dL Total Bilirubin (0.2-1.0) mg/dL AST (15-37) IU/L ALT (14-63) IU/L Alkaline Phosphatase (46-116) U/L Troponin I (0.000-0.056) ng/mL B-Natriuretic Peptide (<100) PG/ML Total Protein (6.4-8.2) g/dL Albumin (3.4-5.0) g/dL Globulin (2.6-4.0) g/dL Albumin/Globulin Ratio (0.9-1.6) TSH 3rd Generation (0.36-3.74) uIU/mL Urine Color Urine Appearance Urine pH (5.0-8.0) Ur Specific [place] (1.001-1.035) Urine Protein (NEGATIVE) mg/dL Urine Glucose (UA) (NEGATIVE) mg/dL Urine Ketones (NEGATIVE) mg/dL Urine Occult Blood (NEGATIVE) Urine Nitrite (NEGATIVE) Urine Bilirubin (NEGATIVE) Urine Urobilinogen (<2.0) EU/dL Ur Leukocyte Esterase (NEGATIVE) Urine RBC (0-2/HPF) Urine WBC (0-5/HPF) Ur Epithelial Cells (NONE-FEW) Urine Bacteria (NEGATIVE) Departure - Departure Time of Disposition: 14:22 Disposition: Home, Self-Care 01 Clinical Impression: Elevated d-dimer, Neck pain Dyspnea Qualifiers: Dyspnea type: unspecified Qualified Code(s): R06.00 - Dyspnea, unspecified - Discharge Information Instructions: Shortness of Breath, Adult, Musculoskeletal Pain Referrals: PCP,None [Primary Care Provider] - Forms: ED Department Discharge Additional Instructions: The following information is given to patients seen in the emergency department who are being discharged to home. This information is to outline your options for follow-up care. We provide all patients seen in our emergency department with a follow-up referral. The need for follow-up, as well as the timing and circumstances, are variable depending upon the specifics of your emergency department visit. If you don't have a primary care physician on staff, we will provide you with a referral. We always advise you to contact your personal physician following an emergency department visit to inform them of the circumstance of the visit and for follow-up with them and/or the need for any referrals to a consulting specialist. The emergency department will also refer you to a specialist when appropriate. This referral assures that you have the opportunity for follow-up care with a specialist. All of these measure are taken in an effort to provide you with optimal care, which includes your follow-up. Under all circumstances we always encourage you to contact your private physician who remains a resource for coordinating your care. When calling for follow-up care, please make the office aware that this follow-up is from your recent emergency room visit. If for any reason you are refused follow-up, please contact the [facility] Emergency Department at and asked to speak to the emergency department charge nurse. [facility] Primary [facility] [address] [place] [address] [place] [address] 1. Take Tylenol and ibuprofen as directed for pain and discomfort. 2. Follow up with primary care as scheduled and cardiology as discussed. 3. Your appointment is on 12/31/18 at 11:15am with Dr. Read. Please arrive at 10:45am to check in. 4. Return to ED as needed and as discussed. - My Orders Last 24 Hours: My Active Orders 12/24/18 11:08 EKG Documentation Completion [RC] STAT 12/24/18 11:33 CULTURE URINE [RM] Stat - Assessment/Plan Last 24 Hours: My Active Orders 12/24/18 11:08 EKG Documentation Completion [RC] STAT 12/24/18 11:33 CULTURE URINE [RM] Stat <Kimi Woo - Last Filed: 12/24/18 14:54> ED HPI GENERAL MEDICAL PROBLEM - History of Present Illness INITIAL COMMENTS - FREE TEXT/NARRATIVE: I have seen the patient personally and agree with the above note. I did have a thorough discussion with patient about her refusal of CTA. Despite the risk versus benefits, patient is accepting of the risks and declining the CTA at this time. Patient has been dealing with these symptoms over the past several months. We did call and make an appointment with the clinic and soonest appointment was on December 31. Patient declines admission for observation and accepting to outpatient follow up with Dr. Read. Dr. Sandoval was verbally involved in patient care. Patient agreeable to plan as stated above without questions or concerns.
[2018-12-24 11:38] LABS: CHLORIDE,CL 101 mmol/L (98-107); SODIUM,NA 139 mmol/L (136-145)
--- NOTE | 2018-12-24 12:17 | CR ---
INDICATION: Increased shortness of breath and general body weakness TECHNIQUE: Chest 2 views COMPARISON: 11/15/2018 FINDINGS: Cardiovascular and mediastinum: Heart size and vasculature are normal in caliber and appearance. Lungs and pleural spaces: Lungs are clear. No sign of infiltrate or mass. No sign of pleural effusion. No pneumothorax. Bones and soft tissues: No significant findings. IMPRESSION: No acute findings and no significant changes from the prior exam. Dictated by Anthony Fisher MD @ Dec 24 2018 12:14PM Signed by Dr. Anthony Fisher @ Dec 24 2018 12:16PM
[2018-12-24 12:56] VITALS: BP 149/69
== END 2018-12-24 15:09 | disposition home or self-care (01) ==
LOC: MW.ED 10:51
DX: R06.02 Shortness of breath (principal); M54.2 Cervicalgia; R79.1 Abnormal coagulation profile; I11.0 Hypertensive heart disease with heart failure; I50.9 Heart failure, unspecified; E03.9 Hypothyroidism, unspecified; Z79.82 Long term (current) use of aspirin; Z79.899 Other long term (current) drug therapy
CPT/HCPCS: 36415; 71046; 71046-26; 80053; 81001; 83880; 84443; 84484; 85025; 85379; 85610; 87086; 93005; 99284; 99285-25

== ENCOUNTER 2018-12-27 09:26 | Emergency (ER) | payer MEDICARE, BC ==
[2018-12-27] MEDS ORDERED: Sodium Chloride 0.9% 2.5 ML Syringe FLUSH PRN (09:34)
[2018-12-27] MEDS ORDERED: Sodium Chloride 0.9% 10 ML Syringe FLUSH PRN (09:34)
--- NOTE | 2018-12-27 09:49 | EDM.PDOC ---
ED HPI GENERAL MEDICAL PROBLEM - General Chief Complaint: Respiratory Problem Stated Complaint: SOB Time Seen by Provider: 12/27/18 09:34 Source of Information: Reports: Patient History Limitations: Reports: No Limitations - History of Present Illness INITIAL COMMENTS - FREE TEXT/NARRATIVE: HISTORY AND PHYSICAL: History of present illness: Patient is an 83-year-old female who presents to the emergency room with complaints of shortness of breath, generalized weakness and nausea which has been ongoing since the end of October. She states that her shortness of breath is constant but worse with physical activity or trying to take in a deep breath. She was seen in our emergency room on 12/24/2017 for these symptoms and had a full workup at that time. She did have an elevated d-dimer and was encouraged to have a CTA of the chest, she declined at that time she states she was concerned of blindness related to the IVP dye with her macular degeneration. She states since her discharge she continues to have symptoms and has reconsidered, she would like to have the CT scan of her chest. She does have some palpable chest pain to the left anterior chest wall. She states the pain is not noticeable unless she touches or presses on the area. Has had generalized weakness and feels like she's been having increased difficulty with ambulation due to this. Denies any injury, trauma or falls. Review of systems: As per history of present illness and below otherwise all systems reviewed and negative. Past medical history: As per history of present illness and as reviewed below otherwise noncontributory. Surgical history: As per history of present illness and as reviewed below otherwise noncontributory. Social history: See social history for further information Family history: As per history of present illness and as reviewed below otherwise noncontributory. Physical exam: General: Well-developed and well-nourished 83-year-old female. Alert and oriented. Nontoxic appearing and in no acute distress. HEENT: Atraumatic, normocephalic, pupils equal and reactive bilaterally, negative for conjunctival pallor or scleral icterus, mucous membranes moist, TMs normal bilaterally, throat clear, neck supple, nontender, trachea midline. No drooling or trismus noted. No meningeal signs. No hot potato voice noted. Lungs: Clear to auscultation, breath sounds equal bilaterally, chest nontender. Heart: S1S2, regular rate and rhythm without overt murmur Abdomen: Soft, nondistended, nontender. Negative for masses or hepatosplenomegaly. Negative for costovertebral tenderness. Pelvis: Stable nontender. Genitourinary: Deferred. Rectal: Deferred. Skin: Intact, warm, dry. No lesions or rashes noted. Extremities: Atraumatic, moves all extremities per self without difficulty or deficits, negative for cords or calf pain. Neurovascular unremarkable. Neuro: Awake, alert, oriented. Cranial nerves II through XII unremarkable. Cerebellum unremarkable. Motor and sensory unremarkable throughout. Exam nonfocal. Notes: 12/01/2018 she had an ECHO which shows LVEF of 65% with moderate aortic stenosis. Chest x-ray and CTA are negative. She does have an elevated Troponin. Findings were shared with the patient. Did have the hospitalist come and talk with the patient about transfer versus admission as she was owing back and forth whether or not she wanted to be transferred. Patient states she does want to see cardiology and is requesting transfer to . Dr Canales, [place] in [place], was consulted on this case. She is agreeable to accepting and further evaluating this patient. [facility] being called for transport. Diagnostics: CBC, CMP, BNP, Troponin, EKG, CXR, D.Dimer, CTA Therapeutics: Saline Lock Impression: ACS Elevated Troponin Dyspnea Weakness Plan: Transfer to Definitive disposition and diagnosis as appropriate pending reevaluation and review of above. - Related Data Allergies Allergy/AdvReac Type Severity Reaction Status Date / Time morphine Allergy Hives Verified 12/27/18 10:19 Home Meds: Home Meds Levothyroxine 75 mcg PO ACBREAKFAST 02/13/14 [History] Losartan [Cozaar] 100 mg PO DAILY 11/28/17 [History] Aspirin 81 mg PO DAILY 10/30/18 [History] amLODIPine Besylate [Amlodipine Besylate] 10 mg PO DAILY 12/24/18 [History] Past Medical History HEENT History: Reports: Macular Degeneration Other HEENT History: left eye Cardiovascular History: Reports: Heart Failure, Heart Murmur, Hypertension Respiratory History: Reports: None Gastrointestinal History: Reports: None Other Gastrointestinal History: Appendicitis 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: Reports: None 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[employer]OM 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 History: Reports: None Musculoskeletal History: Reports: None Neurological History: Reports: None Psychiatric History: Reports: None Endocrine/Metabolic History: Reports: Hypothyroidism Hematologic History: Reports: None Immunologic History: Reports: None Oncologic (Cancer) History: Reports: None Dermatologic History: Reports: None - Infectious Disease History Infectious Disease History: Reports: None - Past Surgical History Head Surgeries/Procedures: Reports: None Respiratory Surgical History: Reports: None Other GI Surgeries/Procedures: Appendectomy Female Surgical History: Reports: None Neurological Surgical History: Reports: None Musculoskeletal Surgical History: Reports: None Oncologic Surgical History: Reports: None Dermatological Surgical History: Reports: None Social & Family History - Family History Family Medical History: Noncontributory - Caffeine Use Caffeine Use: Reports: None - Living Situation & Occupation Living situation: Reports: with Family Occupation: Retired ED ROS GENERAL - Review of Systems Review Of Systems: ROS reveals no pertinent complaints other than HPI. ED EXAM, GENERAL - Physical Exam Exam: See Below (See dictation) Course - Vital Signs Last Recorded V/S: Last Vital Signs Temp 98.3 F 12/27/18 09:41 Pulse 85 12/27/18 12:00 Resp 18 12/27/18 12:00 BP 149/79 H 12/27/18 12:00 Pulse Ox 99 12/27/18 12:00 - Orders/Labs/Meds Orders: Active Orders 24 hr Category Date Time Status EKG Documentation Completion [RC] STAT Care 12/27/18 09:37 Active Notify Provider Consults [RC] ASDIRECTED Care 12/27/18 12:50 Active Consult to Physician [CONS] Stat Cons 12/27/18 12:50 Active CULTURE URINE [RM] Stat Lab 12/27/18 10:30 Received Sodium Chloride 0.9% [Saline Flush] Med 12/27/18 09:34 Active 10 ml FLUSH ASDIRECTED PRN Sodium Chloride 0.9% [Saline Flush] Med 12/27/18 09:34 Active 2.5 ml FLUSH ASDIRECTED PRN Saline Lock Insert [OM.PC] Stat Oth 12/27/18 09:34 Ordered Medication Orders Sodium Chloride (Saline Flush) 10 ml FLUSH ASDIRECTED PRN PRN Reason: Keep Vein Open Sodium Chloride (Saline Flush) 2.5 ml FLUSH ASDIRECTED PRN PRN Reason: Keep Vein Open Labs: Laboratory Tests 12/27/18 12/27/18 12/27/18 Range/Units 09:58 09:58 09:58 WBC 7.27 (4.0-11.0) K/uL RBC 4.84 (4.30-5.90) M/uL Hgb 14.8 (12.0-16.0) g/dL Hct 45.0 (36.0-46.0) % MCV 93.0 (80.0-98.0) fL MCH 30.6 (27.0-32.0) pg MCHC 32.9 (31.0-37.0) g/dL RDW Std Deviation 47.6 (28.0-62.0) fl RDW Coeff of Kaylee 14 (11.0-15.0) % Plt Count 203 (150-400) K/uL MPV 10.30 (7.40-12.00) fL Neut % (Auto) 55.1 (48.0-80.0) % Lymph % (Auto) 31.9 (16.0-40.0) % [place] % (Auto) 9.9 (0.0-15.0) % Eos % (Auto) 2.5 (0.0-7.0) % Baso % (Auto) 0.6 (0.0-1.5) % Neut # (Auto) 4.0 (1.4-5.7) K/uL Lymph # (Auto) 2.3 (0.6-2.4) K/uL [place] # (Auto) 0.7 (0.0-0.8) K/uL Eos # (Auto) 0.2 (0.0-0.7) K/uL Baso # (Auto) 0.0 (0.0-0.1) K/uL Nucleated RBC % 0.0 /100WBC Nucleated RBCs # 0 K/uL D-Dimer, Quantitative (0.0-0.50) mg/L FEU Sodium 138 (136-145) mmol/L Potassium 3.8 (3.5-5.1) mmol/L Chloride 103 (98-107) mmol/L Carbon Dioxide 26.5 (21.0-32.0) mmol/L BUN 16 (7.0-18.0) mg/dL Creatinine 0.7 (0.6-1.0) mg/dL Est Cr Clr Drug Dosing 48.16 mL/min Estimated GFR (MDRD) > 60.0 ml/min Glucose 98 (74-106) mg/dL Calcium 9.2 (8.5-10.1) mg/dL Total Bilirubin 0.9 (0.2-1.0) mg/dL AST 26 (15-37) IU/L ALT 25 (14-63) IU/L Alkaline Phosphatase 68 (46-116) U/L Troponin I (0.000-0.056) ng/mL B-Natriuretic Peptide 120 H (<100) PG/ML Total Protein 7.8 (6.4-8.2) g/dL Albumin 4.1 (3.4-5.0) g/dL Globulin 3.7 (2.6-4.0) g/dL Albumin/Globulin Ratio 1.1 (0.9-1.6) Urine Color Urine Appearance Urine pH (5.0-8.0) Ur Specific [place] (1.001-1.035) Urine Protein (NEGATIVE) mg/dL Urine Glucose (UA) (NEGATIVE) mg/dL Urine Ketones (NEGATIVE) mg/dL Urine Occult Blood (NEGATIVE) Urine Nitrite (NEGATIVE) Urine Bilirubin (NEGATIVE) Urine Urobilinogen (<2.0) EU/dL Ur Leukocyte Esterase (NEGATIVE) Urine RBC (0-2/HPF) Urine WBC (0-5/HPF) Ur Epithelial Cells (NONE-FEW) Urine Bacteria (NEGATIVE) 12/27/18 12/27/18 12/27/18 Range/Units 09:58 09:58 10:30 WBC (4.0-11.0) K/uL RBC (4.30-5.90) M/uL Hgb (12.0-16.0) g/dL Hct (36.0-46.0) % MCV (80.0-98.0) fL MCH (27.0-32.0) pg MCHC (31.0-37.0) g/dL RDW Std Deviation (28.0-62.0) fl RDW Coeff of Kaylee (11.0-15.0) % Plt Count (150-400) K/uL MPV (7.40-12.00) fL Neut % (Auto) (48.0-80.0) % Lymph % (Auto) (16.0-40.0) % [place] % (Auto) (0.0-15.0) % Eos % (Auto) (0.0-7.0) % Baso % (Auto) (0.0-1.5) % Neut # (Auto) (1.4-5.7) K/uL Lymph # (Auto) (0.6-2.4) K/uL [place] # (Auto) (0.0-0.8) K/uL Eos # (Auto) (0.0-0.7) K/uL Baso # (Auto) (0.0-0.1) K/uL Nucleated RBC % /100WBC Nucleated RBCs # K/uL D-Dimer, Quantitative 0.50 (0.0-0.50) mg/L FEU Sodium (136-145) mmol/L Potassium (3.5-5.1) mmol/L Chloride (98-107) mmol/L Carbon Dioxide (21.0-32.0) mmol/L BUN (7.0-18.0) mg/dL Creatinine (0.6-1.0) mg/dL Est Cr Clr Drug Dosing mL/min Estimated GFR (MDRD) ml/min Glucose (74-106) mg/dL Calcium (8.5-10.1) mg/dL Total Bilirubin (0.2-1.0) mg/dL AST (15-37) IU/L ALT (14-63) IU/L Alkaline Phosphatase (46-116) U/L Troponin I 0.072 H* (0.000-0.056) ng/mL B-Natriuretic Peptide (<100) PG/ML Total Protein (6.4-8.2) g/dL Albumin (3.4-5.0) g/dL Globulin (2.6-4.0) g/dL Albumin/Globulin Ratio (0.9-1.6) Urine Color YELLOW Urine Appearance CLEAR Urine pH 6.5 (5.0-8.0) Ur Specific [place] <= 1.005 (1.001-1.035) Urine Protein NEGATIVE (NEGATIVE) mg/dL Urine Glucose (UA) NEGATIVE (NEGATIVE) mg/dL Urine Ketones NEGATIVE (NEGATIVE) mg/dL Urine Occult Blood TRACE-INTACT H (NEGATIVE) Urine Nitrite NEGATIVE (NEGATIVE) Urine Bilirubin NEGATIVE (NEGATIVE) Urine Urobilinogen 0.2 (<2.0) EU/dL Ur Leukocyte Esterase TRACE H (NEGATIVE) Urine RBC 0-1 (0-2/HPF) Urine WBC 0-1 (0-5/HPF) Ur Epithelial Cells NOT SEEN (NONE-FEW) Urine Bacteria RARE (NEGATIVE) Meds: Medications Generic Name Dose Route Start Last Admin Trade Name Frelydia PRN Reason Stop Dose Admin Sodium Chloride 10 ml 12/27/18 09:34 Saline Flush FLUSH ASDIRECTED PRN Keep Vein Open Sodium Chloride 2.5 ml 12/27/18 09:34 Saline Flush FLUSH ASDIRECTED PRN Keep Vein Open Discontinued Medications Generic Name Dose Route Start Last Admin Trade Name Freq PRN Reason Stop Dose Admin Iopamidol 50 ml 12/27/18 11:38 12/27/18 11:39 Isovue Multipack-370 (76%) IVPUSH 12/27/18 11:39 50 ml ONETIME ONE Administration Nitroglycerin 0.5 gm 12/27/18 12:51 Nitro-Bid 2% TOP 12/27/18 12:52 ONETIME ONE Departure - Departure Time of Disposition: 12:57 Disposition: DC/Tfer to [facility] Clinical Impression: Acute coronary syndrome, Elevated troponin, Weakness Dyspnea Qualifiers: Dyspnea type: unspecified Qualified Code(s): R06.00 - Dyspnea, unspecified - Discharge Information Referrals: PCP,None [Primary Care Provider] - Forms: ED Department Discharge - My Orders Last 24 Hours: My Active Orders 12/27/18 09:34 Sodium Chloride 0.9% [Saline Flush] 10 ml FLUSH ASDIRECTED PRN Sodium Chloride 0.9% [Saline Flush] 2.5 ml FLUSH ASDIRECTED PRN Saline Lock Insert [OM.PC] Stat 12/27/18 09:37 EKG Documentation Completion [RC] STAT 12/27/18 10:30 CULTURE URINE [RM] Stat - Assessment/Plan Last 24 Hours: My Active Orders 12/27/18 09:34 Sodium Chloride 0.9% [Saline Flush] 10 ml FLUSH ASDIRECTED PRN Sodium Chloride 0.9% [Saline Flush] 2.5 ml FLUSH ASDIRECTED PRN Saline Lock Insert [OM.PC] Stat 12/27/18 09:37 EKG Documentation Completion [RC] STAT 12/27/18 10:30 CULTURE URINE [RM] Stat
--- NOTE | 2018-12-27 10:22 | CR ---
EXAMINATION: Portable chest radiograph. HISTORY: Shortness of breath. FINDINGS: The trachea is midline. The cardiomediastinal silhouette is within normal limits. No pulmonary infiltrates, effusions or pneumothorax. Mild aortic vascular calcifications. Aorta is ectatic and tortuous. Osseous structures appear unremarkable. IMPRESSION: No acute cardiopulmonary process.
[2018-12-27 10:53] LABS: CHLORIDE,CL 103 mmol/L (98-107); SODIUM,NA 138 mmol/L (136-145)
[2018-12-27] MEDS ORDERED: Iopamidol 755 MG/ML 500 ML Multipack Bottle IVPUSH ONE (11:38)
--- NOTE | 2018-12-27 11:57 | CT ---
EXAMINATION: CTA chest HISTORY: Shortness of breath COMPARISON: Radiographs dated 12/24/2018 TECHNIQUE: Axial CT imaging obtained through the chest following the administration of 50 mL of Isovue-370 in the left antecubital fossa. Coronal and sagittal reconstructions obtained. FINDINGS: The lungs are clear without focal consolidation. No pleural effusion or pneumothorax. Mild atelectasis. Motion artifact is also noted. The heart is mildly prominent in size without a pericardial effusion. Thoracic aorta is normal in caliber. The main and central pulmonary arteries appear patent. Coronary artery calcifications are noted. Visualized images of the upper abdomen are grossly unremarkable. No suspicious osseous abnormalities identified. IMPRESSION: 1. No acute cardiopulmonary finding identified
[2018-12-27 12:15] VITALS: BP 149/79
[2018-12-27] MEDS ORDERED: Nitroglycerin 2% Oint 1 GM UD Packet TOP ONE (12:51)
--- NOTE | 2018-12-27 13:03 | PCM.CONS ---
H&P History of Present Illness - General Date of Service: 12/27/18 Admit Problem/Dx: Admission Diagnosis/Problem Admission Diagnosis/Problem Dyspnea Source of Information: Patient History Limitations: Reports: No Limitations - History of Present Illness Initial Comments - Free Text/Narative: This 83 year old female with pmh of macular degeneration, HTN, and hypothyroidism presented to the ED today with complaints of dyspnea, which has been present for over 1 month. She report it is continuing to progressively worsen. She reports severe fatigue with any activity along with this dyspnea. She has follow with Dr Read and Dr Robles, cardiology here in [place]. She reports being started on diuretics, which made her feel worse and these were stopped. She was in the ED December 24 with dyspnea again and noted to have an elevated D Dimer, at that time she refused a CT angio to rule out a PE. With today's visit she was asking for the CT angio. CT angio was completed now and found to be negative for acute cardiopulmonary process. Troponin returned slightly elevated at 0.072, which yesterday it was negative. She reports mild reproducible chest pain to her L chest. Mild L and R sided neck pain. She is concerned there is no reason for her shortness of breath and wants answers. She was offered admission for ruling out ACS with elevated troponin, but she is requesting transfer to [place] to see an performance test architect. Recently ECHO revealed EF 65% with moderate aortic sclerosis. Discussed my conversation with her regarding admission with Dr Ugarte, ED physician and [facility] WEAVE ROOM SUPERVISOR. Spoke with my attending Dr Camarillo regarding patient request for transfer. ED to arrange transfer to [facility]. - Related Data Allergies/Adverse Reactions: Allergies Allergy/AdvReac Type Severity Reaction Status Date / Time morphine Allergy Hives Verified 12/27/18 10:19 Home Medications: Home Meds Levothyroxine 75 mcg PO ACBREAKFAST 02/13/14 [History] Losartan [Cozaar] 100 mg PO DAILY 11/28/17 [History] Aspirin 81 mg PO DAILY 10/30/18 [History] amLODIPine Besylate [Amlodipine Besylate] 10 mg PO DAILY 12/24/18 [History] Past Medical History HEENT History: Reports: Macular Degeneration Other HEENT History: left eye Cardiovascular History: Reports: Heart Murmur, Hypertension Respiratory History: Reports: None Gastrointestinal History: Reports: None Other Gastrointestinal History: Appendicitis 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: Reports: None OCCUPATIONAL THERAPY PROGRAM DIRECTOR History: Reports: None Musculoskeletal History: Reports: None Neurological History: Reports: None Psychiatric History: Reports: None Endocrine/Metabolic History: Reports: Hypothyroidism Hematologic History: Reports: None Immunologic History: Reports: None Oncologic (Cancer) History: Reports: None Dermatologic History: Reports: None - Infectious Disease History Infectious Disease History: Reports: None - Past Surgical History Head Surgeries/Procedures: Reports: None Respiratory Surgical History: Reports: None Other GI Surgeries/Procedures: Appendectomy Female Surgical History: Reports: None Neurological Surgical History: Reports: None Musculoskeletal Surgical History: Reports: None Oncologic Surgical History: Reports: None Dermatological Surgical History: Reports: None Social & Family History - Family History Family Medical History: Noncontributory - Tobacco Use Smoking Status *Q: Never Smoker - Caffeine Use Caffeine Use: Reports: None - Alcohol Use Alcohol Use History: No - Recreational Drug Use Recreational Drug Use: No - Living Situation & Occupation Living situation: Reports: with Family Occupation: Retired H&P Review of Systems - Review of Systems: Review Of Systems: See Below General: Reports: Malaise, Weakness, Fatigue HEENT: Denies: Headaches, Visual Changes Pulmonary: Reports: Shortness of Breath. Denies: Cough, Sputum Cardiovascular: Reports: Dyspnea on Exertion. Denies: Chest Pain, Orthopnea, Edema, Syncope, Blood Pressure Problem Gastrointestinal: Reports: No Symptoms. Denies: Abdominal Pain, Black Stool, Bloody Stool, Decreased Appetite, Nausea, Vomiting Genitourinary: Reports: No Symptoms. Denies: Dysuria, Frequency, Burning Musculoskeletal: Reports: Neck Pain (cervical R and L, ). Denies: Shoulder Pain Skin: Reports: No Symptoms Psychiatric: Reports: No Symptoms Neurological: Reports: No Symptoms Hematologic/Lymphatic: Reports: No Symptoms Immunologic: Reports: No Symptoms Exam - Exam Exam: See Below - Vital Signs Vital Signs: Last Vital Signs Temp 98.3 F 12/27/18 09:41 Pulse 85 12/27/18 12:00 Resp 18 12/27/18 12:00 BP 149/79 H 12/27/18 12:00 Pulse Ox 99 12/27/18 12:00 Weight: 57.606 kg - Exam Quality Assessment: Supplemental Oxygen General: Alert, Oriented, Cooperative HEENT: Conjunctiva Clear, Mucosa Moist & [place], Posterior Pharynx Clear Neck: Supple, Trachea Midline Lungs: Clear to Auscultation, Normal Respiratory Effort Cardiovascular: Regular Rate, Regular Rhythm, Normal S1, Normal S2, Systolic Murmur. No: Bradycardia, Tachycardia GI/Abdominal Exam: Normal Bowel Sounds, Soft, Non-Tender, No Organomegaly Extremities: Normal Inspection, Normal Range of Motion, Non-Tender, Pedal Edema (scant to BLE) Neuro Extensive - Mental Status: Alert, Oriented x3 Neuro Extensive - Motor, Sensory, Reflexes: CN II-XII Intact Psychiatric: Alert, Normal Affect, Normal Mood - Patient Data Lab Results Last 24 hrs: Laboratory Results - last 24 hr 12/27/18 12/27/18 12/27/18 Range/Units 09:58 09:58 09:58 WBC 7.27 (4.0-11.0) K/uL RBC 4.84 (4.30-5.90) M/uL Hgb 14.8 (12.0-16.0) g/dL Hct 45.0 (36.0-46.0) % MCV 93.0 (80.0-98.0) fL MCH 30.6 (27.0-32.0) pg MCHC 32.9 (31.0-37.0) g/dL RDW Std Deviation 47.6 (28.0-62.0) fl RDW Coeff of Kaylee 14 (11.0-15.0) % Plt Count 203 (150-400) K/uL MPV 10.30 (7.40-12.00) fL Neut % (Auto) 55.1 (48.0-80.0) % Lymph % (Auto) 31.9 (16.0-40.0) % [place] % (Auto) 9.9 (0.0-15.0) % Eos % (Auto) 2.5 (0.0-7.0) % Baso % (Auto) 0.6 (0.0-1.5) % Neut # (Auto) 4.0 (1.4-5.7) K/uL Lymph # (Auto) 2.3 (0.6-2.4) K/uL [place] # (Auto) 0.7 (0.0-0.8) K/uL Eos # (Auto) 0.2 (0.0-0.7) K/uL Baso # (Auto) 0.0 (0.0-0.1) K/uL Nucleated RBC % 0.0 /100WBC Nucleated RBCs # 0 K/uL D-Dimer, Quantitative (0.0-0.50) mg/L FEU Sodium 138 (136-145) mmol/L Potassium 3.8 (3.5-5.1) mmol/L Chloride 103 (98-107) mmol/L Carbon Dioxide 26.5 (21.0-32.0) mmol/L BUN 16 (7.0-18.0) mg/dL Creatinine 0.7 (0.6-1.0) mg/dL Est Cr Clr Drug Dosing 48.16 mL/min Estimated GFR (MDRD) > 60.0 ml/min Glucose 98 (74-106) mg/dL Calcium 9.2 (8.5-10.1) mg/dL Total Bilirubin 0.9 (0.2-1.0) mg/dL AST 26 (15-37) IU/L ALT 25 (14-63) IU/L Alkaline Phosphatase 68 (46-116) U/L Troponin I (0.000-0.056) ng/mL B-Natriuretic Peptide 120 H (<100) PG/ML Total Protein 7.8 (6.4-8.2) g/dL Albumin 4.1 (3.4-5.0) g/dL Globulin 3.7 (2.6-4.0) g/dL Albumin/Globulin Ratio 1.1 (0.9-1.6) Urine Color Urine Appearance Urine pH (5.0-8.0) Ur Specific [place] (1.001-1.035) Urine Protein (NEGATIVE) mg/dL Urine Glucose (UA) (NEGATIVE) mg/dL Urine Ketones (NEGATIVE) mg/dL Urine Occult Blood (NEGATIVE) Urine Nitrite (NEGATIVE) Urine Bilirubin (NEGATIVE) Urine Urobilinogen (<2.0) EU/dL Ur Leukocyte Esterase (NEGATIVE) Urine RBC (0-2/HPF) Urine WBC (0-5/HPF) Ur Epithelial Cells (NONE-FEW) Urine Bacteria (NEGATIVE) 12/27/18 12/27/18 12/27/18 Range/Units 09:58 09:58 10:30 WBC (4.0-11.0) K/uL RBC (4.30-5.90) M/uL Hgb (12.0-16.0) g/dL Hct (36.0-46.0) % MCV (80.0-98.0) fL MCH (27.0-32.0) pg MCHC (31.0-37.0) g/dL RDW Std Deviation (28.0-62.0) fl RDW Coeff of Kaylee (11.0-15.0) % Plt Count (150-400) K/uL MPV (7.40-12.00) fL Neut % (Auto) (48.0-80.0) % Lymph % (Auto) (16.0-40.0) % [place] % (Auto) (0.0-15.0) % Eos % (Auto) (0.0-7.0) % Baso % (Auto) (0.0-1.5) % Neut # (Auto) (1.4-5.7) K/uL Lymph # (Auto) (0.6-2.4) K/uL [place] # (Auto) (0.0-0.8) K/uL Eos # (Auto) (0.0-0.7) K/uL Baso # (Auto) (0.0-0.1) K/uL Nucleated RBC % /100WBC Nucleated RBCs # K/uL D-Dimer, Quantitative 0.50 (0.0-0.50) mg/L FEU Sodium (136-145) mmol/L Potassium (3.5-5.1) mmol/L Chloride (98-107) mmol/L Carbon Dioxide (21.0-32.0) mmol/L BUN (7.0-18.0) mg/dL Creatinine (0.6-1.0) mg/dL Est Cr Clr Drug Dosing mL/min Estimated GFR (MDRD) ml/min Glucose (74-106) mg/dL Calcium (8.5-10.1) mg/dL Total Bilirubin (0.2-1.0) mg/dL AST (15-37) IU/L ALT (14-63) IU/L Alkaline Phosphatase (46-116) U/L Troponin I 0.072 H* (0.000-0.056) ng/mL B-Natriuretic Peptide (<100) PG/ML Total Protein (6.4-8.2) g/dL Albumin (3.4-5.0) g/dL Globulin (2.6-4.0) g/dL Albumin/Globulin Ratio (0.9-1.6) Urine Color YELLOW Urine Appearance CLEAR Urine pH 6.5 (5.0-8.0) Ur Specific [place] <= 1.005 (1.001-1.035) Urine Protein NEGATIVE (NEGATIVE) mg/dL Urine Glucose (UA) NEGATIVE (NEGATIVE) mg/dL Urine Ketones NEGATIVE (NEGATIVE) mg/dL Urine Occult Blood TRACE-INTACT H (NEGATIVE) Urine Nitrite NEGATIVE (NEGATIVE) Urine Bilirubin NEGATIVE (NEGATIVE) Urine Urobilinogen 0.2 (<2.0) EU/dL Ur Leukocyte Esterase TRACE H (NEGATIVE) Urine RBC 0-1 (0-2/HPF) Urine WBC 0-1 (0-5/HPF) Ur Epithelial Cells NOT SEEN (NONE-FEW) Urine Bacteria RARE (NEGATIVE) Result Diagrams: 12/27/18 09:58 12/27/18 09:58 Consult PN Assessment/Plan Procedures: Procedures ASSAY OF ALDOSTERONE (07/15/17) ASSAY OF AMYLASE (12/16/17) ASSAY OF CK (CPK) (12/17/17) ASSAY OF FREE THYROXINE (01/02/17) ASSAY OF MAGNESIUM (12/16/17) ASSAY OF NATRIURETIC PEPTIDE (10/30/18) ASSAY OF RENIN (07/15/17) ASSAY OF SERUM POTASSIUM (08/31/17) ASSAY OF TROPONIN QUANT (10/30/18) ASSAY THYROID STIM HORMONE (10/30/18) CHEST X-RAY 1 VIEW FRONTAL (06/15/17) CHEST X-RAY 2VW FRONTAL&LATL (04/14/14) COMPLETE CBC AUTOMATED (03/17/17) COMPLETE CBC W/AUTO DIFF WBC (11/15/18) COMPREHEN METABOLIC PANEL (10/30/18) CT ABD & PELVIS W/O CONTRAST (11/15/18) CT HEAD/BRAIN W/O DYE (07/19/17) CULTURE SCREEN ONLY (07/15/17) ECHO EXAM OF ABDOMEN (03/24/16) ELECTROCARDIOGRAM TRACING (10/30/18) EMERGENCY DEPT VISIT (10/30/18) EMERGENCY DEPT VISIT (12/16/17) EMERGENCY DEPT VISIT (11/28/17) EMERGENCY DEPT VISIT (07/24/17) EMERGENCY DEPT VISIT (07/21/17) EMERGENCY DEPT VISIT (07/19/17) EMERGENCY DEPT VISIT (07/15/17) EMERGENCY DEPT VISIT (06/15/17) EMERGENCY DEPT VISIT (02/18/15) EMERGENCY DEPT VISIT (02/14/15) EMERGENCY DEPT VISIT (01/15/15) EMERGENCY DEPT VISIT (02/13/14) EMERGENCY DEPT VISIT (02/13/14) EXTRACRANIAL BILAT STUDY (01/20/17) FREE ASSAY (FT-3) (08/07/17) GLUCOSE BLOOD TEST (01/15/15) GLYCOSYLATED HEMOGLOBIN TEST (07/24/17) HOT OR COLD PACKS THERAPY (02/22/18) HYDRATE IV INFUSION ADD-ON (11/15/18) HYDRATION IV INFUSION INIT (10/30/18) INFLUENZA ASSAY W/OPTIC (07/19/17) IRON BINDING TEST (01/02/17) LIPID PANEL (07/15/17) MANUAL THERAPY 1/> REGIONS (03/02/18) METABOLIC PANEL TOTAL CA (11/15/18) MICROBE SUSCEPTIBLE WILY (03/19/16) MICROSOMAL ANTIBODY EACH (01/02/17) MRI BRAIN STEM W/O & W/DYE (01/15/15) OFFICE/OUTPATIENT VISIT EST (11/15/18) OFFICE/OUTPATIENT VISIT EST (12/17/17) OFFICE/OUTPATIENT VISIT EST (07/24/17) OFFICE/OUTPATIENT VISIT EST (01/30/15) OFFICE/OUTPATIENT VISIT EST (01/19/15) OFFICE/OUTPATIENT VISIT EST (04/14/14) OFFICE/OUTPATIENT VISIT EST (10/18/13) OFFICE/OUTPATIENT VISIT EST (10/05/13) PROTHROMBIN TIME (10/30/18) PT EVAL LOW COMPLEX 20 MIN (12/14/17) RBC SED RATE AUTOMATED (11/15/18) ROUTINE VENIPUNCTURE (11/15/18) STREP A ASSAY W/OPTIC (07/15/17) THER/PROPH/DIAG INJ IV PUSH (07/19/17) THER/PROPH/DIAG INJ SC/IM (10/30/18) THER/PROPH/DIAG IV INF INIT (11/15/18) THERAPEUTIC EXERCISES (02/22/18) THYROGLOBULIN ANTIBODY (01/02/17) TTE W/DOPPLER COMPLETE (12/01/18) TX/PRO/DX INJ NEW DRUG ADDON (11/15/18) UPR/L XTREMITY ART 2 LEVELS (08/13/17) URINALYSIS AUTO W/SCOPE (11/15/18) URINE BACTERIA CULTURE (03/19/16) URINE CULTURE/COLONY COUNT (11/15/18) US EXAM ABDO BACK WALL SINGH (07/15/17) VASCULAR STUDY (07/15/17) VITAMIN B-12 (12/17/17) VITAMIN D 25 HYDROXY (12/17/17) X-RAY EXAM CHEST 1 VIEW (10/30/18) X-RAY EXAM CHEST 2 VIEWS (11/15/18) (1) Elevated troponin SNOMED Code(s): 210865581, 021224474, 607056660 Code(s): R74.8 - ABNORMAL LEVELS OF OTHER SERUM ENZYMES Current Visit: Yes (2) Fatigue SNOMED Code(s): 08428420 Code(s): R53.83 - OTHER FATIGUE Current Visit: No Qualifiers: Fatigue type: chronic, unspecified Qualified Code(s): R53.82 - Chronic fatigue, unspecified (3) Dyspnea SNOMED Code(s): 266786971 Code(s): R06.00 - DYSPNEA, UNSPECIFIED Priority: High Current Visit: No Qualifiers: Dyspnea type: other forms of dyspnea Qualified Code(s): R06.09 - Other forms of dyspnea (4) Neck pain SNOMED Code(s): 83635862 Code(s): M54.2 - CERVICALGIA Current Visit: No (5) Hypertension SNOMED Code(s): 36069378 Code(s): I10 - ESSENTIAL (PRIMARY) HYPERTENSION Priority: High Current Visit: No Qualifiers: Hypertension type: essential hypertension Qualified Code(s): I10 - Essential (primary) hypertension Problem List Initiated/Reviewed/Updated: Yes
[2018-12-27] MEDS ORDERED: Ondansetron 4 MG/2 ML SDV IVPUSH ONE (13:10)
[2018-12-27] MEDS ORDERED: Ketorolac 15 MG/ML SDV IVPUSH STA (13:22)
== END 2018-12-27 13:55 ==
LOC: MW.ED 09:26
DX: I24.9 Acute ischemic heart disease, unspecified (principal); R53.1 Weakness; I11.0 Hypertensive heart disease with heart failure; I50.9 Heart failure, unspecified; E03.9 Hypothyroidism, unspecified; R79.89 Other specified abnormal findings of blood chemistry; Z88.5 Allergy status to narcotic agent; Z79.82 Long term (current) use of aspirin; Z79.899 Other long term (current) drug therapy
CPT/HCPCS: 36415; 71045; 71275; 80053; 81001; 83880; 84484; 85025; 85379; 87086; 93005; 96374; 96375; 99285; A9270; J1885; J2405; Q9967

== ENCOUNTER 2019-01-06 05:22 | Emergency (ER) | payer MEDICARE, BC ==
[2019-01-06] MEDS ORDERED: Sodium Chloride 0.9% 1,000 ML IV ONE (05:30)
[2019-01-06] MEDS ORDERED: Sodium Chloride 0.9% 10 ML Syringe FLUSH PRN (05:30)
[2019-01-06] MEDS ORDERED: Sodium Chloride 0.9% 2.5 ML Syringe FLUSH PRN (05:30)
--- NOTE | 2019-01-06 05:37 | EDM.PDOC ---
ED HPI GENERAL MEDICAL PROBLEM - General Stated Complaint: LOW PULSE Time Seen by Provider: 01/06/19 05:28 - History of Present Illness INITIAL COMMENTS - FREE TEXT/NARRATIVE: HISTORY AND PHYSICAL: History of present illness: The patient is an 83-year-old female who presents via EMS after being noted by her daughter to be very short of breath this morning after getting up to go to the bathroom. The patient just recently underwent a CABG 3 at [facility] and was just discharged Thursday, a day and a half ago. They just got home yesterday evening because they stayed overnight on the way home because the drive was too long for the patient and she has been eating and drinking normally and doing very well overall. She has had no chest pain or shortness of breath and has no abdominal pain. She's not had any fevers. The daughter said she slept fine and then about 4:30 this morning, about one hour ago, she helped the patient up to go to the bathroom and she was not having any complaints but after going to the bathroom and getting back to bed she said that she felt very short of breath. The daughter checked her O2 saturation was 93% on room air and she said her heart rate was low at 48. She called the ambulance. She noted that her mother was cool and clammy but she never passed out or blacked out. Here the patient doesn't offer much information only saying that she feels very short of breath. She is denying any chest pain but she is not answering many questions here and to saying that she feels short of breath. Review of systems: As per history of present illness and below otherwise all systems reviewed and negative. Past medical history: As per history of present illness and as reviewed below otherwise noncontributory. Surgical history: As per history of present illness and as reviewed below otherwise noncontributory. Social history: No reported history of drug or alcohol abuse. Family history: As per history of present illness and as reviewed below otherwise noncontributory. Physical exam: General: Well-developed frail female who looks pale overall and is working to breathe but is answering simple questions. Vital signs are noted by me including a normal rectal temp. HEENT: Atraumatic, normocephalic, pupils reactive, negative for scleral icterus but her conjunctiva looks slightly pale, mucous membranes tacky, throat clear, neck supple, nontender, trachea midline. Lungs: Clear to auscultation on the right side with some diminished air change at the bases and some scattered rhonchi but there is seems to be no air exchange on the left side that I can appreciate, there is a midline sternal incision seen with scant amount of drainage at the inferior aspect with a dry gauze on it and sutures are seen at her epigastric area where prior chest tubes were removed, chest with mild tenderness with palpation and some resolving ecchymosis Heart: S1S2, regular rhythm with initially some tachycardia which has improved since she has been here Abdomen: Soft, nondistended, edematous globular and soft and does not appear to be tender Negative for masses or hepatosplenomegaly. Pelvis: Stable nontender. Genitourinary: Deferred. Rectal: Deferred. Extremities: Atraumatic, negative for cords or calf pain. There is trace pedal edema bilaterally but no leg asymmetry Neurovascular unremarkable. Neuro: Awake, alert, drowsy Motor and sensory unremarkable throughout. Exam nonfocal. Skin: Overall pale appearance and it is cool and clammy Diagnostics: EKG chest x-ray CBC CMP INR troponin Therapeutics: IV O2 monitor IV fluids The patient's initial systolic blood pressure was 74 and IV access was unable to be obtained peripherally so after a Betadine prep an IO line was placed in the right proximal tibia without complication but when we attempted to flush it , it caused severe pain for the patient and would not flush well so we did not use it. A left EJ was attempted one time without success because the patient cannot turn her head to the right due to chronic neck problems and get good access. The patient's right groin had significant bruising and old puncture site from her prior angiogram so the left groin was prepped with Betadine and in a semi-sterile fashion a femoral Cordis was placed on the second attempt and using modified Seldinger technique was inserted and secured with a suture. Blood was obtained for lab testing from this and fluids have now been connected. A dressing was placed by nursing and I will notify the accepting hospital that this is a very dirty line. 0613: I attempted to consult and discuss this case with Dr. Maravilla the patient' s surgeon at [facility] but he was not available and Dr. Chauhan was covering but did not take my call and instead the ER physician Dr. brasher took my call and is aware of the case and the events here in the ED and accepts the patient. We have or ready engaged fixed wing flight team to come and take the patient and I have discussed with the family the chest x-ray findings and will continue to monitor labs. The patient is much more alert and breathing easier and her blood pressure is stabilized and her heart rate has improved to the 80s. She is maintaining her O2 sats on 5 L. Please note that the intraosseous line placed in the right tibia was not removed. Critical care time excluding procedures:31min Impression: acute dyspnea with large left pleural effusion right lower lobe consolidation and effusion all status post recent CABG, hypotension improving Definitive disposition and diagnosis as appropriate pending reevaluation and review of above. - Related Data Allergies Allergy/AdvReac Type Severity Reaction Status Date / Time morphine Allergy Hives Verified 01/06/19 06:17 Home Meds: Home Meds Levothyroxine 75 mcg PO ACBREAKFAST 02/13/14 [History] Aspirin 81 mg PO DAILY 10/30/18 [History] Aspirin 325 mg PO DAILY 01/06/19 [History] Famotidine 20 mg PO BID 01/06/19 [History] Hydrocodone/Acetaminophen [Hydrocodon-Acetaminophen 5-325] 1 each PO ASDIRECTED 01/06/19 [History] Losartan [Cozaar] 100 mg PO DAILY 01/06/19 [History] Metoprolol Tartrate 50 mg PO BID 01/06/19 [History] Rosuvastatin [Crestor] 10 mg PO DAILY 01/06/19 [History] Past Medical History HEENT History: Reports: Macular Degeneration Other HEENT History: left eye Cardiovascular History: Reports: Heart Murmur, Hypertension Respiratory History: Reports: None Gastrointestinal History: Reports: None Other Gastrointestinal History: Appendicitis 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: Reports: None [employer] History: Reports: None Musculoskeletal History: Reports: None Neurological History: Reports: None Psychiatric History: Reports: None Endocrine/Metabolic History: Reports: Hypothyroidism Hematologic History: Reports: None Immunologic History: Reports: None Oncologic (Cancer) History: Reports: None Dermatologic History: Reports: None - Infectious Disease History Infectious Disease History: Reports: None - Past Surgical History Head Surgeries/Procedures: Reports: None Respiratory Surgical History: Reports: None Other GI Surgeries/Procedures: Appendectomy Female Surgical History: Reports: None Neurological Surgical History: Reports: None Musculoskeletal Surgical History: Reports: None Oncologic Surgical History: Reports: None Dermatological Surgical History: Reports: None Social & Family History - Family History Family Medical History: Noncontributory - Caffeine Use Caffeine Use: Reports: None - Living Situation & Occupation Living situation: Reports: with Family Occupation: Retired ED ROS GENERAL - Review of Systems Review Of Systems: ROS reveals no pertinent complaints other than HPI. ED EXAM, GENERAL - Physical Exam Exam: See Below (see dictation) Course - Orders/Labs/Meds Orders: Active Orders 24 hr Category Date Time Status Blood Glucose Check, Bedside [RC] ONETIME Care 01/06/19 05:30 Active Cardiac Monitoring [RC] . DIRECTED Care 01/06/19 05:30 Active EKG Documentation Completion [RC] STAT Care 01/06/19 05:30 Active Oxygen Therapy, ED [RC] ASDIRECTED Care 01/06/19 05:30 Active Pulse Oximetry [RC] ASDIRECTED Care 01/06/19 05:30 Active B-TYPE NATRIURETIC PEPTIDE,BNP [CHEM] Stat Lab 01/06/19 05:54 Received CBC WITH AUTO DIFF [HEME] Stat Lab 01/06/19 05:54 Received COMPREHENSIVE METABOLIC PN,CMP [CHEM] Stat Lab 01/06/19 05:54 Received TROPONIN I [CHEM] Stat Lab 01/06/19 05:54 Received Sodium Chloride 0.9% [Normal Saline] 1,000 ml Med 01/06/19 05:30 Active IV STAT Sodium Chloride 0.9% [Saline Flush] Med 01/06/19 05:30 Active 10 ml FLUSH ASDIRECTED PRN Sodium Chloride 0.9% [Saline Flush] Med 01/06/19 05:30 Active 2.5 ml FLUSH ASDIRECTED PRN Saline Lock Insert [OM.PC] Stat Oth 01/06/19 05:30 Ordered Medication Orders Sodium Chloride (Normal Saline) 1,000 mls @ 999 mls/hr IV STAT ONE Stop: 01/06/19 06:30 Last Admin: 01/06/19 06:01 Dose: 999 mls/hr Sodium Chloride (Saline Flush) 10 ml FLUSH ASDIRECTED PRN PRN Reason: Keep Vein Open Sodium Chloride (Saline Flush) 2.5 ml FLUSH ASDIRECTED PRN PRN Reason: Keep Vein Open Labs: Laboratory Tests 01/06/19 01/06/19 Range/Units 05:52 05:54 INR 1.02 ABG pH 7.352 (7.35-7.45) ABG pCO2 32 L (35-45) mmHG ABG pO2 87 (75-100) mmHG ABG HCO3 18 L (22-26) mEq/L ABG Total CO2 16.7 ABG Base Excess -6.9 L (-2.0-2.0) Meds: Medications Generic Name Dose Route Start Last Admin Trade Name Freq PRN Reason Stop Dose Admin Sodium Chloride 1,000 mls @ 999 mls/hr 01/06/19 05:30 01/06/19 06:01 Normal Saline IV 01/06/19 06:30 999 mls/hr STAT ONE Administration Sodium Chloride 10 ml 01/06/19 05:30 Saline Flush FLUSH ASDIRECTED PRN Keep Vein Open Sodium Chloride 2.5 ml 01/06/19 05:30 Saline Flush FLUSH ASDIRECTED PRN Keep Vein Open Departure - Departure Time of Disposition: 06:15 Disposition: DC/Tfer to [facility] Condition: Serious Clinical Impression: Acute dyspnea, Pleural effusion Hypotension Qualifiers: Hypotension type: unspecified hypotension type Qualified Code(s): I95.9 - Hypotension, unspecified - Discharge Information Referrals: PCP,Unknown [Primary Care Provider] - - My Orders Last 24 Hours: My Active Orders 01/06/19 05:30 Blood Glucose Check, Bedside [RC] ONETIME Cardiac Monitoring [RC] . DIRECTED EKG Documentation Completion [RC] STAT Oxygen Therapy, ED [RC] ASDIRECTED Pulse Oximetry [RC] ASDIRECTED Sodium Chloride 0.9% [Normal Saline] 1,000 ml IV STAT Sodium Chloride 0.9% [Saline Flush] 10 ml FLUSH ASDIRECTED PRN Sodium Chloride 0.9% [Saline Flush] 2.5 ml FLUSH ASDIRECTED PRN Saline Lock Insert [OM.PC] Stat 01/06/19 05:54 B-TYPE NATRIURETIC PEPTIDE,BNP [CHEM] Stat CBC WITH AUTO DIFF [HEME] Stat COMPREHENSIVE METABOLIC PN,CMP [CHEM] Stat TROPONIN I [CHEM] Stat - Assessment/Plan Last 24 Hours: My Active Orders 01/06/19 05:30 Blood Glucose Check, Bedside [RC] ONETIME Cardiac Monitoring [RC] . DIRECTED EKG Documentation Completion [RC] STAT Oxygen Therapy, ED [RC] ASDIRECTED Pulse Oximetry [RC] ASDIRECTED Sodium Chloride 0.9% [Normal Saline] 1,000 ml IV STAT Sodium Chloride 0.9% [Saline Flush] 10 ml FLUSH ASDIRECTED PRN Sodium Chloride 0.9% [Saline Flush] 2.5 ml FLUSH ASDIRECTED PRN Saline Lock Insert [OM.PC] Stat 01/06/19 05:54 B-TYPE NATRIURETIC PEPTIDE,BNP [CHEM] Stat CBC WITH AUTO DIFF [HEME] Stat COMPREHENSIVE METABOLIC PN,CMP [CHEM] Stat TROPONIN I [CHEM] Stat
--- NOTE | 2019-01-06 05:51 | CR ---
INDICATION: Chest pain, shortness of breath TECHNIQUE: Chest radiograph 1 view COMPARISON: 12/24/2018 FINDINGS: Mediastinum: The mediastinum is normal in appearance. The heart silhouette is normal in size and morphology. Patient status post interval median sternotomy. Lung: New airspace infiltrates are present in the left upper lobe with consolidation of the left lung base and large left pleural effusion. Small right pleural effusion seen. IMPRESSION: 1. New airspace infiltrates are present in the left upper lobe with consolidation of the left lung base and large left pleural effusion. Small right pleural effusion seen. Dictated by Ranjeet Garland MD @ 01/06/2019 5:49:50 AM Dictated by: Ranjeet Garland MD @ 01/06/2019 05:49:55 (Electronically Signed)
[2019-01-06 06:30] LABS: CHLORIDE,CL 103 mmol/L (98-107); SODIUM,NA 137 mmol/L (136-145)
[2019-01-06 06:31] VITALS: BP 74/45
== END 2019-01-06 07:02 ==
LOC: MW.ED 05:22
DX: J90 Pleural effusion, not elsewhere classified (principal); I95.9 Hypotension, unspecified; I10 Essential (primary) hypertension; E03.9 Hypothyroidism, unspecified; Z88.6 Allergy status to analgesic agent; Z95.1 Presence of aortocoronary bypass graft; Z79.899 Other long term (current) drug therapy; Z79.82 Long term (current) use of aspirin
CPT/HCPCS: 36415; 36556; 36600; 36680; 71045; 80053; 82803; 83880; 84484; 85025; 85610; 93005; 96360; 99285; J7040; 99291

== ENCOUNTER 2019-07-15 13:34 | Inpatient (IN) | payer MEDICARE, BC ==
--- NOTE | 2019-07-15 13:51 | EDM.PDOC ---
ED HPI GENERAL MEDICAL PROBLEM - General Chief Complaint: Genitourinary Problem Stated Complaint: POSSIBLE UTI Time Seen by Provider: 07/15/19 13:49 Source of Information: Reports: Patient History Limitations: Reports: No Limitations - History of Present Illness INITIAL COMMENTS - FREE TEXT/NARRATIVE: HISTORY AND PHYSICAL: History of present illness: Patient is an 83-year-old female who presents to the emergency room with complaints of generalized weakness and concerns of a UTI. She states over the past few weeks she has not felt well and has attributed her symptoms to having a urinary tract infection. Patient does have a history of heart disease and has recently seen her review engineer last month in May (2018). She states that everything went well and they had no concerns and informed her to follow- up with cardiology per her routine. Patient denies any fever, chills, headache , change in vision, syncope or near syncope. Denies any chest pain, back pain, shortness of breath or cough. Denies any abdominal pain, nausea, vomiting, diarrhea, constipation or dysuria. Has not noted any blood in urine or stool. Patient has been eating and drinking appropriately. Review of systems: As per history of present illness and below otherwise all systems reviewed and negative. Past medical history: As per history of present illness and as reviewed below otherwise noncontributory. Surgical history: As per history of present illness and as reviewed below otherwise noncontributory. Social history: See social history for further information Family history: As per history of present illness and as reviewed below otherwise noncontributory. Physical exam: General: Well-developed and well-nourished 80-year-old female. Alert and oriented. Nontoxic-appearing and in no acute distress. HEENT: Atraumatic, normocephalic, pupils equal and reactive bilaterally, negative for conjunctival pallor or scleral icterus, mucous membranes moist, TMs normal bilaterally, throat clear, neck supple, nontender, trachea midline. No drooling or trismus noted. No meningeal signs. No hot potato voice noted. Lungs: Clear to auscultation, breath sounds equal bilaterally, chest nontender. Heart: S1S2, regular rate and rhythm without overt murmur Abdomen: Soft, nondistended, nontender. Negative for masses or hepatosplenomegaly. Negative for costovertebral tenderness. Pelvis: Stable nontender. Skin: Intact, warm, dry. No lesions or rashes noted. Extremities: Atraumatic, moves all extremities per self without difficulty or deficits, negative for cords or calf pain. Neurovascular unremarkable. Neuro: Awake, alert, oriented. Cranial nerves II through XII unremarkable. Cerebellum unremarkable. Motor and sensory unremarkable throughout. Exam nonfocal. Notes: EKG does show some slight ST elevation in V1, V2 and V3. Patient reports she had recently saw Dr. Snell, at [facility] in [place]. I did call [facility] in [place] and spoke with Dr. Beavers, who has also seen this patient himself. He is currently regional wildlife agent for their group. He was able to look at this patient's previous EKGs and echocardiogram and does not have any concerns with her needing to be transferred to their facility for further evaluation and management. Patient continues to deny any form of chest pain or shortness of breath. Dr. Camarillo, hospitalist on-call was informed of this patient. Dr. Velasquez resident with [facility] is agreeable to keeping this patient for further care and management. Patient does have a UTI. When informed patient of this she states that she believes she has a prolapsed bladder that she would like someone to evaluate. This information was passed on to staff. Diagnostics: CBC, CMP, UA, Troponin, EKG, CXR Therapeutics: Saline lock, ASA Impression: Abnormal EKG UTI Plan: Observation admission with telemetry Definitive disposition and diagnosis as appropriate pending reevaluation and review of above. Bilateral Knee Pain Score (Numeric/FACES): 2 - Related Data Allergies Allergy/AdvReac Type Severity Reaction Status Date / Time morphine Allergy Hives Verified 07/15/19 13:58 Home Meds: Home Meds Levothyroxine 75 mcg PO ACBREAKFAST 02/13/14 [History] Aspirin 81 mg PO DAILY 10/30/18 [History] Aspirin 325 mg PO DAILY 01/06/19 [History] Famotidine 20 mg PO BID 01/06/19 [History] Hydrocodone/Acetaminophen [Hydrocodon-Acetaminophen 5-325] 1 each PO ASDIRECTED 01/06/19 [History] Losartan [Cozaar] 100 mg PO DAILY 01/06/19 [History] Metoprolol Tartrate 50 mg PO BID 01/06/19 [History] Rosuvastatin [Crestor] 10 mg PO DAILY 01/06/19 [History] Past Medical History HEENT History: Reports: Macular Degeneration Other HEENT History: left eye Cardiovascular History: Reports: Heart Murmur, Hypertension Respiratory History: Reports: None Gastrointestinal History: Reports: None Other Gastrointestinal History: Appendicitis 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: Reports: None TERRAPIN FISHER History: Reports: None Musculoskeletal History: Reports: None Neurological History: Reports: None Psychiatric History: Reports: None Endocrine/Metabolic History: Reports: Hypothyroidism Hematologic History: Reports: None Immunologic History: Reports: None Oncologic (Cancer) History: Reports: None Dermatologic History: Reports: None - Infectious Disease History Infectious Disease History: Reports: None - Past Surgical History Head Surgeries/Procedures: Reports: None Respiratory Surgical History: Reports: None Other GI Surgeries/Procedures: Appendectomy Female Surgical History: Reports: None Neurological Surgical History: Reports: None Musculoskeletal Surgical History: Reports: None Oncologic Surgical History: Reports: None Dermatological Surgical History: Reports: None Social & Family History - Family History Family Medical History: Noncontributory - Caffeine Use Caffeine Use: Reports: None - Living Situation & Occupation Living situation: Reports: with Family Occupation: Retired ED ROS GENERAL - Review of Systems Review Of Systems: Comprehensive ROS is negative, except as noted in HPI. ED EXAM, RENAL/ - Physical Exam Exam: See Below (See dictation) Course - Vital Signs Last Recorded V/S: Last Vital Signs Temp 98.7 F 07/15/19 17:00 Pulse 79 07/15/19 17:00 Resp 14 07/15/19 17:00 BP 125/67 07/15/19 17:00 Pulse Ox 93 L 07/15/19 17:00 - Orders/Labs/Meds Orders: Active Orders 24 hr Category Date Time Status CULTURE URINE [RM] Stat Lab 07/15/19 14:25 Received Sodium Chloride 0.9% [Saline Flush] Med 07/15/19 14:59 Active 10 ml FLUSH ASDIRECTED PRN Sodium Chloride 0.9% [Saline Flush] Med 07/15/19 14:59 Active 2.5 ml FLUSH ASDIRECTED PRN Saline Lock Insert [OM.PC] Stat Oth 07/15/19 14:59 Ordered Medication Orders Hydrocodone Bitart/Acetaminophen ([place] 325-5 Mg) 1 tab PO Q6H PRN PRN Reason: PAIN Aspirin (Aspirin) 325 mg PO DAILY ERIN Enoxaparin Sodium (Lovenox) 40 mg SUBCUT Q24H [facility] Last Admin: 07/15/19 17:58 Dose: 40 mg Famotidine (Pepcid) 20 mg PO BID [facility] Sodium Chloride (Normal Saline) 1,000 mls @ 100 mls/hr IV ASDIRECTED [facility] Last Admin: 07/15/19 17:59 Dose: 100 mls/hr Infusion: 07/15/19 17:59 Dose: 100 mls/hr Admin: 07/15/19 16:12 Dose: 100 mls/hr Ceftriaxone Sodium 1 gm/ (Sodium Chloride) 50 mls @ 100 mls/hr IV Q24H [facility] Last Admin: 07/15/19 17:58 Dose: 100 mls/hr Sodium Chloride (Normal Saline) 1,000 mls @ 100 mls/hr IV ASDIRECTED [facility] Levothyroxine Sodium (Levothyroxine) 75 mcg PO ACBREAKFAST [facility] Losartan Potassium (Cozaar) 100 mg PO DAILY [facility] Metoprolol Tartrate (Lopressor) 50 mg PO BID [facility] Rosuvastatin Calcium (Crestor) 10 mg PO DAILY [facility] Sodium Chloride (Saline Flush) 10 ml FLUSH ASDIRECTED PRN PRN Reason: Keep Vein Open Last Admin: 07/15/19 15:24 Dose: 10 ml Sodium Chloride (Saline Flush) 2.5 ml FLUSH ASDIRECTED PRN PRN Reason: Keep Vein Open Last Admin: 07/15/19 15:23 Dose: 2.5 ml Labs: Laboratory Tests 07/15/19 07/15/19 07/15/19 Range/Units 14:25 14:36 14:36 WBC 12.50 H (4.0-11.0) K/uL RBC 4.37 (4.30-5.90) M/uL Hgb 12.9 (12.0-16.0) g/dL Hct 38.2 (36.0-46.0) % MCV 87.4 (80.0-98.0) fL MCH 29.5 (27.0-32.0) pg MCHC 33.8 (31.0-37.0) g/dL RDW Std Deviation 52.9 (28.0-62.0) fl RDW Coeff of Kaylee 16 H (11.0-15.0) % Plt Count 241 (150-400) K/uL MPV 9.60 (7.40-12.00) fL Neut % (Auto) 73.7 (48.0-80.0) % Lymph % (Auto) 8.0 L (16.0-40.0) % [place] % (Auto) 17.9 H (0.0-15.0) % Eos % (Auto) 0.2 (0.0-7.0) % Baso % (Auto) 0.2 (0.0-1.5) % Neut # (Auto) 9.2 H (1.4-5.7) K/uL Lymph # (Auto) 1.0 (0.6-2.4) K/uL [place] # (Auto) 2.2 H (0.0-0.8) K/uL Eos # (Auto) 0.0 (0.0-0.7) K/uL Baso # (Auto) 0.0 (0.0-0.1) K/uL Nucleated RBC % 0.0 /100WBC Nucleated RBCs # 0 K/uL Sodium 132 L (136-145) mmol/L Potassium 3.8 (3.5-5.1) mmol/L Chloride 94 L (98-107) mmol/L Carbon Dioxide 25.0 (21.0-32.0) mmol/L BUN 31 H (7.0-18.0) mg/dL Creatinine 1.3 H (0.6-1.0) mg/dL Est Cr Clr Drug Dosing 23.48 mL/min Estimated GFR (MDRD) 39.1 ml/min Glucose 95 (74-106) mg/dL Calcium 8.8 (8.5-10.1) mg/dL Total Bilirubin 1.0 (0.2-1.0) mg/dL AST 36 (15-37) IU/L ALT 46 (14-63) IU/L Alkaline Phosphatase 59 (46-116) U/L Troponin I (0.000-0.056) ng/mL Total Protein 7.1 (6.4-8.2) g/dL Albumin 3.4 (3.4-5.0) g/dL Globulin 3.7 (2.6-4.0) g/dL Albumin/Globulin Ratio 0.9 (0.9-1.6) Urine Color YELLOW Urine Appearance CLEAR Urine pH 5.5 (5.0-8.0) Ur Specific [place] 1.020 (1.001-1.035) Urine Protein TRACE H (NEGATIVE) mg/dL Urine Glucose (UA) NEGATIVE (NEGATIVE) mg/dL Urine Ketones NEGATIVE (NEGATIVE) mg/dL Urine Occult Blood MODERATE H (NEGATIVE) Urine Nitrite NEGATIVE (NEGATIVE) Urine Bilirubin NEGATIVE (NEGATIVE) Urine Urobilinogen 0.2 (<2.0) EU/dL Ur Leukocyte Esterase TRACE H (NEGATIVE) Urine RBC 0-2 (0-2/HPF) Urine WBC 2-5 (0-5/HPF) Ur Epithelial Cells FEW (NONE-FEW) Urine Bacteria 2+ H (NEGATIVE) 07/15/19 Range/Units 14:36 WBC (4.0-11.0) K/uL RBC (4.30-5.90) M/uL Hgb (12.0-16.0) g/dL Hct (36.0-46.0) % MCV (80.0-98.0) fL MCH (27.0-32.0) pg MCHC (31.0-37.0) g/dL RDW Std Deviation (28.0-62.0) fl RDW Coeff of Kaylee (11.0-15.0) % Plt Count (150-400) K/uL MPV (7.40-12.00) fL Neut % (Auto) (48.0-80.0) % Lymph % (Auto) (16.0-40.0) % [place] % (Auto) (0.0-15.0) % Eos % (Auto) (0.0-7.0) % Baso % (Auto) (0.0-1.5) % Neut # (Auto) (1.4-5.7) K/uL Lymph # (Auto) (0.6-2.4) K/uL [place] # (Auto) (0.0-0.8) K/uL Eos # (Auto) (0.0-0.7) K/uL Baso # (Auto) (0.0-0.1) K/uL Nucleated RBC % /100WBC Nucleated RBCs # K/uL Sodium (136-145) mmol/L Potassium (3.5-5.1) mmol/L Chloride (98-107) mmol/L Carbon Dioxide (21.0-32.0) mmol/L BUN (7.0-18.0) mg/dL Creatinine (0.6-1.0) mg/dL Est Cr Clr Drug Dosing mL/min Estimated GFR (MDRD) ml/min Glucose (74-106) mg/dL Calcium (8.5-10.1) mg/dL Total Bilirubin (0.2-1.0) mg/dL AST (15-37) IU/L ALT (14-63) IU/L Alkaline Phosphatase (46-116) U/L Troponin I < 0.050 (0.000-0.056) ng/mL Total Protein (6.4-8.2) g/dL Albumin (3.4-5.0) g/dL Globulin (2.6-4.0) g/dL Albumin/Globulin Ratio (0.9-1.6) Urine Color Urine Appearance Urine pH (5.0-8.0) Ur Specific [place] (1.001-1.035) Urine Protein (NEGATIVE) mg/dL Urine Glucose (UA) (NEGATIVE) mg/dL Urine Ketones (NEGATIVE) mg/dL Urine Occult Blood (NEGATIVE) Urine Nitrite (NEGATIVE) Urine Bilirubin (NEGATIVE) Urine Urobilinogen (<2.0) EU/dL Ur Leukocyte Esterase (NEGATIVE) Urine RBC (0-2/HPF) Urine WBC (0-5/HPF) Ur Epithelial Cells (NONE-FEW) Urine Bacteria (NEGATIVE) Meds: Medications Generic Name Dose Route Start Last Admin Trade Name Freq PRN Reason Stop Dose Admin Hydrocodone Bitart/Acetaminophen 1 tab 07/15/19 17:00 [place] 325-5 Mg PO Q6H PRN PAIN Aspirin 325 mg 07/16/19 09:00 Aspirin PO DAILY ERIN Enoxaparin Sodium 40 mg 07/15/19 16:45 07/15/19 17:58 Lovenox SUBCUT 40 mg Q24H ERIN Administration Famotidine 20 mg 07/15/19 21:00 Pepcid PO BID ERIN Sodium Chloride 1,000 mls @ 100 mls/hr 07/15/19 16:15 07/15/19 17:59 Normal Saline IV 100 mls/hr ASDIRECTED ERIN Administration Ceftriaxone Sodium 1 gm/ 50 mls @ 100 mls/hr 07/15/19 16:45 07/15/19 17:58 Sodium Chloride IV 100 mls/hr Q24H ERIN Administration Sodium Chloride 1,000 mls @ 100 mls/hr 07/15/19 16:45 Normal Saline IV ASDIRECTED ERIN Levothyroxine Sodium 75 mcg 07/16/19 07:30 Levothyroxine PO ACBREAKFAST ERIN Losartan Potassium 100 mg 07/16/19 09:00 Cozaar PO DAILY ERIN Metoprolol Tartrate 50 mg 07/15/19 21:00 Lopressor PO BID ERIN Rosuvastatin Calcium 10 mg 07/16/19 09:00 Crestor PO DAILY ERIN Sodium Chloride 10 ml 07/15/19 14:59 07/15/19 15:24 Saline Flush FLUSH 10 ml ASDIRECTED PRN Administration Keep Vein Open Sodium Chloride 2.5 ml 07/15/19 14:59 07/15/19 15:23 Saline Flush FLUSH 2.5 ml ASDIRECTED PRN Administration Keep Vein Open Discontinued Medications Generic Name Dose Route Start Last Admin Trade Name Freq PRN Reason Stop Dose Admin Aspirin 243 mg 07/15/19 15:19 07/15/19 15:23 Aspirin PO 07/15/19 15:20 243 mg ONETIME ONE Administration Departure - Departure Time of Disposition: 18:58 Disposition: Refer to Observation Clinical Impression: UTI, Urinary tract infectious disease, Abnormal EKG - Discharge Information Sepsis Event Note - Focused Exam Vital Signs: Vital Signs Temp Pulse Resp BP Pulse Ox 07/15/19 15:26 90 15 148/77 H 94 L 07/15/19 15:09 90 18 167/70 H 94 L 07/15/19 13:59 99 F 92 16 130/61 94 L Date Exam was Performed: 07/15/19 Time Exam was Performed: 18:53 - My Orders Last 24 Hours: My Active Orders 07/15/19 14:59 Sodium Chloride 0.9% [Saline Flush] 10 ml FLUSH ASDIRECTED PRN Sodium Chloride 0.9% [Saline Flush] 2.5 ml FLUSH ASDIRECTED PRN Saline Lock Insert [OM.PC] Stat - Assessment/Plan Last 24 Hours: My Active Orders 07/15/19 14:59 Sodium Chloride 0.9% [Saline Flush] 10 ml FLUSH ASDIRECTED PRN Sodium Chloride 0.9% [Saline Flush] 2.5 ml FLUSH ASDIRECTED PRN Saline Lock Insert [OM.PC] Stat
[2019-07-15] MEDS ORDERED: Sodium Chloride 0.9% 10 ML Syringe FLUSH PRN (14:59)
[2019-07-15] MEDS ORDERED: Sodium Chloride 0.9% 2.5 ML Syringe FLUSH PRN (14:59)
[2019-07-15] MEDS ORDERED: Aspirin 81 MG Tab.Chew PO ONE (15:19)
[2019-07-15 15:46] LABS: POTASSIUM,K 3.8 mmol/L (3.5-5.1)
--- NOTE | 2019-07-15 15:54 | CR ---
Chest: Portable view of the chest was obtained. Comparison: Prior chest x-ray of 06/20/19. Heart is enlarged. Tortuous thoracic aorta is seen. Slight blunting of the costophrenic angles are seen which appears chronic. Minimal scarring is seen within the left midlung and left lower lung. No acute parenchymal change is otherwise seen. Bony structures are grossly intact. Previous sternotomy is noted. Impression: 1. Findings as noted above. 2. Nothing acute is appreciated. Diagnostic code #2 This report was dictated in [place] Standard Time
[2019-07-15] MEDS: Sodium Chloride 0.9% 1,000 ML IV SCH ×2 (16:12→17:59)
[2019-07-15] MEDS ORDERED: Sodium Chloride 0.9% 1,000 ML IV SCH (16:45)
--- NOTE | 2019-07-15 16:47 | PCM.HP.2 ---
H&P History of Present Illness - General Date of Service: 07/15/19 Admit Problem/Dx: Admission Diagnosis/Problem Admission Diagnosis/Problem UTI, Urinary tract infectious disease - History of Present Illness Initial Comments - Free Text/Narative: The patient is a 83 year old female with past medical history of CAD, HTN, hyperlipidemia, and hypothyroidism who presents with generalized weakness for several days. Has associated burning and urinary urgency. Denies fever/chills , chest pain, shortness of breath ,abdominal pain, or lower extremity edema. Reports has been trying to push self to eat and drink because she hasn't felt like it. In the ER, labs showed leukocytosis, no anemia, elevated BUN/CR, negative troponin. UA showed signs of infection. EKG showed ST changes, this was compared with previous EKGs and the ER provider discussed the case with the restaurant crew person in [place]. He was able to review her most recent EKGs and there are no major changes. 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 It did not think this was a new [place]. Last saw her restaurant crew person in [place] in May, has follow up appt with her, Dr. Snell, in [facility] this upcoming Thursday07/19/19. In the ER she was given IVF and aspirin. - Related Data Allergies/Adverse Reactions: Allergies Allergy/AdvReac Type Severity Reaction Status Date / Time morphine Allergy Hives Verified 07/15/19 13:58 Home Medications: Home Meds Levothyroxine 75 mcg PO ACBREAKFAST 02/13/14 [History] Aspirin 81 mg PO DAILY 10/30/18 [History] Aspirin 325 mg PO DAILY 01/06/19 [History] Famotidine 20 mg PO BID 01/06/19 [History] Hydrocodone/Acetaminophen [Hydrocodon-Acetaminophen 5-325] 1 each PO ASDIRECTED 01/06/19 [History] Losartan [Cozaar] 100 mg PO DAILY 01/06/19 [History] Metoprolol Tartrate 50 mg PO BID 01/06/19 [History] Rosuvastatin [Crestor] 10 mg PO DAILY 01/06/19 [History] Past Medical History HEENT History: Reports: Macular Degeneration Other HEENT History: left eye Cardiovascular History: Reports: Heart Murmur, Hypertension Respiratory History: Reports: None Gastrointestinal History: Reports: None Other Gastrointestinal History: Appendicitis 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: Reports: None COOK FAST FOOD History: Reports: None Musculoskeletal History: Reports: None Neurological History: Reports: None Psychiatric History: Reports: None Endocrine/Metabolic History: Reports: Hypothyroidism Hematologic History: Reports: None Immunologic History: Reports: None Oncologic (Cancer) History: Reports: None Dermatologic History: Reports: None - Infectious Disease History Infectious Disease History: Reports: None - Past Surgical History Head Surgeries/Procedures: Reports: None Respiratory Surgical History: Reports: None Other GI Surgeries/Procedures: Appendectomy Female Surgical History: Reports: None Neurological Surgical History: Reports: None Musculoskeletal Surgical History: Reports: None Oncologic Surgical History: Reports: None Dermatological Surgical History: Reports: None Social & Family History - Family History Family Medical History: Noncontributory - Tobacco Use Smoking Status *Q: Never Smoker Second Hand Smoke Exposure: No - Caffeine Use Caffeine Use: Reports: None - Recreational Drug Use Recreational Drug Use: No - Living Situation & Occupation Living situation: Reports: with Family Occupation: Retired H&P Review of Systems - Review of Systems: Review Of Systems: See Below General: Reports: Weakness. Denies: Fever, Chills HEENT: Reports: No Symptoms Pulmonary: Reports: No Symptoms Cardiovascular: Reports: No Symptoms Gastrointestinal: Reports: No Symptoms Genitourinary: Reports: Dysuria, Urgency Musculoskeletal: Reports: No Symptoms Skin: Reports: No Symptoms Psychiatric: Reports: No Symptoms Neurological: Reports: No Symptoms Hematologic/Lymphatic: Reports: No Symptoms Immunologic: Reports: No Symptoms Exam - Exam Exam: See Below - Vital Signs Vital Signs: Last Vital Signs Temp 99 F 07/15/19 13:59 Pulse 86 07/15/19 16:05 Resp 14 07/15/19 16:05 BP 140/73 07/15/19 16:05 Pulse Ox 92 L 07/15/19 16:05 Weight: 45.359 kg - Exam General: Alert, Oriented HEENT: No: Mucosa Moist & [place] Lungs: Clear to Auscultation, Normal Respiratory Effort Cardiovascular: Regular Rate, Regular Rhythm GI/Abdominal Exam: Normal Bowel Sounds, Soft, Non-Tender, No Distention Extremities: No Pedal Edema Skin: Warm, Dry Neuro Extensive - Mental Status: Alert, Oriented x3 Psychiatric: Alert, Normal Affect, Normal Mood - Patient Data Lab Results Last 24 hrs: Laboratory Results - last 24 hr 07/15/19 07/15/1920 Range/Units 14:25 14:36 14:36 WBC 12.50 H (4.0-11.0) K/uL RBC 4.37 (4.30-5.90) M/uL Hgb 12.9 (12.0-16.0) g/dL Hct 38.2 (36.0-46.0) % MCV 87.4 (80.0-98.0) fL MCH 29.5 (27.0-32.0) pg MCHC 33.8 (31.0-37.0) g/dL RDW Std Deviation 52.9 (28.0-62.0) fl RDW Coeff of Kaylee 16 H (11.0-15.0) % Plt Count 241 (150-400) K/uL MPV 9.60 (7.40-12.00) fL Neut % (Auto) 73.7 (48.0-80.0) % Lymph % (Auto) 8.0 L (16.0-40.0) % [place]re[place] % (Auto) 17.9 H (0.0-15.0) % Eos % (Auto) 0.2 (0.0-7.0) % Baso % (Auto) 0.2 (0.0-1.5) % Neut # (Auto) 9.2 H (1.4-5.7) K/uL Lymph # (Auto) 1.0 (0.6-2.4) K/uL [place] # (Auto) 2.2 H (0.0-0.8) K/uL Eos # (Auto) 0.0 (0.0-0.7) K/uL Baso # (Auto) 0.0 (0.0-0.1) K/uL Nucleated RBC % 0.0 /100WBC Nucleated RBCs # 0 K/uL Sodium 132 L (136-145) mmol/L Potassium 3.8 (3.5-5.1) mmol/L Chloride 94 L (98-107) mmol/L Carbon Dioxide 25.0 (21.0-32.0) mmol/L BUN 31 H (7.0-18.0) mg/dL Creatinine 1.3 H (0.6-1.0) mg/dL Est Cr Clr Drug Dosing 23.48 mL/min Estimated GFR (MDRD) 39.1 ml/min Glucose 95 (74-106) mg/dL Calcium 8.8 (8.5-10.1) mg/dL Total Bilirubin 1.0 (0.2-1.0) mg/dL AST 36 (15-37) IU/L ALT 46 (14-63) IU/L Alkaline Phosphatase 59 (46-116) U/L Troponin I (0.000-0.056) ng/mL Total Protein 7.1 (6.4-8.2) g/dL Albumin 3.4 (3.4-5.0) g/dL Globulin 3.7 (2.6-4.0) g/dL Albumin/Globulin Ratio 0.9 (0.9-1.6) Urine Color YELLOW Urine Appearance CLEAR Urine pH 5.5 (5.0-8.0) Ur Specific [place] 1.020 (1.001-1.035) Urine Protein TRACE H (NEGATIVE) mg/dL Urine Glucose (UA) NEGATIVE (NEGATIVE) mg/dL Urine Ketones NEGATIVE (NEGATIVE) mg/dL Urine Occult Blood MODERATE H (NEGATIVE) Urine Nitrite NEGATIVE (NEGATIVE) Urine Bilirubin NEGATIVE (NEGATIVE) Urine Urobilinogen 0.2 (<2.0) EU/dL Ur Leukocyte Esterase TRACE H (NEGATIVE) Urine RBC 0-2 (0-2/HPF) Urine WBC 2-5 (0-5/HPF) Ur Epithelial Cells FEW (NONE-FEW) Urine Bacteria 2+ H (NEGATIVE) 07/15/19 Range/Units 14:36 WBC (4.0-11.0) K/uL RBC (4.30-5.90) M/uL Hgb (12.0-16.0) g/dL Hct (36.0-46.0) % MCV (80.0-98.0) fL MCH (27.0-32.0) pg MCHC (31.0-37.0) g/dL RDW Std Deviation (28.0-62.0) fl RDW Coeff of Kaylee (11.0-15.0) % Plt Count (150-400) K/uL MPV (7.40-12.00) fL Neut % (Auto) (48.0-80.0) % Lymph % (Auto) (16.0-40.0) % Mccreary % (Auto) (0.0-15.0) % Eos % (Auto) (0.0-7.0) % Baso % (Auto) (0.0-1.5) % Neut # (Auto) (1.4-5.7) K/uL Lymph # (Auto) (0.6-2.4) K/uL M[place]re[place] # (Auto) (0.0-0.8) K/uL Eos # (Auto) (0.0-0.7) K/uL Baso # (Auto) (0.0-0.1) K/uL Nucleated RBC % /100WBC Nucleated RBCs # K/uL Sodium (136-145) mmol/L Potassium (3.5-5.1) mmol/L Chloride (98-107) mmol/L Carbon Dioxide (21.0-32.0) mmol/L BUN (7.0-18.0) mg/dL Creatinine (0.6-1.0) mg/dL Est Cr Clr Drug Dosing mL/min Estimated GFR (MDRD) ml/min Glucose (74-106) mg/dL Calcium (8.5-10.1) mg/dL Total Bilirubin (0.2-1.0) mg/dL AST (15-37) IU/L ALT (14-63) IU/L Alkaline Phosphatase (46-116) U/L Troponin I < 0.050 (0.000-0.056) ng/mL Total Protein (6.4-8.2) g/dL Albumin (3.4-5.0) g/dL Globulin (2.6-4.0) g/dL Albumin/Globulin Ratio (0.9-1.6) Urine Color Urine Appearance Urine pH (5.0-8.0) Ur Specific [place] (1.001-1.035) Urine Protein (NEGATIVE) mg/dL Urine Glucose (UA) (NEGATIVE) mg/dL Urine Ketones (NEGATIVE) mg/dL Urine Occult Blood (NEGATIVE) Urine Nitrite (NEGATIVE) Urine Bilirubin (NEGATIVE) Urine Urobilinogen (<2.0) EU/dL Ur Leukocyte Esterase (NEGATIVE) Urine RBC (0-2/HPF) Urine WBC (0-5/HPF) Ur Epithelial Cells (NONE-FEW) Urine Bacteria (NEGATIVE) Result Diagrams: 07/15/19 14:36 07/15/19 14:36 Sepsis Event Note - Evaluation Sepsis Screening Result: No Definite Risk - Focused Exam Vital Signs: Vital Signs Temp Pulse Resp BP Pulse Ox 07/15/19 16:05 86 14 140/73 92 L 07/15/19 15:26 90 15 148/77 H 94 L 07/15/19 15:09 90 18 167/70 H 94 L 07/15/19 13:59 99 F 92 16 130/61 94 L Date Exam was Performed: 07/15/19 Time Exam was Performed: 16:42 Problem List Initiated/Reviewed/Updated: Yes Orders Last 24hrs: Active Orders 24 hr Category Date Time Status Admission Status [Patient Status] [ADT] Stat ADT 07/15/19 16:05 Active Cardiac Monitoring [RC] . DIRECTED Care 07/15/19 16:41 Ordered EKG 12 Lead [EKG Documentation Completion] [RC] STAT Care 07/15/19 14:04 Active Intake and Output [RC] ASDIRECTED Care 07/15/19 16:41 Ordered Vital Signs [RC] PER UNIT ROUTINE Care 07/15/19 16:41 Ordered Heart Healthy Diet [DIET] Diet 07/15/19 Dinner Ordered BASIC METABOLIC PANEL,BMP [CHEM] AM Lab 07/16/19 05:11 Ordered CBC WITH AUTO DIFF [HEME] AM Lab 07/16/19 05:11 Ordered CULTURE URINE [RM] Stat Lab 07/15/19 14:25 Received Enoxaparin [Lovenox] Med 07/15/19 16:45 Ordered 40 mg SUBCUT Q24H Sodium Chloride 0.9% @ 100 MLS/HR(1,000ml) Med 07/15/19 16:45 Ordered Sodium Chloride 0.9% [Normal Saline] 1,000 ml IV ASDIRECTED Sodium Chloride 0.9% [Normal Saline] 1,000 ml Med 07/15/19 16:15 Active IV ASDIRECTED Sodium Chloride 0.9% [Saline Flush] Med 07/15/19 14:59 Active 10 ml FLUSH ASDIRECTED PRN Sodium Chloride 0.9% [Saline Flush] Med 07/15/19 14:59 Active 2.5 ml FLUSH ASDIRECTED PRN cefTRIAXone [Rocephin] 1 gm Med 07/15/19 16:45 Ordered Sodium Chloride 0.9% [Normal Saline] 50 ml IV Q24H Saline Lock Insert [OM.PC] Stat Oth 07/15/19 14:59 Ordered Resuscitation Status Routine Resus Stat 07/15/19 16:41 Ordered Medication Orders Sodium Chloride (Normal Saline) 1,000 mls @ 100 mls/hr IV ASDIRECTED ERIN Last Admin: 07/15/19 16:12 Dose: 100 mls/hr Sodium Chloride (Saline Flush) 10 ml FLUSH ASDIRECTED PRN PRN Reason: Keep Vein Open Last Admin: 07/15/19 15:24 Dose: 10 ml Sodium Chloride (Saline Flush) 2.5 ml FLUSH ASDIRECTED PRN PRN Reason: Keep Vein Open Last Admin: 07/15/19 15:23 Dose: 2.5 ml Assessment/Plan Comment:: 1. Admit for observation 2. Code status- full 3. Vitals per routine 4. I/Os per routine 5. Diet- cardiac 6. DVT prophylaxis with lovenox 7. Weakness likely secondary to UTI and JOSEF- treat with Rocephin, UC pending, continue IVF 8.Hx of CAD- monitor on telemetry, patient chest pain free, trop negative 9. Chronic conditions- HTN, hyperlipidemia, hypothyroidism-continue home meds.
[2019-07-15] MEDS ORDERED: Acetaminophen/HYDROcodone 325-5 MG Tab PO PRN (17:00)
[2019-07-15] MEDS: Enoxaparin 40 MG/0.4 ML Syringe SUBCUT SCH (17:58)
[2019-07-15] MEDS: cefTRIAXone 1 GM in Sodium Chloride 0.9% 50 ML IV SCH (17:58)
[2019-07-15] MEDS: Famotidine 20 MG Tab PO SCH (20:42)
[2019-07-15] MEDS: Metoprolol Tartrate 50 MG Tab PO SCH (20:42)
[2019-07-16] MEDS: Sodium Chloride 0.9% 1,000 ML IV SCH (03:50)
[2019-07-16] MEDS: Levothyroxine 75 MCG Tab PO SCH (06:51)
[2019-07-16 07:07] LABS: CARBON DIOXIDE,CO2 24.4 mmol/L (21.0-32.0); POTASSIUM,K 2.9 mmol/L (3.5-5.1)
[2019-07-16] MEDS ORDERED: Aspirin 325 MG Tab PO SCH (09:00)
[2019-07-16] MEDS ORDERED: Losartan 50 MG Tab PO SCH (09:00)
[2019-07-16] MEDS ORDERED: Rosuvastatin 10 MG Tab PO SCH (09:00)
[2019-07-16] MEDS ORDERED: Potassium Chloride 10% 20 MEQ/15 ML Soln 30 ML UD Cup PO ONE (09:12)
[2019-07-16] MEDS: Famotidine 20 MG Tab PO SCH ×2 (09:55→21:24)
[2019-07-16] MEDS: Losartan 100 MG Tab PO SCH (09:55)
--- NOTE | 2019-07-16 10:06 | CR ---
Chest: Portable view of the chest was obtained. Comparison: Prior chest x-ray of 07/15/19. Increasing density is noted throughout both sides of the chest as an interval change from previous chest x-ray. Heart is mildly enlarged. Previous sternotomy is noted. Small bilateral pleural effusions versus chronic blunting is noted. Impression: 1. Increasing density within both sides of the chest as an interval finding from recent study. Findings most likely due to pulmonary vascular congestion although if patient has infectious symptoms diffuse bronchitis is also within the differential. 2. Other findings which are felt to be stable from prior chest x-ray. Diagnostic code #3 Study was dictated in [place] Standard Time
[2019-07-16] MEDS: Aspirin 81 MG Tab.Chew PO SCH (10:59)
[2019-07-16] MEDS: Carvedilol 3.125 MG Tab PO SCH ×2 (11:00→21:56)
[2019-07-16] MEDS ORDERED: Aspirin 81 MG Tab.Chew PO SCH (11:00)
[2019-07-16] MEDS: Ezetimibe 10 MG Tab PO SCH (11:00)
[2019-07-16] MEDS: Metoprolol Tartrate 50 MG Tab PO SCH (11:59)
--- NOTE | 2019-07-16 13:06 | PCM.PN ---
- General Info Date of Service: 07/16/19 - Patient Data Vitals - Most Recent: Last Vital Signs Temp 36.9 C 07/16/19 12:00 Pulse 82 07/16/19 12:00 Resp 16 07/16/19 12:00 BP 114/70 07/16/19 12:00 Pulse Ox 99 07/16/19 12:00 Weight - Most Recent: 56.971 kg I&O - Last 24 Hours: Intake & Output 07/15/19 07/16/19 07/16/19 22:59 06:59 14:59 Intake Total 400 Output Total 300 850 Balance -300 -450 Lab Results Last 24 Hours: Laboratory Results - last 24 hr 07/15/19 07/15/19 07/15/19 Range/Units 14:25 14:36 14:36 WBC 12.50 H (4.0-11.0) K/uL RBC 4.37 (4.30-5.90) M/uL Hgb 12.9 (12.0-16.0) g/dL Hct 38.2 (36.0-46.0) % MCV 87.4 (80.0-98.0) fL MCH 29.5 (27.0-32.0) pg MCHC 33.8 (31.0-37.0) g/dL RDW Std Deviation 52.9 (28.0-62.0) fl RDW Coeff of Kaylee 16 H (11.0-15.0) % Plt Count 241 (150-400) K/uL MPV 9.60 (7.40-12.00) fL Neut % (Auto) 73.7 (48.0-80.0) % Lymph % (Auto) 8.0 L (16.0-40.0) % [place] % (Auto) 17.9 H (0.0-15.0) % Eos % (Auto) 0.2 (0.0-7.0) % Baso % (Auto) 0.2 (0.0-1.5) % Neut # (Auto) 9.2 H (1.4-5.7) K/uL Lymph # (Auto) 1.0 (0.6-2.4) K/uL [place] # (Auto) 2.2 H (0.0-0.8) K/uL Eos # (Auto) 0.0 (0.0-0.7) K/uL Baso # (Auto) 0.0 (0.0-0.1) K/uL Nucleated RBC % 0.0 /100WBC Nucleated RBCs # 0 K/uL Sodium 132 L (136-145) mmol/L Potassium 3.8 (3.5-5.1) mmol/L Chloride 94 L (98-107) mmol/L Carbon Dioxide 25.0 (21.0-32.0) mmol/L BUN 31 H (7.0-18.0) mg/dL Creatinine 1.3 H (0.6-1.0) mg/dL Est Cr Clr Drug Dosing 23.48 mL/min Estimated GFR (MDRD) 39.1 ml/min Glucose 95 (74-106) mg/dL Calcium 8.8 (8.5-10.1) mg/dL Total Bilirubin 1.0 (0.2-1.0) mg/dL AST 36 (15-37) IU/L ALT 46 (14-63) IU/L Alkaline Phosphatase 59 (46-116) U/L Troponin I (0.000-0.056) ng/mL Total Protein 7.1 (6.4-8.2) g/dL Albumin 3.4 (3.4-5.0) g/dL Globulin 3.7 (2.6-4.0) g/dL Albumin/Globulin Ratio 0.9 (0.9-1.6) Urine Color YELLOW Urine Appearance CLEAR Urine pH 5.5 (5.0-8.0) Ur Specific [place] 1.020 (1.001-1.035) Urine Protein TRACE H (NEGATIVE) mg/dL Urine Glucose (UA) NEGATIVE (NEGATIVE) mg/dL Urine Ketones NEGATIVE (NEGATIVE) mg/dL Urine Occult Blood MODERATE H (NEGATIVE) Urine Nitrite NEGATIVE (NEGATIVE) Urine Bilirubin NEGATIVE (NEGATIVE) Urine Urobilinogen 0.2 (<2.0) EU/dL Ur Leukocyte Esterase TRACE H (NEGATIVE) Urine RBC 0-2 (0-2/HPF) Urine WBC 2-5 (0-5/HPF) Ur Epithelial Cells FEW (NONE-FEW) Urine Bacteria 2+ H (NEGATIVE) 07/15/19 07/16/19 07/16/19 Range/Units 14:36 06:15 06:15 WBC 11.20 H (4.0-11.0) K/uL RBC 4.12 L (4.30-5.90) M/uL Hgb 12.1 (12.0-16.0) g/dL Hct 37.1 (36.0-46.0) % MCV 90.0 (80.0-98.0) fL MCH 29.4 (27.0-32.0) pg MCHC 32.6 (31.0-37.0) g/dL RDW Std Deviation 55.0 (28.0-62.0) fl RDW Coeff of Kaylee 17 H (11.0-15.0) % Plt Count 239 (150-400) K/uL MPV 10.70 (7.40-12.00) fL Neut % (Auto) 68.2 (48.0-80.0) % Lymph % (Auto) 14.9 L (16.0-40.0) % [place] % (Auto) 16.5 H (0.0-15.0) % Eos % (Auto) 0.2 (0.0-7.0) % Baso % (Auto) 0.2 (0.0-1.5) % Neut # (Auto) 7.6 H (1.4-5.7) K/uL Lymph # (Auto) 1.7 (0.6-2.4) K/uL [place] # (Auto) 1.9 H (0.0-0.8) K/uL Eos # (Auto) 0.0 (0.0-0.7) K/uL Baso # (Auto) 0.0 (0.0-0.1) K/uL Nucleated RBC % 0.0 /100WBC Nucleated RBCs # 0 K/uL Sodium 138 (136-145) mmol/L Potassium 2.9 L (3.5-5.1) mmol/L Chloride 100 (98-107) mmol/L Carbon Dioxide 24.4 (21.0-32.0) mmol/L BUN 22 H (7.0-18.0) mg/dL Creatinine 1.3 H (0.6-1.0) mg/dL Est Cr Clr Drug Dosing 23.55 mL/min Estimated GFR (MDRD) 39.1 ml/min Glucose 88 (74-106) mg/dL Calcium 8.2 L (8.5-10.1) mg/dL Total Bilirubin (0.2-1.0) mg/dL AST (15-37) IU/L ALT (14-63) IU/L Alkaline Phosphatase (46-116) U/L Troponin I < 0.050 (0.000-0.056) ng/mL Total Protein (6.4-8.2) g/dL Albumin (3.4-5.0) g/dL Globulin (2.6-4.0) g/dL Albumin/Globulin Ratio (0.9-1.6) Urine Color Urine Appearance Urine pH (5.0-8.0) Ur Specific [place] (1.001-1.035) Urine Protein (NEGATIVE) mg/dL Urine Glucose (UA) (NEGATIVE) mg/dL Urine Ketones (NEGATIVE) mg/dL Urine Occult Blood (NEGATIVE) Urine Nitrite (NEGATIVE) Urine Bilirubin (NEGATIVE) Urine Urobilinogen (<2.0) EU/dL Ur Leukocyte Esterase (NEGATIVE) Urine RBC (0-2/HPF) Urine WBC (0-5/HPF) Ur Epithelial Cells (NONE-FEW) Urine Bacteria (NEGATIVE) Med Orders - Current: Current Medications Hydrocodone Bitart/Acetaminophen ([place] 325-5 Mg) 1 tab PO Q6H PRN PRN Reason: PAIN Enoxaparin Sodium (Lovenox) 40 mg SUBCUT Q24H [facility] Last Admin: 07/15/19 17:58 Dose: 40 mg Famotidine (Pepcid) 20 mg PO BID [facility] Last Admin: 07/16/19 09:55 Dose: 20 mg Ceftriaxone Sodium 1 gm/ (Sodium Chloride) 50 mls @ 100 mls/hr IV Q24H [facility] Last Admin: 07/15/19 17:58 Dose: 100 mls/hr Levothyroxine Sodium (Levothyroxine) 75 mcg PO ACBREAKFAST [facility] Last Admin: 07/16/19 06:51 Dose: 75 mcg Ondansetron HCl (Zofran) 4 mg IVPUSH Q4H PRN PRN Reason: Nausea Losartan 100 Mg Tab 1 each PO DAILY [facility] Last Admin: 07/16/19 09:55 Dose: 1 each Carvedilol 3.125 Mg (Tab) 1 each PO BID [facility] Last Admin: 07/16/19 11:00 Dose: 1 each Ezetimibe 10 Mg Tab 1 each PO DAILY [facility] Last Admin: 07/16/19 11:00 Dose: 1 each Aspirin 81 Mg Tab. (Chew) 1 each PO DAILY [facility] Last Admin: 07/16/19 10:59 Dose: 1 each Sodium Chloride (Saline Flush) 10 ml FLUSH ASDIRECTED PRN PRN Reason: Keep Vein Open Last Admin: 07/15/19 15:24 Dose: 10 ml Sodium Chloride (Saline Flush) 2.5 ml FLUSH ASDIRECTED PRN PRN Reason: Keep Vein Open Last Admin: 07/15/19 15:23 Dose: 2.5 ml Discontinued Medications Aspirin (Aspirin) 243 mg PO ONETIME ONE Stop: 07/15/19 15:20 Last Admin: 07/15/19 15:23 Dose: 243 mg Aspirin (Aspirin) 325 mg PO DAILY [facility] Last Admin: 07/16/19 11:58 Dose: Not Given Sodium Chloride (Normal Saline) 1,000 mls @ 100 mls/hr IV ASDIRECTED [facility] Last Admin: 07/16/19 03:50 Dose: 100 mls/hr Sodium Chloride (Normal Saline) 1,000 mls @ 100 mls/hr IV ASDIRECTED [facility] Losartan Potassium (Cozaar) 100 mg PO DAILY [facility] Last Admin: 07/16/19 11:58 Dose: Not Given Metoprolol Tartrate (Lopressor) 50 mg PO BID [facility] Last Admin: 07/16/19 11:59 Dose: Not Given Aspirin 81 Mg Tab. (Chew) 81 each PO DAILY [facility] Potassium Chloride (Potassium Chloride) 40 meq PO ONETIME ONE Stop: 07/16/19 09:13 Last Admin: 07/16/19 09:55 Dose: 40 meq Rosuvastatin Calcium (Crestor) 10 mg PO DAILY [facility] Last Admin: 07/16/19 11:59 Dose: Not Given - Exam General: Alert, Oriented Neck: Supple Lungs: Clear to Auscultation, Normal Respiratory Effort Cardiovascular: Regular Rate, Regular Rhythm GI/Abdominal Exam: Normal Bowel Sounds, Soft, Non-Tender Extremities: Non-Tender, No Pedal Edema Skin: Warm, Dry, Intact Sepsis Event Note - Evaluation Sepsis Screening Result: No Definite Risk - Focused Exam Vital Signs: Vital Signs Temp Pulse Resp BP Pulse Ox 07/16/19 12:00 36.9 C 82 16 114/70 99 07/16/19 08:00 36.6 C 90 18 152/67 H 90 L 07/16/19 07:58 38.4 C H 90 18 152/67 H 86 L 07/16/19 04:00 37.4 C 78 16 118/55 L 90 L Date Exam was Performed: 07/16/19 Time Exam was Performed: 13:03 - Problem List Review Problem List Initiated/Reviewed/Updated: Yes - My Orders Last 24 Hours: My Active Orders 07/15/19 23:59 Ondansetron [Zofran] 4 mg IVPUSH Q4H PRN 07/16/19 11:00 Patient's Own Medication [Ptom] 1 each PO BID Patient's Own Medication [Ptom] 1 each PO DAILY Patient's Own Medication [Ptom] 1 each PO DAILY 07/16/19 13:01 Abdomen Pelvis wo Cont [CT] Routine 07/16/19 13:02 Admission Status [Patient Status] [ADT] Routine - Plan Plan:: 83 yo female admitted for UTI. PAtient had fever this morning. We will check CT abdomen and pelvis to rule out complicating features of UTI. Will continue Rocephin. Blood and urine cultures pending.
--- NOTE | 2019-07-16 14:18 | CT ---
CT abdomen and pelvis Technique: Multiple axial sections were obtained from above the dome of the diaphragm inferiorly through the pubic symphysis. Intravenous and oral contrast not utilized. Comparison: Prior CT abdomen and pelvis exam of 11/15/18. Findings: Heart is enlarged. Left kidney appears somewhat swollen with surrounding inflammatory change. Dilated left ureter is seen down to the bladder. There are calcifications being seen within the pelvis which occur around the left ureter but I do not see a definite obstructing stone within left ureter with nothing seen to explain the ureteral dilatation. Right ureter shows no dilatation or abnormal calcifications. Kidneys show no abnormal calcifications. Appendix is not visualized with certainty. Minimal bilateral pleural effusions are noted. Mild areas of atelectasis and probable scarring are seen within both lung bases. Liver contains no focal parenchymal abnormality. Spleen appears within normal limits. Adrenal glands show no discrete abnormality. Pancreas is within normal limits. Layering calcifications are noted within the gallbladder compatible with gallstones. Aorta shows atherosclerotic calcification. Areas of ectasia are seen without focal aneurysm. Atherosclerotic calcification continues into the iliac vessels. No pelvic mass or adenopathy is seen. No bladder wall thickening is identified. No free fluid is appreciated. Bone window settings were reviewed. No acute osseous finding is seen. Impression: 1. Dilated left ureter down to the bladder. No definite obstructing ureteral calculi are seen. Left kidney is also swollen with surrounding inflammatory change. Differential includes recently passed stone as well as left-sided pyelonephritis and UTI causing stasis of the ureter. 2. Small bilateral pleural effusions. 3. Multiple calcified layering gallstones within the gallbladder. 4. Other findings as noted above believed to be incidental. Diagnostic code #3 Study was dictated in [place] Standard Time
[2019-07-16] MEDS: cefTRIAXone 1 GM in Sodium Chloride 0.9% 50 ML IV SCH (16:59)
[2019-07-16] MEDS: Enoxaparin 40 MG/0.4 ML Syringe SUBCUT SCH (17:00)
[2019-07-16] MEDS: Ondansetron 4 MG/2 ML SDV IVPUSH PRN (17:51)
[2019-07-16] MEDS ORDERED: Furosemide 40 MG/4 ML VIAL IVPUSH ONE (17:54)
[2019-07-16] MEDS ORDERED: Azithromycin 500 MG Vial IV SCH (18:00)
[2019-07-16] MEDS: Albuterol/Ipratropium 3.0-0.5 MG/3 ML Neb Soln NEB PRN (18:04)
[2019-07-16] MEDS: Acetaminophen 325 MG Tab PO PRN (18:18)
[2019-07-16] MEDS: Azithromycin 500 MG in Sodium Chloride 0.9% 250 ML IV SCH (18:33)
[2019-07-16] MEDS ORDERED: Potassium Chloride 20 MEQ Tab.ER PO ONE (19:59)
[2019-07-16 22:27] LABS: CARBON DIOXIDE,CO2 24.8 mmol/L (21.0-32.0); POTASSIUM,K 3.6 mmol/L (3.5-5.1)
[2019-07-17 06:38] LABS: CARBON DIOXIDE,CO2 24.8 mmol/L (21.0-32.0); POTASSIUM,K 4.5 mmol/L (3.5-5.1)
[2019-07-17] MEDS: Levothyroxine 75 MCG Tab PO SCH (06:48)
[2019-07-17] MEDS: Acetaminophen 325 MG Tab PO PRN (07:36)
--- NOTE | 2019-07-17 08:23 | PCM.PN ---
- General Info Date of Service: 07/17/19 Subjective Update: Patient reports she still doesn't feel good, feels very weak. Had fever last night and this morning. Still requiring oxygen. Denies chest pain or shortness of breath. - Review of Systems General: Reports: Fever, Weakness HEENT: Reports: No Symptoms Pulmonary: Reports: No Symptoms Cardiovascular: Reports: No Symptoms Gastrointestinal: Reports: No Symptoms Genitourinary: Reports: No Symptoms Musculoskeletal: Reports: No Symptoms Skin: Reports: No Symptoms Neurological: Reports: No Symptoms Psychiatric: Reports: No Symptoms - Patient Data Vitals - Most Recent: Last Vital Signs Temp 101.5 F H 07/17/19 07:42 Pulse 90 07/17/19 07:42 Resp 16 07/17/19 07:42 BP 141/65 H 07/17/19 07:42 Pulse Ox 94 L 07/17/19 07:42 Weight - Most Recent: 56.971 kg I&O - Last 24 Hours: Intake & Output 07/16/19 07/17/19 07/17/19 22:59 06:59 14:59 Intake Total 1690 730 Output Total 850 1550 Balance 840 -820 Lab Results Last 24 Hours: Laboratory Results - last 24 hr 07/16/19 07/17/19 07/17/19 Range/Units 22:04 05:55 05:55 WBC 13.29 H (4.0-11.0) K/uL RBC 4.17 L (4.30-5.90) M/uL Hgb 12.3 (12.0-16.0) g/dL Hct 37.5 (36.0-46.0) % MCV 89.9 (80.0-98.0) fL MCH 29.5 (27.0-32.0) pg MCHC 32.8 (31.0-37.0) g/dL RDW Std Deviation 55.1 (28.0-62.0) fl RDW Coeff of Kaylee 17 H (11.0-15.0) % Plt Count 231 (150-400) K/uL MPV 10.80 (7.40-12.00) fL Neut % (Auto) 74.0 (48.0-80.0) % Lymph % (Auto) 8.4 L (16.0-40.0) % [place] % (Auto) 16.6 H (0.0-15.0) % Eos % (Auto) 0.8 (0.0-7.0) % Baso % (Auto) 0.2 (0.0-1.5) % Neut # (Auto) 9.9 H (1.4-5.7) K/uL Lymph # (Auto) 1.1 (0.6-2.4) K/uL [place] # (Auto) 2.2 H (0.0-0.8) K/uL Eos # (Auto) 0.1 (0.0-0.7) K/uL Baso # (Auto) 0.0 (0.0-0.1) K/uL Nucleated RBC % 0.0 /100WBC Nucleated RBCs # 0 K/uL Sodium 137 141 (136-145) mmol/L Potassium 3.6 4.5 (3.5-5.1) mmol/L Chloride 101 104 (98-107) mmol/L Carbon Dioxide 24.8 24.8 (21.0-32.0) mmol/L BUN 19 H 20 H (7.0-18.0) mg/dL Creatinine 1.2 H 1.2 H (0.6-1.0) mg/dL Est Cr Clr Drug Dosing 25.51 25.51 mL/min Estimated GFR (MDRD) 42.9 42.9 ml/min Glucose 134 H 85 (74-106) mg/dL Calcium 7.9 L 8.9 (8.5-10.1) mg/dL Gregory Results Last 24 Hours: Microbiology 07/15/19 14:25 Urine Culture - Final Urine, Voided MIXED SHASHI >100,000 CFU/ML Med Orders - Current: Current Medications Acetaminophen (Tylenol) 650 mg PO Q6H PRN PRN Reason: Fever Last Admin: 07/17/19 07:36 Dose: 650 mg Hydrocodone Bitart/Acetaminophen ([place] 325-5 Mg) 1 tab PO Q6H PRN PRN Reason: PAIN Albuterol/Ipratropium (Duoneb 3.0-0.5 Mg/3 Ml) 3 ml NEB Q6HRRT PRN PRN Reason: Dyspnea Last Admin: 07/16/19 18:04 Dose: 3 ml Enoxaparin Sodium (Lovenox) 40 mg SUBCUT Q24H [facility] Last Admin: 07/16/19 17:00 Dose: 40 mg Famotidine (Pepcid) 20 mg PO BID [facility] Last Admin: 07/16/19 21:24 Dose: 20 mg Ceftriaxone Sodium 1 gm/ (Sodium Chloride) 50 mls @ 100 mls/hr IV Q24H [facility] Last Admin: 07/16/19 16:59 Dose: 100 mls/hr Azithromycin 500 mg/ Sodium (Chloride) 250 mls @ 250 mls/hr IV Q24H [facility] Last Admin: 07/16/19 18:33 Dose: 250 mls/hr Levothyroxine Sodium (Levothyroxine) 75 mcg PO ACBREAKFAST [facility] Last Admin: 07/17/19 06:48 Dose: 75 mcg Ondansetron HCl (Zofran) 4 mg IVPUSH Q4H PRN PRN Reason: Nausea Last Admin: 07/16/19 17:51 Dose: 4 mg Losartan 100 Mg Tab 1 each PO DAILY [facility] Last Admin: 07/16/19 09:55 Dose: 1 each Carvedilol 3.125 Mg (Tab) 1 each PO BID [facility] Last Admin: 07/16/19 21:56 Dose: 1 each Ezetimibe 10 Mg Tab 1 each PO DAILY [facility] Last Admin: 07/16/19 11:00 Dose: 1 each Aspirin 81 Mg Tab. (Chew) 1 each PO DAILY [facility] Last Admin: 07/16/19 10:59 Dose: 1 each Sodium Chloride (Saline Flush) 10 ml FLUSH ASDIRECTED PRN PRN Reason: Keep Vein Open Last Admin: 07/15/19 15:24 Dose: 10 ml Sodium Chloride (Saline Flush) 2.5 ml FLUSH ASDIRECTED PRN PRN Reason: Keep Vein Open Last Admin: 07/15/19 15:23 Dose: 2.5 ml Discontinued Medications Aspirin (Aspirin) 243 mg PO ONETIME ONE Stop: 07/15/19 15:20 Last Admin: 07/15/19 15:23 Dose: 243 mg Aspirin (Aspirin) 325 mg PO DAILY [facility] Last Admin: 07/16/19 11:58 Dose: Not Given Azithromycin (Zithromax) 500 mg IV Q24H [facility] Last Admin: 07/17/19 08:02 Dose: Not Given Furosemide (Lasix) 40 mg IVPUSH ONETIME ONE Stop: 07/16/19 17:55 Last Admin: 07/16/19 18:05 Dose: 40 mg Sodium Chloride (Normal Saline) 1,000 mls @ 100 mls/hr IV ASDIRECTED [facility] Last Admin: 07/16/19 03:50 Dose: 100 mls/hr Sodium Chloride (Normal Saline) 1,000 mls @ 100 mls/hr IV ASDIRECTED [facility] Losartan Potassium (Cozaar) 100 mg PO DAILY [facility] Last Admin: 07/16/19 11:58 Dose: Not Given Metoprolol Tartrate (Lopressor) 50 mg PO BID [facility] Last Admin: 07/16/19 11:59 Dose: Not Given Aspirin 81 Mg Tab. (Chew) 81 each PO DAILY [facility] Potassium Chloride (Potassium Chloride) 40 meq PO ONETIME ONE Stop: 07/16/19 09:13 Last Admin: 07/16/19 09:55 Dose: 40 meq Potassium Chloride (Klor-Con M20) 40 meq PO ONETIME ONE Stop: 07/16/19 20:00 Last Admin: 07/16/19 21:24 Dose: 40 meq Rosuvastatin Calcium (Crestor) 10 mg PO DAILY [facility] Last Admin: 07/16/19 11:59 Dose: Not Given - Exam Quality Assessment: Supplemental Oxygen General: Alert, Oriented, Cooperative Lungs: Normal Respiratory Effort, Crackles Cardiovascular: Regular Rate, Regular Rhythm GI/Abdominal Exam: Normal Bowel Sounds, Soft Extremities: No Pedal Edema Skin: Warm, Dry Neurological: No New Focal Deficit Psy/Mental Status: Alert, Normal Affect, Normal Mood Sepsis Event Note - Evaluation Sepsis Screening Result: No Definite Risk - Focused Exam Vital Signs: Vital Signs Temp Temp Temp Pulse Resp BP BP 07/17/19 07:42 101.5 F H 90 16 141/65 H 07/17/19 07:36 101.4 F H 07/17/19 04:00 97.2 F 76 18 130/70 07/17/19 00:00 97 F 65 18 104/51 L Pulse Ox 07/17/19 07:42 94 L 07/17/19 07:36 07/17/19 04:00 98 07/17/19 00:00 95 Date Exam was Performed: 07/17/19 Time Exam was Performed: 10:27 - Problem List Review Problem List Initiated/Reviewed/Updated: Yes - My Orders Last 24 Hours: My Active Orders 07/16/19 07:30 Levothyroxine 75 mcg PO ACBREAKFAST 07/16/19 10:00 Patient's Own Medication [Ptom] 1 each PO DAILY - Plan Plan:: 1. UTI- UC showed mixed shashi- on Rocephin but still spiking fevers- CT ab/ pelvis yesterday showed dilated Left ureter but no definite obstructing stone as well as left kidney swelling with surrounding inflammation which could be pyelo vs recently passed stone. 2. JOSEF- BUN/Cr improving, no longer on IVF 3. Hypokalemia-resolved 4. Hypoxia- CT showed small bilateral pleural effusion and CXR showed pulmonary vacular congestion vs bronchitis- IVF stopped. Will give another dose of lasix . Continue duonebs and Azithromycin. Will swab for influenza
[2019-07-17] MEDS: Famotidine 20 MG Tab PO SCH ×2 (08:36→20:22)
[2019-07-17] MEDS: Ezetimibe 10 MG Tab PO SCH (09:26)
[2019-07-17] MEDS: Aspirin 81 MG Tab.Chew PO SCH (09:26)
[2019-07-17] MEDS: Carvedilol 3.125 MG Tab PO SCH ×2 (09:27→20:21)
[2019-07-17] MEDS: Losartan 100 MG Tab PO SCH (09:27)
[2019-07-17] MEDS ORDERED: Furosemide 40 MG/4 ML VIAL IVPUSH ONE (09:53)
[2019-07-17] MEDS: cefTRIAXone 1 GM in Sodium Chloride 0.9% 50 ML IV SCH (17:09)
[2019-07-17] MEDS: Enoxaparin 40 MG/0.4 ML Syringe SUBCUT SCH (17:10)
[2019-07-17] MEDS: Albuterol/Ipratropium 3.0-0.5 MG/3 ML Neb Soln NEB PRN (17:16)
[2019-07-17] MEDS: Ondansetron 4 MG/2 ML SDV IVPUSH PRN (17:30)
[2019-07-17] MEDS: Azithromycin 500 MG in Sodium Chloride 0.9% 250 ML IV SCH (18:37)
[2019-07-18 06:29] LABS: CARBON DIOXIDE,CO2 26.9 mmol/L (21.0-32.0); POTASSIUM,K 3.2 mmol/L (3.5-5.1)
[2019-07-18] MEDS ORDERED: Potassium Chloride 20 MEQ Tab.ER PO ONE ×2 (07:02→12:00)
[2019-07-18] MEDS: Levothyroxine 75 MCG Tab PO SCH (07:44)
[2019-07-18] MEDS ORDERED: predniSONE 20 MG Tab PO SCH (08:00)
[2019-07-18] MEDS: Ezetimibe 10 MG Tab PO SCH (08:01)
[2019-07-18] MEDS: Aspirin 81 MG Tab.Chew PO SCH (08:01)
[2019-07-18] MEDS: Famotidine 20 MG Tab PO SCH ×2 (08:01→21:57)
[2019-07-18] MEDS: Carvedilol 3.125 MG Tab PO SCH (08:02)
[2019-07-18] MEDS: Losartan 100 MG Tab PO SCH (08:02)
[2019-07-18] MEDS ORDERED: LOSARTAN 50 MG PO SCH (08:10)
[2019-07-18] MEDS ORDERED: Carvedilol 3.125 MG Tab PO SCH (08:11)
[2019-07-18] MEDS ORDERED: Aspirin 81 MG Tab.Chew PO SCH (08:11)
[2019-07-18] MEDS ORDERED: Ezetimibe 10 MG Tab PO SCH (08:12)
--- NOTE | 2019-07-18 08:25 | PCM.PN ---
- General Info Date of Service: 07/18/19 Subjective Update: The patient reports she still feels weak. She was off oxygen yesterday and up walking around but last night she was put back on oxygen. She has been weaned from 2 L to 1 L and is satting at 95%. Denies chest pain or shortness of breath. No temp overnight or this morning. - Review of Systems General: Reports: No Symptoms HEENT: Reports: No Symptoms Pulmonary: Reports: No Symptoms Cardiovascular: Reports: No Symptoms Gastrointestinal: Reports: No Symptoms Genitourinary: Reports: No Symptoms Musculoskeletal: Reports: No Symptoms Skin: Reports: No Symptoms Neurological: Reports: No Symptoms Psychiatric: Reports: No Symptoms - Patient Data Vitals - Most Recent: Last Vital Signs Temp 98.3 F 07/18/19 07:34 Pulse 77 07/18/19 07:34 Resp 14 07/18/19 07:34 BP 143/62 H 07/18/19 07:34 Pulse Ox 95 07/18/19 07:34 Weight - Most Recent: 56.971 kg I&O - Last 24 Hours: Intake & Output 07/17/19 07/18/19 07/18/19 22:59 06:59 14:59 Intake Total 1030 850 Output Total 1650 1050 Balance -620 -200 Lab Results Last 24 Hours: Laboratory Results - last 24 hr 07/18/19 07/18/19 07/18/19 Range/Units 06:00 06:00 06:00 WBC 9.90 (4.0-11.0) K/uL RBC 3.80 L (4.30-5.90) M/uL Hgb 10.9 L (12.0-16.0) g/dL Hct 33.4 L (36.0-46.0) % MCV 87.9 (80.0-98.0) fL MCH 28.7 (27.0-32.0) pg MCHC 32.6 (31.0-37.0) g/dL RDW Std Deviation 53.2 (28.0-62.0) fl RDW Coeff of Kaylee 17 H (11.0-15.0) % Plt Count 295 (150-400) K/uL MPV 9.40 (7.40-12.00) fL Neut % (Auto) 69.0 (48.0-80.0) % Lymph % (Auto) 13.0 L (16.0-40.0) % [place] % (Auto) 15.7 H (0.0-15.0) % Eos % (Auto) 2.1 (0.0-7.0) % Baso % (Auto) 0.2 (0.0-1.5) % Neut # (Auto) 6.8 H (1.4-5.7) K/uL Lymph # (Auto) 1.3 (0.6-2.4) K/uL [place] # (Auto) 1.6 H (0.0-0.8) K/uL Eos # (Auto) 0.2 (0.0-0.7) K/uL Baso # (Auto) 0.0 (0.0-0.1) K/uL Nucleated RBC % 0.0 /100WBC Nucleated RBCs # 0 K/uL Sodium 134 L (136-145) mmol/L Potassium 3.2 L (3.5-5.1) mmol/L Chloride 97 L (98-107) mmol/L Carbon Dioxide 26.9 (21.0-32.0) mmol/L BUN 19 H (7.0-18.0) mg/dL Creatinine 1.1 H (0.6-1.0) mg/dL Est Cr Clr Drug Dosing 27.83 mL/min Estimated GFR (MDRD) 47.4 ml/min Glucose 96 (74-106) mg/dL Calcium 8.3 L (8.5-10.1) mg/dL Magnesium 1.8 (1.8-2.4) mg/dL Gregory Results Last 24 Hours: Microbiology 07/17/19 12:30 Influenza Type A Antigen Screen - Final Nasopharyngeal Swab NEGATIVE INFLUENZA A VIRUS AG REFERENCE RANGE: NEGATIVE Influenza Type B Antigen Screen - Final NEGATIVE INFLUENZA B VIRUS AG REFERENCE RANGE: NEGATIVE 07/15/19 14:25 Urine Culture - Final Urine, Voided MIXED SHASHI >100,000 CFU/ML Med Orders - Current: Current Medications Acetaminophen (Tylenol) 650 mg PO Q6H PRN PRN Reason: Fever Last Admin: 07/17/19 07:36 Dose: 650 mg Hydrocodone Bitart/Acetaminophen ([place] 325-5 Mg) 1 tab PO Q6H PRN PRN Reason: PAIN Albuterol/Ipratropium (Duoneb 3.0-0.5 Mg/3 Ml) 3 ml NEB Q6HRRT PRN PRN Reason: Dyspnea Last Admin: 07/17/19 17:16 Dose: 3 ml Aspirin (Aspirin) 81 mg PO DAILY [facility] Carvedilol (Coreg) 3.125 mg PO BID [facility] Ezetimibe (Zetia) 10 mg PO DAILY [facility] Famotidine (Pepcid) 20 mg PO BID [facility] Last Admin: 07/18/19 08:01 Dose: 20 mg Heparin Sodium (Porcine) (Heparin Sodium) 5,000 units SUBCUT Q8H [facility] Ceftriaxone Sodium 1 gm/ (Sodium Chloride) 50 mls @ 100 mls/hr IV Q24H [facility] Last Admin: 07/17/19 17:09 Dose: 100 mls/hr Azithromycin 500 mg/ Sodium (Chloride) 250 mls @ 250 mls/hr IV Q24H [facility] Last Admin: 07/17/19 18:37 Dose: 250 mls/hr Levothyroxine Sodium (Levothyroxine) 75 mcg PO ACBREAKFAST [facility] Last Admin: 07/18/19 07:44 Dose: 75 mcg Losartan Potassium (Cozaar) 100 mg PO DAILY [facility] Ondansetron HCl (Zofran) 4 mg IVPUSH Q4H PRN PRN Reason: Nausea Last Admin: 07/17/19 17:30 Dose: 4 mg Potassium Chloride (Klor-Con M20) 40 meq PO ONETIME ONE Stop: 07/18/19 12:01 Sodium Chloride (Saline Flush) 10 ml FLUSH ASDIRECTED PRN PRN Reason: Keep Vein Open Last Admin: 07/15/19 15:24 Dose: 10 ml Sodium Chloride (Saline Flush) 2.5 ml FLUSH ASDIRECTED PRN PRN Reason: Keep Vein Open Last Admin: 07/15/19 15:23 Dose: 2.5 ml Discontinued Medications Aspirin (Aspirin) 243 mg PO ONETIME ONE Stop: 07/15/19 15:20 Last Admin: 07/15/19 15:23 Dose: 243 mg Aspirin (Aspirin) 325 mg PO DAILY [facility] Last Admin: 07/16/19 11:58 Dose: Not Given Azithromycin (Zithromax) 500 mg IV Q24H [facility] Last Admin: 07/17/19 08:02 Dose: Not Given Enoxaparin Sodium (Lovenox) 40 mg SUBCUT Q24H [facility] Last Admin: 07/17/19 17:10 Dose: 40 mg Furosemide (Lasix) 40 mg IVPUSH ONETIME ONE Stop: 07/16/19 17:55 Last Admin: 07/16/19 18:05 Dose: 40 mg Furosemide (Lasix) 40 mg IVPUSH NOW ONE Stop: 07/17/19 09:54 Last Admin: 07/17/19 10:51 Dose: 40 mg Sodium Chloride (Normal Saline) 1,000 mls @ 100 mls/hr IV ASDIRECTED [facility] Last Admin: 07/16/19 03:50 Dose: 100 mls/hr Sodium Chloride (Normal Saline) 1,000 mls @ 100 mls/hr IV ASDIRECTED [facility] Losartan Potassium (Cozaar) 100 mg PO DAILY [facility] Last Admin: 07/16/19 11:58 Dose: Not Given Metoprolol Tartrate (Lopressor) 50 mg PO BID [facility] Last Admin: 07/16/19 11:59 Dose: Not Given Losartan 100 Mg Tab 1 each PO DAILY [facility] Last Admin: 07/18/19 08:02 Dose: 1 each Aspirin 81 Mg Tab. (Chew) 81 each PO DAILY [facility] Carvedilol 3.125 Mg (Tab) 1 each PO BID [facility] Last Admin: 07/18/19 08:02 Dose: 1 each Ezetimibe 10 Mg Tab 1 each PO DAILY [facility] Last Admin: 07/18/19 08:01 Dose: 1 each Aspirin 81 Mg Tab. (Chew) 1 each PO DAILY [facility] Last Admin: 07/18/19 08:01 Dose: 1 each Potassium Chloride (Potassium Chloride) 40 meq PO ONETIME ONE Stop: 07/16/19 09:13 Last Admin: 07/16/19 09:55 Dose: 40 meq Potassium Chloride (Klor-Con M20) 40 meq PO ONETIME ONE Stop: 07/16/19 20:00 Last Admin: 07/16/19 21:24 Dose: 40 meq Potassium Chloride (Klor-Con M20) 40 meq PO ONETIME ONE Stop: 07/18/19 07:03 Last Admin: 07/18/19 07:45 Dose: 40 meq Rosuvastatin Calcium (Crestor) 10 mg PO DAILY [facility] Last Admin: 07/16/19 11:59 Dose: Not Given - Exam Quality Assessment: Supplemental Oxygen General: Alert, Oriented, Cooperative Lungs: Normal Respiratory Effort, Wheezing Cardiovascular: Regular Rate, Regular Rhythm GI/Abdominal Exam: Normal Bowel Sounds, Soft, No Distention Extremities: No Pedal Edema Skin: Warm, Dry Neurological: No New Focal Deficit Psy/Mental Status: Alert, Normal Affect, Normal Mood Sepsis Event Note - Evaluation Sepsis Screening Result: No Definite Risk - Focused Exam Vital Signs: Vital Signs Temp Temp Pulse Resp BP Pulse Ox 07/18/19 07:34 98.3 F 77 14 143/62 H 95 07/18/19 04:13 97 F 78 16 134/63 95 07/18/19 00:12 97 F 79 18 125/58 L 95 Date Exam was Performed: 07/18/19 Time Exam was Performed: 12:15 - Problem List Review Problem List Initiated/Reviewed/Updated: Yes - My Orders Last 24 Hours: My Active Orders 07/18/19 07:42 Consult to Physical Therapy [PT Evaluation and Treatment] [CONS] Routine 07/18/19 08:10 Losartan [Cozaar] 100 mg PO DAILY 07/18/19 12:00 Potassium Chloride [Klor-Con M20] 40 meq PO ONETIME ONE 07/18/19 22:00 Heparin Sodium 5,000 units SUBCUT Q8H - Plan Plan:: 1. UTI- UC showed mixed shashi- on Rocephin, fevers/white count resolved. CT ab/ pelvis yesterday showed dilated Left ureter but no definite obstructing stone as well as left kidney swelling with surrounding inflammation which could be pyelo vs recently passed stone. 2. JOSEF- BUN/Cr improving, no longer on IVF 3. Hypokalemia-will replace and recheck in AM. Mag level wnl. 4. Hypoxia- CT showed small bilateral pleural effusion and CXR showed pulmonary vacular congestion vs bronchitis- IVF stopped. Continue duonebs and Azithromycin. Try oral dose of prednisone. Influenza negative. Wean oxygen as tolerated. Echo ordered. Resume home PO lasix. 5. Weakness- consult PT
[2019-07-18] MEDS: Ondansetron 4 MG/2 ML SDV IVPUSH PRN (10:52)
[2019-07-18] MEDS: predniSONE 20 MG Tab PO SCH (11:09)
[2019-07-18] MEDS: Furosemide 20 MG Tab PO SCH (11:10)
[2019-07-18] MEDS: cefTRIAXone 1 GM in Sodium Chloride 0.9% 50 ML IV SCH (16:39)
[2019-07-18] MEDS: Azithromycin 500 MG in Sodium Chloride 0.9% 250 ML IV SCH (17:46)
[2019-07-18] MEDS: Heparin Sodium 5,000 Units/ML Vial SUBCUT SCH (21:59)
[2019-07-19 05:34] LABS: CARBON DIOXIDE,CO2 25.8 mmol/L (21.0-32.0); POTASSIUM,K 4.2 mmol/L (3.5-5.1)
[2019-07-19] MEDS: Heparin Sodium 5,000 Units/ML Vial SUBCUT SCH ×2 (06:30→13:29)
[2019-07-19] MEDS: Levothyroxine 75 MCG Tab PO SCH (06:31)
[2019-07-19] MEDS: predniSONE 20 MG Tab PO SCH (07:59)
[2019-07-19] MEDS: Famotidine 20 MG Tab PO SCH (08:03)
[2019-07-19] MEDS: Furosemide 20 MG Tab PO SCH (08:03)
[2019-07-19] MEDS ORDERED: LOSARTAN 50 MG PO SCH (09:00)
[2019-07-19] MEDS ORDERED: Aspirin 81 MG Tab.Chew PO SCH (09:00)
[2019-07-19] MEDS ORDERED: Ezetimibe 10 MG Tab PO SCH (09:00)
[2019-07-19] MEDS ORDERED: Carvedilol 3.125 MG Tab PO SCH (09:00)
[2019-07-19 11:46] VITALS: BP 151/69; PULSE 74
--- NOTE | 2019-07-19 14:45 | PCM.DCSUM1 ---
<Liana Villanueva - Last Filed: 07/19/19 14:55> Discharge Summary - Hospital Course HPI Initial Comments: Admission Date: 07/15/19 Discharge Date: 07/19/19 Admission Diagnosis: 1. Weakness likely secondary to UTI and JOSEF 2. Hx of CAD 3. Chronic conditions- HTN, Hyperlipidemia, hypothyroidism Discharge Diagnosis: 1. Weakness likely secondary to UTI and JOSEF- improved 2. Hx of CAD 3. Chronic conditions- HTN, Hyperlipidemia, hypothyroidism 4. Hypokalemia- resolved 5. Hypoxia- resolved Procedures: None Consults: physical therapy Hospital Course: The patient is a 83 year old female with past medical history of CAD, HTN, hyperlipidemia, and hypothyroidism who presents with generalized weakness for several days. Has associated burning and urinary urgency. She states she thinks she has a "dropped bladder". In the ER, labs showed leukocytosis, no anemia, elevated BUN/CR, negative troponin. UA showed signs of infection. EKG showed ST changes, this was compared with previous EKGs and the ER provider discussed the case with the delivery of shopping news in [place]. He was able to review her most recent EKGs and there are no major changes. 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 It did not think this was a new MN. She was admitted to the medical surgical floor. UTI was treated with Rocephin, UC grew out mixed shashi. She continued to have fevers and her white count was increasing so a CT ab/pelvis was obtained. It showed left ureter dilation but no obstructing stone as well as left kidney swelling with surrounding inflammation thought to be pyelonephritis vs passed stone. By day of discharge her white count and fevers had resolved. She was treated with IVF for JOSEF, her kidney function improved. She did become hypoxic after IVF requiring oxygen. CXR showed pulmonary vascular congestion vs bronchitis. She was treated with Lasix for possible overload and azithromycin, duonebs, and steroids for possible bronchitis. Echo was obtained but results were pending at time of discharge. She was weaned off oxygen and satting well on room air at time of discharge. PT did evaluate her for weakness and by day of discharge she was ambulating the hallways. She did develop hypokalemia, this was replaced and resolved. Disposition: Home Discharge Condition: vitals stable, tolerating oral diet, ambulating without difficulty, symptom improvement Discharge Instructions: regular diet as tolerated, activity as tolerated, take medications as prescribed. Symptoms to report to physician include fever/chills , chest pain, shortness of breath, abdominal pain, erythema, drainage/discharge , or not improving as expected. Discharge Medications: Levothyroxine 75 mcg PO ACBREAKFAST 02/13/14 [History] Aspirin 81 mg PO DAILY 10/30/18 [History] Losartan [Cozaar] 100 mg PO DAILY 01/06/19 [History] Carvedilol [Coreg] 3.125 mg PO BID 07/16/19 [History] Ezetimibe 10 mg PO DAILY 07/16/19 [History] Furosemide 40 mg PO DAILY 07/16/19 [History] Carboxymethylcellulose Sodium [Refresh Celluvisc] 1 each EYEBOTH ASDIRECTED PRN 07/18/19 [History] Azithromycin 250 mg PO DAILY 2 Days #2 tablet 07/19/19 [Rx] Potassium Chloride 20 meq PO DAILY 7 Days #7 tablet.er 07/19/19 [Rx] cephALEXin [Keflex] 500 mg PO BID 2 Days #4 cap 07/19/19 [Rx] Follow-up: 1. PCP- Dr. Read 07/29/19 2. [facility] - Discharge Data Discharge Date: 07/19/19 Discharge Disposition: Home, Self-Care 01 Condition: Good - Referral to Home Health Primary Care Physician: PCP Unknown - Patient Summary/Data Consults: Consultations 07/16/19 13:05 PT Evaluation and Treatment [CONS] Routine 07/18/19 07:42 Consult to Physical Therapy [PT Evaluation and Treatment] [CONS] Routine - Patient Instructions Diet: Heart Healthy Diet Activity: As Tolerated Showering/Bathing: May Shower Notify Provider of: Fever, Increased Pain, Swelling and Redness, Drainage, Nausea and/or Vomiting Other/Special Instructions: Additional symptoms include chest pain, shortness of breath, or abdominal pain. Please follow up with a OBGYN as an outpatient for your bladder issues. - Discharge Plan *PRESCRIPTION DRUG MONITORING PROGRAM REVIEWED*: No *COPY OF PRESCRIPTION DRUG MONITORING REPORT IN PATIENT AKIN: No Prescriptions/Med Rec: Azithromycin 250 mg PO DAILY 2 Days #2 tablet cephALEXin [Keflex] 500 mg PO BID 2 Days #4 cap Potassium Chloride 20 meq PO DAILY 7 Days #7 tablet.er Home Medications: Home Meds Levothyroxine 75 mcg PO ACBREAKFAST 02/13/14 [History] Aspirin 81 mg PO DAILY 10/30/18 [History] Losartan [Cozaar] 100 mg PO DAILY 01/06/19 [History] Carvedilol [Coreg] 3.125 mg PO BID 07/16/19 [History] Ezetimibe 10 mg PO DAILY 07/16/19 [History] Furosemide 40 mg PO DAILY 07/16/19 [History] Carboxymethylcellulose Sodium [Refresh Celluvisc] 1 each EYEBOTH ASDIRECTED PRN 07/18/19 [History] Azithromycin 250 mg PO DAILY 2 Days #2 tablet 07/19/19 [Rx] Potassium Chloride 20 meq PO DAILY 7 Days #7 tablet.er 07/19/19 [Rx] cephALEXin [Keflex] 500 mg PO BID 2 Days #4 cap 07/19/19 [Rx] Patient Handouts: Potassium chloride tablets, extended-release tablets or capsules, Urinary Tract Infection, Adult, [id number], Azithromycin tablets, Cephalexin tablets or capsules Referrals: [facility] [Outside] Amber Read MD [Physician] - 07/29/19 11:15 am - Discharge Summary/Plan Comment DC Time >30 min.: No - Patient Data Vitals - Most Recent: Last Vital Signs Temp 96.0 F 07/19/19 11:44 Pulse 74 07/19/19 11:44 Resp 20 07/19/19 11:44 BP 151/69 H 07/19/19 11:44 Pulse Ox 92 L 07/19/19 11:44 Weight - Most Recent: 56.926 kg I&O - Last 24 hours: Intake & Output 07/18/19 07/19/19 07/19/19 22:59 06:59 14:59 Intake Total 850 590 Output Total 1300 1350 Balance -450 -760 Lab Results - Last 24 hrs: Laboratory Results - last 24 hr 07/19/19 07/19/19 Range/Units 04:43 04:43 WBC 8.51 (4.0-11.0) K/uL RBC 3.84 L (4.30-5.90) M/uL Hgb 11.1 L (12.0-16.0) g/dL Hct 34.0 L (36.0-46.0) % MCV 88.5 (80.0-98.0) fL MCH 28.9 (27.0-32.0) pg MCHC 32.6 (31.0-37.0) g/dL RDW Std Deviation 53.5 (28.0-62.0) fl RDW Coeff of Kaylee 17 H (11.0-15.0) % Plt Count 365 (150-400) K/uL MPV 10.40 (7.40-12.00) fL Neut % (Auto) 81.4 H (48.0-80.0) % Lymph % (Auto) 11.0 L (16.0-40.0) % Luce % (Auto) 7.5 (0.0-15.0) % Eos % (Auto) 0.0 (0.0-7.0) % Baso % (Auto) 0.1 (0.0-1.5) % Neut # (Auto) 6.9 H (1.4-5.7) K/uL Lymph # (Auto) 0.9 (0.6-2.4) K/uL Luce # (Auto) 0.6 (0.0-0.8) K/uL Eos # (Auto) 0.0 (0.0-0.7) K/uL Baso # (Auto) 0.0 (0.0-0.1) K/uL Nucleated RBC % 0.0 /100WBC Nucleated RBCs # 0 K/uL Sodium 138 (136-145) mmol/L Potassium 4.2 (3.5-5.1) mmol/L Chloride 103 (98-107) mmol/L Carbon Dioxide 25.8 (21.0-32.0) mmol/L BUN 22 H (7.0-18.0) mg/dL Creatinine 1.1 H (0.6-1.0) mg/dL Est Cr Clr Drug Dosing 27.83 mL/min Estimated GFR (MDRD) 47.4 ml/min Glucose 151 H (74-106) mg/dL Calcium 8.8 (8.5-10.1) mg/dL Med Orders - Current: Current Medications Acetaminophen (Tylenol) 650 mg PO Q6H PRN PRN Reason: Fever Last Admin: 07/17/19 07:36 Dose: 650 mg Hydrocodone Bitart/Acetaminophen ([place] 325-5 Mg) 1 tab PO Q6H PRN PRN Reason: PAIN Albuterol/Ipratropium (Duoneb 3.0-0.5 Mg/3 Ml) 3 ml NEB Q6HRRT PRN PRN Reason: Dyspnea Last Admin: 07/17/19 17:16 Dose: 3 ml Aspirin (Aspirin) 81 mg PO DAILY [facility] Last Admin: 07/19/19 08:03 Dose: 81 mg Carvedilol (Coreg) 3.125 mg PO BID [facility] Last Admin: 07/19/19 08:01 Dose: 3.125 mg Ezetimibe (Zetia) 10 mg PO DAILY [facility] Last Admin: 07/19/19 08:06 Dose: 10 mg Famotidine (Pepcid) 20 mg PO BID [facility] Last Admin: 07/19/19 08:03 Dose: 20 mg Furosemide (Lasix) 40 mg PO DAILY [facility] Last Admin: 07/19/19 08:03 Dose: 40 mg Heparin Sodium (Porcine) (Heparin Sodium) 5,000 units SUBCUT Q8H [facility] Last Admin: 07/19/19 13:29 Dose: 5,000 units Ceftriaxone Sodium 1 gm/ (Sodium Chloride) 50 mls @ 100 mls/hr IV Q24H [facility] Last Admin: 07/18/19 16:39 Dose: 100 mls/hr Azithromycin 500 mg/ Sodium (Chloride) 250 mls @ 250 mls/hr IV Q24H [facility] Last Admin: 07/18/19 17:46 Dose: 250 mls/hr Levothyroxine Sodium (Levothyroxine) 75 mcg PO ACBREAKFAST [facility] Last Admin: 07/19/19 06:31 Dose: 75 mcg Losartan Potassium (Cozaar) 100 mg PO DAILY [facility] Last Admin: 07/19/19 08:01 Dose: 100 mg Ondansetron HCl (Zofran) 4 mg IVPUSH Q4H PRN PRN Reason: Nausea Last Admin: 07/18/19 10:52 Dose: 4 mg Prednisone (Prednisone) 40 mg PO WITHBREAKFAST [facility] Last Admin: 07/19/19 07:59 Dose: 40 mg Sodium Chloride (Saline Flush) 10 ml FLUSH ASDIRECTED PRN PRN Reason: Keep Vein Open Last Admin: 07/15/19 15:24 Dose: 10 ml Sodium Chloride (Saline Flush) 2.5 ml FLUSH ASDIRECTED PRN PRN Reason: Keep Vein Open Last Admin: 07/15/19 15:23 Dose: 2.5 ml Discontinued Medications Aspirin (Aspirin) 243 mg PO ONETIME ONE Stop: 07/15/19 15:20 Last Admin: 07/15/19 15:23 Dose: 243 mg Aspirin (Aspirin) 325 mg PO DAILY [facility] Last Admin: 07/16/19 11:58 Dose: Not Given Aspirin (Aspirin) 81 mg PO DAILY [facility] Azithromycin (Zithromax) 500 mg IV Q24H [facility] Last Admin: 07/17/19 08:02 Dose: Not Given Carvedilol (Coreg) 3.125 mg PO BID [facility] Ezetimibe (Zetia) 10 mg PO DAILY [facility] Enoxaparin Sodium (Lovenox) 40 mg SUBCUT Q24H [facility] Last Admin: 07/17/19 17:10 Dose: 40 mg Furosemide (Lasix) 40 mg IVPUSH ONETIME ONE Stop: 07/16/19 17:55 Last Admin: 07/16/19 18:05 Dose: 40 mg Furosemide (Lasix) 40 mg IVPUSH NOW ONE Stop: 07/17/19 09:54 Last Admin: 07/17/19 10:51 Dose: 40 mg Sodium Chloride (Normal Saline) 1,000 mls @ 100 mls/hr IV ASDIRECTED [facility] Last Admin: 07/16/19 03:50 Dose: 100 mls/hr Sodium Chloride (Normal Saline) 1,000 mls @ 100 mls/hr IV ASDIRECTED [facility] Losartan Potassium (Cozaar) 100 mg PO DAILY [facility] Last Admin: 07/16/19 11:58 Dose: Not Given Losartan Potassium (Cozaar) 100 mg PO DAILY [facility] Metoprolol Tartrate (Lopressor) 50 mg PO BID [facility] Last Admin: 07/16/19 11:59 Dose: Not Given Losartan 100 Mg Tab 1 each PO DAILY [facility] Last Admin: 07/18/19 08:02 Dose: 1 each Aspirin 81 Mg Tab. (Chew) 81 each PO DAILY [facility] Carvedilol 3.125 Mg (Tab) 1 each PO BID [facility] Last Admin: 07/18/19 08:02 Dose: 1 each Ezetimibe 10 Mg Tab 1 each PO DAILY [facility] Last Admin: 07/18/19 08:01 Dose: 1 each Aspirin 81 Mg Tab. (Chew) 1 each PO DAILY [facility] Last Admin: 07/18/19 08:01 Dose: 1 each Potassium Chloride (Potassium Chloride) 40 meq PO ONETIME ONE Stop: 07/16/19 09:13 Last Admin: 07/16/19 09:55 Dose: 40 meq Potassium Chloride (Klor-Con M20) 40 meq PO ONETIME ONE Stop: 07/16/19 20:00 Last Admin: 07/16/19 21:24 Dose: 40 meq Potassium Chloride (Klor-Con M20) 40 meq PO ONETIME ONE Stop: 07/18/19 07:03 Last Admin: 07/18/19 07:45 Dose: 40 meq Potassium Chloride (Klor-Con M20) 40 meq PO ONETIME ONE Stop: 07/18/19 12:01 Last Admin: 07/18/19 11:10 Dose: 40 meq Prednisone (Prednisone) 40 mg PO WITHBREAKFAST [facility] Last Admin: 07/18/19 11:09 Dose: Not Given Rosuvastatin Calcium (Crestor) 10 mg PO DAILY [facility] Last Admin: 07/16/19 11:59 Dose: Not Given <Solis [place] - Last Filed: 07/20/19 11:18> Discharge Summary - Referral to Home Health Primary Care Physician: PCP Unknown - Patient Summary/Data Consults: Consultations 07/16/19 13:05 PT Evaluation and Treatment [CONS] Routine 07/18/19 07:42 Consult to Physical Therapy [PT Evaluation and Treatment] [CONS] Routine - Patient Data Vitals - Most Recent: Last Vital Signs Temp 35.6 C 07/19/19 11:44 Pulse 74 07/19/19 11:44 Resp 20 07/19/19 11:44 BP 151/69 H 07/19/19 11:44 Pulse Ox 92 L 07/19/19 11:44 I&O - Last 24 hours: Intake & Output 07/19/19 07/20/19 07/20/19 22:59 06:59 14:59 Intake Total 1000 Output Total 1100 Balance -100 Med Orders - Current: Current Medications Discontinued Medications Acetaminophen (Tylenol) 650 mg PO Q6H PRN PRN Reason: Fever Last Admin: 07/17/19 07:36 Dose: 650 mg Hydrocodone Bitart/Acetaminophen ([place] 325-5 Mg) 1 tab PO Q6H PRN PRN Reason: PAIN Albuterol/Ipratropium (Duoneb 3.0-0.5 Mg/3 Ml) 3 ml NEB Q6HRRT PRN PRN Reason: Dyspnea Last Admin: 07/17/19 17:16 Dose: 3 ml Aspirin (Aspirin) 243 mg PO ONETIME ONE Stop: 07/15/19 15:20 Last Admin: 07/15/19 15:23 Dose: 243 mg Aspirin (Aspirin) 325 mg PO DAILY [facility] Last Admin: 07/16/19 11:58 Dose: Not Given Aspirin (Aspirin) 81 mg PO DAILY [facility] Aspirin (Aspirin) 81 mg PO DAILY [facility] Last Admin: 07/19/19 08:03 Dose: 81 mg Azithromycin (Zithromax) 500 mg IV Q24H [facility] Last Admin: 07/17/19 08:02 Dose: Not Given Carvedilol (Coreg) 3.125 mg PO BID [facility] Carvedilol (Coreg) 3.125 mg PO BID [facility] Last Admin: 07/19/19 08:01 Dose: 3.125 mg Ezetimibe (Zetia) 10 mg PO DAILY [facility] Ezetimibe (Zetia) 10 mg PO DAILY [facility] Last Admin: 07/19/19 08:06 Dose: 10 mg Enoxaparin Sodium (Lovenox) 40 mg SUBCUT Q24H [facility] Last Admin: 07/17/19 17:10 Dose: 40 mg Famotidine (Pepcid) 20 mg PO BID [facility] Last Admin: 07/19/19 08:03 Dose: 20 mg Furosemide (Lasix) 40 mg IVPUSH ONETIME ONE Stop: 07/16/19 17:55 Last Admin: 07/16/19 18:05 Dose: 40 mg Furosemide (Lasix) 40 mg IVPUSH NOW ONE Stop: 07/17/19 09:54 Last Admin: 07/17/19 10:51 Dose: 40 mg Furosemide (Lasix) 40 mg PO DAILY [facility] Last Admin: 07/19/19 08:03 Dose: 40 mg Heparin Sodium (Porcine) (Heparin Sodium) 5,000 units SUBCUT Q8H [facility] Last Admin: 07/19/19 13:29 Dose: 5,000 units Sodium Chloride (Normal Saline) 1,000 mls @ 100 mls/hr IV ASDIRECTED [facility] Last Admin: 07/16/19 03:50 Dose: 100 mls/hr Ceftriaxone Sodium 1 gm/ (Sodium Chloride) 50 mls @ 100 mls/hr IV Q24H [facility] Last Admin: 07/18/19 16:39 Dose: 100 mls/hr Sodium Chloride (Normal Saline) 1,000 mls @ 100 mls/hr IV ASDIRECTED [facility] Azithromycin 500 mg/ Sodium (Chloride) 250 mls @ 250 mls/hr IV Q24H [facility] Last Admin: 07/18/19 17:46 Dose: 250 mls/hr Levothyroxine Sodium (Levothyroxine) 75 mcg PO ACBREAKFAST [facility] Last Admin: 07/19/19 06:31 Dose: 75 mcg Losartan Potassium (Cozaar) 100 mg PO DAILY [facility] Last Admin: 07/16/19 11:58 Dose: Not Given Losartan Potassium (Cozaar) 100 mg PO DAILY [facility] Losartan Potassium (Cozaar) 100 mg PO DAILY [facility] Last Admin: 07/19/19 08:01 Dose: 100 mg Metoprolol Tartrate (Lopressor) 50 mg PO BID [facility] Last Admin: 07/16/19 11:59 Dose: Not Given Ondansetron HCl (Zofran) 4 mg IVPUSH Q4H PRN PRN Reason: Nausea Last Admin: 07/18/19 10:52 Dose: 4 mg Losartan 100 Mg Tab 1 each PO DAILY [facility] Last Admin: 07/18/19 08:02 Dose: 1 each Aspirin 81 Mg Tab. (Chew) 81 each PO DAILY [facility] Carvedilol 3.125 Mg (Tab) 1 each PO BID [facility] Last Admin: 07/18/19 08:02 Dose: 1 each Ezetimibe 10 Mg Tab 1 each PO DAILY [facility] Last Admin: 07/18/19 08:01 Dose: 1 each Aspirin 81 Mg Tab. (Chew) 1 each PO DAILY [facility] Last Admin: 07/18/19 08:01 Dose: 1 each Potassium Chloride (Potassium Chloride) 40 meq PO ONETIME ONE Stop: 07/16/19 09:13 Last Admin: 07/16/19 09:55 Dose: 40 meq Potassium Chloride (Klor-Con M20) 40 meq PO ONETIME ONE Stop: 07/16/19 20:00 Last Admin: 07/16/19 21:24 Dose: 40 meq Potassium Chloride (Klor-Con M20) 40 meq PO ONETIME ONE Stop: 07/18/19 07:03 Last Admin: 07/18/19 07:45 Dose: 40 meq Potassium Chloride (Klor-Con M20) 40 meq PO ONETIME ONE Stop: 07/18/19 12:01 Last Admin: 07/18/19 11:10 Dose: 40 meq Prednisone (Prednisone) 40 mg PO WITHBREAKFAST [facility] Last Admin: 07/18/19 11:09 Dose: Not Given Prednisone (Prednisone) 40 mg PO WITHBREAKFAST [facility] Last Admin: 07/19/19 07:59 Dose: 40 mg Rosuvastatin Calcium (Crestor) 10 mg PO DAILY [facility] Last Admin: 07/16/19 11:59 Dose: Not Given Sodium Chloride (Saline Flush) 10 ml FLUSH ASDIRECTED PRN PRN Reason: Keep Vein Open Last Admin: 07/15/19 15:24 Dose: 10 ml Sodium Chloride (Saline Flush) 2.5 ml FLUSH ASDIRECTED PRN PRN Reason: Keep Vein Open Last Admin: 07/15/19 15:23 Dose: 2.5 ml - Free Text/Narrative Note: I have seen and evaluated the patient with the resident. I have discussed findings and treatment plan with the resident. I agree with the assessment and plan in the following note.
--- NOTE | 2019-07-20 13:58 | ECHO ---
EXAM DATE: 07/16/19 PATIENT'S AGE: 83 The echocardiogram report can be seen in this patient's EMR (Electronic Medical Record) in the Reports section. The report has also been scanned into PACs. [facility]OLY
== END 2019-07-19 16:00 | disposition home or self-care (01) | DRG 690 ==
LOC: MW.ED 13:34 → MW.MS 16:05 → OBSVTOIN 07-16 13:02 → MW.MS 07-16 13:23
PROVIDERS: ADMIT Internal Medicine; ATTEND Internal Medicine
DX: N39.0 Urinary tract infection, site not specified (principal); N17.9 Acute kidney failure, unspecified; N12 Tubulo-interstitial nephritis, not specified as acute or chronic; N20.0 Calculus of kidney; R53.1 Weakness; R94.31 Abnormal electrocardiogram [ECG] [EKG]; I25.10 Atherosclerotic heart disease of native coronary artery without angina pectoris; I10 Essential (primary) hypertension; E87.6 Hypokalemia; E78.5 Hyperlipidemia, unspecified; E03.9 Hypothyroidism, unspecified; H35.30 Unspecified macular degeneration; Z90.49 Acquired absence of other specified parts of digestive tract; Z88.5 Allergy status to narcotic agent; Z79.82 Long term (current) use of aspirin; Z79.890 Hormone replacement therapy; Z79.899 Other long term (current) drug therapy
CPT/HCPCS: 36415 ×2; 71045 ×2; 80048; 80053; 81001; 84484; 85025 ×2; 87086; 93005; 96360; 99285; A9270 ×6; J0696; J1650; J7030 ×3; J7050; 74176; 74176-26; 83735; 87804; 93306; 94640; 96361; 96365; 96372; 97161-GP; 99284; G0378; J0456; J1644; J1940; J2405; J7620-GY

== ENCOUNTER 2021-12-21 22:28 | Emergency (ER) | payer MEDICARE, BC ==
[2021-12-21 23:44] LABS: CARBON DIOXIDE,CO2 22.3 mmol/L (21.0-32.0); POTASSIUM,K 4.7 mmol/L (3.5-5.1)
[2021-12-21 23:46] VITALS: PULSE 88
[2021-12-22] MEDS ORDERED: Sodium Chloride 0.9% 500 ML IV SCH (02:00)
[2021-12-22 03:33] VITALS: BP 138/66
== END 2021-12-22 03:33 | disposition home or self-care (01) ==
LOC: MW.ED 22:28
DX: E86.0 Dehydration (principal); I10 Essential (primary) hypertension; E03.9 Hypothyroidism, unspecified; Z88.5 Allergy status to narcotic agent; Z79.899 Other long term (current) drug therapy; Z79.82 Long term (current) use of aspirin; Z20.822 Contact with and (suspected) exposure to COVID-19
CPT/HCPCS: 36415; 71045; 80053; 81001; 83605; 84439; 84443; 84481; 84484; 85025; 85610; 87086; 93005; 96360; 99285; J7040; U0002; 93010; 99284

== ENCOUNTER 2022-01-02 10:40 | Inpatient (IN) | payer MEDICARE, BC ==
[2022-01-02 12:28] LABS: CARBON DIOXIDE,CO2 22.9 mmol/L (21.0-32.0); POTASSIUM,K 4.2 mmol/L (3.5-5.1)
[2022-01-02 13:04] LABS: CORONAVIRUS COVID-19 NAA NEGATIVE (NEGATIVE); INFLUENZA A NAA NEGATIVE (NEGATIVE); INFLUENZA B NAA NEGATIVE (NEGATIVE)
[2022-01-02] MEDS ORDERED: cefTRIAXone 1 GM in Sodium Chloride 0.9% 50 ML IV ONE (13:54)
[2022-01-02] MEDS ORDERED: Sodium Chloride 0.9% 1,000 ML IV ONE (13:55)
[2022-01-02] MEDS: atorvaSTATin 40 MG Tab PO SCH ×2 (20:40→20:47)
[2022-01-02] MEDS ORDERED: Ezetimibe 10 MG Tab PO SCH (21:00)
[2022-01-03 06:31] LABS: CARBON DIOXIDE,CO2 25.8 mmol/L (21.0-32.0); POTASSIUM,K 4.4 mmol/L (3.5-5.1)
[2022-01-03] MEDS: Levothyroxine 75 MCG Tab PO SCH (06:35)
[2022-01-03] MEDS: Aspirin 81 MG Tab.Chew PO SCH (09:24)
[2022-01-03] MEDS ORDERED: BENAZEPRIL PO SCH (11:00)
[2022-01-03] MEDS ORDERED: AMLODIPINE BESYLATE PO SCH (11:00)
[2022-01-03] MEDS ORDERED: amLODIPine 5 MG Tab PO SCH (11:15)
[2022-01-03] MEDS ORDERED: Benazepril 10 MG Tab PO SCH (11:15)
[2022-01-03] MEDS: cefTRIAXone 1 GM in Sodium Chloride 0.9% 50 ML IV SCH (13:24)
[2022-01-03] MEDS ORDERED: Polyethylene Glycol 3350 Powder 17 GM Packet PO ONE (17:00)
[2022-01-03] MEDS: Acetaminophen 325 MG Tab PO PRN (23:13)
[2022-01-04] MEDS: Levothyroxine 75 MCG Tab PO SCH (06:36)
[2022-01-04 06:49] LABS: CARBON DIOXIDE,CO2 23.5 mmol/L (21.0-32.0); POTASSIUM,K 4.2 mmol/L (3.5-5.1)
[2022-01-04] MEDS: Aspirin 81 MG Tab.Chew PO SCH (09:25)
[2022-01-04] MEDS ORDERED: Pantoprazole 40 MG Tab.CR PO SCH (10:30)
[2022-01-04] MEDS ORDERED: Ondansetron 4 MG/2 ML SDV IVPUSH PRN (10:31)
[2022-01-04 10:45] LABS: BILIRUBIN INDIRECT 0.4
[2022-01-04] MEDS: Docusate Sodium 100 MG Cap PO SCH (13:05)
[2022-01-04] MEDS: Polyethylene Glycol 3350 Powder 17 GM Packet PO SCH (13:05)
[2022-01-04] MEDS: Pantoprazole 40 MG Tab.CR PO SCH (13:14)
[2022-01-04] MEDS: cefTRIAXone 1 GM in Sodium Chloride 0.9% 50 ML IV SCH (13:14)
[2022-01-04] MEDS: Acetaminophen 325 MG Tab PO PRN (23:09)
[2022-01-05] MEDS ORDERED: LORazepam 2 MG/ML SDV IVPUSH ONE (00:03)
[2022-01-05] MEDS: Levothyroxine 75 MCG Tab PO SCH ×2 (06:24→06:57)
[2022-01-05 07:28] LABS: CARBON DIOXIDE,CO2 24.7 mmol/L (21.0-32.0); POTASSIUM,K 4.3 mmol/L (3.5-5.1)
[2022-01-05] MEDS: Pantoprazole 40 MG Tab.CR PO SCH (09:37)
[2022-01-05] MEDS: Aspirin 81 MG Tab.Chew PO SCH (09:37)
[2022-01-05] MEDS: Docusate Sodium 100 MG Cap PO SCH (09:37)
[2022-01-05] MEDS: Polyethylene Glycol 3350 Powder 17 GM Packet PO SCH (09:37)
[2022-01-05] MEDS: cefTRIAXone 1 GM in Sodium Chloride 0.9% 50 ML IV SCH (12:58)
[2022-01-05] MEDS: amLODIPine 5 MG Tab PO SCH (17:36)
[2022-01-05] MEDS ORDERED: hydrOXYzine HCl 25 MG Tab PO SCH (21:00)
[2022-01-05] MEDS ORDERED: CARBOXYMETHYLCELLULOSE SODIUM EYEBOTH PRN (23:07)
[2022-01-06 04:30] VITALS: PULSE 87
[2022-01-06] MEDS: Levothyroxine 75 MCG Tab PO SCH ×2 (06:27→06:30)
[2022-01-06 07:10] LABS: CARBON DIOXIDE,CO2 26.1 mmol/L (21.0-32.0); POTASSIUM,K 4.2 mmol/L (3.5-5.1)
[2022-01-06] MEDS ORDERED: Furosemide 20 MG Tab PO SCH (09:00)
[2022-01-06] MEDS ORDERED: Carboxymethylcellulose Sodium 0.5% Ophth Soln 0.4 ML UD Box of 30 EYEBOTH PRN (09:21)
[2022-01-06] MEDS ORDERED: hydrOXYzine HCl 25 MG Tab PO SCH (10:00)
[2022-01-06 10:35] VITALS: BP 127/71
[2022-01-06] MEDS: Pantoprazole 40 MG Tab.CR PO SCH (12:04)
[2022-01-06] MEDS: amLODIPine 5 MG Tab PO SCH (12:04)
[2022-01-06] MEDS: Docusate Sodium 100 MG Cap PO SCH (12:04)
[2022-01-06] MEDS: Aspirin 81 MG Tab.Chew PO SCH (12:05)
[2022-01-06] MEDS: Polyethylene Glycol 3350 Powder 17 GM Packet PO SCH ×2 (12:10→12:28)
[2022-01-06] MEDS: Acetaminophen 325 MG Tab PO PRN (12:55)
[2022-01-06] MEDS: cefTRIAXone 1 GM in Sodium Chloride 0.9% 50 ML IV SCH (17:04)
== END 2022-01-06 14:35 | disposition home or self-care (01) | DRG 690 ==
LOC: MW.ED 10:40 → MW.MS 14:04 → OBSVTOIN 01-04 10:30 → MW.MS 01-04 12:46
PROVIDERS: ADMIT Internal Medicine; ATTEND Internal Medicine
DX: N39.0 Urinary tract infection, site not specified (principal); R55 Syncope and collapse; E86.0 Dehydration; R53.1 Weakness; I95.9 Hypotension, unspecified; Z88.8 Allergy status to other drugs, medicaments and biological substances; R42 Dizziness and giddiness; I25.10 Atherosclerotic heart disease of native coronary artery without angina pectoris; E78.5 Hyperlipidemia, unspecified; E03.9 Hypothyroidism, unspecified; F41.9 Anxiety disorder, unspecified; R11.0 Nausea; Z20.822 Contact with and (suspected) exposure to COVID-19; I10 Essential (primary) hypertension; Z86.79 Personal history of other diseases of the circulatory system; Z79.82 Long term (current) use of aspirin; Z79.890 Hormone replacement therapy; Z79.899 Other long term (current) drug therapy; Z79.1 Long term (current) use of non-steroidal anti-inflammatories (NSAID); Z87.440 Personal history of urinary (tract) infections; Z98.42 Cataract extraction status, left eye; Z98.890 Other specified postprocedural states; Z90.49 Acquired absence of other specified parts of digestive tract
CPT/HCPCS: 0240U; 36415; 71045; 74176; 80048; 80053; 80076; 81001; 83690; 84443; 84484; 85025; 87086; 93005; 96361; 96365; 97162; 97530; 99285; 93010; 96376; A9270-GY; G0378; J0696; J2060; J7030

== ENCOUNTER 2022-01-08 22:35 | Observation (INO) | payer MEDICARE, BC ==
[2022-01-08] MEDS ORDERED: Sodium Chloride 0.9% 2.5 ML Syringe FLUSH PRN (22:45)
[2022-01-08] MEDS ORDERED: Sodium Chloride 0.9% 10 ML Syringe FLUSH PRN (22:45)
[2022-01-09] MEDS ORDERED: Cephalexin 500 MG Cap PO ONE (01:29)
[2022-01-09] MEDS ORDERED: Acetaminophen 500 MG Tab PO ONE (01:29)
[2022-01-09 01:37] LABS: CARBON DIOXIDE,CO2 24.7 mmol/L (21.0-32.0); POTASSIUM,K 3.9 mmol/L (3.5-5.1)
[2022-01-09] MEDS ORDERED: Ondansetron 4 MG/2 ML SDV IVPUSH PRN (02:35)
[2022-01-09] MEDS ORDERED: Acetaminophen 325 MG Tab PO PRN (02:35)
[2022-01-09] MEDS ORDERED: Albuterol/Ipratropium 3.0-0.5 MG/3 ML Neb Soln NEB PRN (02:35)
[2022-01-09] MEDS ORDERED: cefTRIAXone 1 GM in Sodium Chloride 0.9% 50 ML IV SCH (02:45)
[2022-01-09] MEDS ORDERED: Furosemide 20 MG Tab PO SCH (08:45)
[2022-01-09] MEDS ORDERED: Carboxymethylcellulose Sodium 0.5% Ophth Soln 0.4 ML UD Box of 30 EYEBOTH PRN (08:48)
[2022-01-09] MEDS ORDERED: Pantoprazole 40 MG Tab.CR PO SCH (09:00)
[2022-01-09] MEDS ORDERED: Aspirin 81 MG Tab.Chew PO SCH (09:00)
[2022-01-09] MEDS ORDERED: amLODIPine 5 MG Tab PO SCH (09:00)
[2022-01-09] MEDS ORDERED: Pantoprazole 40 MG in Sodium Chloride 0.9% 10 ML IVPUSH SCH (09:00)
[2022-01-09 11:52] VITALS: BP 134/70; PULSE 89
[2022-01-09] MEDS ORDERED: Ezetimibe 10 MG Tab PO SCH (21:00)
[2022-01-10] MEDS ORDERED: Levothyroxine 75 MCG Tab PO SCH (07:30)
== END 2022-01-09 16:16 ==
LOC: MW.ED 22:35 → MW.MS 01-09 02:26
PROVIDERS: ADMIT Student in an Organized Health Care Education/Training Program; ATTEND Student in an Organized Health Care Education/Training Program
DX: R51.9 Headache, unspecified (principal); N39.0 Urinary tract infection, site not specified; I10 Essential (primary) hypertension; E78.5 Hyperlipidemia, unspecified; E03.9 Hypothyroidism, unspecified; I25.10 Atherosclerotic heart disease of native coronary artery without angina pectoris; I73.9 Peripheral vascular disease, unspecified; H35.30 Unspecified macular degeneration; I65.21 Occlusion and stenosis of right carotid artery; J34.89 Other specified disorders of nose and nasal sinuses; Z79.899 Other long term (current) drug therapy; Z79.890 Hormone replacement therapy; Z79.82 Long term (current) use of aspirin; Z87.19 Personal history of other diseases of the digestive system; Z98.890 Other specified postprocedural states; Z90.49 Acquired absence of other specified parts of digestive tract; Z20.822 Contact with and (suspected) exposure to COVID-19; Z88.6 Allergy status to analgesic agent; Z88.8 Allergy status to other drugs, medicaments and biological substances
CPT/HCPCS: 36415; 70450; 71045; 80053; 81001; 83605; 84443; 84484; 85025; 85610; 87040; 87086; 93005; 96374; 96375; 99285; A9270; C9113; G0378; J0696; J2405; J3490; U0002; 99235

== ENCOUNTER 2023-01-25 21:22 | Inpatient (IN) | payer MEDICARE, BC ==
[2023-01-25] MEDS ORDERED: Sodium Chloride 0.9% 1,000 ML IV ONE ×2 (21:29→21:33)
[2023-01-25] MEDS ORDERED: cefTRIAXone 1 GM Vial IV ONE (21:29)
[2023-01-25] MEDS ORDERED: Sodium Chloride 0.9% 10 ML Syringe FLUSH PRN (21:29)
[2023-01-25] MEDS ORDERED: Sodium Chloride 0.9% 2.5 ML Syringe FLUSH PRN (21:29)
[2023-01-25] MEDS ORDERED: Acetaminophen 325 MG Tab PO ONE (21:33)
[2023-01-25] MEDS: Ondansetron 4 MG/2 ML SDV IVPUSH ONE ×2 (21:53→21:55)
[2023-01-25 21:58] LABS: BASOPHILS PERCENT AUTO 0.2 % (0.0-1.5); EOSINOPHILS ABSOLUTE AUTO 0.1 K/uL (0.0-0.7); EOSINOPHILS PERCENT AUTO 0.7 % (0.0-7.0); HEMATOCRIT 40.7 % (36.0-46.0); HEMOGLOBIN 13.6 g/dL (12.0-16.0); LYMPHOCYTES ABSOLUTE AUTO 1.2 K/uL (0.6-2.4); LYMPHOCYTES PERCENT AUTO 9.6 % (16.0-40.0); MEAN CORPUSCULAR HEMOGLOBIN 30.8 pg (27.0-32.0); MEAN CORPUSCULAR HGB CONC 33.4 g/dL (31.0-37.0); MEAN CORPUSCULAR VOLUME 92.1 fL (80.0-98.0); MONOCYTES ABSOLUTE AUTO 1.5 K/uL (0.0-0.8); MONOCYTES PERCENT AUTO 11.8 % (0.0-15.0); NEUTROPHILS ABSOLUTE AUTO 9.6 K/uL (1.4-5.7); NEUTROPHILS PERCENT AUTO 77.7 % (48.0-80.0); NRBC ABSOLUTE 0 K/uL; PLATELET COUNT,PLT 290 K/uL (150-400); RED BLOOD CELL COUNT 4.42 M/uL (4.30-5.90); WHITE BLOOD CELL COUNT,WBC 12.31 K/uL (4.0-11.0)
[2023-01-25 22:13] LABS: A/G RATIO 0.8 (0.9-1.6); ALBUMIN 3.4 g/dL (3.4-5.0); CALCIUM 9.3 mg/dL (8.5-10.1); CARBON DIOXIDE,CO2 28.1 mmol/L (21.0-32.0); CREATININE 1.1 mg/dL (0.6-1.0); EST CRCL DRUG DOSING (CG) 28.5 mL/min; POTASSIUM,K 3.9 mmol/L (3.5-5.1); PROTEIN TOTAL,TP 7.5 g/dL (6.4-8.2)
[2023-01-25 22:56] LABS: APPEARANCE,URINE SLT CLOUDY; BILIRUBIN,URINE NEGATIVE (NEGATIVE); COLOR,URINE YELLOW; GLUCOSE,URINE NEGATIVE (NEGATIVE); KETONES,URINE 15 mg/dL (NEGATIVE); LEUKOCYTE ESTERASE,URINE MODERATE (NEGATIVE); NITRITE,URINE NEGATIVE (NEGATIVE); OCCULT BLOOD,URINE MODERATE (NEGATIVE); PROTEIN,URINE NEGATIVE (NEGATIVE); UROBILINOGEN,URINE 0.2 EU/dL (<2.0)
[2023-01-25 23:03] LABS: AMORPHOUS SEDIMENT,URINE RARE (NEGATIVE); BACTERIA,URINE FEW (NEGATIVE); EPITHELIAL CELLS,URINE FEW (NONE-FEW); MUCUS,URINE FEW (NONE-MOD); RENAL EPITHELIAL CELLS,URINE OCCASIONAL; SQUAMOUS EPITHELIAL CELLS,UR FEW; WBC,URINE 20-30 (0-5/HPF)
[2023-01-25] MEDS ORDERED: Enoxaparin 40 MG/0.4 ML Syringe SUBCUT SCH (23:30)
[2023-01-26] MEDS ORDERED: Sodium Chloride 0.9% 500 ML IV ONE (00:01)
[2023-01-26] MEDS: cefTRIAXone 1 GM in Sodium Chloride 0.9% 50 ML IV SCH ×2 (01:24→20:13)
[2023-01-26 06:09] LABS: BASOPHILS PERCENT AUTO 0.1 % (0.0-1.5); EOSINOPHILS ABSOLUTE AUTO 0.1 K/uL (0.0-0.7); EOSINOPHILS PERCENT AUTO 1.7 % (0.0-7.0); HEMATOCRIT 36.8 % (36.0-46.0); HEMOGLOBIN 11.7 g/dL (12.0-16.0); LYMPHOCYTES ABSOLUTE AUTO 1.5 K/uL (0.6-2.4); MEAN CORPUSCULAR HEMOGLOBIN 29.5 pg (27.0-32.0); MEAN CORPUSCULAR HGB CONC 31.8 g/dL (31.0-37.0); MEAN CORPUSCULAR VOLUME 92.9 fL (80.0-98.0); MONOCYTES ABSOLUTE AUTO 1.2 K/uL (0.0-0.8); MONOCYTES PERCENT AUTO 15.3 % (0.0-15.0); NEUTROPHILS ABSOLUTE AUTO 5.2 K/uL (1.4-5.7); NEUTROPHILS PERCENT AUTO 64.9 % (48.0-80.0); NRBC ABSOLUTE 0 K/uL; PLATELET COUNT,PLT 271 K/uL (150-400); RED BLOOD CELL COUNT 3.96 M/uL (4.30-5.90); WHITE BLOOD CELL COUNT,WBC 8.09 K/uL (4.0-11.0)
[2023-01-26] MEDS: Levothyroxine 75 MCG Tab PO SCH (06:38)
[2023-01-26 06:58] LABS: A/G RATIO 0.7 (0.9-1.6); ALBUMIN 2.5 g/dL (3.4-5.0); BILIRUBIN TOTAL 0.8 mg/dL (0.2-1.0); CARBON DIOXIDE,CO2 25.2 mmol/L (21.0-32.0); CREATININE 0.9 mg/dL (0.6-1.0); EST CRCL DRUG DOSING (CG) 33.23 mL/min; POTASSIUM,K 3.7 mmol/L (3.5-5.1); PROTEIN TOTAL,TP 5.9 g/dL (6.4-8.2)
[2023-01-26] MEDS: Aspirin 81 MG Tab.Chew PO SCH (09:00)
[2023-01-26] MEDS: Pantoprazole 40 MG Tab.CR PO SCH (09:08)
[2023-01-26] MEDS: Ezetimibe 10 MG Tab PO SCH (20:14)
[2023-01-26] MEDS: Enoxaparin 30 MG/0.3 ML Syringe SUBCUT SCH (20:14)
[2023-01-27 06:55] LABS: BASOPHILS PERCENT AUTO 0.4 % (0.0-1.5); EOSINOPHILS ABSOLUTE AUTO 0.3 K/uL (0.0-0.7); EOSINOPHILS PERCENT AUTO 4.1 % (0.0-7.0); HEMATOCRIT 39.7 % (36.0-46.0); HEMOGLOBIN 13.1 g/dL (12.0-16.0); LYMPHOCYTES ABSOLUTE AUTO 1.8 K/uL (0.6-2.4); LYMPHOCYTES PERCENT AUTO 24.9 % (16.0-40.0); MEAN CORPUSCULAR HEMOGLOBIN 30.5 pg (27.0-32.0); MEAN CORPUSCULAR VOLUME 92.5 fL (80.0-98.0); MONOCYTES ABSOLUTE AUTO 0.7 K/uL (0.0-0.8); MONOCYTES PERCENT AUTO 10.4 % (0.0-15.0); NEUTROPHILS ABSOLUTE AUTO 4.3 K/uL (1.4-5.7); NEUTROPHILS PERCENT AUTO 60.2 % (48.0-80.0); NRBC ABSOLUTE 0 K/uL; PLATELET COUNT,PLT 281 K/uL (150-400); RED BLOOD CELL COUNT 4.29 M/uL (4.30-5.90); WHITE BLOOD CELL COUNT,WBC 7.14 K/uL (4.0-11.0)
[2023-01-27 06:57] LABS: CALCIUM 9.1 mg/dL (8.5-10.1); CARBON DIOXIDE,CO2 22.2 mmol/L (21.0-32.0); EST CRCL DRUG DOSING (CG) 29.91 mL/min; POTASSIUM,K 4.1 mmol/L (3.5-5.1)
[2023-01-27] MEDS: Levothyroxine 75 MCG Tab PO SCH (07:22)
[2023-01-27] MEDS: Aspirin 81 MG Tab.Chew PO SCH (09:09)
[2023-01-27] MEDS: Pantoprazole 40 MG Tab.CR PO SCH (10:20)
[2023-01-27] MEDS: Ezetimibe 10 MG Tab PO SCH (20:34)
[2023-01-27] MEDS: Enoxaparin 30 MG/0.3 ML Syringe SUBCUT SCH (20:35)
[2023-01-27] MEDS: cefTRIAXone 1 GM in Sodium Chloride 0.9% 50 ML IV SCH (20:35)
[2023-01-27] MEDS: amLODIPine 5 MG Tab PO SCH (21:10)
[2023-01-28] MEDS: Levothyroxine 75 MCG Tab PO SCH ×2 (06:14→06:39)
[2023-01-28 06:28] LABS: BASOPHILS PERCENT AUTO 0.6 % (0.0-1.5); EOSINOPHILS ABSOLUTE AUTO 0.3 K/uL (0.0-0.7); EOSINOPHILS PERCENT AUTO 4.2 % (0.0-7.0); HEMATOCRIT 40.5 % (36.0-46.0); HEMOGLOBIN 13.6 g/dL (12.0-16.0); LYMPHOCYTES ABSOLUTE AUTO 2.2 K/uL (0.6-2.4); LYMPHOCYTES PERCENT AUTO 31.3 % (16.0-40.0); MEAN CORPUSCULAR HEMOGLOBIN 30.8 pg (27.0-32.0); MEAN CORPUSCULAR HGB CONC 33.6 g/dL (31.0-37.0); MEAN CORPUSCULAR VOLUME 91.8 fL (80.0-98.0); MONOCYTES ABSOLUTE AUTO 0.8 K/uL (0.0-0.8); MONOCYTES PERCENT AUTO 11.5 % (0.0-15.0); NEUTROPHILS ABSOLUTE AUTO 3.6 K/uL (1.4-5.7); NEUTROPHILS PERCENT AUTO 52.4 % (48.0-80.0); NRBC ABSOLUTE 0 K/uL; PLATELET COUNT,PLT 327 K/uL (150-400); RED BLOOD CELL COUNT 4.41 M/uL (4.30-5.90); WHITE BLOOD CELL COUNT,WBC 6.87 K/uL (4.0-11.0)
[2023-01-28 08:12] LABS: CALCIUM 9.3 mg/dL (8.5-10.1); CARBON DIOXIDE,CO2 24.8 mmol/L (21.0-32.0); CREATININE 1.1 mg/dL (0.6-1.0); EST CRCL DRUG DOSING (CG) 27.19 mL/min; POTASSIUM,K 4.1 mmol/L (3.5-5.1)
[2023-01-28] MEDS: amLODIPine 5 MG Tab PO SCH (08:44)
[2023-01-28] MEDS: Aspirin 81 MG Tab.Chew PO SCH (08:44)
[2023-01-28] MEDS: Pantoprazole 40 MG Tab.CR PO SCH (08:44)
[2023-01-28] MEDS ORDERED: Furosemide 20 MG Tab PO SCH (09:00)
[2023-01-28 12:31] VITALS: BP 176/77; PULSE 86
== END 2023-01-28 13:40 | disposition home or self-care (01) | DRG 690 ==
LOC: MW.ED 21:22 → MW.MS 23:20
PROVIDERS: ADMIT Internal Medicine; ATTEND Internal Medicine
DX: E86.0 Dehydration (principal); N39.0 Urinary tract infection, site not specified; J98.11 Atelectasis; R31.9 Hematuria, unspecified; I25.10 Atherosclerotic heart disease of native coronary artery without angina pectoris; K59.00 Constipation, unspecified; I11.0 Hypertensive heart disease with heart failure; I50.9 Heart failure, unspecified; E03.9 Hypothyroidism, unspecified; H35.30 Unspecified macular degeneration; Z86.73 Personal history of transient ischemic attack (TIA), and cerebral infarction without residual deficits; Z95.1 Presence of aortocoronary bypass graft; Z88.5 Allergy status to narcotic agent; Z88.8 Allergy status to other drugs, medicaments and biological substances; Z79.82 Long term (current) use of aspirin; Z79.899 Other long term (current) drug therapy; Z98.49 Cataract extraction status, unspecified eye; Z90.49 Acquired absence of other specified parts of digestive tract
CPT/HCPCS: 36415; 71045; 80053; 81001; 83605; 85025; 87040 ×2; 87086; 93005; 96361; 96374; 99285; A9270; J0696; J3490; J7030 ×2; 74176; 74176-26; 80048; 93010; 97161-GP; 97530-GP; 99222; 99231; 99238; J1650; J2405

== ENCOUNTER 2023-05-24 14:06 | Observation (INO) | payer MEDICARE, BC ==
[2023-05-24] MEDS ORDERED: Sodium Chloride 0.9% 1,000 ML IV ONE (14:24)
[2023-05-24 15:04] LABS: BILIRUBIN,URINE NEGATIVE (NEGATIVE); COLOR,URINE YELLOW; GLUCOSE,URINE NEGATIVE (NEGATIVE); KETONES,URINE NEGATIVE (NEGATIVE); LEUKOCYTE ESTERASE,URINE TRACE (NEGATIVE); NITRITE,URINE NEGATIVE (NEGATIVE); OCCULT BLOOD,URINE TRACE-INTACT (NEGATIVE); PROTEIN,URINE NEGATIVE (NEGATIVE); UROBILINOGEN,URINE 0.2 EU/dL (<2.0)
[2023-05-24 15:05] LABS: APPEARANCE,URINE HAZY
[2023-05-24 15:12] LABS: BACTERIA,URINE FEW (NEGATIVE); MUCUS,URINE LIGHT (NONE-MOD); SQUAMOUS EPITHELIAL CELLS,UR OCCASIONAL
[2023-05-24 15:21] LABS: BASOPHILS ABSOLUTE AUTO 0.04 K/uL (0.00-0.20); BASOPHILS PERCENT AUTO 0.6 % (0.0-1.0); EOSINOPHILS ABSOLUTE AUTO 0.14 K/uL (0.00-0.45); EOSINOPHILS PERCENT AUTO 2.2 % (0.0-6.0); HEMATOCRIT 44.4 % (37.0-47.0); HEMOGLOBIN 14.9 g/dL (12.0-16.0); IMMATURE GRAN ABSOLUTE AUTO 0.01 K/uL (0.00-0.05); IMMATURE GRAN PERCENT AUTO 0.2 % (0.0-0.4); LYMPHOCYTES ABSOLUTE AUTO 1.87 K/uL (1.00-4.80); LYMPHOCYTES PERCENT AUTO 28.9 % (24.0-44.0); MEAN CORPUSCULAR HEMOGLOBIN 30.8 pg (28.0-32.0); MEAN CORPUSCULAR HGB CONC 33.6 g/dL (32.0-36.0); MEAN CORPUSCULAR VOLUME 91.9 fL (83.0-99.0); MEAN PLATELET VOLUME 10.4 fL (9.4-12.3); MONOCYTES ABSOLUTE AUTO 0.71 K/uL (0.00-0.80); NEUTROPHILS PERCENT AUTO 57.1 % (41.0-71.0); PLATELET COUNT,PLT 258 K/uL (150-400); RED BLOOD CELL COUNT 4.83 M/uL (4.10-5.30); WHITE BLOOD CELL COUNT,WBC 6.47 K/uL (3.9-11.3)
[2023-05-24 15:48] LABS: A/G RATIO 1.1 (0.9-1.6); ALBUMIN 4.3 g/dL (3.4-5.0); BILIRUBIN TOTAL 0.4 mg/dL (0.2-1.0); CALCIUM 9.7 mg/dL (8.5-10.1); CARBON DIOXIDE,CO2 27.7 mmol/L (21.0-32.0); CREATININE 1.3 mg/dL (0.6-1.0); EST CRCL DRUG DOSING (CG) 24.11 mL/min; POTASSIUM,K 4.4 mmol/L (3.5-5.1); PROTEIN TOTAL,TP 8.3 g/dL (6.4-8.2)
[2023-05-24 16:16] LABS: CORONAVIRUS COVID-19 NAA NEGATIVE (NEGATIVE); INFLUENZA A NAA NEGATIVE (NEGATIVE); INFLUENZA B NAA NEGATIVE (NEGATIVE)
[2023-05-24] MEDS ORDERED: cefTRIAXone 1 GM in Sodium Chloride 0.9% 50 ML IV ONE (16:16)
[2023-05-24] MEDS ORDERED: Acetaminophen 325 MG Tab PO PRN (17:50)
[2023-05-24] MEDS ORDERED: Ondansetron 4 MG/2 ML SDV IVPUSH PRN (17:50)
[2023-05-24] MEDS: Heparin Sodium 5,000 Units/ML Vial SUBCUT SCH (19:26)
[2023-05-24] MEDS: Pantoprazole 40 MG in Sodium Chloride 0.9% 10 ML IVPUSH SCH (19:26)
[2023-05-25] MEDS: Heparin Sodium 5,000 Units/ML Vial SUBCUT SCH ×3 (01:11→17:47)
[2023-05-25 06:13] LABS: BASOPHILS ABSOLUTE AUTO 0.04 K/uL (0.00-0.20); BASOPHILS PERCENT AUTO 0.6 % (0.0-1.0); EOSINOPHILS ABSOLUTE AUTO 0.21 K/uL (0.00-0.45); EOSINOPHILS PERCENT AUTO 2.9 % (0.0-6.0); HEMATOCRIT 39.6 % (37.0-47.0); IMMATURE GRAN ABSOLUTE AUTO 0.02 K/uL (0.00-0.05); IMMATURE GRAN PERCENT AUTO 0.3 % (0.0-0.4); LYMPHOCYTES ABSOLUTE AUTO 1.78 K/uL (1.00-4.80); LYMPHOCYTES PERCENT AUTO 24.7 % (24.0-44.0); MEAN CORPUSCULAR HGB CONC 32.8 g/dL (32.0-36.0); MEAN CORPUSCULAR VOLUME 94.5 fL (83.0-99.0); MEAN PLATELET VOLUME 9.7 fL (9.4-12.3); MONOCYTES ABSOLUTE AUTO 0.72 K/uL (0.00-0.80); NEUTROPHILS ABSOLUTE AUTO 4.43 K/uL (1.80-7.70); NEUTROPHILS PERCENT AUTO 61.5 % (41.0-71.0); PLATELET COUNT,PLT 238 K/uL (150-400); RED BLOOD CELL COUNT 4.19 M/uL (4.10-5.30)
[2023-05-25] MEDS: Levothyroxine 75 MCG Tab PO SCH (06:31)
[2023-05-25] MEDS: Polyethylene Glycol 3350 Powder 17 GM Packet PO PRN (06:41)
[2023-05-25 06:43] LABS: ALBUMIN 3.4 g/dL (3.4-5.0); BILIRUBIN TOTAL 0.5 mg/dL (0.2-1.0); CARBON DIOXIDE,CO2 23.1 mmol/L (21.0-32.0); CREATININE 1.4 mg/dL (0.6-1.0); EST CRCL DRUG DOSING (CG) 21.36 mL/min; POTASSIUM,K 4.2 mmol/L (3.5-5.1); PROTEIN TOTAL,TP 6.7 g/dL (6.4-8.2)
[2023-05-25] MEDS ORDERED: Non-Formulary Medication 1 Each (Amlodipine Besylate/Benazepril [Amlodipine-Benazepril 5-2 PO SCH (09:00)
[2023-05-25] MEDS: Pantoprazole 40 MG in Sodium Chloride 0.9% 10 ML IVPUSH SCH (17:46)
[2023-05-25] MEDS ORDERED: cefTRIAXone 1 GM in Sodium Chloride 0.9% 50 ML IV SCH (18:00)
[2023-05-25] MEDS: Furosemide 20 MG Tab PO SCH (18:49)
[2023-05-26] MEDS: Heparin Sodium 5,000 Units/ML Vial SUBCUT SCH ×2 (01:55→09:03)
[2023-05-26] MEDS: Levothyroxine 75 MCG Tab PO SCH (06:40)
[2023-05-26] MEDS: Polyethylene Glycol 3350 Powder 17 GM Packet PO PRN (06:41)
[2023-05-26 07:13] LABS: BASOPHILS ABSOLUTE AUTO 0.04 K/uL (0.00-0.20); BASOPHILS PERCENT AUTO 0.7 % (0.0-1.0); EOSINOPHILS ABSOLUTE AUTO 0.24 K/uL (0.00-0.45); HEMATOCRIT 41.1 % (37.0-47.0); HEMOGLOBIN 13.7 g/dL (12.0-16.0); IMMATURE GRAN ABSOLUTE AUTO 0.01 K/uL (0.00-0.05); IMMATURE GRAN PERCENT AUTO 0.2 % (0.0-0.4); LYMPHOCYTES ABSOLUTE AUTO 1.68 K/uL (1.00-4.80); MEAN CORPUSCULAR HEMOGLOBIN 30.7 pg (28.0-32.0); MEAN CORPUSCULAR HGB CONC 33.3 g/dL (32.0-36.0); MEAN CORPUSCULAR VOLUME 92.2 fL (83.0-99.0); MEAN PLATELET VOLUME 9.9 fL (9.4-12.3); NEUTROPHILS ABSOLUTE AUTO 3.43 K/uL (1.80-7.70); NEUTROPHILS PERCENT AUTO 57.1 % (41.0-71.0); PLATELET COUNT,PLT 242 K/uL (150-400); RED BLOOD CELL COUNT 4.46 M/uL (4.10-5.30)
[2023-05-26 07:42] LABS: ALBUMIN 3.5 g/dL (3.4-5.0); BILIRUBIN TOTAL 0.7 mg/dL (0.2-1.0); CALCIUM 9.2 mg/dL (8.5-10.1); CARBON DIOXIDE,CO2 24.1 mmol/L (21.0-32.0); CREATININE 1.3 mg/dL (0.6-1.0); EST CRCL DRUG DOSING (CG) 23.01 mL/min; POTASSIUM,K 4.2 mmol/L (3.5-5.1)
[2023-05-26] MEDS ORDERED: Pantoprazole 40 MG Tab.CR PO SCH (09:00)
[2023-05-26] MEDS: Furosemide 20 MG Tab PO SCH (09:03)
[2023-05-26] MEDS ORDERED: Cephalexin 500 MG Cap PO ONE (10:19)
[2023-05-26] MEDS ORDERED: Cephalexin 250 MG Cap PO ONE (10:20)
[2023-05-26 11:38] VITALS: BP 168/81; PULSE 81
== END 2023-05-26 12:25 | disposition home or self-care (01) ==
LOC: MW.ED 14:06 → MW.MS 17:10
PROVIDERS: ADMIT Family Medicine; ATTEND Family Medicine
DX: N39.0 Urinary tract infection, site not specified (principal); I13.0 Hypertensive heart and chronic kidney disease with heart failure and stage 1 through stage 4 chronic kidney disease, or unspecified chronic kidney disease; I50.9 Heart failure, unspecified; N18.9 Chronic kidney disease, unspecified; N17.9 Acute kidney failure, unspecified; I25.10 Atherosclerotic heart disease of native coronary artery without angina pectoris; E03.9 Hypothyroidism, unspecified; K21.9 Gastro-esophageal reflux disease without esophagitis; N81.2 Incomplete uterovaginal prolapse; E78.00 Pure hypercholesterolemia, unspecified; Z95.1 Presence of aortocoronary bypass graft; Z20.822 Contact with and (suspected) exposure to COVID-19; Z79.890 Hormone replacement therapy; Z79.82 Long term (current) use of aspirin; Z79.899 Other long term (current) drug therapy
CPT/HCPCS: 0240U; 36415; 74176; 80053; 81001; 82947; 83605; 83690; 83735; 84484; 85025; 87040; 87086; 96361; 96365; 96366; 96372; 96375; 96376; 99285; A9270; C9113; G0378; J0696; J1644; J3490; J7030; 99283

== ENCOUNTER 2023-11-26 19:36 | Observation (INO) | payer MEDICARE, BC ==
[2023-11-26] MEDS: Sodium Chloride 0.9% 2.5 ML Syringe FLUSH PRN (19:52)
[2023-11-26] MEDS: Sodium Chloride 0.9% 10 ML Syringe FLUSH PRN (19:52)
[2023-11-26 20:08] LABS: BASOPHILS ABSOLUTE AUTO 0.06 K/uL (0.00-0.20); BASOPHILS PERCENT AUTO 0.7 % (0.0-1.0); EOSINOPHILS ABSOLUTE AUTO 0.28 K/uL (0.00-0.45); EOSINOPHILS PERCENT AUTO 3.4 % (0.0-6.0); HEMATOCRIT 43.4 % (37.0-47.0); HEMOGLOBIN 14.4 g/dL (12.0-16.0); IMMATURE GRAN ABSOLUTE AUTO 0.02 K/uL (0.00-0.05); IMMATURE GRAN PERCENT AUTO 0.2 % (0.0-0.4); LYMPHOCYTES ABSOLUTE AUTO 2.52 K/uL (1.00-4.80); MEAN CORPUSCULAR HEMOGLOBIN 30.6 pg (28.0-32.0); MEAN CORPUSCULAR HGB CONC 33.2 g/dL (32.0-36.0); MEAN CORPUSCULAR VOLUME 92.3 fL (83.0-99.0); MONOCYTES ABSOLUTE AUTO 1.01 K/uL (0.00-0.80); MONOCYTES PERCENT AUTO 12.4 % (0.0-8.0); NEUTROPHILS ABSOLUTE AUTO 4.23 K/uL (1.80-7.70); NEUTROPHILS PERCENT AUTO 52.3 % (41.0-71.0); PLATELET COUNT,PLT 261 K/uL (150-400); WHITE BLOOD CELL COUNT,WBC 8.12 K/uL (3.9-11.3)
[2023-11-26 20:15] LABS: BILIRUBIN,URINE NEGATIVE (NEGATIVE); COLOR,URINE YELLOW; GLUCOSE,URINE NEGATIVE (NEGATIVE); KETONES,URINE NEGATIVE (NEGATIVE); LEUKOCYTE ESTERASE,URINE MODERATE (NEGATIVE); NITRITE,URINE NEGATIVE (NEGATIVE); OCCULT BLOOD,URINE SMALL (NEGATIVE); PH,URINE 6.5 (5.0-8.0); PROTEIN,URINE NEGATIVE (NEGATIVE); UROBILINOGEN,URINE 0.2 EU/dL (<2.0)
[2023-11-26 20:28] LABS: APPEARANCE,URINE CLOUDY
[2023-11-26 20:30] LABS: BACTERIA,URINE FEW (NEGATIVE); EPITHELIAL CELLS,URINE RARE (NONE-FEW)
[2023-11-26 20:38] LABS: A/G RATIO 0.9 (0.9-1.6); ALBUMIN 3.9 g/dL (3.4-5.0); BILIRUBIN TOTAL 0.5 mg/dL (0.2-1.0); CALCIUM 9.6 mg/dL (8.5-10.1); CREATININE 1.3 mg/dL (0.6-1.0); EST CRCL DRUG DOSING (CG) 22.57 mL/min; POTASSIUM,K 4.2 mmol/L (3.5-5.1); PROTEIN TOTAL,TP 8.1 g/dL (6.4-8.2)
[2023-11-26 20:46] LABS: CORONAVIRUS COVID-19 NAA NEGATIVE (NEGATIVE); INFLUENZA A NAA NEGATIVE (NEGATIVE); INFLUENZA B NAA NEGATIVE (NEGATIVE); RESPIRATORY SYNCYTIAL VIR NAA NEGATIVE (NEGATIVE)
[2023-11-26] MEDS: cefTRIAXone 1 GM in Sodium Chloride 0.9% 50 ML IV ONE (22:03)
[2023-11-27] MEDS: atorvaSTATin 40 MG Tab PO SCH (02:09)
[2023-11-27 05:55] LABS: BASOPHILS ABSOLUTE AUTO 0.03 K/uL (0.00-0.20); BASOPHILS PERCENT AUTO 0.5 % (0.0-1.0); EOSINOPHILS ABSOLUTE AUTO 0.26 K/uL (0.00-0.45); EOSINOPHILS PERCENT AUTO 4.1 % (0.0-6.0); HEMATOCRIT 40.6 % (37.0-47.0); HEMOGLOBIN 13.7 g/dL (12.0-16.0); IMMATURE GRAN ABSOLUTE AUTO 0.01 K/uL (0.00-0.05); IMMATURE GRAN PERCENT AUTO 0.2 % (0.0-0.4); LYMPHOCYTES ABSOLUTE AUTO 1.53 K/uL (1.00-4.80); LYMPHOCYTES PERCENT AUTO 24.4 % (24.0-44.0); MEAN CORPUSCULAR HEMOGLOBIN 31.2 pg (28.0-32.0); MEAN CORPUSCULAR HGB CONC 33.7 g/dL (32.0-36.0); MEAN CORPUSCULAR VOLUME 92.5 fL (83.0-99.0); MEAN PLATELET VOLUME 11.1 fL (9.4-12.3); MONOCYTES ABSOLUTE AUTO 0.82 K/uL (0.00-0.80); MONOCYTES PERCENT AUTO 13.1 % (0.0-8.0); NEUTROPHILS ABSOLUTE AUTO 3.63 K/uL (1.80-7.70); NEUTROPHILS PERCENT AUTO 57.7 % (41.0-71.0); PLATELET COUNT,PLT 192 K/uL (150-400); RED BLOOD CELL COUNT 4.39 M/uL (4.10-5.30); WHITE BLOOD CELL COUNT,WBC 6.28 K/uL (3.9-11.3)
[2023-11-27] MEDS: Iopamidol 755 MG/ML 500 ML Multipack Bottle IVPUSH STA (06:19)
[2023-11-27 06:23] LABS: HEMOGLOBIN A1C 6.1 %
[2023-11-27 06:29] LABS: A/G RATIO 0.8 (0.9-1.6); ALBUMIN 3.2 g/dL (3.4-5.0); BILIRUBIN TOTAL 0.5 mg/dL (0.2-1.0); CALCIUM 8.9 mg/dL (8.5-10.1); CARBON DIOXIDE,CO2 24.6 mmol/L (21.0-32.0); CREATININE 1.1 mg/dL (0.6-1.0); EST CRCL DRUG DOSING (CG) 26.68 mL/min; POTASSIUM,K 4.1 mmol/L (3.5-5.1); TSH ULTRASENSITIVE 3.49 uIU/mL (0.36-3.74)
[2023-11-27] MEDS ORDERED: Sennosides/Docusate Sodium 50-8.6 MG Tab PO PRN (09:40)
[2023-11-27] MEDS ORDERED: Ondansetron 4 MG Tab.DIS PO PRN (09:40)
[2023-11-27] MEDS ORDERED: Polyethylene Glycol 3350 Powder 17 GM Packet PO PRN (09:40)
[2023-11-27] MEDS ORDERED: Acetaminophen 325 MG Tab PO PRN (09:40)
[2023-11-27] MEDS: Polyethylene Glycol 3350 Powder 17 GM Packet PO SCH (10:27)
[2023-11-27] MEDS: Heparin Sodium 5,000 Units/ML Vial SUBCUT SCH (10:27)
[2023-11-27] MEDS: Levothyroxine 50 MCG Tab PO SCH (10:27)
[2023-11-27] MEDS: Sennosides/Docusate Sodium 50-8.6 MG Tab PO SCH (10:27)
[2023-11-27] MEDS: LORazepam 2 MG/ML SDV IVPUSH ONE (12:54)
[2023-11-27] MEDS ORDERED: LORazepam 2 MG/ML SDV IVPUSH ONE (15:03)
[2023-11-27] MEDS: cefTRIAXone 1 GM in Sodium Chloride 0.9% 50 ML IV SCH (20:26)
[2023-11-27] MEDS ORDERED: cefTRIAXone 1 GM in Sodium Chloride 0.9% 50 ML IV SCH (22:00)
[2023-11-28 05:43] LABS: BASOPHILS ABSOLUTE AUTO 0.04 K/uL (0.00-0.20); BASOPHILS PERCENT AUTO 0.6 % (0.0-1.0); EOSINOPHILS ABSOLUTE AUTO 0.25 K/uL (0.00-0.45); HEMATOCRIT 41.7 % (37.0-47.0); HEMOGLOBIN 13.8 g/dL (12.0-16.0); IMMATURE GRAN ABSOLUTE AUTO 0.02 K/uL (0.00-0.05); IMMATURE GRAN PERCENT AUTO 0.3 % (0.0-0.4); LYMPHOCYTES ABSOLUTE AUTO 1.99 K/uL (1.00-4.80); LYMPHOCYTES PERCENT AUTO 31.5 % (24.0-44.0); MEAN CORPUSCULAR HEMOGLOBIN 30.8 pg (28.0-32.0); MEAN CORPUSCULAR HGB CONC 33.1 g/dL (32.0-36.0); MEAN CORPUSCULAR VOLUME 93.1 fL (83.0-99.0); MEAN PLATELET VOLUME 9.3 fL (9.4-12.3); MONOCYTES ABSOLUTE AUTO 0.76 K/uL (0.00-0.80); NEUTROPHILS ABSOLUTE AUTO 3.25 K/uL (1.80-7.70); NEUTROPHILS PERCENT AUTO 51.6 % (41.0-71.0); PLATELET COUNT,PLT 265 K/uL (150-400); RED BLOOD CELL COUNT 4.48 M/uL (4.10-5.30); WHITE BLOOD CELL COUNT,WBC 6.31 K/uL (3.9-11.3)
[2023-11-28 06:10] LABS: A/G RATIO 0.8 (0.9-1.6); ALBUMIN 3.2 g/dL (3.4-5.0); BILIRUBIN TOTAL 0.5 mg/dL (0.2-1.0); CARBON DIOXIDE,CO2 25.4 mmol/L (21.0-32.0); CREATININE 1.1 mg/dL (0.6-1.0); EST CRCL DRUG DOSING (CG) 26.68 mL/min; POTASSIUM,K 4.3 mmol/L (3.5-5.1)
[2023-11-28 07:23] VITALS: PULSE 85
[2023-11-28 12:45] VITALS: BP 129/76
== END 2023-11-28 13:40 | disposition home or self-care (01) ==
LOC: MW.ED 19:36 → MW.MS 22:27
PROVIDERS: ADMIT Family Medicine; ATTEND Family Medicine
DX: R42 Dizziness and giddiness (principal); R53.1 Weakness; E78.00 Pure hypercholesterolemia, unspecified; I11.0 Hypertensive heart disease with heart failure; I50.9 Heart failure, unspecified; I25.10 Atherosclerotic heart disease of native coronary artery without angina pectoris; K21.9 Gastro-esophageal reflux disease without esophagitis; E11.9 Type 2 diabetes mellitus without complications; E03.9 Hypothyroidism, unspecified; Z95.1 Presence of aortocoronary bypass graft; Z20.822 Contact with and (suspected) exposure to COVID-19; Z79.82 Long term (current) use of aspirin; Z79.899 Other long term (current) drug therapy; Z79.890 Hormone replacement therapy; Z88.5 Allergy status to narcotic agent; Z88.8 Allergy status to other drugs, medicaments and biological substances; Z79.2 Long term (current) use of antibiotics
CPT/HCPCS: 0241U; 36415; 70450; 70551; 71045; 80053; 80061; 81001; 83036; 83880; 84439; 84443; 84484; 85025; 87086; 93005; 97161; A9270; J0696; J1644; J2060; J3490; 93010; 99284

== ENCOUNTER 2024-02-28 16:55 | Emergency (ER) | payer MEDICARE, BC ==
[2024-02-28] MEDS: fentaNYL 50 MCG/ML SDV IVPUSH ONE (17:26)
[2024-02-28 17:46] LABS: BASOPHILS ABSOLUTE AUTO 0.04 K/uL (0.00-0.20); BASOPHILS PERCENT AUTO 0.5 % (0.0-1.0); EOSINOPHILS PERCENT AUTO 1.4 % (0.0-6.0); HEMATOCRIT 43.3 % (37.0-47.0); HEMOGLOBIN 14.3 g/dL (12.0-16.0); IMMATURE GRAN ABSOLUTE AUTO 0.02 K/uL (0.00-0.05); IMMATURE GRAN PERCENT AUTO 0.3 % (0.0-0.4); LYMPHOCYTES ABSOLUTE AUTO 1.74 K/uL (1.00-4.80); LYMPHOCYTES PERCENT AUTO 23.7 % (24.0-44.0); MEAN CORPUSCULAR HEMOGLOBIN 30.7 pg (28.0-32.0); MEAN CORPUSCULAR VOLUME 92.9 fL (83.0-99.0); MEAN PLATELET VOLUME 9.6 fL (9.4-12.3); MONOCYTES PERCENT AUTO 10.9 % (0.0-8.0); NEUTROPHILS ABSOLUTE AUTO 4.63 K/uL (1.80-7.70); NEUTROPHILS PERCENT AUTO 63.2 % (41.0-71.0); PLATELET COUNT,PLT 226 K/uL (150-400); RED BLOOD CELL COUNT 4.66 M/uL (4.10-5.30); WHITE BLOOD CELL COUNT,WBC 7.33 K/uL (3.9-11.3)
[2024-02-28 18:00] LABS: PTT,PARTIAL THROMBOPLSTIN TIME 33.1 SEC (23.9-30.7)
[2024-02-28 18:24] LABS: A/G RATIO 1.1 (0.9-1.6); ALBUMIN 4.1 g/dL (3.4-5.0); BILIRUBIN TOTAL 0.7 mg/dL (0.2-1.0); CALCIUM 9.7 mg/dL (8.5-10.1); CARBON DIOXIDE,CO2 28.7 mmol/L (21.0-32.0); CREATININE 1.3 mg/dL (0.6-1.0); EST CRCL DRUG DOSING (CG) 22.57 mL/min; POTASSIUM,K 4.1 mmol/L (3.5-5.1)
[2024-02-28] MEDS: Gabapentin 100 MG Cap PO ONE (19:15)
[2024-02-28] MEDS: Sodium Chloride 0.9% 10 ML Syringe FLUSH PRN (19:16)
[2024-02-28] MEDS: Sodium Chloride 0.9% 2.5 ML Syringe FLUSH PRN (19:16)
[2024-02-28] MEDS: Acetaminophen/Butalbital/Caffeine 325-50-40 MG Tab PO ONE (20:47)
[2024-02-28] MEDS: Dexamethasone 4 MG Tab PO ONE (21:17)
[2024-02-28 22:17] VITALS: BP 151/88; PULSE 89
== END 2024-02-28 22:10 | disposition home or self-care (01) ==
LOC: MW.ED 16:55
DX: R51.9 Headache, unspecified (principal); R68.84 Jaw pain; I13.0 Hypertensive heart and chronic kidney disease with heart failure and stage 1 through stage 4 chronic kidney disease, or unspecified chronic kidney disease; I50.9 Heart failure, unspecified; N18.9 Chronic kidney disease, unspecified; E78.00 Pure hypercholesterolemia, unspecified; I25.10 Atherosclerotic heart disease of native coronary artery without angina pectoris; E11.22 Type 2 diabetes mellitus with diabetic chronic kidney disease; E03.9 Hypothyroidism, unspecified; Z95.1 Presence of aortocoronary bypass graft; Z88.5 Allergy status to narcotic agent; Z88.8 Allergy status to other drugs, medicaments and biological substances; Z79.890 Hormone replacement therapy; Z79.899 Other long term (current) drug therapy; Z75.8 Other problems related to medical facilities and other health care
CPT/HCPCS: 36415; 70450; 70486; 71045; 80053; 83880; 84484; 85025; 85610; 85652; 85730; 93005; 96374; 99284; A9270; J3010; J3490; J8540; U0002; 93010; 99282

== ENCOUNTER 2024-03-21 15:12 | Emergency (ER) | payer MEDICARE, BC ==
[2024-03-21] MEDS: Sodium Chloride 0.9% 1,000 ML IV ONE (18:39)
[2024-03-21 18:47] LABS: BASOPHILS ABSOLUTE AUTO 0.05 K/uL (0.00-0.20); BASOPHILS PERCENT AUTO 0.6 % (0.0-1.0); EOSINOPHILS ABSOLUTE AUTO 0.15 K/uL (0.00-0.45); EOSINOPHILS PERCENT AUTO 1.8 % (0.0-6.0); HEMATOCRIT 41.7 % (37.0-47.0); HEMOGLOBIN 13.8 g/dL (12.0-16.0); IMMATURE GRAN ABSOLUTE AUTO 0.01 K/uL (0.00-0.05); IMMATURE GRAN PERCENT AUTO 0.1 % (0.0-0.4); LYMPHOCYTES ABSOLUTE AUTO 2.18 K/uL (1.00-4.80); LYMPHOCYTES PERCENT AUTO 26.4 % (24.0-44.0); MEAN CORPUSCULAR HEMOGLOBIN 31.1 pg (28.0-32.0); MEAN CORPUSCULAR HGB CONC 33.1 g/dL (32.0-36.0); MEAN CORPUSCULAR VOLUME 93.9 fL (83.0-99.0); MEAN PLATELET VOLUME 9.2 fL (9.4-12.3); MONOCYTES ABSOLUTE AUTO 0.76 K/uL (0.00-0.80); MONOCYTES PERCENT AUTO 9.2 % (0.0-8.0); NEUTROPHILS ABSOLUTE AUTO 5.12 K/uL (1.80-7.70); NEUTROPHILS PERCENT AUTO 61.9 % (41.0-71.0); PLATELET COUNT,PLT 307 K/uL (150-400); RED BLOOD CELL COUNT 4.44 M/uL (4.10-5.30); WHITE BLOOD CELL COUNT,WBC 8.27 K/uL (3.9-11.3)
[2024-03-21 18:54] LABS: BILIRUBIN,URINE NEGATIVE (NEGATIVE); COLOR,URINE YELLOW; GLUCOSE,URINE NEGATIVE (NEGATIVE); KETONES,URINE NEGATIVE (NEGATIVE); LEUKOCYTE ESTERASE,URINE MODERATE (NEGATIVE); NITRITE,URINE NEGATIVE (NEGATIVE); OCCULT BLOOD,URINE SMALL (NEGATIVE); PROTEIN,URINE NEGATIVE (NEGATIVE); UROBILINOGEN,URINE 0.2 EU/dL (<2.0)
[2024-03-21 19:05] LABS: APPEARANCE,URINE HAZY; BACTERIA,URINE FEW (NEGATIVE); EPITHELIAL CELLS,URINE FEW (NONE-FEW); MUCUS,URINE OCCASIONAL (NONE-MOD); RBC,URINE 0-2 (0-2/HPF)
[2024-03-21 19:12] LABS: A/G RATIO 1.1 (0.9-1.6); ALBUMIN 4.1 g/dL (3.4-5.0); CARBON DIOXIDE,CO2 30.1 mmol/L (21.0-32.0); CREATININE 1.3 mg/dL (0.6-1.0); EST CRCL DRUG DOSING (CG) 22.57 mL/min; MAGNESIUM 2.5 mg/dL (1.8-2.4); POTASSIUM,K 4.6 mmol/L (3.5-5.1); PROTEIN TOTAL,TP 7.7 g/dL (6.4-8.2)
[2024-03-21] MEDS: Lidocaine 2% Viscous Solution 15 ML UD PO ONE (19:20)
[2024-03-21 19:25] VITALS: PULSE 85
[2024-03-21] MEDS: Pregabalin 25 MG Cap PO STA (19:29)
[2024-03-21 20:42] VITALS: BP 131/74
== END 2024-03-21 20:45 | disposition home or self-care (01) ==
LOC: MW.ED 15:12
DX: N39.0 Urinary tract infection, site not specified (principal); B02.29 Other postherpetic nervous system involvement; I11.0 Hypertensive heart disease with heart failure; I50.9 Heart failure, unspecified; E11.9 Type 2 diabetes mellitus without complications; E03.9 Hypothyroidism, unspecified; Z75.8 Other problems related to medical facilities and other health care; Z88.5 Allergy status to narcotic agent; Z88.8 Allergy status to other drugs, medicaments and biological substances; Z79.890 Hormone replacement therapy; Z79.899 Other long term (current) drug therapy; Z90.49 Acquired absence of other specified parts of digestive tract
CPT/HCPCS: 36415; 80053; 81001; 83690; 83735; 85025; 87086; 96360; 99283; A9270; J7030

== ENCOUNTER 2024-04-05 15:20 | Emergency (ER) | payer MEDICARE, BC ==
[2024-04-05 15:53] LABS: BASOPHILS ABSOLUTE AUTO 0.05 K/uL (0.00-0.20); BASOPHILS PERCENT AUTO 0.6 % (0.0-1.0); EOSINOPHILS ABSOLUTE AUTO 0.15 K/uL (0.00-0.45); EOSINOPHILS PERCENT AUTO 1.9 % (0.0-6.0); HEMATOCRIT 41.3 % (37.0-47.0); HEMOGLOBIN 13.8 g/dL (12.0-16.0); IMMATURE GRAN ABSOLUTE AUTO 0.02 K/uL (0.00-0.05); IMMATURE GRAN PERCENT AUTO 0.3 % (0.0-0.4); LYMPHOCYTES ABSOLUTE AUTO 2.31 K/uL (1.00-4.80); LYMPHOCYTES PERCENT AUTO 29.3 % (24.0-44.0); MEAN CORPUSCULAR HEMOGLOBIN 31.3 pg (28.0-32.0); MEAN CORPUSCULAR HGB CONC 33.4 g/dL (32.0-36.0); MEAN CORPUSCULAR VOLUME 93.7 fL (83.0-99.0); MEAN PLATELET VOLUME 8.8 fL (9.4-12.3); MONOCYTES ABSOLUTE AUTO 0.72 K/uL (0.00-0.80); MONOCYTES PERCENT AUTO 9.1 % (0.0-8.0); NEUTROPHILS ABSOLUTE AUTO 4.63 K/uL (1.80-7.70); NEUTROPHILS PERCENT AUTO 58.8 % (41.0-71.0); PLATELET COUNT,PLT 295 K/uL (150-400); RED BLOOD CELL COUNT 4.41 M/uL (4.10-5.30); WHITE BLOOD CELL COUNT,WBC 7.88 K/uL (3.9-11.3)
[2024-04-05] MEDS: oxyCODONE 5 MG/5 ML Cup PO ONE (16:25)
[2024-04-05 16:26] LABS: ALBUMIN 3.9 g/dL (3.4-5.0); BILIRUBIN TOTAL 0.8 mg/dL (0.2-1.0); CALCIUM 9.9 mg/dL (8.5-10.1); CARBON DIOXIDE,CO2 27.8 mmol/L (21.0-32.0); CREATININE 1.3 mg/dL (0.6-1.0); EST CRCL DRUG DOSING (CG) 22.57 mL/min; POTASSIUM,K 4.6 mmol/L (3.5-5.1); PROTEIN TOTAL,TP 7.7 g/dL (6.4-8.2)
[2024-04-05 16:36] LABS: BILIRUBIN,URINE NEGATIVE (NEGATIVE); COLOR,URINE YELLOW; GLUCOSE,URINE NEGATIVE (NEGATIVE); KETONES,URINE NEGATIVE (NEGATIVE); LEUKOCYTE ESTERASE,URINE MODERATE (NEGATIVE); NITRITE,URINE NEGATIVE (NEGATIVE); OCCULT BLOOD,URINE SMALL (NEGATIVE); PROTEIN,URINE NEGATIVE (NEGATIVE); UROBILINOGEN,URINE 0.2 EU/dL (<2.0)
[2024-04-05 16:47] LABS: APPEARANCE,URINE SLT CLOUDY; BACTERIA,URINE FEW (NEGATIVE); EPITHELIAL CELLS,URINE FEW (NONE-FEW); RBC,URINE 0-2 (0-2/HPF)
[2024-04-05 17:45] VITALS: BP 132/80; PULSE 86
== END 2024-04-05 17:46 | disposition home or self-care (01) ==
LOC: MW.ED 15:20
DX: B02.29 Other postherpetic nervous system involvement (principal); E03.9 Hypothyroidism, unspecified; I25.10 Atherosclerotic heart disease of native coronary artery without angina pectoris; I11.0 Hypertensive heart disease with heart failure; I50.9 Heart failure, unspecified; E11.40 Type 2 diabetes mellitus with diabetic neuropathy, unspecified; I25.2 Old myocardial infarction; Z86.73 Personal history of transient ischemic attack (TIA), and cerebral infarction without residual deficits; Z79.899 Other long term (current) drug therapy; Z88.5 Allergy status to narcotic agent; Z88.8 Allergy status to other drugs, medicaments and biological substances
CPT/HCPCS: 36415; 80053; 81001; 85025; 87086; 99283; A9270